=== PATIENT | female | born 1960 | race Hispanic/Latino ===

== ENCOUNTER → 2016-09-14 | Outpatient (REF) | payer OTHER ==
[2016-09-14 13:43] LABS: MEAN CORPUSCULAR HEMOGLOBIN 28.6 pg (27.0-33.0); MEAN CORPUSCULAR HGB CONC 33.2 g/dl (32.0-36.5); MEAN CORPUSCULAR VOLUME 86.2 fl (80.0-96.0); RED CELL DISTRIBUTION WIDTH 12.9 % (11.5-14.5); WHITE BLOOD COUNT 9.8 K/mm3 (4.0-10.0)
[2016-09-14 14:13] LABS: ALBUMIN 3.8 GM/DL (3.2-5.2); ALBUMIN/GLOBULIN RATIO 1.03 (1.00-1.93); ALKALINE PHOSPHATASE 134 U/L (45-117); ALT/SGPT 36 U/L (12-78); ANION GAP 9 MEQ/L (8-16); AST/SGOT 28 U/L (15-37); BILIRUBIN,TOTAL 0.5 MG/DL (0.2-1.0); BLOOD UREA NITROGEN 13 MG/DL (7-18); CALCIUM LEVEL 9.1 MG/DL (8.5-10.1); CARBON DIOXIDE LEVEL 29 MEQ/L (21-32); CHLORIDE LEVEL 100 MEQ/L (98-107); CHOLESTEROL LEVEL 187 MG/DL (<200); CREATININE FOR GFR 0.72 MG/DL (0.55-1.02); GLOMERULAR FILTRATION RATE > 60.0 (>51); GLUCOSE, FASTING 305 MG/DL (70-105); POTASSIUM SERUM 4.2 MEQ/L (3.5-5.1); SODIUM LEVEL 138 MEQ/L (136-145); TOTAL PROTEIN 7.5 GM/DL (6.4-8.2); TRIGLYCERIDES LEVEL 271 MG/DL (<150)
== END ==
LOC: M SFHCPLAZ 10:30
PROVIDERS: ATTEND Nurse Practitioner Adult Health
DX: Z00.00 Encounter for general adult medical examination without abnormal findings (principal); E11.21 Type 2 diabetes mellitus with diabetic nephropathy

== ENCOUNTER → 2016-09-29 | Outpatient (CLI) | payer OTHER ==
--- NOTE | 2016-10-05 08:06 | REPMRS ---
Patient History The patient states she had a clinical breast exam in 08/2016. Patient is postmenopausal. Family history of ovarian cancer in mother. Digital Woman Screen Mammo: September 29, 2016 - Exam #: [id number] Bilateral CC and MLO view(s) were taken. Technologist: Indiana Chin, Technologist Prior study comparison: 2014, digital bilateral screening mammo, performed at [facility]. FINDINGS: There are scattered fibroglandular densities. There has been no change in the appearance of the mammogram from the prior studies. There is a mild amount of scattered fibroglandular density which is fairly symmetric. There is no interval development of dominant mass, architectural distortion, or clustered microcalcification suggestive of malignancy. ASSESSMENT: BI-RADS/ACR category 1 mammogram. Negative. Recommendation Routine screening mammogram in 1 year (for women over age 40). This mammogram was interpreted with the aid of an FDA-approved computer-aided dectection system. Electronically Signed By: Merlin Keating MD 10/05/16 0895
== END ==
LOC: M WHC 10:05
PROVIDERS: ATTEND Nurse Practitioner Adult Health
DX: Z12.31 Encounter for screening mammogram for malignant neoplasm of breast (principal)

== ENCOUNTER → 2016-10-01 | Outpatient (CLI) | payer OTHER ==
--- NOTE | 2016-10-01 10:19 | REP ---
LUMBAR SPINE SERIES: Five views. HISTORY: Pain FINDINGS: Five views of the lumbar spine demonstrate an intrarenal calculus projecting at the lower pole left kidney 6 mm in diameter. Lumbar vertebral body heights are preserved. Alignment is normal. There is discogenic spurring anteriorly with disc space narrowing at L4-5 and to some degree in the upper lumbar and visualized lower thoracic levels. Pedicles and posterior elements are intact. There is no evidence of spondylolysis or spondylolisthesis. There is some facet joint osteoarthritic narrowing and hypertrophy at L5 S1 and L4-5 bilaterally. Mild SI joint sclerosis is seen. There is a subcortical cyst in the right superior acetabulum consistent with right hip arthritis. This cyst measures 2 cm. IMPRESSION: 1. Degenerative disc and osteoarthritic facet changes as described above. 2. Arthritis associated cyst right acetabulum just above the right hip. 3. 6 mm intrarenal stone left kidney. Signed by Naun Keating MD 10/01/2016 10:27 A
--- NOTE | 2016-10-01 11:51 | REP ---
RIGHT HIP SERIES: Two views. HISTORY: Pain. FINDINGS: AP and frog-leg views of the right hip show mild inferior femoral acetabular spurring consistent with osteoarthritis. There is greater trochanteric tendon insertion site spurring noted as well. The femoral head is smooth and rounded. Hip joint space is preserved. Periarticular soft tissues are unremarkable. IMPRESSION: Right hip joint osteoarthritis mild in degree. There is also tendon insertion site spurring on the greater trochanter. Signed by Naun Keating MD 10/01/2016 12:58 P
== END ==
LOC: M WUC 08:39
PROVIDERS: ATTEND Nurse Practitioner Adult Health
DX: M25.551 Pain in right hip (principal); M54.5 Low back pain

== ENCOUNTER → 2016-10-13 | Outpatient (CLI) | payer OTHER ==
--- NOTE | 2016-10-13 08:29 | REP ---
Clinical: Acute abdominal pain. Technique: Fay scale ultrasound using curved array transducer. Findings: Fatty infiltration of the liver is appreciated without focal hepatic lesions identified. Visualized portions of the pancreas are unremarkable. The gallbladder is normal without gallstones, wall thickening or pericholecystic fluid. No biliary ductal dilatation is appreciated, and the common bile duct measures 4.8 mm diameter. The right kidney is normal in reniform shape without hydronephrosis and measures 11.9 x 6.6 x 5.6 cm; incidental note is made of column of Yang. No ascites. Visualized portions of the abdominal aorta normal. Impression: Hepatosteatosis. Otherwise normal right upper quadrant ultrasound. Signed by Ace Valenzuela MD 10/13/2016 08:20 A
== END ==
LOC: M RAD 07:52
PROVIDERS: ATTEND Nurse Practitioner Adult Health
DX: K76.0 Fatty (change of) liver, not elsewhere classified (principal)

== ENCOUNTER → 2017-02-22 | Outpatient (REF) | payer OTHER ==
[2017-02-22 15:18] LABS: ALBUMIN 3.4 GM/DL (3.2-5.2); ALBUMIN/GLOBULIN RATIO 1.03 (1.00-1.93); ALKALINE PHOSPHATASE 88 U/L (45-117); ALT/SGPT 39 U/L (12-78); ANION GAP 9 MEQ/L (8-16); AST/SGOT 29 U/L (15-37); BILIRUBIN,TOTAL 0.3 MG/DL (0.2-1.0); BLOOD UREA NITROGEN 11 MG/DL (7-18); CALCIUM LEVEL 8.6 MG/DL (8.5-10.1); CARBON DIOXIDE LEVEL 28 MEQ/L (21-32); CHLORIDE LEVEL 103 MEQ/L (98-107); CHOLESTEROL LEVEL 184 MG/DL (<200); CREATININE FOR GFR 0.66 MG/DL (0.55-1.02); GLOMERULAR FILTRATION RATE > 60.0 (>51); GLUCOSE, FASTING 181 MG/DL (70-105); POTASSIUM SERUM 3.7 MEQ/L (3.5-5.1); SODIUM LEVEL 140 MEQ/L (136-145); TOTAL PROTEIN 6.7 GM/DL (6.4-8.2); TRIGLYCERIDES LEVEL 315 MG/DL (<150)
== END ==
LOC: M SFHCPLAZ 10:25
PROVIDERS: ATTEND Nurse Practitioner Adult Health
DX: E78.2 Mixed hyperlipidemia (principal); I10 Essential (primary) hypertension; E11.21 Type 2 diabetes mellitus with diabetic nephropathy

== ENCOUNTER → 2017-03-07 | Outpatient (CLI) | payer OTHER ==
--- NOTE | 2017-03-07 16:00 | REP ---
MRI BRAIN WITHOUT CONTRAST: HISTORY: Headache. Several punctate areas of increased signal intensity on T2-weighted images are present in the periventricular and subcortical white matter. This represents small vessel ischemic disease. There is no intraparenchymal hemorrhage, infarct, mass or midline shift. The ventricular system is normal in appearance. There is no extracerebral collection. The sinuses are clear. IMPRESSION: Minimal small vessel ischemic disease. Signed by Judson Monique MD 03/07/2017 04:05 P
== END ==
LOC: M PLARAD 14:43
PROVIDERS: ATTEND Nurse Practitioner Adult Health
DX: R51 Headache (principal); I67.82 Cerebral ischemia

== ENCOUNTER → 2017-03-10 | Outpatient (CLI) | payer OTHER ==
--- NOTE | 2017-03-25 01:23 | ECWPNPC ---
PATIENT NAME: XUAN MOON : 1960 GENDER: FEMALE VISIT DATE: 03/10/2017 DISCHARGE DATE: 03/10/17 1443 VISIT LOCKED DATE TIME: PHYSICIAN: ALLIE LANGLEY RESOURCE: ALLIE LANGLEY REASON FOR APPOINTMENT 1. RIGHT HIP PAIN HISTORY OF PRESENT ILLNESS FALL RISK SCREENING: SCREENING :NO FALLS IN THE PAST YEAR 56 YEAR OLD FEMALE PATIENT WITH HISTORY OF CHRONIC LOW BACK PAIN. PATIENT DESCRIBES THE PAIN ACHING, THROBBING, TENDER, SORE AND HAVING IT ALL THE TIME WITH A PAIN SCORE OF 8/10. PATIENT STATES THAT THE PAIN STARTED EARLY IN 2016 WITH NO TRAUMA BUT HAS GOTTEN PROGRESSIVELY WORSE. PATIENT STATES THAT SHE IS UNABLE TO SIT OR STAND FOR LONG PERIODS OF TIME DUE TO THE PAIN INCREASING. PATIENT REPORTS TRYING NORCO WHICH MADE HER SICK, TRAMADOL DID NOT AID IN PAIN RELIEF, DICLOFENAC GAVE HER FACIAL EDEMA, AND BACLOFEN MADE HER FEEL LOOPY. PATIENT STATES SHE HAS NOT TRIED PHYSICAL THERAPY FOR HER HIP AT THIS TIME. PATIENT DENIES UNEXPLAINABLE WEIGHT LOSS, FEVER, CHILLS, NEW CHANGES ON HER URINARY OR BOWEL CONTROL. PAIN SCREENING: PATIENT HAS A COMPLAINT OF ACUTE OR CHRONIC PAIN :YES CURRENT MEDICATIONS TAKING PEN NEEDLES 31G X 8 MM MISCELLANEOUS 1 NEEDLE SUBCUTANEOUSLY DAILY TO USE WITH TOUJEO DX:E11.9 TAKING ATORVASTATIN CALCIUM 40 MG TABLET 1 TABLET ORALLY ONCE A DAY TAKING LISINOPRIL 20 MG TABLET 1 TABLET ORALLY ONCE A DAY TAKING ANORO ELLIPTA 62.5-25 MCG/INH AEROSOL POWDER BREATH ACTIVATED 1 PUFF INHALATION ONCE A DAY TAKING TOUJEO SOLOSTAR 300 UNIT/ML SOLUTION PEN-INJECTOR 44 UNITS SUBCUTANEOUS DAILY TAKING METFORMIN HCL 1000 MG TABLET 1 TABLET WITH MEALS ORALLY TWICE A DAY TAKING ANORO ELLIPTA 62.5-25MCG INHALATION INHALE ONE PUFF BY MOUTH EVERY DAY TAKING TOUJEO SOLOSTAR 300 UNITS SYRINGE INJECT 34 UNITS SUBCUTANEOUSLY DAILY TAKING PROAIR HFA 108 (90 BASE) MCG/ACT AEROSOL SOLUTION 2 PUFFS NEEDED INHALATION EVERY 4 HRS TAKING NEURONTIN 300 MG CAPSULE 1 CAPSULE ORALLY 1 TAB AT BEDTIME X 10DAYS THEN INCREASE TO ONE TAB IN AM AND ONE TAB IN PM TAKING BLOOD GLUCOSE TEST - STRIP TRUE TEST IN VITRO DX:E11.21 DAILY NOT-TAKING MOBIC 15 MG TABLET TAKE ONE TABLET BY MOUTH EVERY DAY MEDICATION LIST REVIEWED AND RECONCILED WITH THE PATIENT PAST MEDICAL HISTORY DIABETES MELLITUS TYPE 2 NEUROPATHY HYPERTENSION HYPERCHOLESTEROL COPD HX TOBACCO ABUSE FATTY LIVER PER ULTRASOUND 10/13/16 6 MM INTRARENAL KIDNEY STONE, PER ULTRASOUND 10/13/16 REFUSES REFERRAL TO UROLOGY 09/14/16, 02/22/17- REFUSES COLONOSCOPY RIGHT KIDNEY COLUMN OF BERLIN NOTED ON XRAY 10/13/16 ALLERGIES PLASTIC: RASH: ALLERGY SURGICAL HISTORY APPENDECTOMY AGE 18 2000 FAMILY HISTORY FATHER: ALIVE 78 YRS, DM2, HEART PROBLEMS TRIPLE BYPASS, DEMENTIA MOTHER: 70 YRS, UTERINE CANCER- HAD OPERATION, FELL, BLEEDING OCCURRED HAD METS PASSED HTN, DIAGNOSED WITH CANCER 6 SISTERS OK2 BROTHERS OK3 CHILDREN 2 BOYS 1 DAUGHTER. SOCIAL HISTORY GENERAL: TOBACCO USE ARE YOU A:FORMER SMOKER HOW LONG HAS IT BEEN SINCE YOU LAST SMOKED?1-5 YEARS BMI CARE GOAL FOLLOW-UP ABOVE NORMAL BMI FOLLOW-UPDIETARY MANAGEMENT EDUCATION, GUIDANCE, AND COUNSELING ALCOHOL SCREENING DID YOU HAVE A DRINK CONTAINING ALCOHOL IN THE PAST YEAR?NO POINTS0 INTERPRETATIONNEGATIVE RECREATIONAL DRUG USE DRUG USE?NO PATIENT DENIES ABUSE OR MISSUSED OF ANY MEDICATION. PATIENT DENIES USE OF ANY ILLEGAL SUBSTANCE INCLUDING MARIJUANA OR COCAINE. CAFFEINE CAFFEINE USE?NO SEXUAL HX HAD SEX IN THE LAST 12 MONTHS (VAGINAL, ORAL, OR ANAL)?NO HAVE YOU EVER HAD AN STD?NO HIV / HEP-C SCREENING HIV TEST OFFERED TO PATIENT:YES DATE OFFERED:09/14/2016 TEST ACCEPTED:NO REASON:PATIENT DECLINED HEP-C TEST OFFERED TO PATIENT:YES DATE OFFERED:09/14/2016 TEST ACCEPTED:NO REASON:PATIENT DECLINED OCCUPATION: UNEMPLOYED WORKED IN [employer]. DIET: NO CONCENTRATED SWEETS., NO ADDED SALT. EXERCISE: NO REGULAR EXERCISE. MARITAL STATUS: -14 MONTHS. OTHERS AT HOME: 1 SON. PETS: 1 DOG. 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 NO HAVE YOU BEEN SICK IN THE LAST WEEK (COLD, COUGH, FEVER, FLU, ETC) NO DO YOU TAKE ANY BLOOD THINNERS? NO DO YOU HAVE ANY RASHES OR OPEN SORES? NO ANY CHANGE IN BOWEL OR BLADDER CONTROL? PT STATES THAT SHE VOIDS MORE THAN USUAL ARE YOU ALLERGIC TO SHELLFISH OR IV DYE? PT STATES THAT SHE DOES NOT TOLERATE IV DYE, HYPOTENSIVE ARE YOU DIABETIC? YES DO YOU HAVE A PACEMAKER OR DEFIBRILLATOR? NO ANY NEW PROBLEMS WITH MEDICINES OR NEW ALLERGIES NO ANY NEW PATTERNS OF PAIN OR NUMBNESS? PT STATES THAT SHE HAS CONSTANT PAIN AND SEEMS TO BE GETTING MORE INTENSE ANY CHANGE IN YOUR MEDICAL CONDITION? PT STATES THAT SHE HAD AN EPISODE OF CHEST PAIN LESS THAN A WEEK AGO HAVE YOU FALLEN IN THE LAST 6 MONTHS? NO DO YOU USE ANY TYPE OF TOBACCO (SMOKE, SMOKELESS, CHEW, ETC.) NO ARE YOU ABUSED, NEGLECTED, OR IN AN UNSAFE ENVIRONMENT? NO DO YOU HAVE THOUGHTS OF HURTING YOURSELF OR SOMEONE ELSE? NO DO YOU NEED ANY PRESCRIPTIONS? UNSURE PAIN CLINIC PFS, CLERGY, PUBLIC HEALTH REFERRALS WAS THE PROVIDER NOTIFIED OF ANY PERTINENT INFO?YES HAS THE PATIENT BEEN EDUCATED REGARDING HIS/HER PLAN OF CARE?YES PLEASE DOCUMENT ANY ADDTIONAL DETAILS. NEW PATIENT CONSULT HAS THE PATIENT BEEN EDUCATED REGARDING PAIN, THE RISK FOR PAIN, THE IMPORTANCE OF EFFECTIVE PAIN MANAGEMENT, AND THE PAIN ASSESSMENT PROCESS?YES REVIEWED BY: FERMIN. TRAVEL OUTSIDE US: NO. HOUSING: RENTS APARTMENT WITH DAUGHTER AND SON. : YES. DOMESTIC VIOLENCE NONE. MOVED TO [place] 14 MONTHS AGO WHEN FROM [facility]. JAKI, FOLLOWED WITH FOR SEVERAL YEARS IN [facility]. REVIEW OF SYSTEMS REVIEWED BY: PROVIDER: ALLIE LANGLEY MD . CONSTITUTIONAL: ANY CHANGE IN YOUR MEDICAL CONDITION? YES . CHILLS NO . FEVER NO . INFECTION: DO YOU HAVE NEW INFECTIONS? NO . DO YOU HAVE HISTORY OF MRSA? NO . MUSCULOSKELETAL: ANY NEW PATTERNS OF PAIN OR NUMBNESS? YES, . SYTEMIC LUPUS NO . GASTROENTEROLOGY: ANY NEW CHANGE IN BOWEL CONTROL? NO . BARRETTS ESOPHAGUS NO . CIRRHOSIS NO . HEPATITIS NO . LIVER FAILURE NO . ACID REFLUX NO . UNEXPLAINED WEIGHT LOSS NO . GENITOURINARY: ANY NEW CHANGE IN BLADDER CONTROL? NO . IS THERE A CHANCE YOU COULD BE ? NO . HEMATOLOGY/LYMPH: DO YOU TAKE ANY BLOOD THINNERS? (FOR EXAMPLE- COUMADIN, PLAVIX, AGGRENOX, PLATEL, PRADAXA, OR XARELTO) NO . WHEN WAS YOUR LAST DOSE? DATE: TIME: . LOW PLATELET COUNT NO . SICKLE CELL DISEASE NO . VON WILLIEBRANDS NO . FACTOR V LEIDEN NO . THALLASEMIA NO . ANEMIA NO . EASY BRUISING NO . NEUROLOGY: HAVE YOU FALLEN IN THE PAST 6 MONTHS? NO . ANY NEW EXTREMITY NUMBNESS OR WEAKNESS? NO . HEAD INJURY NO . DEMENTIA NO . CEREBRAL PALSY NO . MULTIPLE SCLEROSIS NO . DIZZINESS NO . HEADACHE NO . STROKES NO . VERTIGO NO . CARDIOLOGY: DO YOU HAVE A PACEMAKER OR DEFIBRILLATOR? NO . ANGINA NO . HEART ATTACK NO . HEART SURGERY NO . CONGESTIVE HEART FAILURE/FLUID OVERLOAD NO . CHEST PAIN PATIENT ADMITS THAT SHE EXPERIENCED AN EPISODE OF CHEST PAIN ON TUESDAY, LASTED FOR 6 HOURS, PT TOOK ANTACIDS TO TRY AN RELIEVE PAIN. PAIN DID NOT RESOLVE UNTIL PAIN RESTED IN BED, PT STATES THAT SHE HAS AN APPT WITH PCP ON February . HIGH BLOOD PRESSURE NO . IRREGULAR HEART BEAT NO . RESPIRATORY: HAVE YOU BEEN SICK IN THE PAST WEEK? NO . FEVER NO . FLU LIKE SYMPTOMS? NO . CPAP NO . BYPAP NO . ASTHMA NO . EMPHYSEMA NO . CHRONIC LUNG DISEASES NO . SHORTNESS OF BREATH ON EXERTION NO . COUGH NO . SNORING NO . INTEGUMENTARY: DO YOU HAVE ANY RASHES OR OPEN SORES? NO . ALLERGIC/IMMUNO: ARE YOU ALLERGIC TO SHELLFISH OR IV DYE? NO . ANY NEW ALLERGIES? NO . PSYCHIATRIC: DO YOU HAVE THOUGHTS OF HURTING YOURSELF OR SOMEONE ELSE? NO . ARE YOU ABUSED, NEGLECTED, OR IN AN UNSAFE ENVIRONMENT? NO . ENDOCRINOLOGY: ARE YOU DIABETIC? YES. . THYROID DISORDER NO . OTHER: DO YOU NEED ANY PRESCRIPTIONS? NO . IF YES, PLEASE LIST: ____ . ANY NEW PROBLEMS WITH YOUR MEDICATIONS? NO . WHEN DID YOU LAST EAT? ____ . WHEN DID YOU LAST DRINK? ____ . WHAT DID YOU LAST DRINK? ____ . NAME OF PERSON DRIVING YOU HOME? ____ . DO YOU HAVE ANY OTHER QUESTIONS OR CONCERNS YES, THE PAIN IS GETTING BAD . VITAL SIGNS WT 252.4 LBS, HT 5'2", BMI 46.16 INDEX, BP 175/87 MM HG, HR 82 /MIN, RR 16 /MIN, TEMP 98.6 F, OXYGEN SAT % 94%, BLOOD GLUCOSE LEVEL 299, SAFE IN ENV? (Y/N) Y, NA INITIALS SC 14:08, REVIEWED BY: FERMIN. EXAMINATION : PATIENT IS ALERT O X 3 AND COOPERATIVE. TENDERNESS IN THE LOWER BACK AND HIP AREA. ANTALGIC GAIT. LIMPING FROM THE RIGHT LEG. MRI OF THE LUMBAR SPINE DONE ON 11/11/16 SHOWS POST LAMINECTOMY CHANGES AND FACET DEGENERATIVE CHANGES. ASSESSMENTS MYALGIA - M79.1 (PRIMARY) DIABETIC POLYNEUROPATHY ASSOCIATED WITH TYPE 2 DIABETES MELLITUS - E11.42 TREATMENT MYALGIA NOTES: WE DISCUSSED SEVERAL ISSUES WITH MRS. MOON'S PAIN MANAGEMENT CASE. AT TIME I WOULD LIKE THE PATIENT TO INCREASE HER GABAPENTIN TO 3 TIMES A DAY TO SEE IF IT WILL AID IN NEUROPATHIC PAIN RELIEF. I WOULD ALSO LIKE THE PATIENT TO START USING CYMBALTA FOR THE SOMATIC PAIN. PATIENT WAS ADVISED TO STOP THE MEDICATION IF SHE HAS ANY ADVERSE SIDE EFFECTS TO THE MEDICATION. WE DISCUSSED SEVERAL INTERVENTIONS THAT MAY AID THE PATIENT IN PAIN RELIEF AND AT THIS TIME THE PATIENT WOULD LIKE TO PROCEED WITH MEDICATION MANAGEMENT. PATIENT WILL RETURN IN 3 WEEKS TO DISCUSS HOW THE MEDICATIONS WORKED FOR HER. INSTRUCTIONS WERE GIVEN, QUESTIONS WERE ANSWERED, PATIENT REPORTS UNDERSTANDING AND AGREES WITH THE PLAN. I, VENKATESH SNOW, DOCUMENTED THE ABOVE INFORMATION ACTING A SCRIBE FOR DR. LANGLEY. I HAVE REVIEWED THE ABOVE DOCUMENT, WRITTEN BY VENKATESH NUÑEZ AND I VERIFY THAT IT IS ACCURATE. DIABETIC POLYNEUROPATHY ASSOCIATED WITH TYPE 2 DIABETES MELLITUS REFILL NEURONTIN CAPSULE, 300 MG, 1 CAPSULE, ORALLY FOR PAIN, THREE TIMES A DAY, 30 DAY(S), 90 CAPSULE, REFILLS 1 OTHERS START CYMBALTA CAPSULE DELAYED RELEASE PARTICLES, 30 MG, 1 CAPSULE, ORALLY WITH FOOD, ONCE A DAY, 30 DAY(S), 30 CAPSULE, REFILLS 1 PROCEDURE CODES FA211 ESTABILISHED PATIENT [facility] FACILITY CHARGE G8427 DOC MEDS VERIFIED W/PT OR RE G8227 PAIN ASSESS POS TOOL F/U PLAN DOC DISPOSITION & COMMUNICATION FOLLOW UP 3 WEEKS ELECTRONICALLY SIGNED BY ALLIE LANGLEY MD ON 03/24/2017 AT 01:29 PM EDT DISCLAIMER : THIS IS A VISIT SUMMARY EXTRACTED FROM THE [employer] CHART. IT IS NOT A COPY OF THE [employer] PROGRESS NOTE. CHANO
== END ==
LOC: M PAIN 13:45
PROVIDERS: ATTEND Anesthesiology
DX: G89.29 Other chronic pain (principal); M79.1 Myalgia; E11.42 Type 2 diabetes mellitus with diabetic polyneuropathy; M54.5 Low back pain; I10 Essential (primary) hypertension; E78.00 Pure hypercholesterolemia, unspecified; J44.9 Chronic obstructive pulmonary disease, unspecified; K76.0 Fatty (change of) liver, not elsewhere classified; Z79.4 Long term (current) use of insulin; Z79.899 Other long term (current) drug therapy; Z87.891 Personal history of nicotine dependence; Z91.048 Other nonmedicinal substance allergy status

== ENCOUNTER → 2017-03-31 | Outpatient (CLI) | payer OTHER ==
--- NOTE | 2017-04-20 02:15 | ECWPNPC ---
PATIENT NAME: XUAN MOON : 1960 GENDER: FEMALE VISIT DATE: 03/31/2017 DISCHARGE DATE: 03/31/17 1333 VISIT LOCKED DATE TIME: PHYSICIAN: JUMANA DONALD RESOURCE: JUMANA DONALD REASON FOR APPOINTMENT 1. RIGHT HIP HISTORY OF PRESENT ILLNESS HISTORY OF PRESENT ILLNESS: HERE FOR F/U OF CHRONIC LOW BACK PAIN AFTER INITIAL VISIT 3 WEEKS AGO.SHE WAS STARTED ON CYMBALTA 30MG DAILY AND GABAPENTIN WAS INCREASED.STATES PAIN AND SYMPTOMS OF NEUROPATHY HAVE IMPROVED.RATINGPAIN VAS 4/10.WORSE AREA OF PAIN IS RIGHT LOW BACK WITH RADIATION INTO RIGHT THIGH.PAIN IS AGGREVATED BY BENDING.DID PT 2 MONTHS AGO AND THIS MADE IT WORSE.HAD LUMBOSACRAL XRAY 10-01-16 AND THIS IS REVIEWED.HAVING RIGHT LEG RADICULAR SYMPTOMS THAT HAVE GOTTEN WORSE AND WE WOULD NEED MRI L/S SPINE TO EVALUATE. PAIN THE PATIENT DESCRIBES THE PAIN... FALL RISK SCREENING: SCREENING :NO FALLS IN THE PAST YEAR CURRENT MEDICATIONS TAKING PEN NEEDLES 31G X 8 MM MISCELLANEOUS 1 NEEDLE SUBCUTANEOUSLY DAILY TO USE WITH TOUJEO DX:E11.9 TAKING ATORVASTATIN CALCIUM 40 MG TABLET 1 TABLET ORALLY ONCE A DAY TAKING ANORO ELLIPTA 62.5-25 MCG/INH AEROSOL POWDER BREATH ACTIVATED 1 PUFF INHALATION ONCE A DAY TAKING TOUJEO SOLOSTAR 300 UNIT/ML SOLUTION PEN-INJECTOR 44 UNITS SUBCUTANEOUS DAILY TAKING METFORMIN HCL 1000 MG TABLET 1 TABLET WITH MEALS ORALLY TWICE A DAY TAKING BLOOD GLUCOSE TEST - STRIP TRUE TEST IN VITRO DX:E11.21 DAILY TAKING CYMBALTA 30 MG CAPSULE DELAYED RELEASE PARTICLES 1 CAPSULE ORALLY WITH FOOD ONCE A DAY TAKING NEURONTIN 300 MG CAPSULE 1 CAPSULE ORALLY FOR PAIN THREE TIMES A DAY TAKING LISINOPRIL 20 MG TABLET 1 TABLET ORALLY ONCE A DAY TAKING MOBIC 15 MG TABLET TAKE ONE TABLET BY MOUTH EVERY DAY TAKING PROAIR HFA 108 (90 BASE) MCG/ACT AEROSOL SOLUTION 2 PUFFS NEEDED INHALATION EVERY 4 HRS NOT-TAKING ANORO ELLIPTA 62.5-25MCG INHALATION INHALE ONE PUFF BY MOUTH EVERY DAY NOT-TAKING TOUJEO SOLOSTAR 300 UNITS SYRINGE INJECT 34 UNITS SUBCUTANEOUSLY DAILY MEDICATION LIST REVIEWED AND RECONCILED WITH THE PATIENT PAST MEDICAL HISTORY DIABETES MELLITUS TYPE 2 NEUROPATHY HYPERTENSION HYPERCHOLESTEROL COPD HX TOBACCO ABUSE FATTY LIVER PER ULTRASOUND 5/24/17 6 MM INTRARENAL KIDNEY STONE, PER ULTRASOUND 10/13/16 REFUSES REFERRAL TO UROLOGY 09/14/16, 02/22/17- REFUSES COLONOSCOPY RIGHT KIDNEY COLUMN OF BERLIN NOTED ON XRAY 10/13/16 ALLERGIES PLASTIC: RASH: ALLERGY SURGICAL HISTORY APPENDECTOMY AGE 18 2000 SOCIAL HISTORY GENERAL: TOBACCO USE ARE YOU A:FORMER SMOKER HOW LONG HAS IT BEEN SINCE YOU LAST SMOKED?1-5 YEARS BMI CARE GOAL FOLLOW-UP ABOVE NORMAL BMI FOLLOW-UPDIETARY MANAGEMENT EDUCATION, GUIDANCE, AND COUNSELING ALCOHOL SCREENING DID YOU HAVE A DRINK CONTAINING ALCOHOL IN THE PAST YEAR?NO POINTS0 INTERPRETATIONNEGATIVE RECREATIONAL DRUG USE DRUG USE?NO PATIENT DENIES ABUSE OR MISSUSED OF ANY MEDICATION. PATIENT DENIES USE OF ANY ILLEGAL SUBSTANCE INCLUDING MARIJUANA OR COCAINE. CAFFEINE CAFFEINE USE?NO SEXUAL HX HAD SEX IN THE LAST 12 MONTHS (VAGINAL, ORAL, OR ANAL)?NO HAVE YOU EVER HAD AN STD?NO HIV / HEP-C SCREENING HIV TEST OFFERED TO PATIENT:YES DATE OFFERED:09/14/2016 TEST ACCEPTED:NO REASON:PATIENT DECLINED HEP-C TEST OFFERED TO PATIENT:YES DATE OFFERED:09/14/2016 TEST ACCEPTED:NO REASON:PATIENT DECLINED OCCUPATION: UNEMPLOYED WORKED IN [employer]. DIET: NO CONCENTRATED SWEETS., NO ADDED SALT. EXERCISE: NO REGULAR EXERCISE. MARITAL STATUS: -14 MONTHS. OTHERS AT HOME: 1 SON. PETS: 1 DOG. 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 NO HAVE YOU BEEN SICK IN THE LAST WEEK (COLD, COUGH, FEVER, FLU, ETC) NO DO YOU TAKE ANY BLOOD THINNERS? NO DO YOU HAVE ANY RASHES OR OPEN SORES? NO ANY CHANGE IN BOWEL OR BLADDER CONTROL? PT STATES THAT SHE VOIDS MORE THAN USUAL ARE YOU ALLERGIC TO SHELLFISH OR IV DYE? PT STATES THAT SHE DOES NOT TOLERATE IV DYE, HYPOTENSIVE ARE YOU DIABETIC? YES DO YOU HAVE A PACEMAKER OR DEFIBRILLATOR? NO ANY NEW PROBLEMS WITH MEDICINES OR NEW ALLERGIES NO ANY NEW PATTERNS OF PAIN OR NUMBNESS? PT STATES THAT SHE HAS CONSTANT PAIN AND SEEMS TO BE GETTING MORE INTENSE ANY CHANGE IN YOUR MEDICAL CONDITION? PT STATES THAT SHE HAD AN EPISODE OF CHEST PAIN LESS THAN A WEEK AGO HAVE YOU FALLEN IN THE LAST 6 MONTHS? NO DO YOU USE ANY TYPE OF TOBACCO (SMOKE, SMOKELESS, CHEW, ETC.) NO ARE YOU ABUSED, NEGLECTED, OR IN AN UNSAFE ENVIRONMENT? NO DO YOU HAVE THOUGHTS OF HURTING YOURSELF OR SOMEONE ELSE? NO DO YOU NEED ANY PRESCRIPTIONS? UNSURE PAIN CLINIC PFS, CLERGY, PUBLIC HEALTH REFERRALS WAS THE PROVIDER NOTIFIED OF ANY PERTINENT INFO?YES HAS THE PATIENT BEEN EDUCATED REGARDING HIS/HER PLAN OF CARE?YES PLEASE DOCUMENT ANY ADDTIONAL DETAILS. NEW PATIENT CONSULT HAS THE PATIENT BEEN EDUCATED REGARDING PAIN, THE RISK FOR PAIN, THE IMPORTANCE OF EFFECTIVE PAIN MANAGEMENT, AND THE PAIN ASSESSMENT PROCESS?YES REVIEWED BY: FERMIN. ADVANCE DIRECTIVES HEALTH CARE PROXY?NO DO YOU HAVE A DNR?NO LIVING WILL?NO POWER OF [employer] SYSTEMS INTEGRATION SPECIALIST?NO TRAVEL OUTSIDE US: NO. HOUSING: RENTS APARTMENT WITH DAUGHTER AND SON. : YES. DOMESTIC VIOLENCE NONE. MOVED TO [place] 14 MONTHS AGO WHEN FROM [facility]. JAKI, FOLLOWED WITH FOR SEVERAL YEARS IN [facility]. REVIEW OF SYSTEMS REVIEWED BY: PROVIDER: JUMANA MONSON . CONSTITUTIONAL: ANY CHANGE IN YOUR MEDICAL CONDITION? NO . CHILLS NO . FEVER NO . INFECTION: DO YOU HAVE NEW INFECTIONS? NO . DO YOU HAVE HISTORY OF MRSA? NO . MUSCULOSKELETAL: ANY NEW PATTERNS OF PAIN OR NUMBNESS? NO, PT STATES THE CHANGE IN MEDICINE REGIMINE MADE AT LAST VISIT HAS IMPROVED PAIN. PT STATES SHE HAS TO WATCH WHAT SHE DOES IN ACTIVITES TO NOT OVER DO THINGS OR THE PAIN INCREASES . GASTROENTEROLOGY: ANY NEW CHANGE IN BOWEL CONTROL? NO . GENITOURINARY: ANY NEW CHANGE IN BLADDER CONTROL? NO . IS THERE A CHANCE YOU COULD BE ? NO . HEMATOLOGY/LYMPH: DO YOU TAKE ANY BLOOD THINNERS? (FOR EXAMPLE- COUMADIN, PLAVIX, AGGRENOX, PLATEL, PRADAXA, OR XARELTO) NO . WHEN WAS YOUR LAST DOSE? DATE: TIME: . NEUROLOGY: HAVE YOU FALLEN IN THE PAST 6 MONTHS? NO . ANY NEW EXTREMITY NUMBNESS OR WEAKNESS? NO . CARDIOLOGY: DO YOU HAVE A PACEMAKER OR DEFIBRILLATOR? NO . RESPIRATORY: HAVE YOU BEEN SICK IN THE PAST WEEK? NO . FEVER NO . FLU LIKE SYMPTOMS? NO . COUGH NO . INTEGUMENTARY: DO YOU HAVE ANY RASHES OR OPEN SORES? NO . ALLERGIC/IMMUNO: ARE YOU ALLERGIC TO SHELLFISH OR IV DYE? NO . ANY NEW ALLERGIES? NO . PSYCHIATRIC: DO YOU HAVE THOUGHTS OF HURTING YOURSELF OR SOMEONE ELSE? NO . ARE YOU ABUSED, NEGLECTED, OR IN AN UNSAFE ENVIRONMENT? NO . ENDOCRINOLOGY: ARE YOU DIABETIC? YES . OTHER: DO YOU NEED ANY PRESCRIPTIONS? NO . IF YES, PLEASE LIST: ____ . ANY NEW PROBLEMS WITH YOUR MEDICATIONS? NO . WHEN DID YOU LAST EAT? ____ . WHEN DID YOU LAST DRINK? ____ . WHAT DID YOU LAST DRINK? ____ . NAME OF PERSON DRIVING YOU HOME? ____ . DO YOU HAVE ANY OTHER QUESTIONS OR CONCERNS NO . VITAL SIGNS WT 250 LBS, HT 5'2", BMI 45.72 INDEX, BP 186/93 MM HG, HR 87 /MIN, RR 16 /MIN, TEMP 98.4 F, OXYGEN SAT % 94%, NA INITIALS SC 12:56, REVIEWED BY: NARAYAN DONALD AWARE OF B/P. EM. EXAMINATION GENERAL EXAMINATION: GENERAL APPEARANCE:AWAKE,ALERT,NO ACUTE DISTRESS. LUNGS:LUNG SILVA ARE CLEAR TO AUSCULTATION BILATERALLY. GOOD MOVEMENT OF AIR. HEART:S1, S2 IN A REGULAR RATE AND RHYTHM. NO SIGNIFICANT MURMURS, RUBS OR GALLOPS NOTED. MUSCULOSKELETAL:MUSCLE STRENGTH TESTING 5/5 BILATERAL LOWER EXTREMITIES. LUMBAR SACRAL SPINEPALPATION: + FOR PAIN OVER L/S SPINE. + FOR PAIN OVER L/S PARSPINAL -RIGHT, TRIGGER POINTS:, ELICITED WITH PALPATION OVER RIGHT LUMBAR PARAVERTEBRAL MUSCLES. SPECIFIC RIGHT SIJ TENDERNESS. 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 WITHOUT [id number] PROCEDURE CODES FA211 ESTABILISHED PATIENT [facility] CHARGE DISPOSITION & COMMUNICATION FOLLOW UP 4 WEEKS ELECTRONICALLY SIGNED BY IONA FAJARDO ON 04/18/2017 AT 07:46 PM EST DISCLAIMER : THIS IS A VISIT SUMMARY EXTRACTED FROM THE [employer] media CHART. IT IS NOT A COPY OF THE [employer] PROGRESS NOTE. KEVIND
== END ==
LOC: M PAIN 13:15
PROVIDERS: ATTEND Nurse Practitioner Family
DX: G89.29 Other chronic pain (principal); M54.40 Lumbago with sciatica, unspecified side; M53.3 Sacrococcygeal disorders, not elsewhere classified; E11.42 Type 2 diabetes mellitus with diabetic polyneuropathy; I10 Essential (primary) hypertension; E78.2 Mixed hyperlipidemia; J44.9 Chronic obstructive pulmonary disease, unspecified; K76.0 Fatty (change of) liver, not elsewhere classified; L23.89 Allergic contact dermatitis due to other agents; Z79.51 Long term (current) use of inhaled steroids; Z79.4 Long term (current) use of insulin; Z79.1 Long term (current) use of non-steroidal anti-inflammatories (NSAID); Z79.899 Other long term (current) drug therapy; Z87.891 Personal history of nicotine dependence

== ENCOUNTER → 2017-04-28 | Outpatient (CLI) | payer OTHER | LOC: M PAIN 10:30 | DX: M54.40 Lumbago with sciatica, unspecified side (principal); M53.3 Sacrococcygeal disorders, not elsewhere classified; E11.42 Type 2 diabetes mellitus with diabetic polyneuropathy; I10 Essential (primary) hypertension; J44.9 Chronic obstructive pulmonary disease, unspecified; N20.0 Calculus of kidney; L23.89 Allergic contact dermatitis due to other agents; Z79.4 Long term (current) use of insulin; Z79.51 Long term (current) use of inhaled steroids; Z79.899 Other long term (current) drug therapy; Z87.891 Personal history of nicotine dependence | CPT/HCPCS: G0463 ==

== ENCOUNTER → 2017-06-24 | Outpatient (REF) | payer OTHER ==
[2017-06-24 12:38] LABS: ALBUMIN 4.3 GM/DL (3.2-5.2); ALBUMIN/GLOBULIN RATIO 1.16 (1.00-1.93); ALKALINE PHOSPHATASE 95 U/L (45-117); ALT/SGPT 65 U/L (12-78); ANION GAP 9 MEQ/L (8-16); AST/SGOT 56 U/L (7-37); BILIRUBIN,TOTAL 0.5 MG/DL (0.2-1.0); BLOOD UREA NITROGEN 11 MG/DL (7-18); CALCIUM LEVEL 9.3 MG/DL (8.5-10.1); CARBON DIOXIDE LEVEL 28 MEQ/L (21-32); CHLORIDE LEVEL 100 MEQ/L (98-107); CHOLESTEROL LEVEL 196 MG/DL (<200); CHOLESTEROL RISK RATIO 5.297 (<5); CREATININE FOR GFR 0.68 MG/DL (0.55-1.30); GLOMERULAR FILTRATION RATE > 60.0 (>51); GLUCOSE, FASTING 209 MG/DL (70-100); HDL CHOLESTEROL 37 MG/DL (>40); LDL CHOLESTEROL 121.2 MG/DL (<100); NON-HDL-C 159 MG/DL; POTASSIUM SERUM 4.3 MEQ/L (3.5-5.1); SODIUM LEVEL 137 MEQ/L (136-145); TRIGLYCERIDES LEVEL 189 MG/DL (<150)
[2017-06-24 12:48] LABS: CREATININE, URINE 88.5 MG/DL; MALB URINE SIEMENS 17.2 MG/L; MAU/CREAT RATIO 19.4 MCG/MG (0.0-30.0)
[2017-06-24 14:55] LABS: ESTIMATED AVERAGE GLUCOSE 240 MG/DL (60-110)
== END ==
LOC: M SFHCPLAZ 09:41
DX: E11.21 Type 2 diabetes mellitus with diabetic nephropathy (principal); E78.2 Mixed hyperlipidemia
CPT/HCPCS: 83036

== ENCOUNTER → 2017-07-20 | Outpatient (CLI) | payer OTHER | LOC: M PAIN 10:00 | DX: E11.42 Type 2 diabetes mellitus with diabetic polyneuropathy (principal); M54.40 Lumbago with sciatica, unspecified side; M53.3 Sacrococcygeal disorders, not elsewhere classified; G89.29 Other chronic pain; E11.9 Type 2 diabetes mellitus without complications; I10 Essential (primary) hypertension; J44.9 Chronic obstructive pulmonary disease, unspecified; E78.5 Hyperlipidemia, unspecified; Z79.4 Long term (current) use of insulin; Z79.899 Other long term (current) drug therapy; Z87.891 Personal history of nicotine dependence; Z91.041 Radiographic dye allergy status; Z91.048 Other nonmedicinal substance allergy status | CPT/HCPCS: G0463 ==

== ENCOUNTER 2017-09-19 10:21 | Emergency (ER) | payer OTHER ==
[2017-09-19] MEDS: KETOROLAC 60 MG/2 ML VIAL (J1885) IM (13:00)
== END 2017-09-19 13:19 | disposition home or self-care (01) ==
LOC: M ED 10:21
DX: M54.31 Sciatica, right side (principal); M51.26 Other intervertebral disc displacement, lumbar region; M51.24 Other intervertebral disc displacement, thoracic region; M62.830 Muscle spasm of back; E11.9 Type 2 diabetes mellitus without complications; I10 Essential (primary) hypertension; E78.00 Pure hypercholesterolemia, unspecified; J44.9 Chronic obstructive pulmonary disease, unspecified; J45.909 Unspecified asthma, uncomplicated; Z79.899 Other long term (current) drug therapy; Z79.84 Long term (current) use of oral hypoglycemic drugs
CPT/HCPCS: J1885

== ENCOUNTER → 2017-10-05 | Outpatient (CLI) | payer OTHER | LOC: M PAIN 10:30 | DX: G89.29 Other chronic pain (principal); E11.42 Type 2 diabetes mellitus with diabetic polyneuropathy; M54.40 Lumbago with sciatica, unspecified side; M53.3 Sacrococcygeal disorders, not elsewhere classified; I10 Essential (primary) hypertension; E78.00 Pure hypercholesterolemia, unspecified; J44.9 Chronic obstructive pulmonary disease, unspecified; K76.0 Fatty (change of) liver, not elsewhere classified; Z87.891 Personal history of nicotine dependence; Z79.4 Long term (current) use of insulin; Z79.899 Other long term (current) drug therapy; Z87.442 Personal history of urinary calculi; Z91.048 Other nonmedicinal substance allergy status | CPT/HCPCS: G0463 ==

== ENCOUNTER → 2017-10-19 | Outpatient (CLI) | payer OTHER ==
[~2017-10-19] MED LIST: BUPIVACAINE HCL 0.25% 10 ML VIAL As Ordered; BUPIVACAINE HCL 0.25% 30 ML VIAL As Ordered; TRIAMCINOLONE ACETONIDE SUSP 40 MG/ML VIAL (J3301) As Ordered
== END ==
LOC: M PAIN 11:15
DX: G89.29 Other chronic pain (principal); M79.1 Myalgia; M54.5 Low back pain
CPT/HCPCS: J3301

== ENCOUNTER → 2017-12-12 | Outpatient (REF) | payer OTHER ==
[2017-12-12 14:02] LABS: ALBUMIN 3.8 GM/DL (3.2-5.2); ALBUMIN/GLOBULIN RATIO 0.97 (1.00-1.93); ALKALINE PHOSPHATASE 80 U/L (45-117); ALT/SGPT 41 U/L (12-78); ANION GAP 11 MEQ/L (8-16); AST/SGOT 20 U/L (7-37); BILIRUBIN,TOTAL 0.5 MG/DL (0.2-1.0); BLOOD UREA NITROGEN 15 MG/DL (7-18); CARBON DIOXIDE LEVEL 25 MEQ/L (21-32); CHLORIDE LEVEL 104 MEQ/L (98-107); CHOLESTEROL LEVEL 148 MG/DL (<200); CHOLESTEROL RISK RATIO 3.894 (<5); CREATININE FOR GFR 0.72 MG/DL (0.55-1.30); GLOMERULAR FILTRATION RATE > 60.0 (>51); GLUCOSE, FASTING 145 MG/DL (70-100); HDL CHOLESTEROL 38 MG/DL (>40); LDL CHOLESTEROL 77.6 MG/DL (<100); NON-HDL-C 110 MG/DL; POTASSIUM SERUM 4.5 MEQ/L (3.5-5.1); SODIUM LEVEL 140 MEQ/L (136-145); TOTAL PROTEIN 7.7 GM/DL (6.4-8.2); TRIGLYCERIDES LEVEL 162 MG/DL (<150)
[2017-12-12 14:28] LABS: CREATININE, URINE 87.8 MG/DL; MALB URINE SIEMENS 7.7 MG/L; MAU/CREAT RATIO 8.7 MCG/MG (0.0-30.0)
[2017-12-12 14:40] LABS: ESTIMATED AVERAGE GLUCOSE 197 MG/DL (60-110); HEMOGLOBIN A1c 8.5 %
== END ==
LOC: M SFHCPLAZ 10:29
DX: E11.21 Type 2 diabetes mellitus with diabetic nephropathy (principal); E78.2 Mixed hyperlipidemia

== ENCOUNTER → 2017-12-20 | Outpatient (CLI) | payer OTHER | LOC: M PAIN 15:00 | DX: M51.16 Intervertebral disc disorders with radiculopathy, lumbar region (principal); G89.29 Other chronic pain; E11.40 Type 2 diabetes mellitus with diabetic neuropathy, unspecified; I10 Essential (primary) hypertension; E78.00 Pure hypercholesterolemia, unspecified; J44.9 Chronic obstructive pulmonary disease, unspecified; K76.0 Fatty (change of) liver, not elsewhere classified; Z79.4 Long term (current) use of insulin; Z79.891 Long term (current) use of opiate analgesic; Z79.899 Other long term (current) drug therapy; Z91.09 Other allergy status, other than to drugs and biological substances; Z87.891 Personal history of nicotine dependence | CPT/HCPCS: G0463 ==

== ENCOUNTER → 2018-01-02 | Outpatient (CLI) | payer OTHER ==
[~2018-01-02] MED LIST changes: -BUPIVACAINE HCL 0.25% 10 ML VIAL As Ordered; -BUPIVACAINE HCL 0.25% 30 ML VIAL As Ordered; +ISOVUE-M 300 61% 15ML VIAL (Q9967) As Ordered; +LIDOCAINE 1% SDV INJ 30 ML VIAL As Ordered; -TRIAMCINOLONE ACETONIDE SUSP 40 MG/ML VIAL (J3301) As Ordered; +methylPREDNISolone SUSP 40 MG/ML (DEPO-medrol) VIAL (J1030) As Ordered
== END ==
LOC: M PAIN 08:30
DX: G89.29 Other chronic pain (principal); M51.16 Intervertebral disc disorders with radiculopathy, lumbar region; E11.21 Type 2 diabetes mellitus with diabetic nephropathy; I10 Essential (primary) hypertension; E78.00 Pure hypercholesterolemia, unspecified; J44.9 Chronic obstructive pulmonary disease, unspecified; K76.0 Fatty (change of) liver, not elsewhere classified; Z79.4 Long term (current) use of insulin; Z79.899 Other long term (current) drug therapy; Z91.09 Other allergy status, other than to drugs and biological substances; Z87.891 Personal history of nicotine dependence
CPT/HCPCS: J1030

== ENCOUNTER → 2018-01-27 | Outpatient (CLI) | payer OTHER | LOC: M PAIN 08:45 | DX: M54.16 Radiculopathy, lumbar region (principal); G89.29 Other chronic pain; E11.40 Type 2 diabetes mellitus with diabetic neuropathy, unspecified; I10 Essential (primary) hypertension; E78.00 Pure hypercholesterolemia, unspecified; J44.9 Chronic obstructive pulmonary disease, unspecified; E66.01 Morbid (severe) obesity due to excess calories; Z79.4 Long term (current) use of insulin; Z79.899 Other long term (current) drug therapy; Z68.41 Body mass index [BMI] 40.0-44.9, adult; Z91.09 Other allergy status, other than to drugs and biological substances; Z87.891 Personal history of nicotine dependence | CPT/HCPCS: G0463 ==

== ENCOUNTER 2018-06-04 11:30 | Emergency (ER) | payer OTHER ==
[~2018-06-04] VITALS: Ht 154.9 cm; Wt 109.1 kg
[~2018-06-04 11:30] MED LIST changes: +AMLO5TAB6 PO; +ANOR1AER IN; +DULO1CAP2 PO; +GABA-843 PO; -ISOVUE-M 300 61% 15ML VIAL (Q9967) As Ordered; +JARD1TAB PO; -LIDOCAINE 1% SDV INJ 30 ML VIAL As Ordered; +LISI-538 PO; +METF500T4 PO; +NAPR-50 PO; +ROBA750T4 PO; +TOUJ1.2I; +VENTAER INH; -methylPREDNISolone SUSP 40 MG/ML (DEPO-medrol) VIAL (J1030) As Ordered
[2018-06-04 11:31] VITALS: BP 149/71
[2018-06-04] MEDS ORDERED: TRAM50TA2 PO (11:38)
[2018-06-04] MEDS ORDERED: NORCOTAB PO (12:28)
[2018-06-04] MEDS ORDERED: ROBA500T PO (12:29)
[2018-06-04] MEDS ORDERED: NORCO, ANEXSIA 5/325MG TABLET (HYDROcodone/ACETAMINOPHEN) PO ONE (12:30)
== END 2018-06-04 12:33 | disposition home or self-care (01) ==
LOC: M ED 11:30
DX: M54.41 Lumbago with sciatica, right side (principal); E11.9 Type 2 diabetes mellitus without complications; I10 Essential (primary) hypertension; J45.909 Unspecified asthma, uncomplicated; E78.9 Disorder of lipoprotein metabolism, unspecified; Z79.899 Other long term (current) drug therapy; Z79.4 Long term (current) use of insulin; Z87.891 Personal history of nicotine dependence

== ENCOUNTER → 2018-06-27 | Outpatient (REF) | payer OTHER ==
[~2018-06-27] MED LIST changes: +NORCOTAB PO; +ROBA500T PO; +TRAM50TA2 PO
[2018-06-27 21:08] LABS: HEMATOCRIT 48.1 % (36.0-47.0); MEAN CORPUSCULAR HEMOGLOBIN 26.8 pg (27.0-33.0); MEAN CORPUSCULAR HGB CONC 31.2 g/dl (32.0-36.5); PLATELET COUNT, AUTOMATED 287 10^3/uL (150-450); RED BLOOD COUNT 5.59 10^6/uL (4.00-5.40)
[2018-06-27 21:23] LABS: HEMOGLOBIN A1c 10.3 %
[2018-06-27 21:40] LABS: CREATININE, URINE 44.8 MG/DL; MALB URINE SIEMENS 6.3 MG/L
[2018-06-27 21:42] LABS: ALBUMIN 4.1 GM/DL (3.2-5.2); ALT/SGPT 30 U/L (12-78); BILIRUBIN,TOTAL 0.2 MG/DL (0.2-1.0); BLOOD UREA NITROGEN 21 MG/DL (7-18); CALCIUM LEVEL 9.2 MG/DL (8.5-10.1); CARBON DIOXIDE LEVEL 25 MEQ/L (21-32); CHLORIDE LEVEL 101 MEQ/L (98-107); CHOLESTEROL LEVEL 131 MG/DL (<200); CHOLESTEROL RISK RATIO 3.742 (<5); CREATININE FOR GFR 0.75 MG/DL (0.55-1.30); GLOMERULAR FILTRATION RATE > 60.0 (>51); GLUCOSE, FASTING 207 MG/DL (70-100); HDL CHOLESTEROL 35 MG/DL (>40); LDL CHOLESTEROL 62 MG/DL (<100); NON-HDL-C 96 MG/DL; POTASSIUM SERUM 4.6 MEQ/L (3.5-5.1); SODIUM LEVEL 135 MEQ/L (136-145); TOTAL PROTEIN 7.5 GM/DL (6.4-8.2); TRIGLYCERIDES LEVEL 169 MG/DL (<150)
== END ==
LOC: M SFHCPLAZ 16:00
PROVIDERS: ATTEND Nurse Practitioner Adult Health
DX: E78.2 Mixed hyperlipidemia (principal); E11.21 Type 2 diabetes mellitus with diabetic nephropathy

== ENCOUNTER → 2018-06-28 | Outpatient (CLI) | payer OTHER ==
--- NOTE | 2018-07-17 00:22 | ECWPNPC ---
PATIENT NAME: XUAN MOON : 1960 GENDER: FEMALE VISIT DATE: 06/28/2018 DISCHARGE DATE: 06/28/18 1035 VISIT LOCKED DATE TIME: PHYSICIAN: JUMANA DONALD RESOURCE: JUMANA DONALD REASON FOR APPOINTMENT 1. BACK/MED MNGMNT HISTORY OF PRESENT ILLNESS HISTORY OF PRESENT ILLNESS: HERE FOR F/U OF CHRONIC LOW BACK PAIN.HAS HAD REOCCURENCE OF SEVERE PAIN OVER THE PAST MONTH.CHIEF AREA OF PAIN IS RIGHT LOW BACK WITH RADIATION INTO RIGHT THIGH.REVIEWED MRI L/S SPINE AND DISCUSSED TREATMENT OPTIONS.RATING PAIN VAS 7/10. PAIN THE PATIENT DESCRIBES THE PAIN... FALL RISK SCREENING: SCREENING :NO FALLS IN THE PAST YEAR CURRENT MEDICATIONS TAKING [employer] W/DEVICE KIT DIRECTED PT LAST GLUCOMETER WAS DROPPED AND BROKE NEEDS TO HAVE IT REPLACED. TO USE DAILY/ DX CODE E11.42 TAKING TOUJEO SOLOSTAR 300 UNIT/ML SOLUTION PEN-INJECTOR 65 UNITS SUBCUTANEOUS DAILY TAKING STEGLATRO 15 MG TABLET 1 TABLET ORALLY ONCE A DAY TAKING NEURONTIN 300 MG CAPSULE 1 CAPSULE ORALLY FOR PAIN THREE TIMES A DAY TAKING ACETAMINOPHEN 500 MG CAPSULE 2 CAPSULE NEEDED ORALLY EVERY 6 HRS, NOTES: NONE RECENTLY TAKING PEN NEEDLES 31G X 8 MM MISCELLANEOUS 1 NEEDLE SUBCUTANEOUSLY DAILY TO USE WITH TOUJEO DX:E11.9 TAKING BLOOD GLUCOSE TEST - STRIP TRUE TEST IN VITRO DX:E11.21 DAILY TAKING PROAIR HFA 108 (90 BASE) MCG/ACT AEROSOL SOLUTION 2 PUFFS INHALATION EVERY 4 HRS NEEDED TAKING PEN NEEDLES [id number] UF SHORT NEEDLE USE 1 NEEDLE DAILY WITH TOUJEO TAKING STIOLTO RESPIMAT 2.5-2.5 MCG/ACT AEROSOL SOLUTION 2 PUFFS INHALATION ONCE A DAY TAKING NORVASC 5MG TABLET ORAL ORALLY DAILY TAKING ATORVASTATIN CALCIUM 40 MG TABLET 1 TABLET ORALLY ONCE A DAY TAKING OMEPRAZOLE 40 MG CAPSULE DELAYED RELEASE 1 CAPSULE ORALLY ONCE A DAY TAKING TRAMADOL HCL 50 MG TABLET 1 TABLET NEEDED ORALLY Q8H PRN MDD3 TAKING LISINOPRIL 20 MG TABLET 1 TAB ORALLY DAILY TAKING CYMBALTA 60 MG CAPSULE DELAYED RELEASE PARTICLES 1 CAPSULE ORALLY ONCE A DAY TAKING METFORMIN HCL ER 500 MG TABLET EXTENDED RELEASE 24 HOUR 2 TABLET ORALLY BID TAKING SOMA COMPOUND 500 MGS 2 TABLETS ORALLY EVERY 6 HOURS NEEDED MDD= 8 TAKING METHOCARBAMOL 500 MG TABLET 2 TABLETS ORALLY EVERY 6 HRS MEDICATION LIST REVIEWED AND RECONCILED WITH THE PATIENT PAST MEDICAL HISTORY DIABETES MELLITUS TYPE 2 NEUROPATHY HYPERTENSION HYPERCHOLESTEROL COPD HX TOBACCO ABUSE FATTY LIVER PER ULTRASOUND 10/13/16 6 MM INTRARENAL KIDNEY STONE, PER ULTRASOUND 10/13/16 REFUSES REFERRAL TO UROLOGY 09/14/16, 02/22/17- 03/21/18 REFUSES COLONOSCOPY RIGHT KIDNEY COLUMN OF BERLIN NOTED ON XRAY 10/13/16 ALLERGIES PLASTIC: RASH: ALLERGY NORCO: NAUSEA VOMITING: SIDE EFFECTS SURGICAL HISTORY APPENDECTOMY AGE 18 2000 [facility] ER LUMBAGO WITH SCIATICA RIGHT SIDE 06/04/18 FAMILY HISTORY FATHER: ALIVE 78 YRS, DM2, HEART PROBLEMS TRIPLE BYPASS, DEMENTIA MOTHER: 70 YRS, UTERINE CANCER- HAD OPERATION, FELL, BLEEDING OCCURRED HAD METS PASSED HTN, DIAGNOSED WITH CANCER 6 SISTERS OK2 BROTHERS OK3 CHILDREN 2 BOYS 1 DAUGHTER. SOCIAL HISTORY GENERAL: TOBACCO USE ARE YOU A:FORMER SMOKER HOW LONG HAS IT BEEN SINCE YOU LAST SMOKED?1-5 YEARS BMI CARE GOAL FOLLOW-UP ABOVE NORMAL BMI FOLLOW-UPDIETARY MANAGEMENT EDUCATION, GUIDANCE, AND COUNSELING ALCOHOL SCREENING DID YOU HAVE A DRINK CONTAINING ALCOHOL IN THE PAST YEAR?NO POINTS0 INTERPRETATIONNEGATIVE RECREATIONAL DRUG USE DRUG USE?NO PATIENT DENIES ABUSE OR MISSUSED OF ANY MEDICATION. PATIENT DENIES USE OF ANY ILLEGAL SUBSTANCE INCLUDING MARIJUANA OR COCAINE. CAFFEINE CAFFEINE USE?NO SEXUAL HX HAD SEX IN THE LAST 12 MONTHS (VAGINAL, ORAL, OR ANAL)?NO HAVE YOU EVER HAD AN STD?NO HIV / HEP-C SCREENING HIV TEST OFFERED TO PATIENT:YES DATE OFFERED:09/14/2016 TEST ACCEPTED:NO HEP-C TEST OFFERED TO PATIENT:YES DATE OFFERED:09/14/2016 REASON:PATIENT DECLINED TEST ACCEPTED:NO REASON:PATIENT DECLINED [facility] [id number] CONFUCIANISM LANGUAGE LANGUAGES SPOKEN:BOTH LUXEMBOURGER AND SLOVAK PREFERS TO SPEAK LUXEMBOURGER EDUCATION LEVEL OF EDUCATION:HIGH SCHOOL FINISHED 11TH GRADE LEARNING BARRIERS / SPECIAL NEEDS BARRIERS TO LEARNING?NO HEARING IMPAIRED?NO VISION IMPAIRED?YES COGNITIVELY IMPAIRED?NO :CORRECTIVE LENSES READINESS TO LEARN?YES LEARNING PREFERENCES?NO LEARNING CAPABILITIES PRESENT?YES EMOTIONAL BARRIERS?NO SPECIAL DEVICES?YES :CANE GLUCOSE AND SYRUP WEIGHER NEEDED?NO DOMESTIC VIOLENCE DO YOU FEEL SAFE IN YOUR ENVIRONMENT?YES OCCUPATION: UNEMPLOYED WORKED IN [place]. DIET: NO CONCENTRATED SWEETS., NO ADDED SALT. EXERCISE: NO REGULAR EXERCISE. MARITAL STATUS: -14 MONTHS. OTHERS AT HOME: 1 SON. NEW PATIENT PAIN DIARY PATIENT DESCRIBES PAIN :HAVE IT ALL THE TIME FROM 0-10, WHAT LEVEL IS YOUR PAIN TODAY?8 PRECIPITATING FACTORS CONSTANT PAIN ALLEVIATING FACTORS NOTHING, ATTEMPTS TO REPOSITION AT REGULAR INTERVALS IMPACT ON FUNCTION UNABLE TO DO STAIRS, UNABLE TO PLAY WITH GRANDCHILDREN NAME OF PERSON DRIVING YOU HOME TRANSPORTATION IS THERE A CHANCE YOU COULD BE ? NO HAVE YOU BEEN SICK IN THE LAST WEEK (COLD, COUGH, FEVER, FLU, ETC) NO DO YOU TAKE ANY BLOOD THINNERS? NO DO YOU HAVE ANY RASHES OR OPEN SORES? NO ANY CHANGE IN BOWEL OR BLADDER CONTROL? PT STATES THAT SHE VOIDS MORE THAN USUAL ARE YOU ALLERGIC TO SHELLFISH OR IV DYE? PT STATES THAT SHE DOES NOT TOLERATE IV DYE, HYPOTENSIVE ARE YOU DIABETIC? YES DO YOU HAVE A PACEMAKER OR DEFIBRILLATOR? NO ANY NEW PROBLEMS WITH MEDICINES OR NEW ALLERGIES NO ANY NEW PATTERNS OF PAIN OR NUMBNESS? PT STATES THAT SHE HAS CONSTANT PAIN AND SEEMS TO BE GETTING MORE INTENSE ANY CHANGE IN YOUR MEDICAL CONDITION? PT STATES THAT SHE HAD AN EPISODE OF CHEST PAIN LESS THAN A WEEK AGO HAVE YOU FALLEN IN THE LAST 6 MONTHS? NO DO YOU USE ANY TYPE OF TOBACCO (SMOKE, SMOKELESS, CHEW, ETC.) NO ARE YOU ABUSED, NEGLECTED, OR IN AN UNSAFE ENVIRONMENT? NO DO YOU HAVE THOUGHTS OF HURTING YOURSELF OR SOMEONE ELSE? NO DO YOU NEED ANY PRESCRIPTIONS? UNSURE PAIN CLINIC PFS, CLERGY, PUBLIC HEALTH REFERRALS WAS THE PROVIDER NOTIFIED OF ANY PERTINENT INFO?YES HAS THE PATIENT BEEN EDUCATED REGARDING HIS/HER PLAN OF CARE?YES PLEASE DOCUMENT ANY ADDTIONAL DETAILS. NEW PATIENT CONSULT HAS THE PATIENT BEEN EDUCATED REGARDING PAIN, THE RISK FOR PAIN, THE IMPORTANCE OF EFFECTIVE PAIN MANAGEMENT, AND THE PAIN ASSESSMENT PROCESS?YES HOUSING: RENTS APARTMENT WITH DAUGHTER AND SON. ADVANCE DIRECTIVE ADVANCE DIRECTIVE DISCUSSED WITH PATIENT:YES DECLINED INFORMATION AT THIS TIME MOVED TO [place] 14 [place] WHEN FROM [facility]. JAKI, FOLLOWED WITH FOR SEVERAL YEARS IN [facility] 11/22/17 0900 REVIEWED WITH PT. AD12/20/17 1435 REVIEWED WITH PT LAS. HOSPITALIZATION/MAJOR DIAGNOSTIC PROCEDURE SURGERIES REVIEW OF SYSTEMS REVIEWED BY: PROVIDER: JUMANA MONSON . CONSTITUTIONAL: ANY CHANGE IN YOUR MEDICAL CONDITION? NO . CHILLS NO . FEVER NO . INFECTION: DO YOU HAVE NEW INFECTIONS? NO . DO YOU HAVE HISTORY OF MRSA? NO . MUSCULOSKELETAL: ANY NEW PATTERNS OF PAIN OR NUMBNESS? NO . GASTROENTEROLOGY: ANY NEW CHANGE IN BOWEL CONTROL? NO . GENITOURINARY: ANY NEW CHANGE IN BLADDER CONTROL? NO . IS THERE A CHANCE YOU COULD BE ? NO . HEMATOLOGY/LYMPH: DO YOU TAKE ANY BLOOD THINNERS? (FOR EXAMPLE- COUMADIN, PLAVIX, AGGRENOX, PLATEL, PRADAXA, OR XARELTO) NO . WHEN WAS YOUR LAST DOSE? DATE: TIME: . NEUROLOGY: HAVE YOU FALLEN IN THE PAST 12 MONTHS? NO . ANY NEW EXTREMITY NUMBNESS OR WEAKNESS? YES, RIGHT LEG . CARDIOLOGY: DO YOU HAVE A PACEMAKER OR DEFIBRILLATOR? NO . RESPIRATORY: HAVE YOU BEEN SICK IN THE PAST WEEK? NO . FEVER NO . FLU LIKE SYMPTOMS? NO . COUGH NO . INTEGUMENTARY: DO YOU HAVE ANY RASHES OR OPEN SORES? NO . ALLERGIC/IMMUNO: ARE YOU ALLERGIC TO IV DYE? NO . ANY NEW ALLERGIES? NO . PSYCHIATRIC: DO YOU HAVE THOUGHTS OF HURTING YOURSELF OR SOMEONE ELSE? NO . ARE YOU ABUSED, NEGLECTED, OR IN AN UNSAFE ENVIRONMENT? NO . ENDOCRINOLOGY: ARE YOU DIABETIC? NO . OTHER: DO YOU NEED ANY PRESCRIPTIONS? NO . IF YES, PLEASE LIST: ____ . ANY NEW PROBLEMS WITH YOUR MEDICATIONS? NO . WHEN DID YOU LAST EAT? ____ . WHEN DID YOU LAST DRINK? ____ . WHAT DID YOU LAST DRINK? ____ . NAME OF PERSON DRIVING YOU HOME? ____ . DO YOU HAVE ANY OTHER QUESTIONS OR CONCERNS PT WENT TO ED AT [facility] IN [place] DUE TO INCREASED PAIN RIGHT LOW BACK INTO RIGHT HIP. . VITAL SIGNS WT 241.4 LBS, HT 5'2", BMI 44.15 INDEX, BP 130/77 MM HG, HR 86 /MIN, RR 18 /MIN, TEMP 97.7 F, OXYGEN SAT % 91%, SAFE IN ENV? (Y/N) Y, NA INITIALS AW 0940, REVIEWED BY: FERMIN. EXAMINATION GENERAL EXAMINATION: GENERAL APPEARANCE:ALERT,NO DISTRESS . PSYCHAFFECT NORMAL . LUNGS:LUNG SOUNDS ARE CLEAR . HEART:HEART RATE REGULAR . MUSCULOSKELETAL:MST 5/5 BILAT. LOWER EXTREMITIES . LUMBAR SACRAL SPINE RIGHT SIJ TENDER.POSITIVE MARGA TEST. DIAGNOSTIC TESTS REVIEWEDMRI L/S [id number] . ASSESSMENTS SACROILIITIS - M46.1 (PRIMARY) TREATMENT SACROILIITIS NOTES: RIGHT SIJ. PROCEDURE CODES FA211 ESTABILISHED PATIENT [facility] CHARGE DISPOSITION & COMMUNICATION FOLLOW UP POST (REASON: RIGHT SIJ) ELECTRONICALLY SIGNED BY IONA SAUCEDA ON 07/16/2018 AT 12:59 PM EST DISCLAIMER : THIS IS A VISIT SUMMARY EXTRACTED FROM THE [employer] CHART. IT IS NOT A COPY OF THE [employer] PROGRESS NOTE. KEVIND
== END ==
LOC: M PAIN 10:00
PROVIDERS: ATTEND Nurse Practitioner Family
DX: M46.1 Sacroiliitis, not elsewhere classified (principal); G89.29 Other chronic pain; E11.40 Type 2 diabetes mellitus with diabetic neuropathy, unspecified; I10 Essential (primary) hypertension; E78.00 Pure hypercholesterolemia, unspecified; J44.9 Chronic obstructive pulmonary disease, unspecified; E66.01 Morbid (severe) obesity due to excess calories; Z68.41 Body mass index [BMI] 40.0-44.9, adult; Z79.4 Long term (current) use of insulin; Z79.899 Other long term (current) drug therapy; Z88.5 Allergy status to narcotic agent; Z91.09 Other allergy status, other than to drugs and biological substances

== ENCOUNTER → 2018-07-06 | Outpatient (CLI) | payer OTHER ==
[~2018-07-06] MED LIST changes: +BUPIVACAINE HCL 0.25% 30 ML VIAL As Ordered ONE; +ISOVUE-M 300 61% 15ML VIAL (Q9967) As Ordered ONE; +LIDOCAINE 1% SDV INJ 30 ML VIAL As Ordered ONE; +TRIAMCINOLONE ACETONIDE SUSP 40 MG/ML VIAL (J3301) As Ordered ONE
--- NOTE | 2018-07-07 11:47 | REP ---
C-ARM VIEWS RIGHT SACROILIAC JOINT DURING INJECTION BY DR. ASENCIO: CLINICAL HISTORY: Pain. Four C-arm views are performed during right sacroiliac joint injection by Dr. Asencio. Needle is seen at the right sacroiliac joint superiorly. 23 seconds fluoroscopy time utilized. Electronically Signed by Cheo Fay MD 07/07/2018 04:00 P
--- NOTE | 2018-07-24 00:19 | ECWPNPC ---
PATIENT NAME: XUAN MOON : 1960 GENDER: FEMALE VISIT DATE: 07/06/2018 DISCHARGE DATE: 07/06/18 1302 VISIT LOCKED DATE TIME: PHYSICIAN: ALLIE LANGLEY MD RESOURCE: ALLIE LANGLEY MD REASON FOR APPOINTMENT 1. RIGHT SIJ HISTORY OF PRESENT ILLNESS HISTORY OF PRESENT ILLNESS: PAIN THE PATIENT DESCRIBES THE PAIN... FALL RISK SCREENING: SCREENING : NO FALLS IN THE PAST YEAR. CURRENT MEDICATIONS TAKING [employer] W/DEVICE KIT DIRECTED PT LAST GLUCOMETER WAS DROPPED AND BROKE NEEDS TO HAVE IT REPLACED. TO USE DAILY/ DX CODE E11.42 TAKING NEURONTIN 300 MG CAPSULE 1 CAPSULE ORALLY FOR PAIN THREE TIMES A DAY, NOTES: 07/05/181829 TAKING ACETAMINOPHEN 500 MG CAPSULE 2 CAPSULE NEEDED ORALLY EVERY 6 HRS, NOTES: NONE RECENTLY TAKING PEN NEEDLES 31G X 8 MM MISCELLANEOUS 1 NEEDLE SUBCUTANEOUSLY DAILY TO USE WITH TOUJEO DX:E11.9 TAKING BLOOD GLUCOSE TEST - STRIP TRUE TEST IN VITRO DX:E11.21 DAILY TAKING PROAIR HFA 108 (90 BASE) MCG/ACT AEROSOL SOLUTION 2 PUFFS INHALATION EVERY 4 HRS NEEDED, NOTES: >1 MONTH TAKING PEN NEEDLES [id number] UF SHORT NEEDLE USE 1 NEEDLE DAILY WITH TOUJEO TAKING OMEPRAZOLE 40 MG CAPSULE DELAYED RELEASE 1 CAPSULE ORALLY ONCE A DAY, NOTES: 07/04/18 TAKING TRAMADOL HCL 50 MG TABLET 1 TABLET NEEDED ORALLY Q8H PRN MDD3, NOTES: 07/04/181829 TAKING LISINOPRIL 20 MG TABLET 1 TAB ORALLY DAILY, NOTES: 07/05/181829 TAKING CYMBALTA 60 MG CAPSULE DELAYED RELEASE PARTICLES 1 CAPSULE ORALLY ONCE A DAY, NOTES: 07/05/181829 TAKING METFORMIN HCL ER 500 MG TABLET EXTENDED RELEASE 24 HOUR 2 TABLET ORALLY BID, NOTES: 07/05/181829 TAKING METHOCARBAMOL 500 MG TABLET 2 TABLETS ORALLY EVERY 6 HRS, NOTES: 07/05/181829 TAKING NORVASC 5MG TABLET ORAL ORALLY DAILY, NOTES: 07/05/181829 TAKING STEGLATRO 15 MG TABLET 1 TABLET ORALLY ONCE A DAY, NOTES: 07/05/181829 TAKING STIOLTO RESPIMAT 2.5-2.5 MCG/ACT AEROSOL SOLUTION 2 PUFFS INHALATION ONCE A DAY, NOTES: 07/06/18 1800 TAKING ATORVASTATIN CALCIUM 40 MG TABLET 1 TABLET ORALLY ONCE A DAY, NOTES: 07/05/18 1830 TAKING BASAGLAR KWIKPEN 100 UNIT/ML SOLUTION PEN-INJECTOR 55 UNIT SUBCUTANEOUS DAILY, NOTES: 07/05/18 2100 NOT-TAKING SOMA COMPOUND 500 MGS 2 TABLETS ORALLY EVERY 6 HOURS NEEDED MDD= 8 MEDICATION LIST REVIEWED AND RECONCILED WITH THE PATIENT PAST MEDICAL HISTORY DIABETES MELLITUS TYPE 2 NEUROPATHY HYPERTENSION HYPERCHOLESTEROL COPD HX TOBACCO ABUSE FATTY LIVER PER ULTRASOUND 10/13/16 6 MM INTRARENAL KIDNEY STONE, PER ULTRASOUND 10/13/16 REFUSES REFERRAL TO UROLOGY 09/14/16, 02/22/17- 03/21/18 REFUSES COLONOSCOPY RIGHT KIDNEY COLUMN OF [place] NOTED ON XRAY 10/13/16 ALLERGIES PLASTIC: RASH: ALLERGY NORCO: NAUSEA VOMITING: SIDE EFFECTS SURGICAL HISTORY APPENDECTOMY AGE 18 2000 [facility] ER LUMBAGO WITH SCIATICA RIGHT SIDE 06/04/18 FAMILY HISTORY FATHER: ALIVE 78 YRS, DM2, HEART PROBLEMS TRIPLE BYPASS, DEMENTIA MOTHER: 70 YRS, UTERINE CANCER- HAD OPERATION, FELL, BLEEDING OCCURRED HAD METS PASSED HTN, DIAGNOSED WITH CANCER 6 SISTERS OK2 BROTHERS OK3 CHILDREN 2 BOYS 1 DAUGHTER. SOCIAL HISTORY GENERAL: TOBACCO USE ARE YOU A:FORMER SMOKER HOW LONG HAS IT BEEN SINCE YOU LAST SMOKED?1-5 YEARS BMI CARE GOAL FOLLOW-UP ABOVE NORMAL BMI FOLLOW-UPDIETARY MANAGEMENT EDUCATION, GUIDANCE, AND COUNSELING ALCOHOL SCREENING DID YOU HAVE A DRINK CONTAINING ALCOHOL IN THE PAST YEAR?NO POINTS0 INTERPRETATIONNEGATIVE RECREATIONAL DRUG USE DRUG USE?NO PATIENT DENIES ABUSE OR MISSUSED OF ANY MEDICATION. PATIENT DENIES USE OF ANY ILLEGAL SUBSTANCE INCLUDING MARIJUANA OR COCAINE. CAFFEINE CAFFEINE USE?NO SEXUAL HX HAD SEX IN THE LAST 12 MONTHS (VAGINAL, ORAL, OR ANAL)?NO HAVE YOU EVER HAD AN STD?NO HIV / HEP-C SCREENING HIV TEST OFFERED TO PATIENT:YES DATE OFFERED:09/14/2016 TEST ACCEPTED:NO HEP-C TEST OFFERED TO PATIENT:YES DATE OFFERED:09/14/2016 REASON:PATIENT DECLINED TEST ACCEPTED:NO REASON:PATIENT DECLINED CHURCH [id number] CHRISTIAN LANGUAGE LANGUAGES SPOKEN:BOTH YORUBA AND ITALIAN PREFERS TO SPEAK YORUBA EDUCATION LEVEL OF EDUCATION:HIGH SCHOOL FINISHED 11TH GRADE LEARNING BARRIERS / SPECIAL NEEDS BARRIERS TO LEARNING?NO HEARING IMPAIRED?NO VISION IMPAIRED?YES COGNITIVELY IMPAIRED?NO :CORRECTIVE LENSES READINESS TO LEARN?YES LEARNING PREFERENCES?NO LEARNING CAPABILITIES PRESENT?YES EMOTIONAL BARRIERS?NO SPECIAL DEVICES?YES :CANE RECORD CUTTER NEEDED?NO DOMESTIC VIOLENCE DO YOU FEEL SAFE IN YOUR ENVIRONMENT?YES OCCUPATION: UNEMPLOYED WORKED IN [place]. DIET: NO CONCENTRATED SWEETS., NO ADDED SALT. EXERCISE: NO REGULAR EXERCISE. MARITAL STATUS: -14 MONTHS. OTHERS AT HOME: 1 SON. NEW PATIENT PAIN DIARY PATIENT DESCRIBES PAIN :HAVE IT ALL THE TIME FROM 0-10, WHAT LEVEL IS YOUR PAIN TODAY?8 PRECIPITATING FACTORS CONSTANT PAIN ALLEVIATING FACTORS NOTHING, ATTEMPTS TO REPOSITION AT REGULAR INTERVALS IMPACT ON FUNCTION UNABLE TO DO STAIRS, UNABLE TO PLAY WITH GRANDCHILDREN NAME OF PERSON DRIVING YOU HOME TRANSPORTATION IS THERE A CHANCE YOU COULD BE ? NO HAVE YOU BEEN SICK IN THE LAST WEEK (COLD, COUGH, FEVER, FLU, ETC) NO DO YOU TAKE ANY BLOOD THINNERS? NO DO YOU HAVE ANY RASHES OR OPEN SORES? NO ANY CHANGE IN BOWEL OR BLADDER CONTROL? PT STATES THAT SHE VOIDS MORE THAN USUAL ARE YOU ALLERGIC TO SHELLFISH OR IV DYE? PT STATES THAT SHE DOES NOT TOLERATE IV DYE, HYPOTENSIVE ARE YOU DIABETIC? YES DO YOU HAVE A PACEMAKER OR DEFIBRILLATOR? NO ANY NEW PROBLEMS WITH MEDICINES OR NEW ALLERGIES NO ANY NEW PATTERNS OF PAIN OR NUMBNESS? PT STATES THAT SHE HAS CONSTANT PAIN AND SEEMS TO BE GETTING MORE INTENSE ANY CHANGE IN YOUR MEDICAL CONDITION? PT STATES THAT SHE HAD AN EPISODE OF CHEST PAIN LESS THAN A WEEK AGO HAVE YOU FALLEN IN THE LAST 6 MONTHS? NO DO YOU USE ANY TYPE OF TOBACCO (SMOKE, SMOKELESS, CHEW, ETC.) NO ARE YOU ABUSED, NEGLECTED, OR IN AN UNSAFE ENVIRONMENT? NO DO YOU HAVE THOUGHTS OF HURTING YOURSELF OR SOMEONE ELSE? NO DO YOU NEED ANY PRESCRIPTIONS? UNSURE PAIN CLINIC PFS, CLERGY, PUBLIC HEALTH REFERRALS WAS THE PROVIDER NOTIFIED OF ANY PERTINENT INFO?YES HAS THE PATIENT BEEN EDUCATED REGARDING HIS/HER PLAN OF CARE?YES PLEASE DOCUMENT ANY ADDTIONAL DETAILS. NEW PATIENT CONSULT HAS THE PATIENT BEEN EDUCATED REGARDING PAIN, THE RISK FOR PAIN, THE IMPORTANCE OF EFFECTIVE PAIN MANAGEMENT, AND THE PAIN ASSESSMENT PROCESS?YES HOUSING: RENTS APARTMENT WITH DAUGHTER AND SON. ADVANCE DIRECTIVE ADVANCE DIRECTIVE DISCUSSED WITH PATIENT:YES PT HAS NO ADVANCED DIRECTIVES, DECLINED INFORMATION OR ASSISTANCE AT THIS TIME 07/06/18 MOVED TO [place] 14 [place]AGO [place] JAKI, FOLLOWED WITH FOR SEVERAL YEARS IN [facility] 11/22/17 0900 REVIEWED WITH PT. NIKUNJ12/20/17 1435 REVIEWED WITH PT GILMER 07/06/18 1130 LAS. HOSPITALIZATION/MAJOR DIAGNOSTIC PROCEDURE SURGERIES REVIEW OF SYSTEMS REVIEWED BY: PROVIDER: . CONSTITUTIONAL: ANY CHANGE IN YOUR MEDICAL CONDITION? NO . CHILLS NO . FEVER NO . INFECTION: DO YOU HAVE NEW INFECTIONS? NO . DO YOU HAVE HISTORY OF MRSA? NO . MUSCULOSKELETAL: ANY NEW PATTERNS OF PAIN OR NUMBNESS? NO . GASTROENTEROLOGY: ANY NEW CHANGE IN BOWEL CONTROL? NO . GENITOURINARY: ANY NEW CHANGE IN BLADDER CONTROL? NO . IS THERE A CHANCE YOU COULD BE ? NO . HEMATOLOGY/LYMPH: DO YOU TAKE ANY BLOOD THINNERS? (FOR EXAMPLE- COUMADIN, PLAVIX, AGGRENOX, PLATEL, PRADAXA, OR XARELTO) NO . WHEN WAS YOUR LAST DOSE? DATE: TIME: . NEUROLOGY: HAVE YOU FALLEN IN THE PAST 12 MONTHS? NO . ANY NEW EXTREMITY NUMBNESS OR WEAKNESS? NO . CARDIOLOGY: DO YOU HAVE A PACEMAKER OR DEFIBRILLATOR? NO . RESPIRATORY: HAVE YOU BEEN SICK IN THE PAST WEEK? NO . FEVER NO . FLU LIKE SYMPTOMS? NO . COUGH NO . INTEGUMENTARY: DO YOU HAVE ANY RASHES OR OPEN SORES? NO . ALLERGIC/IMMUNO: ARE YOU ALLERGIC TO IV DYE? NO . ANY NEW ALLERGIES? NO . PSYCHIATRIC: DO YOU HAVE THOUGHTS OF HURTING YOURSELF OR SOMEONE ELSE? NO . ARE YOU ABUSED, NEGLECTED, OR IN AN UNSAFE ENVIRONMENT? NO . ENDOCRINOLOGY: ARE YOU DIABETIC? NO . OTHER: DO YOU NEED ANY PRESCRIPTIONS? NO . IF YES, PLEASE LIST: ____ . ANY NEW PROBLEMS WITH YOUR MEDICATIONS? NO . WHEN DID YOU LAST EAT? ____ . WHEN DID YOU LAST DRINK? ____ . WHAT DID YOU LAST DRINK? ____ . NAME OF PERSON DRIVING YOU HOME? ____ . DO YOU HAVE ANY OTHER QUESTIONS OR CONCERNS NO . VITAL SIGNS WT 239 LBS, HT 5'2", BMI 43.71 INDEX, BP 130/78 MM HG, HR 84 /MIN, RR 16 /MIN, TEMP 97.2 F, OXYGEN SAT % 94%, BLOOD GLUCOSE LEVEL 309 THIS AM PER PT, NA INITIALS SC 10:55, REVIEWED BY: [facility] BLOOD GLUCOSE RE CHECK 198 AT 1130 LAS. ASSESSMENTS SACROILIITIS, NOT ELSEWHERE CLASSIFIED - M46.1 (PRIMARY) PROCEDURES PN SI PRE PROCEDURE DIAGNOSIS SACROILIITIS, SACROILIAC JOINT DYSFUNCTION POST PROCEDURE DIAGNOSIS SACROILIITIS, SACROILIAC JOINT DYSFUNCTION PROCEDURE RIGHT SACROILIAC JOINT BLOCK SURGEON DR. ALLIE LANGLEY RECEIVING CHECKER NONE ANESTHESIA LOCAL PRE PROCEDURE NOTE PATIENT WITH HISTORY OF CHRONIC LOW BACK PAIN. I EVALUATED THE PATIENT AND REVIEWED THE CHART. I WENT OVER THE RISKS, ALTERNATIVES, AND BENEFITS ASSOCIATED WITH THIS PROCEDURE. THE PATIENT WOULD LIKE TO PROCEED AND GAVE CONSENT TO PERFORM THE PROCEDURE. THE PATIENT DENIES UNEXPLAINABLE WEIGHT LOSS, FEVER, CHILLS, OR NEW CHANGES IN URINARY OR BOWEL CONTROL DESCRIPTION OF PROCEDURE THE PATIENT WAS BROUGHT TO THE PROCEDURE ROOM AND PLACED IN THE PRONE POSITION. THE LUMBOSACRAL AREA WAS CLEANED WITH CHLORAPREP SOLUTION AND DRAPED ASEPTICALLY. THE PROCEDURE WAS DONE UNDER STERILE CONDITIONS. I CHECKED LATERALITY AND THE LEVEL WHERE THE PROCEDURE WAS GOING TO BE PERFORMED WITH THE PATIENT AND THE SUPPORTING STAFF AT THE MOMENT OF THE TIME OUT IN THE PROCEDURE ROOM. UNDER FLUOROSCOPIC GUIDANCE, TARGET POINT WAS SELECTED AT THE LOWER BORDER OF THE RIGHT SACROILIAC JOINT. TARGET POINT WAS SELECTED AFTER MEDIAL ROTATION AND TILT OF THE MAGNIFIER OF THE C-ARM. LIDOCAINE WAS USED TO NUMB THE SKIN AND SUBCUTANEOUS TISSUE BELOW IT. A SPINAL NEEDLE, 22-GAUGE, WAS ADVANCED UNDER FLUOROSCOPIC GUIDANCE AND FOLLOWING PATIENT FEEDBACK UNTIL THE TARGET AREA WAS TOUCHED. THE POSITION OF THE NEEDLE WAS VERIFIED WITH AP AND LATERAL VIEWS. AFTER PROPER POSITION OF THE NEEDLE WAS ACHIEVED, ISOVUE M DYE 30%, 0.25 ML, WAS INJECTED SHOWING SPREAD OF THE DYE. THEN, A SOLUTION OF 20 MG OF KENALOG WAS INJECTED IN RIGHT JOINT WITH 3 ML OF BUPIVACAINE 0.125%. THERE WAS NO EVIDENCE OF BLOOD, PARESTHESIA OR CEREBROSPINAL FLUID DURING THE PROCEDURE. THE PATIENT WAS SENT TO THE RECOVERY ROOM. THE PATIENT WAS MOVING THE EXTREMITIES AND DOING WELL. THERE WAS NO COMPLICATION DURING THE PROCEDURE. FLUOROSCOPY TIME WAS 23 SECONDS POST PROCEDURE NOTE THE PATIENT WILL BE SEEN IN A FOLLOW UP IN THE NEXT FEW WEEKS. INSTRUCTIONS WERE GIVEN, QUESTIONS WERE ANSWERED, AND THE PATIENT EXPRESSED UNDERSTANDING AND AGREED WITH THE PLAN. I, MARSHA MONTERO, DOCUMENTED THE ABOVE INFORMATION ACTING A SCRIBE FOR DR. LANGLEY. I HAVE REVIEWED THE ABOVE DOCUMENT, WRITTEN BY MARSHA NUÑEZ AND I VERIFY THAT IT IS ACCURATE. DIAGNOSTIC IMAGING [facility] FLUORO GUIDANCE (PAIN)[id number] PROCEDURE CODES 6045F RADXPS IN END [id number] PXD [id number] INJECT SACROILIAC JOINT, MODIFIERS: RT DISPOSITION & COMMUNICATION FOLLOW UP 3 WEEKS ELECTRONICALLY SIGNED BY ALLIE LANGLEY MD, ON 07/23/2018 AT 01:16 PM EST DISCLAIMER : THIS IS A VISIT SUMMARY EXTRACTED FROM THE [employer] CHART. IT IS NOT A COPY OF THE [employer] PROGRESS NOTE. MTDD
== END ==
LOC: M PAIN 11:00
PROVIDERS: ATTEND Anesthesiology
DX: G89.29 Other chronic pain (principal); M46.1 Sacroiliitis, not elsewhere classified; M53.88 Other specified dorsopathies, sacral and sacrococcygeal region; E11.40 Type 2 diabetes mellitus with diabetic neuropathy, unspecified; I10 Essential (primary) hypertension; E78.00 Pure hypercholesterolemia, unspecified; J44.9 Chronic obstructive pulmonary disease, unspecified; E66.01 Morbid (severe) obesity due to excess calories; Z68.41 Body mass index [BMI] 40.0-44.9, adult; Z79.84 Long term (current) use of oral hypoglycemic drugs; Z79.899 Other long term (current) drug therapy; Z91.09 Other allergy status, other than to drugs and biological substances; Z88.5 Allergy status to narcotic agent; Z87.891 Personal history of nicotine dependence
CPT/HCPCS: 27096; J3301; Q9967

== ENCOUNTER → 2018-08-18 | Outpatient (CLI) | payer OTHER ==
[~2018-08-18] MED LIST changes: -BUPIVACAINE HCL 0.25% 30 ML VIAL As Ordered ONE; +HYDR-3715 PO; -ISOVUE-M 300 61% 15ML VIAL (Q9967) As Ordered ONE; -LIDOCAINE 1% SDV INJ 30 ML VIAL As Ordered ONE; -NAPR-50 PO; +NAPR-837 PO; -NORCOTAB PO; -TRIAMCINOLONE ACETONIDE SUSP 40 MG/ML VIAL (J3301) As Ordered ONE
--- NOTE | 2018-08-30 00:12 | ECWPNPC ---
PATIENT NAME: XUAN MOON : 1960 GENDER: FEMALE VISIT DATE: 08/18/2018 DISCHARGE DATE: 08/18/18 1448 VISIT LOCKED DATE TIME: PHYSICIAN: JUMANA DONALD RESOURCE: JUMANA DONALD REASON FOR APPOINTMENT 1. POST SIJ HISTORY OF PRESENT ILLNESS HISTORY OF PRESENT ILLNESS: HERE FOR POST PROCEDUE F/U.HAD RIGHT SIJ ON 07/06/18.REPORTING 2 WEEKS OF SIGNIFICANT IMPROVEMENT THEN PAIN GRADUALLY RETURNED TO BASELINE.RATING PAIN VAS 7/10. PAIN THE PATIENT DESCRIBES THE PAIN... FALL RISK SCREENING: SCREENING :NO FALLS REPORTED IN THE LAST YEAR CURRENT MEDICATIONS TAKING TRAMADOL HCL 50 MG TABLET 1 TABLET NEEDED ORALLY Q8H PRN MDD3 TAKING [employer] W/DEVICE KIT DIRECTED PT LAST GLUCOMETER WAS DROPPED AND BROKE NEEDS TO HAVE IT REPLACED. TO USE DAILY/ DX CODE E11.42 TAKING ACETAMINOPHEN 500 MG CAPSULE 2 CAPSULE NEEDED ORALLY EVERY 6 HRS TAKING METHOCARBAMOL 500 MG TABLET 2 TABLETS ORALLY EVERY 6 HRS TAKING PEN NEEDLES 31G X 8 MM MISCELLANEOUS 1 NEEDLE SUBCUTANEOUSLY DAILY TO USE WITH DWIGHT DX:E11.9 TAKING BLOOD GLUCOSE TEST - STRIP TRUE TEST IN VITRO DX:E11.21 DAILY TAKING PROAIR HFA 108 (90 BASE) MCG/ACT AEROSOL SOLUTION 2 PUFFS INHALATION EVERY 4 HRS NEEDED TAKING PEN NEEDLES [id number] UF SHORT NEEDLE USE 1 NEEDLE DAILY WITH TOUDOROTHY TAKING OMEPRAZOLE 40 MG CAPSULE DELAYED RELEASE 1 CAPSULE ORALLY ONCE A DAY TAKING METFORMIN HCL ER 500 MG TABLET EXTENDED RELEASE 24 HOUR 2 TABLET ORALLY BID TAKING NORVASC 5MG TABLET ORAL ORALLY DAILY TAKING STEGLATRO 15 MG TABLET 1 TABLET ORALLY ONCE A DAY TAKING STIOLTO RESPIMAT 2.5-2.5 MCG/ACT AEROSOL SOLUTION 2 PUFFS INHALATION ONCE A DAY TAKING ATORVASTATIN CALCIUM 40 MG TABLET 1 TABLET ORALLY ONCE A DAY TAKING NEURONTIN 300 MG CAPSULE 1 CAPSULE ORALLY FOR PAIN THREE TIMES A DAY TAKING CYMBALTA 60 MG CAPSULE DELAYED RELEASE PARTICLES 1 CAPSULE ORALLY ONCE A DAY TAKING TOUJEO SOLOSTAR 300 UNIT/ML SOLUTION PEN-INJECTOR 65 UNITS SUBCUTANEOUS BEFORE BEDTIME TAKING MECLIZINE HCL 25 MG TABLET 1 TABLET ORALLY THREE TIMES DAILY NEEDED FOR DIZZINESS TAKING TRIAMCINOLONE ACETONIDE 55 MCG/ACT AEROSOL 1 SPRAY IN EACH NOSTRIL NASALLY ONCE A DAY TAKING LISINOPRIL 20 MG TABLET 1 TAB ORALLY DAILY NOT-TAKING BASAGLAR KWIKPEN 100 UNIT/ML SOLUTION PEN-INJECTOR 55 UNIT SUBCUTANEOUS DAILY, NOTES: 07/05/182099 NOT-TAKING SOMA COMPOUND 500 MGS 2 TABLETS ORALLY EVERY 6 HOURS NEEDED MDD= 8 MEDICATION LIST REVIEWED AND RECONCILED WITH THE PATIENT PAST MEDICAL HISTORY DIABETES MELLITUS TYPE 2 NEUROPATHY HYPERTENSION HYPERCHOLESTEROL COPD HX TOBACCO ABUSE FATTY LIVER PER ULTRASOUND 10/13/16 6 MM INTRARENAL KIDNEY STONE, PER ULTRASOUND 10/13/16 REFUSES REFERRAL TO UROLOGY 09/14/16, 02/22/17- 03/21/18 REFUSES COLONOSCOPY RIGHT KIDNEY COLUMN OF [place]ER[place] NOTED ON XRAY 10/13/16 BACK PAIN ALLERGIES PLASTIC: RASH - ALLERGY NORCO: NAUSEA VOMITING - SIDE EFFECTS SURGICAL HISTORY APPENDECTOMY AGE 18 2000 [facility] ER LUMBAGO WITH SCIATICA RIGHT SIDE 06/04/18 FAMILY HISTORY FATHER: ALIVE 78 YRS, DM2, HEART PROBLEMS TRIPLE BYPASS, DEMENTIA MOTHER: 70 YRS, UTERINE CANCER- HAD OPERATION, FELL, BLEEDING OCCURRED HAD METS PASSED HTN, DIAGNOSED WITH CANCER 6 SISTERS OK\\N2 BROTHERS OK\\N3 CHILDREN 2 BOYS 1 DAUGHTER. SOCIAL HISTORY GENERAL: TOBACCO USE ARE YOU A:FORMER SMOKER HOW LONG HAS IT BEEN SINCE YOU LAST SMOKED?1-5 YEARS LATEX QUESTIONNAIRE LATEX ALLERGY : HAVE YOU EVER DEVELOPED ANY TYPE OF REACTION AFTER HANDLING LATEX PRODUCTS SUCH RUBBER GLOVES, CONDOMS, DIAPHRAGMS, BALLOONS, SOCKS, OR UNDERWEAR?NO LATEX ALLERGY : HAVE YOU EVER DEVELOPED ANY TYPE OF REACTION DURING OR AFTER DENTAL APPOINTMENT, VAGINAL/RECTAL EXAMINATION, SURGICAL PROCEDURE, OR ANY OTHER EXPOSURE?NO DATE ASKED : 07/26/2018 LATEX RISK : HAVE YOU EVER HAD ANY DIFFICULTY BREATHING OR HIVES AFTER EATING OR HANDLING ANY FRUITS, OR VEGETABLES; SUCH KIWI, BANANAS, STONE FRUITS, OR CHESTNUTSNO LATEX RISK : DO YOU HAVE A PREVIOUS PERSONAL HISTORY OF MORE THAN NINE SURGERIES, SPINA BIFIDA, OR REPEATED CATHERTIZATIONS? NO LATEX RISK : ARE YOU FREQUENTLY EXPOSED TO LATEX PRODUCTS IN YOUR OCCUPATION?NO BMI CARE GOAL FOLLOW-UP ABOVE NORMAL BMI FOLLOW-UPDIETARY MANAGEMENT EDUCATION, GUIDANCE, AND COUNSELING ALCOHOL SCREENING DID YOU HAVE A DRINK CONTAINING ALCOHOL IN THE PAST YEAR?NO POINTS0 INTERPRETATIONNEGATIVE RECREATIONAL DRUG USE DRUG USE?NO PATIENT DENIES ABUSE OR MISSUSED OF ANY MEDICATION. PATIENT DENIES USE OF ANY ILLEGAL SUBSTANCE INCLUDING MARIJUANA OR COCAINE. CAFFEINE CAFFEINE USE?NO SEXUAL HX HAD SEX IN THE LAST 12 MONTHS (VAGINAL, ORAL, OR ANAL)?NO HAVE YOU EVER HAD AN STD?NO HIV / HEP-C SCREENING HIV TEST OFFERED TO PATIENT:YES DATE OFFERED:09/14/2016 TEST ACCEPTED:NO HEP-C TEST OFFERED TO PATIENT:YES DATE OFFERED:09/14/2016 REASON:PATIENT DECLINED TEST ACCEPTED:NO REASON:PATIENT DECLINED BROCHURE PROVIDED TO PATIENTYES ISLAM [id number] YARSANISM LANGUAGE LANGUAGES SPOKEN:BOTH NAMIBIAN AND ESTONIAN PREFERS TO SPEAK NAMIBIAN EDUCATION LEVEL OF EDUCATION:HIGH SCHOOL FINISHED 11TH GRADE LEARNING BARRIERS / SPECIAL NEEDS BARRIERS TO LEARNING?NO HEARING IMPAIRED?NO VISION IMPAIRED?YES COGNITIVELY IMPAIRED?NO :CORRECTIVE LENSES READINESS TO LEARN?YES LEARNING PREFERENCES?NO LEARNING CAPABILITIES PRESENT?YES EMOTIONAL BARRIERS?NO SPECIAL DEVICES?YES :CANE WINE SPECIALIST NEEDED?NO DOMESTIC VIOLENCE DO YOU FEEL SAFE IN YOUR ENVIRONMENT?YES OCCUPATION: UNEMPLOYED WORKED IN [place]. DIET: NO CONCENTRATED SWEETS., NO ADDED SALT. EXERCISE: NO REGULAR EXERCISE. MARITAL STATUS: -14 MONTHS. OTHERS AT HOME: 1 SON. NEW PATIENT PAIN DIARY PATIENT DESCRIBES PAIN :HAVE IT ALL THE TIME FROM 0-10, WHAT LEVEL IS YOUR PAIN TODAY?8 PRECIPITATING FACTORS CONSTANT PAIN ALLEVIATING FACTORS NOTHING, ATTEMPTS TO REPOSITION AT REGULAR INTERVALS IMPACT ON FUNCTION UNABLE TO DO STAIRS, UNABLE TO PLAY WITH GRANDCHILDREN NAME OF PERSON DRIVING YOU HOME TRANSPORTATION IS THERE A CHANCE YOU COULD BE ? NO HAVE YOU BEEN SICK IN THE LAST WEEK (COLD, COUGH, FEVER, FLU, ETC) NO DO YOU TAKE ANY BLOOD THINNERS? NO DO YOU HAVE ANY RASHES OR OPEN SORES? NO ANY CHANGE IN BOWEL OR BLADDER CONTROL? PT STATES THAT SHE VOIDS MORE THAN USUAL ARE YOU ALLERGIC TO SHELLFISH OR IV DYE? PT STATES THAT SHE DOES NOT TOLERATE IV DYE, HYPOTENSIVE ARE YOU DIABETIC? YES DO YOU HAVE A PACEMAKER OR DEFIBRILLATOR? NO ANY NEW PROBLEMS WITH MEDICINES OR NEW ALLERGIES NO ANY NEW PATTERNS OF PAIN OR NUMBNESS? PT STATES THAT SHE HAS CONSTANT PAIN AND SEEMS TO BE GETTING MORE INTENSE ANY CHANGE IN YOUR MEDICAL CONDITION? PT STATES THAT SHE HAD AN EPISODE OF CHEST PAIN LESS THAN A WEEK AGO HAVE YOU FALLEN IN THE LAST 6 MONTHS? NO DO YOU USE ANY TYPE OF TOBACCO (SMOKE, SMOKELESS, CHEW, ETC.) NO ARE YOU ABUSED, NEGLECTED, OR IN AN UNSAFE ENVIRONMENT? NO DO YOU HAVE THOUGHTS OF HURTING YOURSELF OR SOMEONE ELSE? NO DO YOU NEED ANY PRESCRIPTIONS? UNSURE PAIN CLINIC PFS, CLERGY, PUBLIC HEALTH REFERRALS WAS THE PROVIDER NOTIFIED OF ANY PERTINENT INFO?YES HAS THE PATIENT BEEN EDUCATED REGARDING HIS/HER PLAN OF CARE?YES PLEASE DOCUMENT ANY ADDTIONAL DETAILS. NEW PATIENT CONSULT HAS THE PATIENT BEEN EDUCATED REGARDING PAIN, THE RISK FOR PAIN, THE IMPORTANCE OF EFFECTIVE PAIN MANAGEMENT, AND THE PAIN ASSESSMENT PROCESS?YES HOUSING: RENTS APARTMENT WITH DAUGHTER AND SON. ADVANCE DIRECTIVE ADVANCE DIRECTIVE DISCUSSED WITH PATIENT:YES PATIENT DECLINED HCP INFORMATION. MOVED TO [place] 14 MONTHAGO [facility]. JAKI, FOLLOWED WITH FOR SEVERAL YEARS IN [facility] 11/22/17 0900 REVIEWED WITH PT. AD12/20/17 1435 REVIEWED WITH PT LAS REVIEWED WITH PATIENT 08/18/18 1415 JS07/06/18 1130 LAS. HOSPITALIZATION/MAJOR DIAGNOSTIC PROCEDURE SURGERIES REVIEW OF SYSTEMS REVIEWED BY: PROVIDER: JUMANA MONSON . CONSTITUTIONAL: ANY CHANGE IN YOUR MEDICAL CONDITION? NO . CHILLS NO . FEVER NO . INFECTION: DO YOU HAVE NEW INFECTIONS? NO . DO YOU HAVE HISTORY OF MRSA? NO . MUSCULOSKELETAL: ANY NEW PATTERNS OF PAIN OR NUMBNESS? NO . GASTROENTEROLOGY: ANY NEW CHANGE IN BOWEL CONTROL? NO . GENITOURINARY: ANY NEW CHANGE IN BLADDER CONTROL? NO . IS THERE A CHANCE YOU COULD BE ? NO . HEMATOLOGY/LYMPH: DO YOU TAKE ANY BLOOD THINNERS? (FOR EXAMPLE- COUMADIN, PLAVIX, AGGRENOX, PLATEL, PRADAXA, OR XARELTO) NO . WHEN WAS YOUR LAST DOSE? DATE: TIME: . NEUROLOGY: HAVE YOU FALLEN IN THE PAST 12 MONTHS? NO . ANY NEW EXTREMITY NUMBNESS OR WEAKNESS? NO . CARDIOLOGY: DO YOU HAVE A PACEMAKER OR DEFIBRILLATOR? NO . RESPIRATORY: HAVE YOU BEEN SICK IN THE PAST WEEK? NO . FEVER NO . FLU LIKE SYMPTOMS? NO . COUGH NO . INTEGUMENTARY: DO YOU HAVE ANY RASHES OR OPEN SORES? NO . ALLERGIC/IMMUNO: ARE YOU ALLERGIC TO IV DYE? NO . ANY NEW ALLERGIES? NO . PSYCHIATRIC: DO YOU HAVE THOUGHTS OF HURTING YOURSELF OR SOMEONE ELSE? NO . ARE YOU ABUSED, NEGLECTED, OR IN AN UNSAFE ENVIRONMENT? NO . ENDOCRINOLOGY: ARE YOU DIABETIC? YES . OTHER: DO YOU NEED ANY PRESCRIPTIONS? NO . IF YES, PLEASE LIST: ____ . ANY NEW PROBLEMS WITH YOUR MEDICATIONS? NO . WHEN DID YOU LAST EAT? ____ . WHEN DID YOU LAST DRINK? ____ . WHAT DID YOU LAST DRINK? ____ . NAME OF PERSON DRIVING YOU HOME? ____ . DO YOU HAVE ANY OTHER QUESTIONS OR CONCERNS YES, STATES PAIN IN HER RIGHT LOWER BACK IS REALLY BOTHERING HER, RADIATES DOWN HER RIGHT LEG . VITAL SIGNS WT 234.6 LBS, HT 5'2", BMI 42.90 INDEX, BP 128/70 MM HG, HR 95 /MIN, RR 16 /MIN, TEMP 97.6 F, OXYGEN SAT % 90%, SAFE IN ENV? (Y/N) YES, NA INITIALS CA 14:04, REVIEWED BY: JULIAN. EXAMINATION GENERAL EXAMINATION: GENERAL APPEARANCE:AWAKE,ALERT ,PLEAASANT . PSYCHAFFECT NORMAL . LUNGS:LUNG SILVA ARE CLEAR TO AUSCULTATION BILATERALLY. GOOD MOVEMENT OF AIR . HEART:S1, S2 IN A REGULAR RATE AND RHYTHM. NO SIGNIFICANT MURMURS, RUBS OR GALLOPS NOTED . MUSCULOSKELETAL:WEAK OVER RIGHT LEG. LUMBAR SACRAL SPINEPALPATION: + FOR PAIN OVER L/S SPINE. + FOR PAIN OVER L/S PARASPINALS. NEUROLOGIC EXAM:NORMAL SENSATION LIGHT TOUCH BILAT. LOWER EXTREMITIES. ASSESSMENTS INTERVERTEBRAL DISC DISORDER WITH RADICULOPATHY OF LUMBOSACRAL REGION - M51.17 (PRIMARY) LUMBAR RADICULOPATHY - M54.16 TREATMENT INTERVERTEBRAL DISC DISORDER WITH RADICULOPATHY OF LUMBOSACRAL REGION CONTINUE TRAMADOL HCL TABLET, 50 MG, 1 TABLET NEEDED, ORALLY, Q8H PRN MDD3 NOTES: LESI L3/4 . PROCEDURE CODES FA211 ESTABILISHED PATIENT [facility] CHARGE DISPOSITION & COMMUNICATION FOLLOW UP POST (REASON: LESI L3/4) ELECTRONICALLY SIGNED BY IONA SAUCEDA ON 08/29/2018 AT 03:41 PM EDT DISCLAIMER : THIS IS A VISIT SUMMARY EXTRACTED FROM THE [employer] CHART. IT IS NOT A COPY OF THE [employer] PROGRESS NOTE. CHANO
== END ==
LOC: M PAIN 14:30
PROVIDERS: ATTEND Nurse Practitioner Family
DX: M51.17 Intervertebral disc disorders with radiculopathy, lumbosacral region (principal); E11.40 Type 2 diabetes mellitus with diabetic neuropathy, unspecified; I10 Essential (primary) hypertension; E78.00 Pure hypercholesterolemia, unspecified; J44.9 Chronic obstructive pulmonary disease, unspecified; K76.0 Fatty (change of) liver, not elsewhere classified; N20.0 Calculus of kidney; Z87.891 Personal history of nicotine dependence; Z79.4 Long term (current) use of insulin; Z79.899 Other long term (current) drug therapy; Z88.5 Allergy status to narcotic agent; Z91.048 Other nonmedicinal substance allergy status

== ENCOUNTER → 2018-11-08 | Outpatient (REF) | payer OTHER ==
[2018-11-08 11:14] LABS: BASO % 0.5 % (0.0-1.0); EOS # 0.2 10^3/uL (0.0-0.50); EOS % 2.6 % (0.0-3.0); HEMATOCRIT 41.5 % (36.0-47.0); HEMOGLOBIN 13.1 g/dl (12.0-15.5); LYMPH % 34.6 % (24.0-44.0); MEAN CORPUSCULAR HEMOGLOBIN 27.6 pg (27.0-33.0); MEAN CORPUSCULAR HGB CONC 31.6 g/dl (32.0-36.5); MEAN CORPUSCULAR VOLUME 87.6 fl (80.0-96.0); MONO # 0.7 10^3/uL (0.0-0.8); MONO % 7.6 % (0.0-5.0); NEUTROPHILS # 4.8 10^3/uL (1.8-7.7); NEUTROPHILS % 54.5 % (36.0-66.0); PLATELET COUNT, AUTOMATED 270 10^3/uL (150-450); RED BLOOD COUNT 4.74 10^6/uL (4.00-5.40); WHITE BLOOD COUNT 8.8 10^3/uL (4.0-10.0)
[2018-11-08 11:34] LABS: HEMATOCRIT 41.5 % (36.0-47.0)
[2018-11-08 11:44] LABS: HEMOGLOBIN A1c 7.9 %
[2018-11-08 12:00] LABS: ALBUMIN 3.4 GM/DL (3.2-5.2); ALT/SGPT 25 U/L (12-78); BILIRUBIN,TOTAL 0.4 MG/DL (0.2-1.0); BLOOD UREA NITROGEN 8 MG/DL (7-18); CALCIUM LEVEL 8.9 MG/DL (8.5-10.1); CARBON DIOXIDE LEVEL 29 MEQ/L (21-32); CHLORIDE LEVEL 109 MEQ/L (98-107); CREATININE FOR GFR 0.46 MG/DL (0.55-1.30); FERRITIN 180 NG/ML (8-252); GLOMERULAR FILTRATION RATE > 60.0 (>51); GLUCOSE, FASTING 126 MG/DL (70-100); IRON (FE) 72 UG/DL (50-170); MAGNESIUM LEVEL 1.9 MG/DL (1.8-2.4); PERCENT SATURATION 25.5 % (13.2-45.0); POTASSIUM SERUM 3.7 MEQ/L (3.5-5.1); SODIUM LEVEL 143 MEQ/L (136-145); TOTAL IRON BINDING CAPACITY 282 UG/DL (250-450); TOTAL PROTEIN 6.6 GM/DL (6.4-8.2)
[2018-11-08 12:02] LABS: TOTAL 25(OH) VITAMIN D 23.5 NG/ML (30.0-100.0)
[2018-11-08 12:03] LABS: VITAMIN B12 LEVEL 756 PG/ML (247-911)
== END ==
LOC: M LABDRAWP 08:24
PROVIDERS: ATTEND Surgery
DX: K91.2 Postsurgical malabsorption, not elsewhere classified (principal); E55.9 Vitamin D deficiency, unspecified; Z98.84 Bariatric surgery status

== ENCOUNTER 2018-12-07 17:13 | Emergency (ER) | payer OTHER ==
[~2018-12-07] VITALS: Ht 154.9 cm; Wt 95.0 kg
[~2018-12-07 17:13] MED LIST changes: -DULO1CAP2 PO; +DULO1CAP5 PO
[2018-12-07] MEDS ORDERED: NS 1,000 ML IV ONE (20:00)
[2018-12-07] MEDS ORDERED: KETOROLAC 30 MG/ML VIAL (J1885) IV ONE (20:00)
[2018-12-07] MEDS ORDERED: ONDANSETRON 4MG/2ML VIAL (J2405) IV ONE ×2 (20:00→23:30)
[2018-12-07 20:45] LABS: HEMATOCRIT 43.4 % (36.0-47.0); HEMOGLOBIN 13.7 g/dl (12.0-15.5); MEAN CORPUSCULAR HEMOGLOBIN 26.9 pg (27.0-33.0); MEAN CORPUSCULAR HGB CONC 31.6 g/dl (32.0-36.5); MEAN CORPUSCULAR VOLUME 85.1 fl (80.0-96.0); PLATELET COUNT, AUTOMATED 282 10^3/uL (150-450); WHITE BLOOD COUNT 11.9 10^3/uL (4.0-10.0)
[2018-12-07 21:09] LABS: ALT/SGPT 29 U/L (12-78); BILIRUBIN,DIRECT 0.2 MG/DL (0.0-0.2); BILIRUBIN,TOTAL 0.5 MG/DL (0.2-1.0); CK-MB VALUE MASS < 1.0 NG/ML (<3.6); CPK CREATINE PHOSPHOKINASE 57 U/L (26-192); LIPASE 53 U/L (73-393); MB/CK RELATIVE INDEX 1.75 (< OR =4); TOTAL PROTEIN 7.5 GM/DL (6.4-8.2); TROPONIN I < 0.02 NG/ML (< 0.10)
[2018-12-07 21:32] LABS: ATYPICAL LYMPH 5 % (0-5); BASOPHILS 2 % (0-4); EOSINOPHILS 2 % (0-5); LYMPHOCYTES 35 % (16-52); MONOCYTES 2 % (0-8); NEUTROPHILS 53 % (35-75)
[2018-12-07 21:33] LABS: ANISOCYTOSIS 1+; OVALOCYTES 1+; PLATELET ESTIMATE NORMAL (NORMAL); POIKILOCYTOSIS 1+
[2018-12-07] MEDS ORDERED: ISOVUE-370 76% 100ML VIAL (Q9967) As Ordered ONE (21:55)
--- NOTE | 2018-12-07 23:26 | REPVR ---
EXAM: CT Abdomen and Pelvis With Contrast EXAM DATE/TIME: 12/07/2018 10:04 PM CLINICAL HISTORY: 58 years old, female; Abdominal pain; Generalized; Additional info: Abdominal pain, vomiting TECHNIQUE: Imaging protocol: Axial computed tomography images of the abdomen and pelvis with intravenous contrast. Coronal and sagittal reformatted images were created and reviewed. Radiation optimization: All CT scans at this facility use at least one of these dose optimization techniques: automated exposure control; mA and/or kV adjustment per patient size (includes targeted exams where dose is matched to clinical indication); or iterative reconstruction. Contrast material: ISOVUE 370; Contrast volume: 100 ml; Contrast route: IV; COMPARISON: No relevant prior studies available. FINDINGS: Lungs: Mild linear stranding and groundglass at the lung bases, likely due to atelectasis and/or scarring. Liver: Diffuse hepatic steatosis. Gallbladder and bile ducts: Mild gallbladder distention without radiodense gallstones. Pancreas: Unremarkable. Spleen: Unremarkable. Adrenals: Mild nonspecific nodular left adrenal thickening. Kidneys and ureters: Nonobstructing left renal calculus. No hydronephrosis. Stomach and bowel: Status post gastric bypass surgery. No obstruction. No bowel wall thickening. No pneumatosis. Appendix: Normal. Intraperitoneal space: No free fluid. No organized fluid collection. No free air. Vasculature: Mild atherosclerotic disease. No aneurysm or dissection. Lymph nodes: No pathologically enlarged lymph nodes. Bladder: Unremarkable. Reproductive: Somewhat lobular, heterogeneous uterus, likely due to fibroids. Bones/joints: No acute osseous abnormality. Osteopenia. Degenerative changes. Soft tissues: Unremarkable. Other findings: Elevated right hemidiaphragm. IMPRESSION: 1. No CT evidence of acute intra-abdominal or pelvic pathology. 2. Additional findings, as above. Electronically signed by: Carroll Whyte On 12/07/2018 23:26:32 PM
[2018-12-07] MEDS ORDERED: FLOM0.4C39 PO (23:52)
[2018-12-08 00:16] VITALS: BP 148/89
== END 2018-12-08 00:22 | disposition home or self-care (01) ==
LOC: M ED 17:13
DX: N20.0 Calculus of kidney (principal); E11.9 Type 2 diabetes mellitus without complications; I10 Essential (primary) hypertension; J44.9 Chronic obstructive pulmonary disease, unspecified; E78.5 Hyperlipidemia, unspecified; K21.9 Gastro-esophageal reflux disease without esophagitis; G89.29 Other chronic pain; M54.5 Low back pain; Z86.73 Personal history of transient ischemic attack (TIA), and cerebral infarction without residual deficits; Z79.899 Other long term (current) drug therapy; Z79.4 Long term (current) use of insulin; Z88.5 Allergy status to narcotic agent
CPT/HCPCS: 74177; 80047; 80076; 81001; 82550; 82553; 83690; 85025; 96374; 96375; 96376; 99284; J1885; J2405; Q9967

== ENCOUNTER → 2019-01-25 | Outpatient (CLI) | payer OTHER ==
[~2019-01-25] MED LIST changes: +FLOM0.4C39 PO; +METF-791 PO; -METF500T4 PO
--- NOTE | 2019-01-25 12:50 | REP ---
Clinical: Right hip pain. Technique: Neutral and frog lateral views of the right hip. Findings: Mild age-related degenerative changes include increased sclerosis to the acetabular roof with subtle marginal spurring and very minimal joint space narrowing. No acute fracture dislocation. Impression: Mild age-related changes. Electronically Signed by Ace Valenzuela MD 01/25/2019 12:41 P
== END ==
LOC: M RAD 11:18
PROVIDERS: ATTEND Nurse Practitioner Family
DX: M25.551 Pain in right hip (principal)

== ENCOUNTER → 2019-01-25 | Outpatient (CLI) | payer OTHER ==
--- NOTE | 2019-02-09 01:01 | ECWPNPC ---
PATIENT NAME: XUAN MOON : 1960 GENDER: FEMALE VISIT DATE: 01/25/2019 DISCHARGE DATE: 01/25/19 1049 VISIT LOCKED DATE TIME: PHYSICIAN: JUMANA DONALD RESOURCE: JUMANA DONALD REASON FOR APPOINTMENT 1. POST PROC HISTORY OF PRESENT ILLNESS HISTORY OF PRESENT ILLNESS: HERE FOR POST PROCEDURE F/U.HAD LESI ON 12/28/18.REPORTING 2-3 DAYS OF IMPROVEMENT THEN PAIN RETURNED TO BASELINE.CHIEF AREA OF PAIN IS RIGHT LOW BACK WITH RADIATION INTO RIGHT BUTTOCK AND HIP.REVIEWED MRI AND DISCUSSED TREATMENT OPTIONS.TAKING TRAMADOL BID WITH NO SIGNIFICANT REDUCTION IN PAIN.RATING PAIN VAS 7-9/10 VAS. PAIN THE PATIENT DESCRIBES THE PAIN... FALL RISK SCREENING: SCREENING :NO FALLS REPORTED IN THE LAST YEAR CURRENT MEDICATIONS TAKING ONETOUCH VERIO W/DEVICE KIT DIRECTED PT LAST GLUCOMETER WAS DROPPED AND BROKE NEEDS TO HAVE IT REPLACED. TO USE DAILY/ DX CODE E11.42 TAKING ACETAMINOPHEN 500 MG CAPSULE 2 CAPSULE NEEDED ORALLY EVERY 6 HRS TAKING PEN NEEDLES 31G X 8 MM MISCELLANEOUS 1 NEEDLE SUBCUTANEOUSLY DAILY TO USE WITH DWIGHT DX:E11.9 TAKING BLOOD GLUCOSE TEST - STRIP TRUE TEST IN VITRO DX:E11.21 DAILY TAKING PROAIR HFA 108 (90 BASE) MCG/ACT AEROSOL SOLUTION 2 PUFFS INHALATION EVERY 4 HRS NEEDED TAKING PEN NEEDLES [id number] UF SHORT NEEDLE USE 1 NEEDLE DAILY WITH DWIGHT , NOTES: DUPLICATE TAKING MECLIZINE HCL 25 MG TABLET 1 TABLET ORALLY THREE TIMES DAILY NEEDED FOR DIZZINESS TAKING LISINOPRIL 20 MG TABLET 1 TAB ORALLY DAILY TAKING TRIAMCINOLONE ACETONIDE 55 MCG/ACT AEROSOL 1 SPRAY IN EACH NOSTRIL NASALLY ONCE A DAY TAKING TRAMADOL HCL 50 MG TABLET 1 TO 2 ORALLY Q8H PRN MDD4, NOTES: NOT LATELY TAKING MULTIVITAMIN ADULT - TABLET DIRECTED ORALLY 2 TABS DAILY TAKING CALCIUM + D 600-200 MG-UNIT TABLET 1 TABLET ORALLY TWICE A DAY TAKING VITAMIN B12 100 MCG TABLET DIRECTED ORALLY TAKING STIOLTO RESPIMAT 2.5-2.5 MCG/ACT AEROSOL SOLUTION 2 PUFFS INHALATION ONCE A DAY TAKING ATORVASTATIN CALCIUM 40 MG TABLET 1 TABLET ORALLY ONCE A DAY TAKING BD PEN NEEDLE SHORT U/F 31G X 8 MM MISCELLANEOUS USE 1 NEEDLE DAILY WITH DWIGHT NOT-TAKING ZITHROMAX Z-SOCO 250 MG TABLET 2 TABLETS ON THE FIRST DAY, THEN 1 TABLET DAILY FOR 4 DAYS ORALLY ONCE A DAY NOT-TAKING DIFLUCAN 150 MG TABLET 1 TAB ORALLY DIRECTED 1 TODAY THEN 1 IN 5 DAYS NOT-TAKING NORVASC 5MG TABLET ORAL ORALLY DAILY, NOTES: 12-26-18 0900 NOT-TAKING METHOCARBAMOL 500 MG TABLET 2 TABLETS ORALLY EVERY 6 HRS NOT-TAKING NEURONTIN 300 MG CAPSULE 1 CAPSULE ORALLY FOR PAIN THREE TIMES A DAY NOT-TAKING CYMBALTA 60 MG CAPSULE DELAYED RELEASE PARTICLES 1 CAPSULE ORALLY ONCE A DAY NOT-TAKING OMEPRAZOLE 40 MG CAPSULE DELAYED RELEASE 1 CAPSULE ORALLY ONCE A DAY NOT-TAKING STEGLATRO 15 MG TABLET 1 TABLET ORALLY ONCE A DAY NOT-TAKING TOUJEO SOLOSTAR 300 UNIT/ML SOLUTION PEN-INJECTOR 65 UNITS SUBCUTANEOUS BEFORE BEDTIME NOT-TAKING METFORMIN HCL ER 500 MG TABLET EXTENDED RELEASE 24 HOUR 2 TABLET ORALLY BID NOT-TAKING BASAGLAR KWIKPEN 100 UNIT/ML SOLUTION PEN-INJECTOR 55 UNIT SUBCUTANEOUS DAILY, NOTES: 07/05/18 2100 NOT-TAKING SOMA COMPOUND 500 MGS 2 TABLETS ORALLY EVERY 6 HOURS NEEDED MDD= 8 MEDICATION LIST REVIEWED AND RECONCILED WITH THE PATIENT PAST MEDICAL HISTORY DIABETES MELLITUS TYPE 2 NEUROPATHY HYPERTENSION HYPERCHOLESTEROL COPD HX TOBACCO ABUSE FATTY LIVER PER ULTRASOUND 10/13/16 6 MM INTRARENAL KIDNEY STONE, PER ULTRASOUND 10/13/16 REFUSES REFERRAL TO UROLOGY 09/14/16, 02/22/17- 03/21/18 REFUSES COLONOSCOPY RIGHT KIDNEY COLUMN OF [place] NOTED ON XRAY 10/13/16 BACK PAIN GASTRIC BYPASS TBAENP=463 LBS ALLERGIES PLASTIC: RASH - ALLERGY NORCO: NAUSEA VOMITING - SIDE EFFECTS SURGICAL HISTORY APPENDECTOMY AGE 18 2000 [facility] ER LUMBAGO WITH SCIATICA RIGHT SIDE 06/04/18 GASTRIC BYPASS-DR. MATHEWS 10/09/2018 FAMILY HISTORY FATHER: ALIVE 78 YRS, DM2, HEART PROBLEMS TRIPLE BYPASS, DEMENTIA MOTHER: 70 YRS, UTERINE CANCER- HAD OPERATION, FELL, BLEEDING OCCURRED HAD METS PASSED HTN, DIAGNOSED WITH OTHER MALIGNANT NEOPLASM OF UNSPECIFIED SITE 6 SISTERS OK\\N2 BROTHERS OK\\N3 CHILDREN 2 BOYS 1 DAUGHTER. SOCIAL HISTORY GENERAL: TOBACCO USE ARE YOU A:FORMER SMOKER HOW LONG HAS IT BEEN SINCE YOU LAST SMOKED?1-5 YEARS HIV / HEP-C SCREENING HIV TEST OFFERED TO PATIENT:YES DATE OFFERED:09/14/2016 TEST ACCEPTED:NO HEP-C TEST OFFERED TO PATIENT:YES DATE OFFERED:09/14/2016 REASON:PATIENT DECLINED TEST ACCEPTED:NO REASON:PATIENT DECLINED BROCHURE PROVIDED TO PATIENTYES OTHERS AT HOME: 1 SON. HOUSING: RENTS APARTMENT WITH DAUGHTER AND SON. 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 LANGUAGE LANGUAGES SPOKEN:BOTH BELIZEAN AND ALBANIAN PREFERS TO SPEAK BELIZEAN DOMESTIC VIOLENCE DO YOU FEEL SAFE IN YOUR ENVIRONMENT?YES NEW PATIENT PAIN DIARY PATIENT DESCRIBES PAIN :HAVE IT ALL THE TIME FROM 0-10, WHAT LEVEL IS YOUR PAIN TODAY?8 PRECIPITATING FACTORS CONSTANT PAIN ALLEVIATING FACTORS NOTHING, ATTEMPTS TO REPOSITION AT REGULAR INTERVALS IMPACT ON FUNCTION UNABLE TO DO STAIRS, UNABLE TO PLAY WITH GRANDCHILDREN NAME OF PERSON DRIVING YOU HOME TRANSPORTATION IS THERE A CHANCE YOU COULD BE ? NO HAVE YOU BEEN SICK IN THE LAST WEEK (COLD, COUGH, FEVER, FLU, ETC) NO DO YOU TAKE ANY BLOOD THINNERS? NO DO YOU HAVE ANY RASHES OR OPEN SORES? NO ANY CHANGE IN BOWEL OR BLADDER CONTROL? PT STATES THAT SHE VOIDS MORE THAN USUAL ARE YOU ALLERGIC TO SHELLFISH OR IV DYE? PT STATES THAT SHE DOES NOT TOLERATE IV DYE, HYPOTENSIVE ARE YOU DIABETIC? YES DO YOU HAVE A PACEMAKER OR DEFIBRILLATOR? NO ANY NEW PROBLEMS WITH MEDICINES OR NEW ALLERGIES NO ANY NEW PATTERNS OF PAIN OR NUMBNESS? PT STATES THAT SHE HAS CONSTANT PAIN AND SEEMS TO BE GETTING MORE INTENSE ANY CHANGE IN YOUR MEDICAL CONDITION? PT STATES THAT SHE HAD AN EPISODE OF CHEST PAIN LESS THAN A WEEK AGO HAVE YOU FALLEN IN THE LAST 6 MONTHS? NO DO YOU USE ANY TYPE OF TOBACCO (SMOKE, SMOKELESS, CHEW, ETC.) NO ARE YOU ABUSED, NEGLECTED, OR IN AN UNSAFE ENVIRONMENT? NO DO YOU HAVE THOUGHTS OF HURTING YOURSELF OR SOMEONE ELSE? NO DO YOU NEED ANY PRESCRIPTIONS? UNSURE BMI CARE GOAL FOLLOW-UP ABOVE NORMAL BMI FOLLOW-UPDIETARY MANAGEMENT EDUCATION, GUIDANCE, AND COUNSELING RECREATIONAL DRUG USE DRUG USE?NO PATIENT DENIES ABUSE OR MISSUSED OF ANY MEDICATION. PATIENT DENIES USE OF ANY ILLEGAL SUBSTANCE INCLUDING MARIJUANA OR COCAINE. EXERCISE: NO REGULAR EXERCISE. LEARNING BARRIERS / SPECIAL NEEDS BARRIERS TO LEARNING?NO HEARING IMPAIRED?NO VISION IMPAIRED?YES COGNITIVELY IMPAIRED?NO :CORRECTIVE LENSES READINESS TO LEARN?YES LEARNING PREFERENCES?NO LEARNING CAPABILITIES PRESENT?YES EMOTIONAL BARRIERS?NO SPECIAL DEVICES?YES :CANE DIRECTOR DATA ARCHITECTURE NEEDED?NO PAIN CLINIC PFS, CLERGY, PUBLIC HEALTH REFERRALS WAS THE PROVIDER NOTIFIED OF ANY PERTINENT INFO?YES HAS THE PATIENT BEEN EDUCATED REGARDING HIS/HER PLAN OF CARE?YES PLEASE DOCUMENT ANY ADDTIONAL DETAILS. NEW PATIENT CONSULT HAS THE PATIENT BEEN EDUCATED REGARDING PAIN, THE RISK FOR PAIN, THE IMPORTANCE OF EFFECTIVE PAIN MANAGEMENT, AND THE PAIN ASSESSMENT PROCESS?YES LATEX QUESTIONNAIRE LATEX ALLERGY : HAVE YOU EVER DEVELOPED ANY TYPE OF REACTION AFTER HANDLING LATEX PRODUCTS SUCH RUBBER GLOVES, CONDOMS, DIAPHRAGMS, BALLOONS, SOCKS, OR UNDERWEAR?NO LATEX ALLERGY : HAVE YOU EVER DEVELOPED ANY TYPE OF REACTION DURING OR AFTER DENTAL APPOINTMENT, VAGINAL/RECTAL EXAMINATION, SURGICAL PROCEDURE, OR ANY OTHER EXPOSURE?NO DATE ASKED : 07/26/2018 LATEX RISK : HAVE YOU EVER HAD ANY DIFFICULTY BREATHING OR HIVES AFTER EATING OR HANDLING ANY FRUITS, OR VEGETABLES; SUCH KIWI, BANANAS, STONE FRUITS, OR CHESTNUTSNO LATEX RISK : DO YOU HAVE A PREVIOUS PERSONAL HISTORY OF MORE THAN NINE SURGERIES, SPINA BIFIDA, OR REPEATED CATHERIZATIONS? NO LATEX RISK : ARE YOU FREQUENTLY EXPOSED TO LATEX PRODUCTS IN YOUR OCCUPATION?NO CAFFEINE CAFFEINE USE?NO ADVANCE DIRECTIVE ADVANCE DIRECTIVE DISCUSSED WITH PATIENT:YES PATIENT DECLINED HCP INFORMATION. EPISCOPALIAN [id number] MOSQUE MARITAL STATUS: . ALCOHOL SCREENING DID YOU HAVE A DRINK CONTAINING ALCOHOL IN THE PAST YEAR?NO POINTS0 INTERPRETATIONNEGATIVE OCCUPATION: UNEMPLOYED WORKED IN [place]. SEXUAL HX HAD SEX IN THE LAST 12 MONTHS (VAGINAL, ORAL, OR ANAL)?NO HAVE YOU EVER HAD AN STD?NO MOVED TO [place] WHEN FROM [facility]. JAKI, FOLLOWED WITH FOR SEVERAL YEARS IN [facility] 11/22/17 0900 REVIEWED WITH PT. AD12/20/17 1435 REVIEWED WITH PT LAS REVIEWED WITH PATIENT 08/18/18 1415 JS07/06/18 1130 LAS. HOSPITALIZATION/MAJOR DIAGNOSTIC PROCEDURE SURGERIES REVIEW OF SYSTEMS REVIEWED BY: PROVIDER: JUMANA MONSON . CONSTITUTIONAL: ANY CHANGE IN YOUR MEDICAL CONDITION? NO . CHILLS NO . FEVER NO . INFECTION: DO YOU HAVE NEW INFECTIONS? NO . DO YOU HAVE HISTORY OF MRSA? NO . MUSCULOSKELETAL: ANY NEW PATTERNS OF PAIN OR NUMBNESS? YES, PAIN IS WORSE . GASTROENTEROLOGY: ANY NEW CHANGE IN BOWEL CONTROL? NO . GENITOURINARY: ANY NEW CHANGE IN BLADDER CONTROL? NO . IS THERE A CHANCE YOU COULD BE ? NO . HEMATOLOGY/LYMPH: DO YOU TAKE ANY BLOOD THINNERS? (FOR EXAMPLE- COUMADIN, PLAVIX, AGGRENOX, PLATEL, PRADAXA, OR XARELTO) NO . WHEN WAS YOUR LAST DOSE? DATE: TIME: . NEUROLOGY: HAVE YOU FALLEN IN THE PAST 12 MONTHS? NO . ANY NEW EXTREMITY NUMBNESS OR WEAKNESS? YES, RIGHT LEG WEAKNESS . CARDIOLOGY: DO YOU HAVE A PACEMAKER OR DEFIBRILLATOR? NO . RESPIRATORY: HAVE YOU BEEN SICK IN THE PAST WEEK? NO . FEVER NO . FLU LIKE SYMPTOMS? NO . COUGH NO . INTEGUMENTARY: DO YOU HAVE ANY RASHES OR OPEN SORES? NO . ALLERGIC/IMMUNO: ARE YOU ALLERGIC TO IV DYE? NO . ANY NEW ALLERGIES? NO . PSYCHIATRIC: DO YOU HAVE THOUGHTS OF HURTING YOURSELF OR SOMEONE ELSE? NO . ARE YOU ABUSED, NEGLECTED, OR IN AN UNSAFE ENVIRONMENT? NO . ENDOCRINOLOGY: ARE YOU DIABETIC? NO . OTHER: DO YOU NEED ANY PRESCRIPTIONS? NO . IF YES, PLEASE LIST: ____ . ANY NEW PROBLEMS WITH YOUR MEDICATIONS? NO . WHEN DID YOU LAST EAT? ____ . WHEN DID YOU LAST DRINK? ____ . WHAT DID YOU LAST DRINK? ____ . NAME OF PERSON DRIVING YOU HOME? ____ . DO YOU HAVE ANY OTHER QUESTIONS OR CONCERNS YES, PAIN IS WORSE EACH DAY RIGHT LEG PAIN AND LBP . VITAL SIGNS WT 208 LBS, HT 5'2", BMI 38.04 INDEX, BP 125/75 MM HG, HR 61 /MIN, RR 16 /MIN, TEMP 97.2 F, OXYGEN SAT % 100, REVIEWED BY: EM. EXAMINATION GENERAL EXAMINATION: GENERALAWAKE,ALERT ,PLEAASANT . PSYCHAFFECT NORMAL . LUNGS:LUNG SILVA ARE CLEAR TO AUSCULTATION BILATERALLY. GOOD MOVEMENT OF AIR . HEART:S1, S2 IN A REGULAR RATE AND RHYTHM. NO SIGNIFICANT MURMURS, RUBS OR GALLOPS NOTED . MUSCULOSKELETAL:WEAK OVER RIGHT LEG. LUMBAR SACRAL SPINEPALPATION: + FOR PAIN OVER L/S SPINE. + FOR PAIN OVER RIGHT L 4/5-L5/S1 LUMBAR FACETS WITH FACET LOADING. POSITIVE FOR TENDERNESS OVER RIGHT L/S PARASPINAL. NEUROLOGIC EXAM:NORMAL SENSATION LIGHT TOUCH BILAT. LOWER EXTREMITIES. HIP / THIGH: HIP: RIGHT. INSPECTION: UNREMARKABLE. PALPATION: TENDERNESS OVER TROCHANTERIC BURSA. ASSESSMENTS RIGHT HIP PAIN - M25.551 (PRIMARY), CYST RIGHT ACETABULUM LUMBOSACRAL SPONDYLOSIS WITHOUT MYELOPATHY - M47.817 TREATMENT RIGHT HIP PAIN CONTINUE TRAMADOL HCL TABLET, 50 MG, 1 TO 2, ORALLY, Q8H PRN MDD4, NOTES: NOT LATELY HIP COMPLETE (AP/LAT)[id number] NOTES: RIGHT L4/5-L5/S1 LFB DX. PROCEDURE CODES FA211 ESTABILISHED PATIENT [facility] CHARGE DISPOSITION & COMMUNICATION FOLLOW UP POST (REASON: RIGHT L4/5-L5/S1 LFB DX) ELECTRONICALLY SIGNED BY IONA SAUCEDA ON 02/08/2019 AT 08:51 AM EDT DISCLAIMER : THIS IS A VISIT SUMMARY EXTRACTED FROM THE [employer] CHART. IT IS NOT A COPY OF THE [employer] PROGRESS NOTE. CHANO
== END ==
LOC: M PAIN 10:15
PROVIDERS: ATTEND Nurse Practitioner Family
DX: M25.551 Pain in right hip (principal); M47.817 Spondylosis without myelopathy or radiculopathy, lumbosacral region; E11.40 Type 2 diabetes mellitus with diabetic neuropathy, unspecified; I10 Essential (primary) hypertension; E78.00 Pure hypercholesterolemia, unspecified; J44.9 Chronic obstructive pulmonary disease, unspecified; Z98.84 Bariatric surgery status; Z87.891 Personal history of nicotine dependence; Z88.5 Allergy status to narcotic agent; Z91.09 Other allergy status, other than to drugs and biological substances; Z79.891 Long term (current) use of opiate analgesic; Z79.899 Other long term (current) drug therapy

== ENCOUNTER → 2019-03-30 | Outpatient (CLI) | payer OTHER ==
--- NOTE | 2019-04-18 02:37 | ECWPNPC ---
PATIENT NAME: XUAN MOON : 1960 GENDER: FEMALE VISIT DATE: 03/30/2019 DISCHARGE DATE: 03/30/19 1021 VISIT LOCKED DATE TIME: PHYSICIAN: JUMANA DONALD RESOURCE: JUMANA DONALD REASON FOR APPOINTMENT 1. POST FACET BLK HISTORY OF PRESENT ILLNESS HISTORY OF PRESENT ILLNESS: HERE FOR POST PROCEDURE F/U.HAD RIGHT LFBD L4/5-L5/S1 ON 03/21/19.REPORTING NO IMPROVEMENT EVEN SHORT TERM POST PROCEDURE.CHIEF COMPLAINT IS RIGHT HIP PAIN. REPORTS AREA OF SWELLING OVER RIGHT HIP THAT IS PAINFUL TO TOUCH.SHE FEELS THIS IS THE CAUSE OF HER PAIN AND IS VERY WORRIED.RATING PAIN VAS 9/10. PAIN THE PATIENT DESCRIBES THE PAIN... FALL RISK SCREENING: SCREENING :NO FALLS REPORTED IN THE LAST YEAR CURRENT MEDICATIONS TAKING ONETOUCH VERIO W/DEVICE KIT DIRECTED PT LAST GLUCOMETER WAS DROPPED AND BROKE NEEDS TO HAVE IT REPLACED. TO USE DAILY/ DX CODE E11.42 TAKING ACETAMINOPHEN 500 MG CAPSULE 2 CAPSULE NEEDED ORALLY EVERY 6 HRS, NOTES: 03/20/19 TAKING PEN NEEDLES 31G X 8 MM MISCELLANEOUS 1 NEEDLE SUBCUTANEOUSLY DAILY TO USE WITH [employer] DX:E11.9 TAKING BLOOD GLUCOSE TEST - STRIP TRUE TEST IN VITRO DX:E11.21 DAILY TAKING PROAIR HFA 108 (90 BASE) MCG/ACT AEROSOL SOLUTION 2 PUFFS INHALATION EVERY 4 HRS NEEDED, NOTES: NONE RECENT TAKING PEN NEEDLES [id number] UF SHORT NEEDLE USE 1 NEEDLE DAILY WITH DWIGHT , NOTES: DUPLICATE TAKING MECLIZINE HCL 25 MG TABLET 1 TABLET ORALLY THREE TIMES DAILY NEEDED FOR DIZZINESS, NOTES: NONE RECENT TAKING LISINOPRIL 20 MG TABLET 1 TAB ORALLY DAILY, NOTES: 03/20/19 TAKING TRIAMCINOLONE ACETONIDE 55 MCG/ACT AEROSOL 1 SPRAY IN EACH NOSTRIL NASALLY ONCE A DAY, NOTES: 03/19/19 TAKING MULTIVITAMIN ADULT - TABLET DIRECTED ORALLY 2 TABS DAILY, NOTES: 03/20/19 TAKING CALCIUM + D 600-200 MG-UNIT TABLET 1 TABLET ORALLY TWICE A DAY, NOTES: 03/20/19 TAKING VITAMIN B12 100 MCG TABLET DIRECTED ORALLY , NOTES: 03/20/19 TAKING BD PEN NEEDLE SHORT U/F 31G X 8 MM MISCELLANEOUS USE 1 NEEDLE DAILY WITH DWIGHT TAKING STIOLTO RESPIMAT 2.5-2.5 MCG/ACT AEROSOL SOLUTION 2 PUFFS INHALATION ONCE A DAY, NOTES: 03/20/19 TAKING ATORVASTATIN CALCIUM 40 MG TABLET 1 TABLET ORALLY ONCE A DAY, NOTES: 03/20/19 TAKING NORVASC 5MG TABLET ORAL ORALLY DAILY, NOTES: 03/20/19 TAKING TRAMADOL HCL 50 MG TABLET 1 TO 2 ORALLY Q8H PRN MDD4, NOTES: NOT LATELY NOT-TAKING ZITHROMAX Z-SOCO 250 MG TABLET 2 TABLETS ON THE FIRST DAY, THEN 1 TABLET DAILY FOR 4 DAYS ORALLY ONCE A DAY NOT-TAKING DIFLUCAN 150 MG TABLET 1 TAB ORALLY DIRECTED 1 TODAY THEN 1 IN 5 DAYS NOT-TAKING METHOCARBAMOL 500 MG TABLET 2 TABLETS ORALLY EVERY 6 HRS NOT-TAKING NEURONTIN 300 MG CAPSULE 1 CAPSULE ORALLY FOR PAIN THREE TIMES A DAY NOT-TAKING CYMBALTA 60 MG CAPSULE DELAYED RELEASE PARTICLES 1 CAPSULE ORALLY ONCE A DAY NOT-TAKING OMEPRAZOLE 40 MG CAPSULE DELAYED RELEASE 1 CAPSULE ORALLY ONCE A DAY NOT-TAKING STEGLATRO 15 MG TABLET 1 TABLET ORALLY ONCE A DAY NOT-TAKING TOUJEO SOLOSTAR 300 UNIT/ML SOLUTION PEN-INJECTOR 65 UNITS SUBCUTANEOUS BEFORE BEDTIME NOT-TAKING METFORMIN HCL ER 500 MG TABLET EXTENDED RELEASE 24 HOUR 2 TABLET ORALLY BID NOT-TAKING BASAGLAR KWIKPEN 100 UNIT/ML SOLUTION PEN-INJECTOR 55 UNIT SUBCUTANEOUS DAILY, NOTES: 07/05/18 2100 NOT-TAKING SOMA COMPOUND 500 MGS 2 TABLETS ORALLY EVERY 6 HOURS NEEDED MDD= 8 MEDICATION LIST REVIEWED AND RECONCILED WITH THE PATIENT PAST MEDICAL HISTORY DIABETES MELLITUS TYPE 2 NEUROPATHY HYPERTENSION HYPERCHOLESTEROL COPD HX TOBACCO ABUSE FATTY LIVER PER ULTRASOUND 10/13/16 6 MM INTRARENAL KIDNEY STONE, PER ULTRASOUND 10/13/16 REFUSES REFERRAL TO UROLOGY 09/14/16, 02/22/17- 03/21/18 REFUSES COLONOSCOPY RIGHT KIDNEY COLUMN OF [place] NOTED ON XRAY 10/13/16 BACK PAIN GASTRIC BYPASS [id number] LBS ALLERGIES PLASTIC: RASH - ALLERGY NORCO: NAUSEA VOMITING - SIDE EFFECTS SURGICAL HISTORY APPENDECTOMY AGE 18 [address] [facility] ER LUMBAGO WITH SCIATICA RIGHT SIDE 06/04/18 GASTRIC BYPASS-DR. MATHEWS 10/09/2018 FAMILY HISTORY FATHER: ALIVE 78 YRS, DM2, HEART PROBLEMS TRIPLE BYPASS, DEMENTIA MOTHER: 70 YRS, UTERINE CANCER- HAD OPERATION, FELL, BLEEDING OCCURRED HAD METS PASSED HTN, DIAGNOSED WITH OTHER MALIGNANT NEOPLASM OF UNSPECIFIED SITE 6 SISTERS OK\\N2 BROTHERS OK\\N3 CHILDREN 2 BOYS 1 DAUGHTER. SOCIAL HISTORY GENERAL: TOBACCO USE ARE YOU A:FORMER SMOKER HOW LONG HAS IT BEEN SINCE YOU LAST SMOKED?1-5 YEARS HIV / HEP-C SCREENING HIV TEST OFFERED TO PATIENT:YES DATE OFFERED:09/14/2016 TEST ACCEPTED:NO HEP-C TEST OFFERED TO PATIENT:YES DATE OFFERED:09/14/2016 REASON:PATIENT DECLINED TEST ACCEPTED:NO REASON:PATIENT DECLINED BROCHURE PROVIDED TO PATIENTYES OTHERS AT HOME: 1 SON. HOUSING: RENTS APARTMENT WITH DAUGHTER AND SON. 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 LANGUAGE LANGUAGES SPOKEN:BOTH URDU AND SINHALA PREFERS TO SPEAK URDU DOMESTIC VIOLENCE DO YOU FEEL SAFE IN YOUR ENVIRONMENT?YES NEW PATIENT PAIN DIARY PATIENT DESCRIBES PAIN :HAVE IT ALL THE TIME FROM 0-10, WHAT LEVEL IS YOUR PAIN TODAY?8 PRECIPITATING FACTORS CONSTANT PAIN ALLEVIATING FACTORS NOTHING, ATTEMPTS TO REPOSITION AT REGULAR INTERVALS IMPACT ON FUNCTION UNABLE TO DO STAIRS, UNABLE TO PLAY WITH GRANDCHILDREN NAME OF PERSON DRIVING YOU HOME TRANSPORTATION IS THERE A CHANCE YOU COULD BE ? NO HAVE YOU BEEN SICK IN THE LAST WEEK (COLD, COUGH, FEVER, FLU, ETC) NO DO YOU TAKE ANY BLOOD THINNERS? NO DO YOU HAVE ANY RASHES OR OPEN SORES? NO ANY CHANGE IN BOWEL OR BLADDER CONTROL? PT STATES THAT SHE VOIDS MORE THAN USUAL ARE YOU ALLERGIC TO SHELLFISH OR IV DYE? PT STATES THAT SHE DOES NOT TOLERATE IV DYE, HYPOTENSIVE ARE YOU DIABETIC? YES DO YOU HAVE A PACEMAKER OR DEFIBRILLATOR? NO ANY NEW PROBLEMS WITH MEDICINES OR NEW ALLERGIES NO ANY NEW PATTERNS OF PAIN OR NUMBNESS? PT STATES THAT SHE HAS CONSTANT PAIN AND SEEMS TO BE GETTING MORE INTENSE ANY CHANGE IN YOUR MEDICAL CONDITION? PT STATES THAT SHE HAD AN EPISODE OF CHEST PAIN LESS THAN A WEEK AGO HAVE YOU FALLEN IN THE LAST 6 MONTHS? NO DO YOU USE ANY TYPE OF TOBACCO (SMOKE, SMOKELESS, CHEW, ETC.) NO ARE YOU ABUSED, NEGLECTED, OR IN AN UNSAFE ENVIRONMENT? NO DO YOU HAVE THOUGHTS OF HURTING YOURSELF OR SOMEONE ELSE? NO DO YOU NEED ANY PRESCRIPTIONS? UNSURE BMI CARE GOAL FOLLOW-UP ABOVE NORMAL BMI FOLLOW-UPDIETARY MANAGEMENT EDUCATION, GUIDANCE, AND COUNSELING RECREATIONAL DRUG USE DRUG USE?NO PATIENT DENIES ABUSE OR MISSUSED OF ANY MEDICATION. PATIENT DENIES USE OF ANY ILLEGAL SUBSTANCE INCLUDING MARIJUANA OR COCAINE. EXERCISE: NO REGULAR EXERCISE. LEARNING BARRIERS / SPECIAL NEEDS BARRIERS TO LEARNING?NO HEARING IMPAIRED?NO VISION IMPAIRED?YES COGNITIVELY IMPAIRED?NO :CORRECTIVE LENSES READINESS TO LEARN?YES LEARNING PREFERENCES?NO LEARNING CAPABILITIES PRESENT?YES EMOTIONAL BARRIERS?NO SPECIAL DEVICES?YES :CANE DIGITIZER OPERATOR NEEDED?NO PAIN CLINIC PFS, CLERGY, PUBLIC HEALTH REFERRALS WAS THE PROVIDER NOTIFIED OF ANY PERTINENT INFO?YES HAS THE PATIENT BEEN EDUCATED REGARDING HIS/HER PLAN OF CARE?YES PLEASE DOCUMENT ANY ADDTIONAL DETAILS. NEW PATIENT CONSULT HAS THE PATIENT BEEN EDUCATED REGARDING PAIN, THE RISK FOR PAIN, THE IMPORTANCE OF EFFECTIVE PAIN MANAGEMENT, AND THE PAIN ASSESSMENT PROCESS?YES LATEX QUESTIONNAIRE LATEX ALLERGY : HAVE YOU EVER DEVELOPED ANY TYPE OF REACTION AFTER HANDLING LATEX PRODUCTS SUCH RUBBER GLOVES, CONDOMS, DIAPHRAGMS, BALLOONS, SOCKS, OR UNDERWEAR?NO LATEX ALLERGY : HAVE YOU EVER DEVELOPED ANY TYPE OF REACTION DURING OR AFTER DENTAL APPOINTMENT, VAGINAL/RECTAL EXAMINATION, SURGICAL PROCEDURE, OR ANY OTHER EXPOSURE?NO DATE ASKED : 07/26/2018 LATEX RISK : HAVE YOU EVER HAD ANY DIFFICULTY BREATHING OR HIVES AFTER EATING OR HANDLING ANY FRUITS, OR VEGETABLES; SUCH KIWI, BANANAS, STONE FRUITS, OR CHESTNUTSNO LATEX RISK : DO YOU HAVE A PREVIOUS PERSONAL HISTORY OF MORE THAN NINE SURGERIES, SPINA BIFIDA, OR REPEATED CATHERIZATIONS? NO LATEX RISK : ARE YOU FREQUENTLY EXPOSED TO LATEX PRODUCTS IN YOUR OCCUPATION?NO CAFFEINE CAFFEINE USE?NO ADVANCE DIRECTIVE ADVANCE DIRECTIVE DISCUSSED WITH PATIENT:YES PATIENT DECLINED HCP INFORMATION AND DECLINED ASSISTANCE WITH FORM. CAODAISM [id number] MOSQUE MARITAL STATUS: . ALCOHOL SCREENING DID YOU HAVE A DRINK CONTAINING ALCOHOL IN THE PAST YEAR?NO POINTS0 INTERPRETATIONNEGATIVE OCCUPATION: UNEMPLOYED WORKED IN [employer]. SEXUAL HX HAD SEX IN THE LAST 12 MONTHS (VAGINAL, ORAL, OR ANAL)?NO HAVE YOU EVER HAD AN STD?NO MOVED TO [place] WHEN FROM [facility]. JAKI, FOLLOWED WITH FOR SEVERAL YEARS IN [facility] 11/22/17 0900 REVIEWED WITH PT. AD12/20/17 1435 REVIEWED WITH PT LAS REVIEWED WITH PATIENT 08/18/18 1415 JS07/06/18 1130 LAS03/21/19 1151 REVIEWED WITH PATIENT BV. HOSPITALIZATION/MAJOR DIAGNOSTIC PROCEDURE SURGERIES REVIEW OF SYSTEMS REVIEWED BY: PROVIDER: JUMANA MONSON . CONSTITUTIONAL: ANY CHANGE IN YOUR MEDICAL CONDITION? NO . CHILLS NO . FEVER NO . INFECTION: DO YOU HAVE NEW INFECTIONS? NO . DO YOU HAVE HISTORY OF MRSA? NO . MUSCULOSKELETAL: ANY NEW PATTERNS OF PAIN OR NUMBNESS? NO . GASTROENTEROLOGY: ANY NEW CHANGE IN BOWEL CONTROL? NO . GENITOURINARY: ANY NEW CHANGE IN BLADDER CONTROL? NO . IS THERE A CHANCE YOU COULD BE ? NO . HEMATOLOGY/LYMPH: DO YOU TAKE ANY BLOOD THINNERS? (FOR EXAMPLE- COUMADIN, PLAVIX, AGGRENOX, PLATEL, PRADAXA, OR XARELTO) NO . WHEN WAS YOUR LAST DOSE? DATE: TIME: . NEUROLOGY: HAVE YOU FALLEN IN THE PAST 12 MONTHS? NO . ANY NEW EXTREMITY NUMBNESS OR WEAKNESS? YES PT REPORTS NUMBNESS/WEAKNESS IN RIGHT LEG . CARDIOLOGY: DO YOU HAVE A PACEMAKER OR DEFIBRILLATOR? NO . RESPIRATORY: HAVE YOU BEEN SICK IN THE PAST WEEK? NO . FEVER NO . FLU LIKE SYMPTOMS? NO . COUGH NO . INTEGUMENTARY: DO YOU HAVE ANY RASHES OR OPEN SORES? NO . ALLERGIC/IMMUNO: ARE YOU ALLERGIC TO IV DYE? NO . ANY NEW ALLERGIES? NO . PSYCHIATRIC: DO YOU HAVE THOUGHTS OF HURTING YOURSELF OR SOMEONE ELSE? NO . ARE YOU ABUSED, NEGLECTED, OR IN AN UNSAFE ENVIRONMENT? NO . ENDOCRINOLOGY: ARE YOU DIABETIC? YES . OTHER: DO YOU NEED ANY PRESCRIPTIONS? NO . IF YES, PLEASE LIST: ____ . ANY NEW PROBLEMS WITH YOUR MEDICATIONS? NO . WHEN DID YOU LAST EAT? ____ . WHEN DID YOU LAST DRINK? ____ . WHAT DID YOU LAST DRINK? ____ . NAME OF PERSON DRIVING YOU HOME? ____ . DO YOU HAVE ANY OTHER QUESTIONS OR CONCERNS PT STATES "THE PAIN IS WORSE, CAN'T STAND FIRM ON MY RIGHT LEG OR GO UP THE STAIRS STARTING WITH MY RIGHT LEG." SHE SAYS SHE HAS A "BULGE" ON HER RIGHT HIP AREA. . VITAL SIGNS WT 201.6 LBS, HT 5'2", BMI 36.87 INDEX, BP 140/77 MM HG, HR 66 /MIN, RR 16 /MIN, TEMP 97.9 F, OXYGEN SAT % 95%, SAFE IN ENV? (Y/N) YES, REVIEWED BY: GILMER. EXAMINATION GENERAL EXAMINATION: GENERALAWAKE,ALERT ,PLEASANT . PSYCHAFFECT NORMAL . LUNGS:LUNG SILVA ARE CLEAR TO AUSCULTATION BILATERALLY. GOOD MOVEMENT OF AIR . HEART:S1, S2 IN A REGULAR RATE AND RHYTHM. NO SIGNIFICANT MURMURS, RUBS OR GALLOPS NOTED . MUSCULOSKELETAL:WEAK OVER RIGHT LEG HIP-RIGHT HIP WITH 2 CM CIRCULAR RAISE AREA OF SWELLING.PAIN WITH PALPATION OVER THIS AREA. LEFT HIP-NON TENDER/NO SWELLING. LUMBAR SACRAL SPINEPALPATION: + FOR PAIN OVER L/S SPINE. + FOR PAIN OVER RIGHT L 4/5-L5/S1 LUMBAR FACETS WITH FACET LOADING. POSITIVE FOR TENDERNESS OVER RIGHT L/S PARASPINAL. NEUROLOGIC EXAM:NORMAL SENSATION LIGHT TOUCH BILAT. LOWER EXTREMITIES. ASSESSMENTS HIP PAIN, RIGHT - M25.551 (PRIMARY) TREATMENT HIP PAIN, RIGHT CONTINUE TRAMADOL HCL TABLET, 50 MG, 1 TO 2, ORALLY, Q8H PRN MDD4, NOTES: NOT LATELY START GABAPENTIN CAPSULE, 300 MG, 1 CAPSULE, ORALLY, BID, 30 DAY(S), 60 CAPSULE, REFILLS 1 MRI : HIP, [id number],ASHLEY 03/30/2019 2:44:30 PM > MARSHA CHIANG 03/30/2019 2:35:35 PM > RECEIVED APPROVAL FOR MRI RIGHT HIP. AUTHORIZATION #[id number]. ELIZABETH DUCKWORTH 03/30/2019 3:38:50 PM > CPT CODE #[id number] NOTES: DUE TO NEW ONSET OF RIGHT HIP FOCAL SWELLING AND PAIN AND RELATIVELY NORMAL XRAY OF RIGHT HIP A MRI OF RIGHT HIP IS MEDICALLY NECESSARY. PROCEDURE CODES FA211 ESTABILISHED PATIENT [facility] FACILITY CHARGE DISPOSITION & COMMUNICATION FOLLOW UP [id number] RIGHT HIP MRI ELECTRONICALLY SIGNED BY IONA SAUCEDA ON 04/17/2019 AT 01:14 PM EST DISCLAIMER : THIS IS A VISIT SUMMARY EXTRACTED FROM THE [employer] CHART. IT IS NOT A COPY OF THE [employer] PROGRESS NOTE. CHANO
== END ==
LOC: M PAIN 10:45
PROVIDERS: ATTEND Nurse Practitioner Family
DX: M25.551 Pain in right hip (principal)

== ENCOUNTER → 2019-04-09 | Outpatient (CLI) | payer OTHER ==
--- NOTE | 2019-04-09 13:43 | REP ---
MRI RIGHT HIP: TECHNIQUE: Coronal T1, STIR through the pelvis, T2 fat sat, right hip all three planes, axial oblique proton density fat sat right hip. There is no occult fracture of the visualized osseous structures. There is no evidence of avascular necrosis. There is chondromalacia of the right hip joint with a 1.3 cm subchondral cyst in the superior acetabulum. At the sacroiliac joints bilaterally there is mild subchondral marrow edema compatible with mild arthritic change and sacroiliitis. Mild ill-defined high signal and tiny amount of fluid is seen along the greater trochanter of the proximal femurs bilaterally compatible with bilateral greater trochanteric tendinobursitis. The right hip labrum demonstrates diffuse fraying. No paralabral cyst is seen. There is a normal amount of joint fluid. Visualized intrapelvic structures appear grossly unremarkable. IMPRESSION: Diffuse fraying of the right hip labrum. There is mild bilateral greater trochanteric tendinobursitis. Moderate chondromalacia at the right hip joint with a 1.3 cm subchondral cyst in the superior right acetabulum. Mild arthritic change and bilateral sacroiliitis. Electronically Signed by Cheo Fay MD 04/10/2019 08:40 P
== END ==
LOC: M RAD 10:15
PROVIDERS: ATTEND Nurse Practitioner Family
DX: M25.551 Pain in right hip (principal)

== ENCOUNTER → 2019-05-11 | Outpatient (CLI) | payer OTHER ==
--- NOTE | 2019-05-22 01:37 | ECWPNPC ---
PATIENT NAME: XUAN MOON : 1960 GENDER: FEMALE VISIT DATE: 05/11/2019 DISCHARGE DATE: 05/11/19 1121 VISIT LOCKED DATE TIME: PHYSICIAN: JUMANA DONALD RESOURCE: JUMANA DONALD REASON FOR APPOINTMENT 1. RIGHT HIP/MRI HISTORY OF PRESENT ILLNESS HISTORY OF PRESENT ILLNESS: HERE FOR F/U OF RIGHT HIP PAIN.MRI OF RIGHT HIP IS REVIEWED.THIS IS SHOWING SEVERE DEGENERATIVE CHANGES.SHOWING DIFFUSE FRAYING OF RIGHT HIP LABRUM.DISCUSSED REFERRING FOR ORTHOPEDIC EVALUATION AND PATIENT IS RECEPTIVE.RATING RIGHT HIP PAIN 8/10 VAS. PAIN THE PATIENT DESCRIBES THE PAIN... FALL RISK SCREENING: SCREENING :NO FALLS REPORTED IN THE LAST YEAR CURRENT MEDICATIONS TAKING [email or web address] W/DEVICE KIT DIRECTED PT LAST GLUCOMETER WAS DROPPED AND BROKE NEEDS TO HAVE IT REPLACED. TO USE DAILY/ DX CODE E11.42 TAKING ACETAMINOPHEN 500 MG CAPSULE 2 CAPSULE NEEDED ORALLY EVERY 6 HRS, NOTES: 03/20/19 TAKING PEN NEEDLES 31G X 8 MM MISCELLANEOUS 1 NEEDLE SUBCUTANEOUSLY DAILY TO USE WITH DWIGHT DX:E11.9 TAKING BLOOD GLUCOSE TEST - STRIP TRUE TEST IN VITRO DX:E11.21 DAILY TAKING PROAIR HFA 108 (90 BASE) MCG/ACT AEROSOL SOLUTION 2 PUFFS INHALATION EVERY 4 HRS NEEDED, NOTES: NONE RECENT TAKING PEN NEEDLES [id number] UF SHORT NEEDLE USE 1 NEEDLE DAILY WITH DWIGHT , NOTES: DUPLICATE TAKING MECLIZINE HCL 25 MG TABLET 1 TABLET ORALLY THREE TIMES DAILY NEEDED FOR DIZZINESS, NOTES: NONE RECENT TAKING TRIAMCINOLONE ACETONIDE 55 MCG/ACT AEROSOL 1 SPRAY IN EACH NOSTRIL NASALLY ONCE A DAY, NOTES: 03/19/19 TAKING MULTIVITAMIN ADULT - TABLET DIRECTED ORALLY 2 TABS DAILY, NOTES: 03/20/19 TAKING CALCIUM + D 600-200 MG-UNIT TABLET 1 TABLET ORALLY TWICE A DAY, NOTES: 03/20/19 TAKING VITAMIN B12 100 MCG TABLET DIRECTED ORALLY , NOTES: 03/20/19 TAKING BD PEN NEEDLE SHORT U/F 31G X 8 MM MISCELLANEOUS USE 1 NEEDLE DAILY WITH DWIGHT TAKING GABAPENTIN 300 MG CAPSULE 1 CAPSULE ORALLY BID TAKING TRAMADOL HCL 50 MG TABLET 1 TO 2 ORALLY Q6H PRN MDD4 #45 TAB SHOULD LAST 30 DAYS, NOTES: NOT LATELY TAKING NORVASC 5MG TABLET ORAL ORALLY DAILY TAKING STIOLTO RESPIMAT 2.5-2.5 MCG/ACT AEROSOL SOLUTION 2 PUFFS INHALATION ONCE A DAY TAKING ATORVASTATIN CALCIUM 40 MG TABLET 1 TABLET ORALLY ONCE A DAY TAKING LISINOPRIL 20 MG TABLET 1 TAB ORALLY DAILY NOT-TAKING ZITHROMAX Z-SOCO 250 MG TABLET 2 TABLETS ON THE FIRST DAY, THEN 1 TABLET DAILY FOR 4 DAYS ORALLY ONCE A DAY NOT-TAKING DIFLUCAN 150 MG TABLET 1 TAB ORALLY DIRECTED 1 TODAY THEN 1 IN 5 DAYS NOT-TAKING METHOCARBAMOL 500 MG TABLET 2 TABLETS ORALLY EVERY 6 HRS NOT-TAKING NEURONTIN 300 MG CAPSULE 1 CAPSULE ORALLY FOR PAIN THREE TIMES A DAY NOT-TAKING CYMBALTA 60 MG CAPSULE DELAYED RELEASE PARTICLES 1 CAPSULE ORALLY ONCE A DAY NOT-TAKING OMEPRAZOLE 40 MG CAPSULE DELAYED RELEASE 1 CAPSULE ORALLY ONCE A DAY NOT-TAKING STEGLATRO 15 MG TABLET 1 TABLET ORALLY ONCE A DAY NOT-TAKING TOUJEO SOLOSTAR 300 UNIT/ML SOLUTION PEN-INJECTOR 65 UNITS SUBCUTANEOUS BEFORE BEDTIME NOT-TAKING METFORMIN HCL ER 500 MG TABLET EXTENDED RELEASE 24 HOUR 2 TABLET ORALLY BID NOT-TAKING BASAGLAR KWIKPEN 100 UNIT/ML SOLUTION PEN-INJECTOR 55 UNIT SUBCUTANEOUS DAILY, NOTES: 07/05/18 2100 NOT-TAKING SOMA COMPOUND 500 MGS 2 TABLETS ORALLY EVERY 6 HOURS NEEDED MDD= 8 MEDICATION LIST REVIEWED AND RECONCILED WITH THE PATIENT PAST MEDICAL HISTORY DIABETES MELLITUS TYPE 2 NEUROPATHY HYPERTENSION HYPERCHOLESTEROL COPD HX TOBACCO ABUSE FATTY LIVER PER ULTRASOUND 10/13/16 6 MM INTRARENAL KIDNEY STONE, PER ULTRASOUND 10/13/16 REFUSES REFERRAL TO UROLOGY 09/14/16, 02/22/17- 03/21/18 REFUSES COLONOSCOPY RIGHT KIDNEY COLUMN OF [place] NOTED ON XRAY 10/13/16 BACK PAIN GASTRIC BYPASS SALMEY=634 LBS ALLERGIES PLASTIC: RASH - ALLERGY NORCO: NAUSEA VOMITING - SIDE EFFECTS SURGICAL HISTORY APPENDECTOMY AGE 18 2000 [facility] ER LUMBAGO WITH SCIATICA RIGHT SIDE 06/04/18 GASTRIC BYPASS-DR. MATHEWS 10/09/2018 FAMILY HISTORY FATHER: ALIVE 78 YRS, DM2, HEART PROBLEMS TRIPLE BYPASS, DEMENTIA MOTHER: 70 YRS, UTERINE CANCER- HAD OPERATION, FELL, BLEEDING OCCURRED HAD METS PASSED HTN, DIAGNOSED WITH OTHER MALIGNANT NEOPLASM OF UNSPECIFIED SITE 6 SISTERS OK\\N2 BROTHERS OK\\N3 CHILDREN 2 BOYS 1 DAUGHTER. SOCIAL HISTORY GENERAL: TOBACCO USE ARE YOU A:FORMER SMOKER HOW LONG HAS IT BEEN SINCE YOU LAST SMOKED?1-5 YEARS HIV / HEP-C SCREENING HIV TEST OFFERED TO PATIENT:YES DATE OFFERED:09/14/2016 TEST ACCEPTED:NO HEP-C TEST OFFERED TO PATIENT:YES DATE OFFERED:09/14/2016 REASON:PATIENT DECLINED TEST ACCEPTED:NO REASON:PATIENT DECLINED BROCHURE PROVIDED TO PATIENTYES OTHERS AT HOME: 1 SON. HOUSING: RENTS APARTMENT WITH DAUGHTER AND SON. 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 LANGUAGE LANGUAGES SPOKEN:BOTH MALAYSIAN AND NIUEAN PREFERS TO SPEAK MALAYSIAN DOMESTIC VIOLENCE DO YOU FEEL SAFE IN YOUR ENVIRONMENT?YES NEW PATIENT PAIN DIARY PATIENT DESCRIBES PAIN :HAVE IT ALL THE TIME FROM 0-10, WHAT LEVEL IS YOUR PAIN TODAY?8 PRECIPITATING FACTORS CONSTANT PAIN ALLEVIATING FACTORS NOTHING, ATTEMPTS TO REPOSITION AT REGULAR INTERVALS IMPACT ON FUNCTION UNABLE TO DO STAIRS, UNABLE TO PLAY WITH GRANDCHILDREN NAME OF PERSON DRIVING YOU HOME TRANSPORTATION IS THERE A CHANCE YOU COULD BE ? NO HAVE YOU BEEN SICK IN THE LAST WEEK (COLD, COUGH, FEVER, FLU, ETC) NO DO YOU TAKE ANY BLOOD THINNERS? NO DO YOU HAVE ANY RASHES OR OPEN SORES? NO ANY CHANGE IN BOWEL OR BLADDER CONTROL? PT STATES THAT SHE VOIDS MORE THAN USUAL ARE YOU ALLERGIC TO SHELLFISH OR IV DYE? PT STATES THAT SHE DOES NOT TOLERATE IV DYE, HYPOTENSIVE ARE YOU DIABETIC? YES DO YOU HAVE A PACEMAKER OR DEFIBRILLATOR? NO ANY NEW PROBLEMS WITH MEDICINES OR NEW ALLERGIES NO ANY NEW PATTERNS OF PAIN OR NUMBNESS? PT STATES THAT SHE HAS CONSTANT PAIN AND SEEMS TO BE GETTING MORE INTENSE ANY CHANGE IN YOUR MEDICAL CONDITION? PT STATES THAT SHE HAD AN EPISODE OF CHEST PAIN LESS THAN A WEEK AGO HAVE YOU FALLEN IN THE LAST 6 MONTHS? NO DO YOU USE ANY TYPE OF TOBACCO (SMOKE, SMOKELESS, CHEW, ETC.) NO ARE YOU ABUSED, NEGLECTED, OR IN AN UNSAFE ENVIRONMENT? NO DO YOU HAVE THOUGHTS OF HURTING YOURSELF OR SOMEONE ELSE? NO DO YOU NEED ANY PRESCRIPTIONS? UNSURE BMI CARE GOAL FOLLOW-UP ABOVE NORMAL BMI FOLLOW-UPDIETARY MANAGEMENT EDUCATION, GUIDANCE, AND COUNSELING RECREATIONAL DRUG USE DRUG USE?NO PATIENT DENIES ABUSE OR MISSUSED OF ANY MEDICATION. PATIENT DENIES USE OF ANY ILLEGAL SUBSTANCE INCLUDING MARIJUANA OR COCAINE. EXERCISE: NO REGULAR EXERCISE. LEARNING BARRIERS / SPECIAL NEEDS BARRIERS TO LEARNING?NO HEARING IMPAIRED?NO VISION IMPAIRED?YES COGNITIVELY IMPAIRED?NO :CORRECTIVE LENSES READINESS TO LEARN?YES LEARNING PREFERENCES?NO LEARNING CAPABILITIES PRESENT?YES EMOTIONAL BARRIERS?NO SPECIAL DEVICES?YES :CANE ACCOUNTING CONSULTANT NEEDED?NO PAIN CLINIC PFS, CLERGY, PUBLIC HEALTH REFERRALS WAS THE PROVIDER NOTIFIED OF ANY PERTINENT INFO?YES HAS THE PATIENT BEEN EDUCATED REGARDING HIS/HER PLAN OF CARE?YES PLEASE DOCUMENT ANY ADDTIONAL DETAILS. NEW PATIENT CONSULT HAS THE PATIENT BEEN EDUCATED REGARDING PAIN, THE RISK FOR PAIN, THE IMPORTANCE OF EFFECTIVE PAIN MANAGEMENT, AND THE PAIN ASSESSMENT PROCESS?YES LATEX QUESTIONNAIRE LATEX ALLERGY : HAVE YOU EVER DEVELOPED ANY TYPE OF REACTION AFTER HANDLING LATEX PRODUCTS SUCH RUBBER GLOVES, CONDOMS, DIAPHRAGMS, BALLOONS, SOCKS, OR UNDERWEAR?NO LATEX ALLERGY : HAVE YOU EVER DEVELOPED ANY TYPE OF REACTION DURING OR AFTER DENTAL APPOINTMENT, VAGINAL/RECTAL EXAMINATION, SURGICAL PROCEDURE, OR ANY OTHER EXPOSURE?NO DATE ASKED : 07/26/2018 LATEX RISK : HAVE YOU EVER HAD ANY DIFFICULTY BREATHING OR HIVES AFTER EATING OR HANDLING ANY FRUITS, OR VEGETABLES; SUCH KIWI, BANANAS, STONE FRUITS, OR CHESTNUTSNO LATEX RISK : DO YOU HAVE A PREVIOUS PERSONAL HISTORY OF MORE THAN NINE SURGERIES, SPINA BIFIDA, OR REPEATED CATHERIZATIONS? NO LATEX RISK : ARE YOU FREQUENTLY EXPOSED TO LATEX PRODUCTS IN YOUR OCCUPATION?NO CAFFEINE CAFFEINE USE?NO ADVANCE DIRECTIVE ADVANCE DIRECTIVE DISCUSSED WITH PATIENT:YES PATIENT DECLINED HCP INFORMATION AND DECLINED ASSISTANCE WITH FORM. MANDAEISM [id number] ORIENTAL ORTHODOX MARITAL STATUS: . ALCOHOL SCREENING DID YOU HAVE A DRINK CONTAINING ALCOHOL IN THE PAST YEAR?NO POINTS0 INTERPRETATIONNEGATIVE OCCUPATION: UNEMPLOYED WORKED IN [place]. SEXUAL HX HAD SEX IN THE LAST 12 MONTHS (VAGINAL, ORAL, OR ANAL)?NO HAVE YOU EVER HAD AN STD?NO MOVED TO [place] [address] WHEN FROM [facility]. JAKI, FOLLOWED WITH FOR SEVERAL YEARS IN [facility] 11/22/17 0900 REVIEWED WITH PT. AD12/20/17 1435 REVIEWED WITH PT LAS REVIEWED WITH PATIENT 08/18/18 1415 JS07/06/18 1130 LAS03/21/19 1151 REVIEWED WITH PATIENT BV. HOSPITALIZATION/MAJOR DIAGNOSTIC PROCEDURE SURGERIES REVIEW OF SYSTEMS REVIEWED BY: PROVIDER: JUMANA MONSON . CONSTITUTIONAL: ANY CHANGE IN YOUR MEDICAL CONDITION? NO . CHILLS NO . FEVER NO . INFECTION: DO YOU HAVE NEW INFECTIONS? NO . DO YOU HAVE HISTORY OF MRSA? NO . MUSCULOSKELETAL: ANY NEW PATTERNS OF PAIN OR NUMBNESS? INCREASED . GASTROENTEROLOGY: ANY NEW CHANGE IN BOWEL CONTROL? NO . GENITOURINARY: ANY NEW CHANGE IN BLADDER CONTROL? NO . IS THERE A CHANCE YOU COULD BE ? NO . HEMATOLOGY/LYMPH: DO YOU TAKE ANY BLOOD THINNERS? (FOR EXAMPLE- COUMADIN, PLAVIX, AGGRENOX, PLATEL, PRADAXA, OR XARELTO) NO . WHEN WAS YOUR LAST DOSE? DATE: TIME: . NEUROLOGY: HAVE YOU FALLEN IN THE PAST 12 MONTHS? NO . ANY NEW EXTREMITY NUMBNESS OR WEAKNESS? NO . CARDIOLOGY: DO YOU HAVE A PACEMAKER OR DEFIBRILLATOR? NO . RESPIRATORY: HAVE YOU BEEN SICK IN THE PAST WEEK? NO . FEVER NO . FLU LIKE SYMPTOMS? NO . COUGH NO . INTEGUMENTARY: DO YOU HAVE ANY RASHES OR OPEN SORES? NO . ALLERGIC/IMMUNO: ARE YOU ALLERGIC TO IV DYE? NO . ANY NEW ALLERGIES? NO . PSYCHIATRIC: DO YOU HAVE THOUGHTS OF HURTING YOURSELF OR SOMEONE ELSE? NO . ARE YOU ABUSED, NEGLECTED, OR IN AN UNSAFE ENVIRONMENT? NO . ENDOCRINOLOGY: ARE YOU DIABETIC? NO . OTHER: DO YOU NEED ANY PRESCRIPTIONS? NO . IF YES, PLEASE LIST: ____ . ANY NEW PROBLEMS WITH YOUR MEDICATIONS? NO . WHEN DID YOU LAST EAT? ____ . WHEN DID YOU LAST DRINK? ____ . WHAT DID YOU LAST DRINK? ____ . NAME OF PERSON DRIVING YOU HOME? ____ . DO YOU HAVE ANY OTHER QUESTIONS OR CONCERNS NO . VITAL SIGNS WT 195.6 LBS, HT 5'2", BMI 35.77 INDEX, BP 137/71 MM HG, HR 69 /MIN, RR 18 /MIN, TEMP 97.3 F, OXYGEN SAT % 99%, NA INITIALS AW 1036. EXAMINATION GENERAL EXAMINATION: GENERALAWAKE,ALERT ,PLEASANT . PSYCH AFFECT NORMAL . LUNGS: LUNG SILVA ARE CLEAR TO AUSCULTATION BILATERALLY. GOOD MOVEMENT OF AIR . HEART: S1, S2 IN A REGULAR RATE AND RHYTHM. NO SIGNIFICANT MURMURS, RUBS OR GALLOPS NOTED . MUSCULOSKELETAL:WEAK OVER RIGHT LEG HIP-RIGHT HIP WITH 2 CM CIRCULAR RAISE AREA OF SWELLING.PAIN WITH PALPATION OVER THIS AREA. LEFT HIP-NON TENDER/NO SWELLING. FOR BILAT. SIJ PALPATION: + FOR PAIN OVER L/S SPINE. + FOR PAIN OVER RIGHT L 4/5-L5/S1 LUMBAR FACETS WITH FACET LOADING. POSITIVE FOR TENDERNESS OVER RIGHT L/S PARASPINAL. NEUROLOGIC EXAM: NORMAL SENSATION LIGHT TOUCH BILAT. LOWER EXTREMITIES. DIAGNOSTIC TESTS REVIEWED MRI RIGHT HIP-04/09/19. 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 . [facility] RE[facility]:RIGHT HIP PATHOLOGY PER MRI-SURGICAL OPINION PREVENTIVE MEDICINE PAIN CLINIC TEACHING: MEDICATIONS TIZANIDINE. PROCEDURE CODES FA211 ESTABILISHED PATIENT [facility] FACILITY CHARGE DISPOSITION & COMMUNICATION FOLLOW UP 2 MONTHS (REASON: RIGHT HIP PAIN) ELECTRONICALLY SIGNED BY IONA SAUCEDA ON 05/21/2019 AT 12:05 PM EST DISCLAIMER : THIS IS A VISIT SUMMARY EXTRACTED FROM THE [employer] CHART. IT IS NOT A COPY OF THE [employer] PROGRESS NOTE. CHANO
== END ==
LOC: M PAIN 10:15
PROVIDERS: ATTEND Nurse Practitioner Family
DX: M70.61 Trochanteric bursitis, right hip (principal)

== ENCOUNTER → 2019-05-29 | Outpatient (REF) | payer OTHER ==
[2019-05-29 13:47] LABS: HEMATOCRIT 43.2 % (36.0-47.0); HEMOGLOBIN 13.6 g/dl (12.0-15.5); MEAN CORPUSCULAR HEMOGLOBIN 27.5 pg (27.0-33.0); MEAN CORPUSCULAR HGB CONC 31.5 g/dl (32.0-36.5); MEAN CORPUSCULAR VOLUME 87.3 fl (80.0-96.0); PLATELET COUNT, AUTOMATED 295 10^3/uL (150-450); RED BLOOD COUNT 4.95 10^6/uL (4.00-5.40); WHITE BLOOD COUNT 10.6 10^3/uL (4.0-10.0)
[2019-05-29 14:10] LABS: ALBUMIN 3.8 GM/DL (3.2-5.2); ALT/SGPT 18 U/L (12-78); BILIRUBIN,TOTAL 0.2 MG/DL (0.2-1.0); BLOOD UREA NITROGEN 12 MG/DL (7-18); CALCIUM LEVEL 9.4 MG/DL (8.5-10.1); CARBON DIOXIDE LEVEL 28 MEQ/L (21-32); CHLORIDE LEVEL 108 MEQ/L (98-107); CHOLESTEROL LEVEL 124 MG/DL (<200); CHOLESTEROL RISK RATIO 3.647 (<5); CREATININE FOR GFR 0.62 MG/DL (0.55-1.30); FERRITIN 106 NG/ML (8-252); GLOMERULAR FILTRATION RATE > 60.0 (>51); GLUCOSE, FASTING 96 MG/DL (70-100); HDL CHOLESTEROL 34 MG/DL (>40); IRON (FE) 43 UG/DL (50-170); LDL CHOLESTEROL 61 MG/DL (<100); NON-HDL-C 90 MG/DL; PERCENT SATURATION 13.3 % (13.2-45.0); POTASSIUM SERUM 4.2 MEQ/L (3.5-5.1); SODIUM LEVEL 143 MEQ/L (136-145); TOTAL IRON BINDING CAPACITY 323 UG/DL (250-450); TRIGLYCERIDES LEVEL 147 MG/DL (<150)
[2019-05-29 14:17] LABS: TOTAL 25(OH) VITAMIN D 22.8 NG/ML (30.0-100.0)
[2019-05-29 14:18] LABS: MALB URINE SIEMENS 27.7 MG/L; VITAMIN B12 LEVEL 825 PG/ML (247-911)
[2019-05-29 17:00] LABS: HEMOGLOBIN A1c 7.2 %
== END ==
LOC: M SFHCPLAZ 11:12
PROVIDERS: ATTEND Nurse Practitioner Adult Health
DX: E11.21 Type 2 diabetes mellitus with diabetic nephropathy (principal); E55.9 Vitamin D deficiency, unspecified; E78.2 Mixed hyperlipidemia; Z98.84 Bariatric surgery status

== ENCOUNTER → 2019-07-12 | Outpatient (CLI) | payer OTHER ==
--- NOTE | 2019-07-31 04:52 | ECWPNPC ---
PATIENT NAME: XUAN MOON : 1960 GENDER: FEMALE VISIT DATE: 07/12/2019 DISCHARGE DATE: 07/12/19 1045 VISIT LOCKED DATE TIME: PHYSICIAN: JUMANA DONALD RESOURCE: JUMANA DONALD REASON FOR APPOINTMENT 1. RIGHT HIP PAIN HISTORY OF PRESENT ILLNESS HISTORY OF PRESENT ILLNESS: HERE FOR FOLLOW-UP OF PERSISTENT RIGHT HIP PAIN. [facility] PER OUR REFERRAL. THEY RECOMMENDED PHYSICAL THERAPY AND MOBIC. PATIENT DID NOT DO PHYSICAL THERAPY SHE STATES IT MAKES PAIN WORSE. [facility] RECOMMENDED POSSIBLY A TROCHANTERIC BURSAL STEROID INJECTION. I'VE TALKED WITH HER TODAY ABOUT THIS. SHE WOULD LIKE DR. LANGLEY TO DO IT HERE. CONTINUES WITH SIGNIFICANT AMOUNT OF RIGHT LOW BACK AND HIP PAIN. RATING PAIN LEVEL AN 8/10. SHE DOES NOT WANT ANY STRONGER MEDICATION THAN TRAMADOL. THIS DOES HELP HER WHEN SHE TAKES IT. PAIN THE PATIENT DESCRIBES THE PAIN... FALL RISK SCREENING: SCREENING :NO FALLS REPORTED IN THE LAST YEAR CURRENT MEDICATIONS TAKING [employer] W/DEVICE KIT DIRECTED PT LAST GLUCOMETER WAS DROPPED AND BROKE NEEDS TO HAVE IT REPLACED. TO USE DAILY/ DX CODE E11.42 TAKING BLOOD GLUCOSE TEST - STRIP TRUE TEST IN VITRO DX:E11.21 DAILY TAKING PROAIR HFA 108 (90 BASE) MCG/ACT AEROSOL SOLUTION 2 PUFFS INHALATION EVERY 4 HRS NEEDED TAKING ACETAMINOPHEN 500 MG CAPSULE 2 CAPSULE NEEDED ORALLY EVERY 6 HRS TAKING MECLIZINE HCL 25 MG TABLET 1 TABLET ORALLY THREE TIMES DAILY NEEDED FOR DIZZINESS TAKING TRIAMCINOLONE ACETONIDE 55 MCG/ACT AEROSOL 1 SPRAY IN EACH NOSTRIL NASALLY ONCE A DAY TAKING MULTIVITAMIN ADULT - TABLET DIRECTED ORALLY 2 TABS DAILY TAKING CALCIUM + D 600-200 MG-UNIT TABLET 1 TABLET ORALLY TWICE A DAY TAKING VITAMIN B12 100 MCG TABLET DIRECTED ORALLY TAKING GABAPENTIN 300 MG CAPSULE 1 CAPSULE ORALLY BID TAKING TIZANIDINE HCL 2 MG TABLET 1 TABLET NEEDED ORALLY AT BEDTIME MAY REPEAT IN 6 HOURS IF NEEDED TAKING DRISDOL 1.25 MG ([id number] UT) CAPSULE 1 CAPSULE ORALLY WEEKLY TAKING METFORMIN HCL ER 500 MG TABLET EXTENDED RELEASE 24 HOUR 1 TABLET WITH EVENING MEAL ORALLY ONCE A DAY TAKING TRAMADOL HCL 50 MG TABLET 1 TO 2 ORALLY 1 TABQ8H PRN MDD3 TAKING ATORVASTATIN CALCIUM 40 MG TABLET 1 TABLET ORALLY ONCE A DAY TAKING STIOLTO RESPIMAT 2.5-2.5 MCG/ACT AEROSOL SOLUTION 2 PUFFS INHALATION ONCE A DAY TAKING NORVASC 5MG TABLET ORAL ORALLY DAILY TAKING LISINOPRIL 20 MG TABLET 1 TAB ORALLY DAILY MEDICATION LIST REVIEWED AND RECONCILED WITH THE PATIENT PAST MEDICAL HISTORY DIABETES MELLITUS TYPE 2 NEUROPATHY HYPERTENSION HYPERCHOLESTEROL COPD HX TOBACCO ABUSE FATTY LIVER PER ULTRASOUND 10/13/16 6 MM INTRARENAL KIDNEY STONE, PER ULTRASOUND 10/13/16 REFUSES REFERRAL TO UROLOGY 09/14/16, 02/22/17- 03/21/18 REFUSES COLONOSCOPY RIGHT KIDNEY COLUMN OF [place] NOTED ON XRAY 10/13/16 BACK PAIN GASTRIC BYPASS RMDNAM=732 LBS ALLERGIES PLASTIC: RASH - ALLERGY NORCO: NAUSEA VOMITING - SIDE EFFECTS SURGICAL HISTORY APPENDECTOMY AGE 18 [address] [facility] ER LUMBAGO WITH SCIATICA RIGHT SIDE 06/04/18 UGI FOR GASTIC BYPASS 08/10/18 GASTRIC BYPASS-DR. MATHEWS 245 LBS 10/09/2018 FAMILY HISTORY FATHER: ALIVE 78 YRS, DM2, HEART PROBLEMS TRIPLE BYPASS, DEMENTIA MOTHER: 70 YRS, UTERINE CANCER- HAD OPERATION, FELL, BLEEDING OCCURRED HAD METS PASSED HTN, DIAGNOSED WITH OTHER MALIGNANT NEOPLASM OF UNSPECIFIED SITE 6 SISTERS OK\\N2 BROTHERS OK\\N3 CHILDREN 2 BOYS 1 DAUGHTER. SOCIAL HISTORY GENERAL: TOBACCO USE ARE YOU A:FORMER SMOKER HOW LONG HAS IT BEEN SINCE YOU LAST SMOKED?1-5 YEARS HIV / HEP-C SCREENING HIV TEST OFFERED TO PATIENT:YES DATE OFFERED:09/14/2016 TEST ACCEPTED:NO HEP-C TEST OFFERED TO PATIENT:YES DATE OFFERED:09/14/2016 REASON:PATIENT DECLINED TEST ACCEPTED:NO REASON:PATIENT DECLINED BROCHURE PROVIDED TO PATIENTYES OTHERS AT HOME: 1 SON. HOUSING: RENTS APARTMENT WITH DAUGHTER AND SON. 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 LANGUAGE LANGUAGES SPOKEN:BOTH FINNISH AND SOUTH KOREAN PREFERS TO SPEAK FINNISH DOMESTIC VIOLENCE DO YOU FEEL SAFE IN YOUR ENVIRONMENT?YES NEW PATIENT PAIN DIARY PATIENT DESCRIBES PAIN :HAVE IT ALL THE TIME FROM 0-10, WHAT LEVEL IS YOUR PAIN TODAY?8 PRECIPITATING FACTORS CONSTANT PAIN ALLEVIATING FACTORS NOTHING, ATTEMPTS TO REPOSITION AT REGULAR INTERVALS IMPACT ON FUNCTION UNABLE TO DO STAIRS, UNABLE TO PLAY WITH GRANDCHILDREN NAME OF PERSON DRIVING YOU HOME TRANSPORTATION IS THERE A CHANCE YOU COULD BE ? NO HAVE YOU BEEN SICK IN THE LAST WEEK (COLD, COUGH, FEVER, FLU, ETC) NO DO YOU TAKE ANY BLOOD THINNERS? NO DO YOU HAVE ANY RASHES OR OPEN SORES? NO ANY CHANGE IN BOWEL OR BLADDER CONTROL? PT STATES THAT SHE VOIDS MORE THAN USUAL ARE YOU ALLERGIC TO SHELLFISH OR IV DYE? PT STATES THAT SHE DOES NOT TOLERATE IV DYE, HYPOTENSIVE ARE YOU DIABETIC? YES DO YOU HAVE A PACEMAKER OR DEFIBRILLATOR? NO ANY NEW PROBLEMS WITH MEDICINES OR NEW ALLERGIES NO ANY NEW PATTERNS OF PAIN OR NUMBNESS? PT STATES THAT SHE HAS CONSTANT PAIN AND SEEMS TO BE GETTING MORE INTENSE ANY CHANGE IN YOUR MEDICAL CONDITION? PT STATES THAT SHE HAD AN EPISODE OF CHEST PAIN LESS THAN A WEEK AGO HAVE YOU FALLEN IN THE LAST 6 MONTHS? NO DO YOU USE ANY TYPE OF TOBACCO (SMOKE, SMOKELESS, CHEW, ETC.) NO ARE YOU ABUSED, NEGLECTED, OR IN AN UNSAFE ENVIRONMENT? NO DO YOU HAVE THOUGHTS OF HURTING YOURSELF OR SOMEONE ELSE? NO DO YOU NEED ANY PRESCRIPTIONS? UNSURE BMI CARE GOAL FOLLOW-UP ABOVE NORMAL BMI FOLLOW-UPDIETARY MANAGEMENT EDUCATION, GUIDANCE, AND COUNSELING RECREATIONAL DRUG USE DRUG USE?NO PATIENT DENIES ABUSE OR MISSUSED OF ANY MEDICATION. PATIENT DENIES USE OF ANY ILLEGAL SUBSTANCE INCLUDING MARIJUANA OR COCAINE. EXERCISE: NO REGULAR EXERCISE. 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 NEW PATIENT CONSULT HAS THE PATIENT BEEN EDUCATED REGARDING PAIN, THE RISK FOR PAIN, THE IMPORTANCE OF EFFECTIVE PAIN MANAGEMENT, AND THE PAIN ASSESSMENT PROCESS?YES LATEX QUESTIONNAIRE LATEX ALLERGY : HAVE YOU EVER DEVELOPED ANY TYPE OF REACTION AFTER HANDLING LATEX PRODUCTS SUCH RUBBER GLOVES, CONDOMS, DIAPHRAGMS, BALLOONS, SOCKS, OR UNDERWEAR?NO LATEX ALLERGY : HAVE YOU EVER DEVELOPED ANY TYPE OF REACTION DURING OR AFTER DENTAL APPOINTMENT, VAGINAL/RECTAL EXAMINATION, SURGICAL PROCEDURE, OR ANY OTHER EXPOSURE?NO DATE ASKED : 07/26/2018 LATEX RISK : HAVE YOU EVER HAD ANY DIFFICULTY BREATHING OR HIVES AFTER EATING OR HANDLING ANY FRUITS, OR VEGETABLES; SUCH KIWI, BANANAS, STONE FRUITS, OR CHESTNUTSNO LATEX RISK : DO YOU HAVE A PREVIOUS PERSONAL HISTORY OF MORE THAN NINE SURGERIES, SPINA BIFIDA, OR REPEATED CATHERIZATIONS? NO LATEX RISK : ARE YOU FREQUENTLY EXPOSED TO LATEX PRODUCTS IN YOUR OCCUPATION?NO CAFFEINE CAFFEINE USE?NO ADVANCE DIRECTIVE ADVANCE DIRECTIVE DISCUSSED WITH PATIENT:YES PATIENT DECLINED HCP INFORMATION AND DECLINED ASSISTANCE WITH FORM. PROTESTANT [id number] CHRISTIAN MARITAL STATUS: . ALCOHOL SCREENING DID YOU HAVE A DRINK CONTAINING ALCOHOL IN THE PAST YEAR?NO POINTS0 INTERPRETATIONNEGATIVE OCCUPATION: UNEMPLOYED WORKED IN [place]. SEXUAL HX HAD SEX IN THE LAST 12 MONTHS (VAGINAL, ORAL, OR ANAL)?NO HAVE YOU EVER HAD AN STD?NO MOVED TO [place] 14 [place]THAG[address] WHEN FROM [facility]. JAKI, FOLLOWED WITH FOR SEVERAL YEARS IN [facility] 11/22/17 0900 REVIEWED WITH PT. AD12/20/17 1435 REVIEWED WITH PT LAS REVIEWED WITH PATIENT 08/18/18 1415 JS07/06/18 1130 LAS03/21/19 1151 REVIEWED WITH PATIENT BV. HOSPITALIZATION/MAJOR DIAGNOSTIC PROCEDURE SURGERIES REVIEW OF SYSTEMS REVIEWED BY: PROVIDER: JUMANA MONSON . CONSTITUTIONAL: ANY CHANGE IN YOUR MEDICAL CONDITION? NO . CHILLS NO . FEVER NO . INFECTION: DO YOU HAVE NEW INFECTIONS? NO . DO YOU HAVE HISTORY OF MRSA? NO . MUSCULOSKELETAL: ANY NEW PATTERNS OF PAIN OR NUMBNESS? NO . GASTROENTEROLOGY: ANY NEW CHANGE IN BOWEL CONTROL? NO . GENITOURINARY: ANY NEW CHANGE IN BLADDER CONTROL? NO . IS THERE A CHANCE YOU COULD BE ? NO . HEMATOLOGY/LYMPH: DO YOU TAKE ANY BLOOD THINNERS? (FOR EXAMPLE- COUMADIN, PLAVIX, AGGRENOX, PLATEL, PRADAXA, OR XARELTO) NO . WHEN WAS YOUR LAST DOSE? DATE: TIME: . NEUROLOGY: HAVE YOU FALLEN IN THE PAST 12 MONTHS? NO . ANY NEW EXTREMITY NUMBNESS OR WEAKNESS? NO . CARDIOLOGY: DO YOU HAVE A PACEMAKER OR DEFIBRILLATOR? NO . RESPIRATORY: HAVE YOU BEEN SICK IN THE PAST WEEK? NO . FEVER NO . FLU LIKE SYMPTOMS? NO . COUGH NO . INTEGUMENTARY: DO YOU HAVE ANY RASHES OR OPEN SORES? NO . ALLERGIC/IMMUNO: ARE YOU ALLERGIC TO IV DYE? NO . ANY NEW ALLERGIES? NO . PSYCHIATRIC: DO YOU HAVE THOUGHTS OF HURTING YOURSELF OR SOMEONE ELSE? NO . ARE YOU ABUSED, NEGLECTED, OR IN AN UNSAFE ENVIRONMENT? NO . ENDOCRINOLOGY: ARE YOU DIABETIC? NO . OTHER: DO YOU NEED ANY PRESCRIPTIONS? NO . IF YES, PLEASE LIST: ____ . ANY NEW PROBLEMS WITH YOUR MEDICATIONS? NO . WHEN DID YOU LAST EAT? ____ . WHEN DID YOU LAST DRINK? ____ . WHAT DID YOU LAST DRINK? ____ . NAME OF PERSON DRIVING YOU HOME? ____ . DO YOU HAVE ANY OTHER QUESTIONS OR CONCERNS NO . VITAL SIGNS WT 189.0 LBS, HT 5'2", BMI 34.56 INDEX, BP 131/77 MM HG, HR 64 /MIN, RR 18 /MIN, TEMP 97.0 F, OXYGEN SAT % 98%, NA INITIALS AW 1001, REVIEWED BY: CLAUDETTE. EXAMINATION GENERAL EXAMINATION: GENERALAWAKE,ALERT ,PLEASANT . PSYCH AFFECT NORMAL . LUNGS: LUNG SILVA ARE CLEAR TO AUSCULTATION BILATERALLY. GOOD MOVEMENT OF AIR . HEART: S1, S2 IN A REGULAR RATE AND RHYTHM. NO SIGNIFICANT MURMURS, RUBS OR GALLOPS NOTED . MUSCULOSKELETAL:WEAK OVER RIGHT LEG . LUMBAR:PALPATION: + FOR PAIN OVER L/S SPINE. + FOR PAIN OVER RIGHT L 4/5-L5/S1 LUMBAR FACETS WITH FACET LOADING. POSITIVE FOR TENDERNESS OVER RIGHT L/S PARASPINAL. NEUROLOGIC EXAM: NORMAL SENSATION LIGHT TOUCH BILAT. LOWER EXTREMITIES. DIAGNOSTIC TESTS REVIEWED MRI RIGHT HIP-04/09/19. ASSESSMENTS TROCHANTERIC BURSITIS, RIGHT HIP - M70.61 (PRIMARY) TREATMENT TROCHANTERIC BURSITIS, RIGHT HIP REFILL TRAMADOL HCL TABLET, 50 MG, 1 TO 2, ORALLY, 1 TABQ8H PRN MDD3, 30 DAYS, 90, REFILLS 1 NOTES: RIGHT TROCHANTERIC BURSAL INJECTION, ISTOP REGISTRY REVIEWED AND DEMONSTRATES COMPLLIANCE. BRINGS IN MEDICATIONS WHICH IS APPROPRIATE FOR WHAT WAS DISPENSED. URINE TOX TODAY, RISKS OF NARCOTIC/OPIOD MEDICATIONS INCLUDES BUT IS NOT LIMITED TO RISK OF DEPENDANCE/DEVELOPMENT OF ADDICTION, MOOD DISTURBANCE AND DEPRESSION, OSTEOPOROSIS, HORMONAL AND LABIDAL CHANGES, RESPIRATORY DEPRESSION AND . PATIENT IS ADVISED NOT TO DRIVE OR DRINK ALCOHOL WHILE ON THESE MEDICATIONS. PREVENTIVE MEDICINE PAIN CLINIC TEACHING: PROCEDURE TEACHING PRE PROCEDURE INSTRUCTIONS REVIEWED WITH PT. VERBALIZED UNDERSTANDING.. PROCEDURE CODES FA211 ESTABILISHED PATIENT [facility] CHARGE DISPOSITION & COMMUNICATION FOLLOW UP POST (REASON: RIGHT TROCHANTERIC BURSAL INJECTION) ELECTRONICALLY SIGNED BY IONA SAUCEDA ON 07/30/2019 AT 03:04 PM EDT DISCLAIMER : THIS IS A VISIT SUMMARY EXTRACTED FROM THE [employer] CHART. IT IS NOT A COPY OF THE [employer] PROGRESS NOTE. CHANO
== END ==
LOC: M PAIN 10:00
PROVIDERS: ATTEND Nurse Practitioner Family
DX: M70.61 Trochanteric bursitis, right hip (principal); E11.40 Type 2 diabetes mellitus with diabetic neuropathy, unspecified; I10 Essential (primary) hypertension; E78.00 Pure hypercholesterolemia, unspecified; J44.9 Chronic obstructive pulmonary disease, unspecified; Z98.84 Bariatric surgery status; Z87.891 Personal history of nicotine dependence; Z88.5 Allergy status to narcotic agent; Z91.09 Other allergy status, other than to drugs and biological substances; Z79.84 Long term (current) use of oral hypoglycemic drugs; Z79.891 Long term (current) use of opiate analgesic; Z79.899 Other long term (current) drug therapy

== ENCOUNTER 2019-07-13 15:33 | Emergency (ER) | payer OTHER ==
[~2019-07-13] VITALS: Ht 157.5 cm; Wt 84.5 kg
--- NOTE | 2019-07-13 16:21 | REP ---
Head CT without contrast: History: Trauma. Comparison study: No comparison study. CT findings: Bone window settings demonstrate an intact bony calvarium. There is no evidence of skull fracture or incidental bony calvarial lesion. The visualized paranasal sinuses appear clear. No intraorbital abnormality is seen. On soft tissue window setting images; the lateral, third, and fourth ventricles are normal in size and position. Fay-white differentiation pattern is normal above and below the tentorium. There are is no evidence of intracranial hemorrhage. No mass, edema, infarction, or midline shift is seen. No extra-axial fluid collection is appreciated. Impression: Negative noncontrast head CT. Electronically Signed by Naun Keating MD 07/13/2019 04:20 P
[2019-07-13 16:50] VITALS: BP 130/84
== END 2019-07-13 16:51 | disposition home or self-care (01) ==
LOC: M ED 15:33
DX: S00.03XA Contusion of scalp, initial encounter (principal); W18.39XA Other fall on same level, initial encounter; Y92.018 Other place in single-family (private) house as the place of occurrence of the external cause; E11.9 Type 2 diabetes mellitus without complications; I10 Essential (primary) hypertension; J44.9 Chronic obstructive pulmonary disease, unspecified; E78.9 Disorder of lipoprotein metabolism, unspecified; Z79.899 Other long term (current) drug therapy; Z79.4 Long term (current) use of insulin; Z88.5 Allergy status to narcotic agent; F17.210 Nicotine dependence, cigarettes, uncomplicated

== ENCOUNTER → 2019-08-15 | Outpatient (CLI) | payer OTHER ==
[~2019-08-15] MED LIST changes: +BUPIVACAINE HCL 0.25% 30ML VIAL As Ordered ONE; +ISOVUE-M 300 61% 15ML VIAL (Q9967) As Ordered ONE; +LIDOCAINE 1% SDV INJ 30 ML VIAL As Ordered ONE; +TRIAMCINOLONE ACETONIDE SUSP 40 MG/ML VIAL (J3301) As Ordered ONE
--- NOTE | 2019-08-15 13:33 | REP ---
Right hip: Four views. History: Injection procedure for pain. 9 seconds of fluoroscopy time is reported. Findings: A sequence of four last image hold fluoroscopically obtained spot radiographs in the lateral projection document various needle positions and contrast injections associated with injection procedure. Electronically Signed by Naun Keating MD 08/15/2019 01:25 P
--- NOTE | 2019-08-29 03:16 | ECWPNPC ---
PATIENT NAME: XUAN MOON : 1960 GENDER: FEMALE VISIT DATE: 08/15/2019 DISCHARGE DATE: 08/15/19 1338 VISIT LOCKED DATE TIME: PHYSICIAN: ALLIE LANGLEY MD RESOURCE: ALLIE LANGLEY MD REASON FOR APPOINTMENT 1. RIGHT TROCHANTERIC BURSAL INJECTION HISTORY OF PRESENT ILLNESS HISTORY OF PRESENT ILLNESS: PAIN THE PATIENT DESCRIBES THE PAIN... FALL RISK SCREENING: SCREENING :NO FALLS REPORTED IN THE LAST YEAR CURRENT MEDICATIONS TAKING [employer] W/DEVICE KIT DIRECTED PT LAST GLUCOMETER WAS DROPPED AND BROKE NEEDS TO HAVE IT REPLACED. TO USE DAILY/ DX CODE E11.42 TAKING BLOOD GLUCOSE TEST - STRIP TRUE TEST IN VITRO DX:E11.21 DAILY TAKING PROAIR HFA 108 (90 BASE) MCG/ACT AEROSOL SOLUTION 2 PUFFS INHALATION EVERY 4 HRS NEEDED, NOTES: MORE THAN 1 WEEK AGO TAKING ACETAMINOPHEN 500 MG CAPSULE 2 CAPSULE NEEDED ORALLY EVERY 6 HRS, NOTES: 08/14/19 1300 TAKING MECLIZINE HCL 25 MG TABLET 1 TABLET ORALLY THREE TIMES DAILY NEEDED FOR DIZZINESS, NOTES: MORE THAN 1 WEEK AGO TAKING TRIAMCINOLONE ACETONIDE 55 MCG/ACT AEROSOL 1 SPRAY IN EACH NOSTRIL NASALLY ONCE A DAY, NOTES: MORE THAN 1 WEEK AGO TAKING MULTIVITAMIN ADULT - TABLET DIRECTED ORALLY 2 TABS DAILY, NOTES: 08/14/19 1300 TAKING CALCIUM + D 600-200 MG-UNIT TABLET 1 TABLET ORALLY TWICE A DAY, NOTES: 08/14/19 1300 TAKING VITAMIN B12 100 MCG TABLET DIRECTED ORALLY , NOTES: 08/14/19 1300 TAKING GABAPENTIN 300 MG CAPSULE 1 CAPSULE ORALLY BID, NOTES: TAKING TIZANIDINE HCL 2 MG TABLET 1 TABLET NEEDED ORALLY AT BEDTIME MAY REPEAT IN 6 HOURS IF NEEDED, NOTES: MORE THAN 1 WEEK AGO TAKING DRISDOL 1.25 MG (13212 UT) CAPSULE 1 CAPSULE ORALLY WEEKLY, NOTES: 08/13/19 TAKING METFORMIN HCL ER 500 MG TABLET EXTENDED RELEASE 24 HOUR 1 TABLET WITH EVENING MEAL ORALLY ONCE A DAY, NOTES: 08/13/19 TAKING ATORVASTATIN CALCIUM 40 MG TABLET 1 TABLET ORALLY ONCE A DAY, NOTES: 08/14/19 1300 TAKING STIOLTO RESPIMAT 2.5-2.5 MCG/ACT AEROSOL SOLUTION 2 PUFFS INHALATION ONCE A DAY, NOTES: 08/14/19 1300 TAKING NORVASC 5MG TABLET ORAL ORALLY DAILY, NOTES: 08/14/19 1300 TAKING LISINOPRIL 20 MG TABLET 1 TAB ORALLY DAILY, NOTES: 08/14/19 1300 TAKING TRAMADOL HCL 50 MG TABLET 1 TO 2 ORALLY 1 TABQ8H PRN MDD3, NOTES: 08/15/19 0600 MEDICATION LIST REVIEWED AND RECONCILED WITH THE PATIENT PAST MEDICAL HISTORY DIABETES MELLITUS TYPE 2 NEUROPATHY HYPERTENSION HYPERCHOLESTEROL COPD HX TOBACCO ABUSE FATTY LIVER PER ULTRASOUND 10/13/16 6 MM INTRARENAL KIDNEY STONE, PER ULTRASOUND 10/13/16 REFUSES REFERRAL TO UROLOGY 09/14/16, 02/22/17- 03/21/18 REFUSES COLONOSCOPY RIGHT KIDNEY COLUMN OF BERLIN NOTED ON XRAY 10/13/16 BACK PAIN GASTRIC BYPASS UZPUEA=622 LBS ALLERGIES PLASTIC: RASH - ALLERGY NORCO: NAUSEA VOMITING - SIDE EFFECTS SURGICAL HISTORY APPENDECTOMY AGE 18 2000 [facility] ER LUMBAGO WITH SCIATICA RIGHT SIDE 06/04/18 UGI FOR GASTIC BYPASS 08/10/18 GASTRIC BYPASS-DR. MATHEWS 245 LBS 10/09/2018 FAMILY HISTORY FATHER: ALIVE 80 YRS, DM2, HEART PROBLEMS TRIPLE BYPASS, DEMENTIA MOTHER: 70 YRS, UTERINE CANCER- HAD OPERATION, FELL, BLEEDING OCCURRED HAD METS PASSED HTN, DIAGNOSED WITH OTHER MALIGNANT NEOPLASM OF UNSPECIFIED SITE 6 SISTERS OK\\N2 BROTHERS OK\\N3 CHILDREN 2 BOYS 1 DAUGHTER. SOCIAL HISTORY GENERAL: TOBACCO USE ARE YOU A:FORMER SMOKER HOW LONG HAS IT BEEN SINCE YOU LAST SMOKED?1-5 YEARS HIV / HEP-C SCREENING HIV TEST OFFERED TO PATIENT:YES DATE OFFERED:09/14/2016 TEST ACCEPTED:NO HEP-C TEST OFFERED TO PATIENT:YES DATE OFFERED:09/14/2016 REASON:PATIENT DECLINED TEST ACCEPTED:NO REASON:PATIENT DECLINED BROCHURE PROVIDED TO PATIENTYES OTHERS AT HOME: 1 SON. HOUSING: RENTS APARTMENT WITH DAUGHTER AND SON. 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 LANGUAGE LANGUAGES SPOKEN:BOTH TURKMEN AND ERITREAN PREFERS TO SPEAK TURKMEN DOMESTIC VIOLENCE DO YOU FEEL SAFE IN YOUR ENVIRONMENT?YES NEW PATIENT PAIN DIARY TODAY'S VISIT 08/15/19 7/10 CONSTANT SHARP PATIENT DESCRIBES PAIN :HAVE IT ALL THE TIME FROM 0-10, WHAT LEVEL IS YOUR PAIN TODAY?8 PRECIPITATING FACTORS CONSTANT PAIN ALLEVIATING FACTORS NOTHING, ATTEMPTS TO REPOSITION AT REGULAR INTERVALS IMPACT ON FUNCTION UNABLE TO DO STAIRS, UNABLE TO PLAY WITH GRANDCHILDREN WHEN DID YOU LAST EAT? 08/14/19 1830 WHEN DID YOU LAST DRINK? 08/15/19 0600 WHAT DID YOU LAST DRINK? WATER NAME OF PERSON DRIVING YOU HOME TRANSPORTATION IS THERE A CHANCE YOU COULD BE ? NO HAVE YOU BEEN SICK IN THE LAST WEEK (COLD, COUGH, FEVER, FLU, ETC) NO DO YOU TAKE ANY BLOOD THINNERS? NO DO YOU HAVE ANY RASHES OR OPEN SORES? NO ANY CHANGE IN BOWEL OR BLADDER CONTROL? NO ARE YOU ALLERGIC TO SHELLFISH OR IV DYE? NO ARE YOU DIABETIC? YES DO YOU HAVE A PACEMAKER OR DEFIBRILLATOR? NO ANY NEW PROBLEMS WITH MEDICINES OR NEW ALLERGIES NO ANY NEW PATTERNS OF PAIN OR NUMBNESS? PT STATES THAT SHE HAS CONSTANT PAIN AND SEEMS TO BE GETTING MORE INTENSE ANY CHANGE IN YOUR MEDICAL CONDITION? NO HAVE YOU FALLEN IN THE LAST 6 MONTHS? YES DO YOU USE ANY TYPE OF TOBACCO (SMOKE, SMOKELESS, CHEW, ETC.) NO ARE YOU ABUSED, NEGLECTED, OR IN AN UNSAFE ENVIRONMENT? NO DO YOU HAVE THOUGHTS OF HURTING YOURSELF OR SOMEONE ELSE? NO DO YOU HAVE ANY OTHER QUESTIONS OR CONCERNS? NO INTENSITY SCALE REVIEWED YES BMI CARE GOAL FOLLOW-UP ABOVE NORMAL BMI FOLLOW-UPDIETARY MANAGEMENT EDUCATION, GUIDANCE, AND COUNSELING RECREATIONAL DRUG USE DRUG USE?NO PATIENT DENIES ABUSE OR MISSUSED OF ANY MEDICATION. PATIENT DENIES USE OF ANY ILLEGAL SUBSTANCE INCLUDING MARIJUANA OR COCAINE. EXERCISE: NO REGULAR EXERCISE. 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 NEW PATIENT CONSULT HAS THE PATIENT BEEN EDUCATED REGARDING PAIN, THE RISK FOR PAIN, THE IMPORTANCE OF EFFECTIVE PAIN MANAGEMENT, AND THE PAIN ASSESSMENT PROCESS?YES LATEX QUESTIONNAIRE LATEX ALLERGY : HAVE YOU EVER DEVELOPED ANY TYPE OF REACTION AFTER HANDLING LATEX PRODUCTS SUCH RUBBER GLOVES, CONDOMS, DIAPHRAGMS, BALLOONS, SOCKS, OR UNDERWEAR?NO LATEX ALLERGY : HAVE YOU EVER DEVELOPED ANY TYPE OF REACTION DURING OR AFTER DENTAL APPOINTMENT, VAGINAL/RECTAL EXAMINATION, SURGICAL PROCEDURE, OR ANY OTHER EXPOSURE?NO DATE ASKED : 07/26/2018 LATEX RISK : HAVE YOU EVER HAD ANY DIFFICULTY BREATHING OR HIVES AFTER EATING OR HANDLING ANY FRUITS, OR VEGETABLES; SUCH KIWI, BANANAS, STONE FRUITS, OR CHESTNUTSNO LATEX RISK : DO YOU HAVE A PREVIOUS PERSONAL HISTORY OF MORE THAN NINE SURGERIES, SPINA BIFIDA, OR REPEATED CATHERIZATIONS? NO LATEX RISK : ARE YOU FREQUENTLY EXPOSED TO LATEX PRODUCTS IN YOUR OCCUPATION?NO CAFFEINE CAFFEINE USE?NO ADVANCE DIRECTIVE ADVANCE DIRECTIVE DISCUSSED WITH PATIENT:YES PATIENT DECLINED HCP INFORMATION AND DECLINED ASSISTANCE WITH FORM. ORTHODOX [id number] SPIRITISM MARITAL STATUS: . ALCOHOL SCREENING DID YOU HAVE A DRINK CONTAINING ALCOHOL IN THE PAST YEAR?NO POINTS0 INTERPRETATIONNEGATIVE OCCUPATION: UNEMPLOYED WORKED IN [place]. SEXUAL HX HAD SEX IN THE LAST 12 MONTHS (VAGINAL, ORAL, OR ANAL)?NO HAVE YOU EVER HAD AN STD?NO MOVED TO [place] 14 MONTHAGO WHEN FROM [facility]. JAKI, FOLLOWED WITH FOR SEVERAL YEARS IN [facility] 11/22/17 0900 REVIEWED WITH PT. AD12/20/17 1435 REVIEWED WITH PT LAS REVIEWED WITH PATIENT 08/18/18 1415 JS07/06/18 1130 LAS03/21/19 1151 REVIEWED WITH PATIENT BV. HOSPITALIZATION/MAJOR DIAGNOSTIC PROCEDURE SURGERIES REVIEW OF SYSTEMS REVIEWED BY: PROVIDER: . CONSTITUTIONAL: ANY CHANGE IN YOUR MEDICAL CONDITION? NO . CHILLS NO . FEVER NO . INFECTION: DO YOU HAVE NEW INFECTIONS? NO . DO YOU HAVE HISTORY OF MRSA? NO . MUSCULOSKELETAL: ANY NEW PATTERNS OF PAIN OR NUMBNESS? NO . GASTROENTEROLOGY: ANY NEW CHANGE IN BOWEL CONTROL? NO . GENITOURINARY: ANY NEW CHANGE IN BLADDER CONTROL? NO . IS THERE A CHANCE YOU COULD BE ? NO . HEMATOLOGY/LYMPH: DO YOU TAKE ANY BLOOD THINNERS? (FOR EXAMPLE- COUMADIN, PLAVIX, AGGRENOX, PLATEL, PRADAXA, OR XARELTO) NO . WHEN WAS YOUR LAST DOSE? DATE: TIME: . NEUROLOGY: HAVE YOU FALLEN IN THE PAST 12 MONTHS? YES . ANY NEW EXTREMITY NUMBNESS OR WEAKNESS? NO . CARDIOLOGY: DO YOU HAVE A PACEMAKER OR DEFIBRILLATOR? NO . RESPIRATORY: HAVE YOU BEEN SICK IN THE PAST WEEK? NO . FEVER NO . FLU LIKE SYMPTOMS? NO . COUGH NO . INTEGUMENTARY: DO YOU HAVE ANY RASHES OR OPEN SORES? NO . ALLERGIC/IMMUNO: ARE YOU ALLERGIC TO IV DYE? NO . ANY NEW ALLERGIES? NO . PSYCHIATRIC: DO YOU HAVE THOUGHTS OF HURTING YOURSELF OR SOMEONE ELSE? NO . ARE YOU ABUSED, NEGLECTED, OR IN AN UNSAFE ENVIRONMENT? NO . ENDOCRINOLOGY: ARE YOU DIABETIC? NO . OTHER: DO YOU NEED ANY PRESCRIPTIONS? NO . IF YES, PLEASE LIST: ____ . ANY NEW PROBLEMS WITH YOUR MEDICATIONS? NO . WHEN DID YOU LAST EAT? 08/14/19 . WHEN DID YOU LAST DRINK? 08/15/19 0600 . WHAT DID YOU LAST DRINK? WATER . NAME OF PERSON DRIVING YOU HOME? ____ . DO YOU HAVE ANY OTHER QUESTIONS OR CONCERNS NO . VITAL SIGNS WT 185 LBS, HT 5'2", BMI 33.83 INDEX, BP 126/76 MM HG, HR 85 /MIN, RR 18 /MIN, TEMP 96.5 F, OXYGEN SAT % 99%, NA INITIALS AW 1106, REVIEWED BY: CLAUDETTE. ASSESSMENTS TROCHANTERIC BURSITIS, RIGHT HIP - M70.61 (PRIMARY) TREATMENT TROCHANTERIC BURSITIS, RIGHT HIP [facility] FLUORO GUIDANCE (PAIN)[id number] PROCEDURES PREPROCEDURE DIAGNOSIS: BURSITIS AT THE RIGHT GREATER TROCHANTER OF THE FEMUR. POSTPROCEDURE DIAGNOSIS: BURSITIS AT THE RIGHT GREATER TROCHANTER OF THE FEMUR. PROCEDURE: INJECTION AT THE BURSA OF THE RIGHT GREATER TROCHANTER OF THE FEMUR UNDER FLUOROSCOPIC GUIDANCE. SURGEON: DR. ALLIE LANGLEY WIRE COILER: NONEANESTHESIA: LOCAL. PREOPERATIVE NOTE: THE PATIENT HAS A HISTORY OF RIGHT HIP PAIN. I EVALUATED THE PATIENT AND REVIEWED THE CHART. WE BOTH AGREE ON INJECTING OVER THE BURSA OF THE RIGHT GREATER TROCHANTER OF THE FEMUR. I WENT THROUGH THE RISKS, ALTERNATIVES, AND BENEFITS ASSOCIATED WITH THIS PROCEDURE. THE PATIENT WOULD LIKE TO PROCEED AND GIVE CONSENT TO PERFORMED THE PROCEDURE. THE PATIENT DENIES UNEXPLAINABLE WEIGHT LOSS, FEVERS, CHILLS, OR CHANGES IN HIS URINARY OR BOWEL CONTROL. DESCRIPTION OF PROCEDURE: AFTER CONSENT WAS TAKEN, THE PATIENT WAS BROUGHT TO THE PROCEDURE ROOM AND PLACED IN THE LEFT LATERAL DECUBITUS POSITION. THE RIGHT HIP AREA WAS CLEANED WITH CHLORAPREP SOLUTION AND DRAPED ASEPTICALLY. THE PROCEDURE WAS DONE UNDER STERILE CONDITIONS. I CHECKED LATERALITY WITH THE PATIENT AND THE STAFF IN THE PROCEDURE ROOM AT THE MOMENT OF THE TIME OUT. UNDER FLUOROSCOPIC GUIDANCE, TARGET WAS SELECTED AT THE RIGHT GREATER TROCHANTER OF THE FEMUR. LIDOCAINE WAS USED TO NUMB THE SKIN AND THE SUBCUTANEOUS TISSUE BELOW IT. SPINAL NEEDLE, 22-GAUGE WAS ADVANCED UNDER FLUOROSCOPIC GUIDANCE AND FOLLOWING PATIENT FEEDBACK UNTIL THE TARGET WAS TOUCHED. POSITION OF THE NEEDLE WAS VERIFIED WITH AP AND LATERAL VIEWS. AFTER PROPER POSITION OF THE NEEDLE WAS ACHIEVED, ISOVUE M DYE, 30%, 0.25 ML WAS INJECTED SHOWING ADEQUATE SPREAD OF THE DYE. THEN A SOLUTION OF 20 ML OF BUPIVACAINE 0.25% AND KENALOG 40 MG WAS INJECTED. THERE WAS NO EVIDENCE OF BLOOD, PARESTHESIA, OR CEREBROSPINAL FLUID. THE PATIENT WAS SENT TO THE RECOVERY ROOM. THE PATIENT WAS MOVING THE EXTREMITIES AND DOING WELL. THERE WERE NO COMPLICATIONS DURING THE PROCEDURE. POSTOPERATIVE NOTE: I DISCUSSED ALTERNATIVES WITH THE PATIENT. WE WILL SEE THE PATIENT BACK IN SEVERAL WEEKS FOR REEVALUATION OF THE CASE. I AM LOOKING FOR LONG-LASTING PAIN RELIEF WITH THIS INTERVENTION. FLUOROSCOPIC TIME WAS 9 SECONDS. FURTHER RECOMMENDATIONS WILL BE DONE DEPENDING ON HOW THE PATIENT DOES. THERE WERE NO COMPLICATIONS. I, GAUTAM STILL, DOCUMENTED THE ABOVE INFORMATION ACTING A SCRIBE FOR DR. LANGLEY. I HAVE REVIEWED THE ABOVE DOCUMENT, WRITTEN BY GAUTAM NUÑEZ AND I VERIFY THAT IT IS ACCURATE. PROCEDURE CODES [id number] DRAIN/INJ JOINT/BURSA W/O US, MODIFIERS: RT 6045F RADXPS IN END [id number] PXD [id number] NEEDLE LOCALIZATION BY XRAY, MODIFIERS: 26 DISPOSITION & COMMUNICATION FOLLOW UP 3 WEEKS ELECTRONICALLY SIGNED BY ALLIE LANGLEY MD, MD ON 08/28/2019 AT 04:37 PM EDT DISCLAIMER : THIS IS A VISIT SUMMARY EXTRACTED FROM THE [employer] CHART. IT IS NOT A COPY OF THE [employer] PROGRESS NOTE. MTDD
== END ==
LOC: M PAIN 11:15
PROVIDERS: ATTEND Anesthesiology
DX: M70.61 Trochanteric bursitis, right hip (principal); E11.40 Type 2 diabetes mellitus with diabetic neuropathy, unspecified; I10 Essential (primary) hypertension; E78.00 Pure hypercholesterolemia, unspecified; J44.9 Chronic obstructive pulmonary disease, unspecified; Z98.84 Bariatric surgery status; Z87.891 Personal history of nicotine dependence; Z88.5 Allergy status to narcotic agent; Z91.09 Other allergy status, other than to drugs and biological substances; Z79.84 Long term (current) use of oral hypoglycemic drugs; Z79.891 Long term (current) use of opiate analgesic; Z79.899 Other long term (current) drug therapy
CPT/HCPCS: 20610; 77002; J3301; Q9967

== ENCOUNTER → 2019-08-29 | Outpatient (CLI) | payer OTHER ==
[~2019-08-29] MED LIST changes: -BUPIVACAINE HCL 0.25% 30ML VIAL As Ordered ONE; -ISOVUE-M 300 61% 15ML VIAL (Q9967) As Ordered ONE; -LIDOCAINE 1% SDV INJ 30 ML VIAL As Ordered ONE; -TRIAMCINOLONE ACETONIDE SUSP 40 MG/ML VIAL (J3301) As Ordered ONE
--- NOTE | 2019-09-03 10:28 | ECWPNPC ---
PATIENT NAME: XUAN MOON : 1960 GENDER: FEMALE VISIT DATE: 08/29/2019 DISCHARGE DATE: 08/29/19 1247 VISIT LOCKED DATE TIME: PHYSICIAN: JUMANA DONALD RESOURCE: JUMANA DONALD REASON FOR APPOINTMENT 1. POST TROCH BURSAL INJ HISTORY OF PRESENT ILLNESS HISTORY OF PRESENT ILLNESS: PHONE CALL TO PATIENT WHO IS OKAY WITH TELEPHONE VISIT TODAY. HAD RIGHT TROCHANTERIC BURSAL INJECTION ON 08/15/2019. REPORTING 100% RESOLUTION OF PAIN FOR APPROXIMATELY 2 WEEKS AND THEN PAIN HAS GRADUALLY RETURNED TO BASELINE. RATING PAIN LEVEL A 7/10. DISCUSSED MEDICATION AND TREATMENT OPTIONS. PAIN THE PATIENT DESCRIBES THE PAIN... FALL RISK SCREENING: SCREENING :NO FALLS REPORTED IN THE LAST YEAR CURRENT MEDICATIONS TAKING [employer] W/DEVICE KIT DIRECTED PT LAST GLUCOMETER WAS DROPPED AND BROKE NEEDS TO HAVE IT REPLACED. TO USE DAILY/ DX CODE E11.42 TAKING BLOOD GLUCOSE TEST - STRIP TRUE TEST IN VITRO DX:E11.21 DAILY TAKING PROAIR HFA 108 (90 BASE) MCG/ACT AEROSOL SOLUTION 2 PUFFS INHALATION EVERY 4 HRS NEEDED TAKING ACETAMINOPHEN 500 MG CAPSULE 2 CAPSULE NEEDED ORALLY EVERY 6 HRS TAKING MECLIZINE HCL 25 MG TABLET 1 TABLET ORALLY THREE TIMES DAILY NEEDED FOR DIZZINESS TAKING TRIAMCINOLONE ACETONIDE 55 MCG/ACT AEROSOL 1 SPRAY IN EACH NOSTRIL NASALLY ONCE A DAY TAKING MULTIVITAMIN ADULT - TABLET DIRECTED ORALLY 2 TABS DAILY TAKING CALCIUM + D 600-200 MG-UNIT TABLET 1 TABLET ORALLY TWICE A DAY TAKING VITAMIN B12 100 MCG TABLET DIRECTED ORALLY TAKING GABAPENTIN 300 MG CAPSULE 1 CAPSULE ORALLY BID TAKING TIZANIDINE HCL 2 MG TABLET 1 TABLET NEEDED ORALLY AT BEDTIME MAY REPEAT IN 6 HOURS IF NEEDED TAKING DRISDOL 1.25 MG (64096 UT) CAPSULE 1 CAPSULE ORALLY WEEKLY TAKING METFORMIN HCL ER 500 MG TABLET EXTENDED RELEASE 24 HOUR 1 TABLET WITH EVENING MEAL ORALLY ONCE A DAY TAKING ATORVASTATIN CALCIUM 40 MG TABLET 1 TABLET ORALLY ONCE A DAY TAKING STIOLTO RESPIMAT 2.5-2.5 MCG/ACT AEROSOL SOLUTION 2 PUFFS INHALATION ONCE A DAY TAKING NORVASC 5MG TABLET ORAL ORALLY DAILY TAKING LISINOPRIL 20 MG TABLET 1 TAB ORALLY DAILY TAKING TRAMADOL HCL 50 MG TABLET 1 TO 2 ORALLY 1 TABQ8H PRN MDD3 PAST MEDICAL HISTORY DIABETES MELLITUS TYPE 2 NEUROPATHY HYPERTENSION HYPERCHOLESTEROL COPD HX TOBACCO ABUSE FATTY LIVER PER ULTRASOUND 10/13/16 6 MM INTRARENAL KIDNEY STONE, PER ULTRASOUND 10/13/16 REFUSES REFERRAL TO UROLOGY 09/14/16, 02/22/17- 03/21/18 REFUSES COLONOSCOPY RIGHT KIDNEY COLUMN OF BERLIN NOTED ON XRAY 10/13/16 BACK PAIN GASTRIC BYPASS ZOVECE=162 LBS ALLERGIES PLASTIC: RASH - ALLERGY NORCO: NAUSEA VOMITING - SIDE EFFECTS SURGICAL HISTORY APPENDECTOMY AGE 18 2000 [facility] ER LUMBAGO WITH SCIATICA RIGHT SIDE 06/04/18 UGI FOR GASTIC BYPASS 08/10/18 GASTRIC BYPASS-DR. MATHEWS 245 LBS 10/09/2018 FAMILY HISTORY FATHER: ALIVE 80 YRS, DM2, HEART PROBLEMS TRIPLE BYPASS, DEMENTIA MOTHER: 70 YRS, UTERINE CANCER- HAD OPERATION, FELL, BLEEDING OCCURRED HAD METS PASSED HTN, DIAGNOSED WITH OTHER MALIGNANT NEOPLASM OF UNSPECIFIED SITE 6 SISTERS OK\N2 BROTHERS OK\N3 CHILDREN 2 BOYS 1 DAUGHTER. SOCIAL HISTORY GENERAL: TOBACCO USE ARE YOU A:FORMER SMOKER HOW LONG HAS IT BEEN SINCE YOU LAST SMOKED?1-5 YEARS HIV / HEP-C SCREENING HIV TEST OFFERED TO PATIENT:YES DATE OFFERED:09/14/2016 TEST ACCEPTED:NO HEP-C TEST OFFERED TO PATIENT:YES DATE OFFERED:09/14/2016 REASON:PATIENT DECLINED TEST ACCEPTED:NO REASON:PATIENT DECLINED BROCHURE PROVIDED TO PATIENTYES OTHERS AT HOME: 1 SON. HOUSING: RENTS APARTMENT WITH DAUGHTER AND SON. 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 LANGUAGE LANGUAGES SPOKEN:BOTH PARAGUAYAN AND BULGARIAN PREFERS TO SPEAK PARAGUAYAN DOMESTIC VIOLENCE DO YOU FEEL SAFE IN YOUR ENVIRONMENT?YES NEW PATIENT PAIN DIARY TODAY'S VISIT 08/15/19 7/10 CONSTANT SHARP PATIENT DESCRIBES PAIN :BURNING, HAVE IT ALL THE TIME FROM 0-10, WHAT LEVEL IS YOUR PAIN TODAY?7 PRECIPITATING FACTORS CONSTANT PAIN ALLEVIATING FACTORS NOTHING, ATTEMPTS TO REPOSITION AT REGULAR INTERVALS IMPACT ON FUNCTION UNABLE TO DO STAIRS, UNABLE TO PLAY WITH GRANDCHILDREN WHEN DID YOU LAST EAT? 08/14/19 1830 WHEN DID YOU LAST DRINK? 08/15/19 0600 WHAT DID YOU LAST DRINK? WATER NAME OF PERSON DRIVING YOU HOME TRANSPORTATION IS THERE A CHANCE YOU COULD BE ? NO HAVE YOU BEEN SICK IN THE LAST WEEK (COLD, COUGH, FEVER, FLU, ETC) NO DO YOU TAKE ANY BLOOD THINNERS? NO DO YOU HAVE ANY RASHES OR OPEN SORES? NO ANY CHANGE IN BOWEL OR BLADDER CONTROL? NO ARE YOU ALLERGIC TO SHELLFISH OR IV DYE? NO ARE YOU DIABETIC? YES DO YOU HAVE A PACEMAKER OR DEFIBRILLATOR? NO ANY NEW PROBLEMS WITH MEDICINES OR NEW ALLERGIES NO ANY NEW PATTERNS OF PAIN OR NUMBNESS? PT STATES THAT SHE HAS CONSTANT PAIN AND SEEMS TO BE GETTING MORE INTENSE ANY CHANGE IN YOUR MEDICAL CONDITION? NO HAVE YOU FALLEN IN THE LAST 6 MONTHS? YES DO YOU USE ANY TYPE OF TOBACCO (SMOKE, SMOKELESS, CHEW, ETC.) NO ARE YOU ABUSED, NEGLECTED, OR IN AN UNSAFE ENVIRONMENT? NO DO YOU HAVE THOUGHTS OF HURTING YOURSELF OR SOMEONE ELSE? NO DO YOU HAVE ANY OTHER QUESTIONS OR CONCERNS? NO INTENSITY SCALE REVIEWED YES BMI CARE GOAL FOLLOW-UP ABOVE NORMAL BMI FOLLOW-UPDIETARY MANAGEMENT EDUCATION, GUIDANCE, AND COUNSELING RECREATIONAL DRUG USE DRUG USE?NO PATIENT DENIES ABUSE OR MISSUSED OF ANY MEDICATION. PATIENT DENIES USE OF ANY ILLEGAL SUBSTANCE INCLUDING MARIJUANA OR COCAINE. EXERCISE: NO REGULAR EXERCISE. 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 NEW PATIENT CONSULT HAS THE PATIENT BEEN EDUCATED REGARDING PAIN, THE RISK FOR PAIN, THE IMPORTANCE OF EFFECTIVE PAIN MANAGEMENT, AND THE PAIN ASSESSMENT PROCESS?YES LATEX QUESTIONNAIRE LATEX ALLERGY : HAVE YOU EVER DEVELOPED ANY TYPE OF REACTION AFTER HANDLING LATEX PRODUCTS SUCH RUBBER GLOVES, CONDOMS, DIAPHRAGMS, BALLOONS, SOCKS, OR UNDERWEAR?NO LATEX ALLERGY : HAVE YOU EVER DEVELOPED ANY TYPE OF REACTION DURING OR AFTER DENTAL APPOINTMENT, VAGINAL/RECTAL EXAMINATION, SURGICAL PROCEDURE, OR ANY OTHER EXPOSURE?NO DATE ASKED : 07/26/2018 LATEX RISK : HAVE YOU EVER HAD ANY DIFFICULTY BREATHING OR HIVES AFTER EATING OR HANDLING ANY FRUITS, OR VEGETABLES; SUCH KIWI, BANANAS, STONE FRUITS, OR CHESTNUTSNO LATEX RISK : DO YOU HAVE A PREVIOUS PERSONAL HISTORY OF MORE THAN NINE SURGERIES, SPINA BIFIDA, OR REPEATED CATHERIZATIONS? NO LATEX RISK : ARE YOU FREQUENTLY EXPOSED TO LATEX PRODUCTS IN YOUR OCCUPATION?NO CAFFEINE CAFFEINE USE?NO ADVANCE DIRECTIVE ADVANCE DIRECTIVE DISCUSSED WITH PATIENT:YES PATIENT DECLINED HCP INFORMATION AND DECLINED ASSISTANCE WITH FORM. TAOISM [id number] ZOROASTRIANISM MARITAL STATUS: . ALCOHOL SCREENING DID YOU HAVE A DRINK CONTAINING ALCOHOL IN THE PAST YEAR?NO POINTS0 INTERPRETATIONNEGATIVE OCCUPATION: UNEMPLOYED WORKED IN [employer]. SEXUAL HX HAD SEX IN THE LAST 12 MONTHS (VAGINAL, ORAL, OR ANAL)?NO HAVE YOU EVER HAD AN STD?NO MOVED TO [place] 14 MONTHAGO WHEN FROM [facility]. JAKI, FOLLOWED WITH FOR SEVERAL YEARS IN [facility] 11/22/17 0900 REVIEWED WITH PT. AD12/20/17 1435 REVIEWED WITH PT LAS REVIEWED WITH PATIENT 08/18/18 1415 JS07/06/18 1130 LAS03/21/19 1151 REVIEWED WITH PATIENT BV. HOSPITALIZATION/MAJOR DIAGNOSTIC PROCEDURE SURGERIES REVIEW OF SYSTEMS REVIEWED BY: PROVIDER: JUMANA MONSON . CONSTITUTIONAL: ANY CHANGE IN YOUR MEDICAL CONDITION? NO . CHILLS NO . FEVER NO . INFECTION: DO YOU HAVE NEW INFECTIONS? NO . DO YOU HAVE HISTORY OF MRSA? NO . MUSCULOSKELETAL: ANY NEW PATTERNS OF PAIN OR NUMBNESS? NO . GASTROENTEROLOGY: ANY NEW CHANGE IN BOWEL CONTROL? NO . GENITOURINARY: ANY NEW CHANGE IN BLADDER CONTROL? NO . IS THERE A CHANCE YOU COULD BE ? NO . HEMATOLOGY/LYMPH: DO YOU TAKE ANY BLOOD THINNERS? (FOR EXAMPLE- COUMADIN, PLAVIX, AGGRENOX, PLATEL, PRADAXA, OR XARELTO) NO . WHEN WAS YOUR LAST DOSE? DATE: TIME: . NEUROLOGY: HAVE YOU FALLEN IN THE PAST 12 MONTHS? YES . ANY NEW EXTREMITY NUMBNESS OR WEAKNESS? NO . CARDIOLOGY: DO YOU HAVE A PACEMAKER OR DEFIBRILLATOR? NO . RESPIRATORY: HAVE YOU BEEN SICK IN THE PAST WEEK? NO . FEVER NO . FLU LIKE SYMPTOMS? NO . COUGH NO . INTEGUMENTARY: DO YOU HAVE ANY RASHES OR OPEN SORES? NO . ALLERGIC/IMMUNO: ARE YOU ALLERGIC TO IV DYE? NO . ANY NEW ALLERGIES? NO . PSYCHIATRIC: DO YOU HAVE THOUGHTS OF HURTING YOURSELF OR SOMEONE ELSE? NO . ARE YOU ABUSED, NEGLECTED, OR IN AN UNSAFE ENVIRONMENT? NO . ENDOCRINOLOGY: ARE YOU DIABETIC? YES . OTHER: DO YOU NEED ANY PRESCRIPTIONS? YES . IF YES, PLEASE LIST: TRAMADOL . ANY NEW PROBLEMS WITH YOUR MEDICATIONS? NO . WHEN DID YOU LAST EAT? ____ . WHEN DID YOU LAST DRINK? ____ . WHAT DID YOU LAST DRINK? ____ . NAME OF PERSON DRIVING YOU HOME? ____ . DO YOU HAVE ANY OTHER QUESTIONS OR CONCERNS NO . ASSESSMENTS TROCHANTERIC BURSITIS, RIGHT HIP - M70.61 (PRIMARY) TREATMENT TROCHANTERIC BURSITIS, RIGHT HIP NOTES: CURRENTLY PATIENT IS USING GABAPENTIN 300 MG CAPSULE ONCE A DAY. I'VE ADVISED HER TO INCREASE THIS TO 300 MG CAPSULE TWICE A DAY. CURRENTLY USING TRAMADOL 50 MG TWICE A DAY. RECOMMEND INCREASING TRAMADOL TO 1-2 TABLETS EVERY 6 HOURS NEEDED MAXIMUM DAILY DOSE OF 4 TABLETS. SHE WILL BE SCHEDULED FOR FOLLOW-UP IN 4-6 WEEKS TO CONSIDER REPEAT RIGHT TROCHANTERIC BURSAL INJECTION. DISPOSITION & COMMUNICATION FOLLOW UP 4-6 WEEKS. PREPROCEDURE (REASON: RIGHT TROCHANTERIC BURSAL) ELECTRONICALLY SIGNED BY IONA SAUCEDA ON 08/29/2019 AT 11:53 AM EDT DISCLAIMER : THIS IS A VISIT SUMMARY EXTRACTED FROM THE [employer] CHART. IT IS NOT A COPY OF THE [email or web address] PROGRESS NOTE. CHANO
== END ==
LOC: M PAIN 11:15
PROVIDERS: ATTEND Nurse Practitioner Family
DX: M70.61 Trochanteric bursitis, right hip (principal); E11.40 Type 2 diabetes mellitus with diabetic neuropathy, unspecified; I10 Essential (primary) hypertension; J44.9 Chronic obstructive pulmonary disease, unspecified; Z98.84 Bariatric surgery status; Z87.891 Personal history of nicotine dependence; Z88.8 Allergy status to other drugs, medicaments and biological substances; Z91.09 Other allergy status, other than to drugs and biological substances; Z79.84 Long term (current) use of oral hypoglycemic drugs; Z79.891 Long term (current) use of opiate analgesic; Z79.899 Other long term (current) drug therapy

== ENCOUNTER 2019-09-28 13:29 | Emergency (ER) | payer OTHER ==
[~2019-09-28] VITALS: Ht 154.9 cm; Wt 83.3 kg
[~2019-09-28 13:29] MED LIST changes: -METF-791 PO; +METF-838 PO
[2019-09-28] MEDS ORDERED: ATOR40TA75 PO (13:40)
[2019-09-28] MEDS ORDERED: KETOROLAC 60 MG/2 ML VIAL IM ONE (14:45)
[2019-09-28] MEDS ORDERED: LIDOCAINE 5% (LIDODERM) PATCH TD ONE (14:45)
[2019-09-28] MEDS ORDERED: methylPREDNISolone INJ 125 MG/2 ML VIAL (J2930) IM ONE (14:45)
[2019-09-28] MEDS ORDERED: LIDO5DIS41 TD (15:26)
[2019-09-28 15:27] VITALS: BP 124/63
[2019-09-29] MEDS ORDERED: **NOTE PATIENT COMMENT** MISC XX ONE (03:00)
== END 2019-09-28 15:32 | disposition home or self-care (01) ==
LOC: M ED 13:29
DX: M54.5 Low back pain (principal); I10 Essential (primary) hypertension; E78.5 Hyperlipidemia, unspecified; G62.9 Polyneuropathy, unspecified; Z98.84 Bariatric surgery status; Z79.899 Other long term (current) drug therapy; Z79.84 Long term (current) use of oral hypoglycemic drugs; Z88.5 Allergy status to narcotic agent; F17.210 Nicotine dependence, cigarettes, uncomplicated
CPT/HCPCS: 96372; 99283; J1885; J2930

== ENCOUNTER → 2019-10-03 | Outpatient (CLI) | payer OTHER ==
[~2019-10-03] MED LIST changes: +ATOR40TA75 PO; +LIDO5DIS41 TD
--- NOTE | 2019-10-05 02:24 | ECWPNPC ---
PATIENT NAME: XUAN MOON : 1960 GENDER: FEMALE VISIT DATE: 10/03/2019 DISCHARGE DATE: 10/03/19 1335 VISIT LOCKED DATE TIME: PHYSICIAN: JUMANA DONALD RESOURCE: JUMANA DONALD REASON FOR APPOINTMENT 1. PRE PROC PAT COMPLETED HISTORY OF PRESENT ILLNESS HISTORY OF PRESENT ILLNESS: HERE TODAY TO FOLLOW-UP ON CHRONIC LOW BACK PAIN. REPORTS THAT SHE WENT TO THE ER 6 DAYS AGO DUE TO NEW ONSET OF SEVERE LEFT LOW BACK PAIN THAT RADIATES INTO HER LEFT LEG. CONTINUES WITH SEVERE LOW BACK PAIN AND LEFT LEG PAIN. RATING PAIN LEVEL A 8/10 VAS. REVIEWED MRI DONE IN 2018. NO SIGNIFICANT PATHOLOGY THAT COULD CAUSE RADICULAR SYMPTOMS. DENIES LOSS OF BOWEL OR BLADDER CONTROL. PAIN IS AGGRAVATED WITH WALKING AND RELIEVED SOMEWHAT WITH REST. DISCUSSED MEDICATION AND TREATMENT OPTIONS. PAIN THE PATIENT DESCRIBES THE PAIN... FALL RISK SCREENING: SCREENING :NO FALLS REPORTED IN THE LAST YEAR CURRENT MEDICATIONS TAKING [employer] W/DEVICE KIT DIRECTED PT LAST GLUCOMETER WAS DROPPED AND BROKE NEEDS TO HAVE IT REPLACED. TO USE DAILY/ DX CODE E11.42 TAKING BLOOD GLUCOSE TEST - STRIP TRUE TEST IN VITRO DX:E11.21 DAILY TAKING PROAIR HFA 108 (90 BASE) MCG/ACT AEROSOL SOLUTION 2 PUFFS INHALATION EVERY 4 HRS NEEDED TAKING ACETAMINOPHEN 500 MG CAPSULE 2 CAPSULE NEEDED ORALLY EVERY 6 HRS TAKING MECLIZINE HCL 25 MG TABLET 1 TABLET ORALLY THREE TIMES DAILY NEEDED FOR DIZZINESS TAKING TRIAMCINOLONE ACETONIDE 55 MCG/ACT AEROSOL 1 SPRAY IN EACH NOSTRIL NASALLY ONCE A DAY TAKING MULTIVITAMIN ADULT - TABLET DIRECTED ORALLY 2 TABS DAILY TAKING CALCIUM + D 600-200 MG-UNIT TABLET 1 TABLET ORALLY TWICE A DAY TAKING VITAMIN B12 100 MCG TABLET DIRECTED ORALLY TAKING GABAPENTIN 300 MG CAPSULE 1 CAPSULE ORALLY BID TAKING TIZANIDINE HCL 2 MG TABLET 1 TABLET NEEDED ORALLY AT BEDTIME MAY REPEAT IN 6 HOURS IF NEEDED TAKING METFORMIN HCL ER 500 MG TABLET EXTENDED RELEASE 24 HOUR 1 TABLET WITH EVENING MEAL ORALLY ONCE A DAY TAKING ATORVASTATIN CALCIUM 40 MG TABLET 1 TABLET ORALLY ONCE A DAY TAKING STIOLTO RESPIMAT 2.5-2.5 MCG/ACT AEROSOL SOLUTION 2 PUFFS INHALATION ONCE A DAY TAKING NORVASC 5MG TABLET ORAL ORALLY DAILY TAKING LISINOPRIL 20 MG TABLET 1 TAB ORALLY DAILY TAKING TRAMADOL HCL 50 MG TABLET 1 TO 2 ORALLY 1 TABQ8H PRN MDD 4 TAKING DRISDOL 1.25 MG (41437 UT) CAPSULE 1 CAPSULE ORALLY WEEKLY MEDICATION LIST REVIEWED AND RECONCILED WITH THE PATIENT PAST MEDICAL HISTORY DIABETES MELLITUS TYPE 2 NEUROPATHY HYPERTENSION HYPERCHOLESTEROL COPD HX TOBACCO ABUSE FATTY LIVER PER ULTRASOUND 10/13/16 6 MM INTRARENAL KIDNEY STONE, PER ULTRASOUND 10/13/16 REFUSES REFERRAL TO UROLOGY 09/14/16, 02/22/17- 03/21/18 REFUSES COLONOSCOPY RIGHT KIDNEY COLUMN OF [place]ER[place] NOTED ON XRAY 10/13/16 BACK PAIN GASTRIC BYPASS LGCURX=411 LBS ALLERGIES PLASTIC: RASH - ALLERGY NORCO: NAUSEA VOMITING - SIDE EFFECTS SURGICAL HISTORY APPENDECTOMY AGE 18 2000 [facility] ER LUMBAGO WITH SCIATICA RIGHT SIDE 06/04/18 UGI FOR GASTIC BYPASS 08/10/18 GASTRIC BYPASS-DR. MATHEWS 245 LBS 10/09/2018 FAMILY HISTORY FATHER: ALIVE 81 YRS, DM2, HEART PROBLEMS TRIPLE BYPASS, DEMENTIA MOTHER: 70 YRS, UTERINE CANCER- HAD OPERATION, FELL, BLEEDING OCCURRED HAD METS PASSED HTN, DIAGNOSED WITH OTHER MALIGNANT NEOPLASM OF UNSPECIFIED SITE 6 SISTERS OK\\N2 BROTHERS OK\\N3 CHILDREN 2 BOYS 1 DAUGHTER. SOCIAL HISTORY GENERAL: TOBACCO USE ARE YOU A:CURRENT SMOKER PATIENT COUNSELED ON THE DANGERS OF TOBACCO USE AND URGED TO QUIT:10/02/2019 LATEX QUESTIONNAIRE LATEX ALLERGY : HAVE YOU EVER DEVELOPED ANY TYPE OF REACTION AFTER HANDLING LATEX PRODUCTS SUCH RUBBER GLOVES, CONDOMS, DIAPHRAGMS, BALLOONS, SOCKS, OR UNDERWEAR?NO LATEX ALLERGY : HAVE YOU EVER DEVELOPED ANY TYPE OF REACTION DURING OR AFTER DENTAL APPOINTMENT, VAGINAL/RECTAL EXAMINATION, SURGICAL PROCEDURE, OR ANY OTHER EXPOSURE?NO DATE ASKED : 07/26/2018 LATEX RISK : HAVE YOU EVER HAD ANY DIFFICULTY BREATHING OR HIVES AFTER EATING OR HANDLING ANY FRUITS, OR VEGETABLES; SUCH KIWI, BANANAS, STONE FRUITS, OR CHESTNUTSNO LATEX RISK : DO YOU HAVE A PREVIOUS PERSONAL HISTORY OF MORE THAN NINE SURGERIES, SPINA BIFIDA, OR REPEATED CATHERIZATIONS? NO LATEX RISK : ARE YOU FREQUENTLY EXPOSED TO LATEX PRODUCTS IN YOUR OCCUPATION?NO BMI CARE GOAL FOLLOW-UP ABOVE NORMAL BMI FOLLOW-UPDIETARY MANAGEMENT EDUCATION, GUIDANCE, AND COUNSELING ALCOHOL SCREENING DID YOU HAVE A DRINK CONTAINING ALCOHOL IN THE PAST YEAR?NO POINTS0 INTERPRETATIONNEGATIVE RECREATIONAL DRUG USE DRUG USE?NO DENIES 10/02/19 PATIENT DENIES ABUSE OR MISSUSED OF ANY MEDICATION. PATIENT DENIES USE OF ANY ILLEGAL SUBSTANCE INCLUDING MARIJUANA OR COCAINE. CAFFEINE CAFFEINE USE?NO SEXUAL HX HAD SEX IN THE LAST 12 MONTHS (VAGINAL, ORAL, OR ANAL)?NO HAVE YOU EVER HAD AN STD?NO HIV / HEP-C SCREENING HIV TEST OFFERED TO PATIENT:YES DATE OFFERED:09/14/2016 TEST ACCEPTED:NO HEP-C TEST OFFERED TO PATIENT:YES DATE OFFERED:09/14/2016 REASON:PATIENT DECLINED TEST ACCEPTED:NO REASON:PATIENT DECLINED BROCHURE PROVIDED TO PATIENTYES [employer] [id number] JAINISM LANGUAGE LANGUAGES SPOKEN:BOTH HUNGARIAN AND GEORGIAN PREFERS TO SPEAK HUNGARIAN EDUCATION LEVEL OF EDUCATION:HIGH SCHOOL FINISHED 11TH GRADE LEARNING BARRIERS / SPECIAL NEEDS BARRIERS TO LEARNING?NO HEARING IMPAIRED?NO VISION IMPAIRED?YES COGNITIVELY IMPAIRED?NO :CORRECTIVE LENSES READINESS TO LEARN?YES LEARNING PREFERENCES?NO LEARNING CAPABILITIES PRESENT?YES EMOTIONAL BARRIERS?NO SPECIAL DEVICES?YES :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 DIET: NO CONCENTRATED SWEETS., NO ADDED SALT. EXERCISE: NO REGULAR EXERCISE. MARITAL STATUS: . OTHERS AT HOME: 1 SON. NEW PATIENT PAIN DIARY TODAY'S VISIT 10/02/19 6 CONSTANT SHARP PATIENT DESCRIBES PAIN :HAVE IT ALL THE TIME, SHARP FROM 0-10, WHAT LEVEL IS YOUR PAIN TODAY?7 PRECIPITATING FACTORS STANDING, WEIGHT-BEARING ALLEVIATING FACTORS NOTHING, ATTEMPTS TO REPOSITION AT REGULAR INTERVALS IMPACT ON FUNCTION UNABLE TO DO STAIRS, UNABLE TO PLAY WITH GRANDCHILDREN IS THERE A CHANCE YOU COULD BE ? NO HAVE YOU BEEN SICK IN THE LAST WEEK (COLD, COUGH, FEVER, FLU, ETC) NO DO YOU TAKE ANY BLOOD THINNERS? NO DO YOU HAVE ANY RASHES OR OPEN SORES? NO ANY CHANGE IN BOWEL OR BLADDER CONTROL? NO ARE YOU ALLERGIC TO SHELLFISH OR IV DYE? NO ARE YOU DIABETIC? YES DO YOU HAVE A PACEMAKER OR DEFIBRILLATOR? NO ANY NEW PROBLEMS WITH MEDICINES OR NEW ALLERGIES NO ANY NEW PATTERNS OF PAIN OR NUMBNESS? PT STATES THAT SHE HAS CONSTANT PAIN AND SEEMS TO BE GETTING MORE INTENSE ANY CHANGE IN YOUR MEDICAL CONDITION? NO HAVE YOU FALLEN IN THE LAST 6 MONTHS? YES DO YOU USE ANY TYPE OF TOBACCO (SMOKE, SMOKELESS, CHEW, ETC.) NO ARE YOU ABUSED, NEGLECTED, OR IN AN UNSAFE ENVIRONMENT? NO DO YOU HAVE THOUGHTS OF HURTING YOURSELF OR SOMEONE ELSE? NO DO YOU HAVE ANY OTHER QUESTIONS OR CONCERNS? NO INTENSITY SCALE REVIEWED YES PAIN CLINIC PFS, CLERGY, PUBLIC HEALTH REFERRALS WAS THE PROVIDER NOTIFIED OF ANY PERTINENT INFO?YES HAS THE PATIENT BEEN EDUCATED REGARDING HIS/HER PLAN OF CARE?YES PLEASE DOCUMENT ANY ADDTIONAL DETAILS. NEW PATIENT CONSULT HAS THE PATIENT BEEN EDUCATED REGARDING PAIN, THE RISK FOR PAIN, THE IMPORTANCE OF EFFECTIVE PAIN MANAGEMENT, AND THE PAIN ASSESSMENT PROCESS?YES HOUSING: RENTS APARTMENT WITH DAUGHTER AND SON. ADVANCE DIRECTIVE ADVANCE DIRECTIVE DISCUSSED WITH PATIENT:YES PATIENT DECLINED HCP INFORMATION AND DECLINED ASSISTANCE WITH FORM. MOVED TO [place] 14 MONTHAGO WHEN FROM [facility]. JAKI, FOLLOWED WITH FOR SEVERAL YEARS IN [facility] 11/22/17 0900 REVIEWED WITH PT. AD12/20/17 1435 REVIEWED WITH PT LAS REVIEWED WITH PATIENT 08/18/18 1415 JS07/06/18 1130 LAS03/21/19 1151 REVIEWED WITH PATIENT BV. HOSPITALIZATION/MAJOR DIAGNOSTIC PROCEDURE SURGERIES REVIEW OF SYSTEMS REVIEWED BY: PROVIDER: JUMANA MONSON . CONSTITUTIONAL: ANY CHANGE IN YOUR MEDICAL CONDITION? NO . CHILLS NO . FEVER NO . INFECTION: DO YOU HAVE NEW INFECTIONS? NO . DO YOU HAVE HISTORY OF MRSA? NO . MUSCULOSKELETAL: ANY NEW PATTERNS OF PAIN OR NUMBNESS? YES . GASTROENTEROLOGY: ANY NEW CHANGE IN BOWEL CONTROL? NO . GENITOURINARY: ANY NEW CHANGE IN BLADDER CONTROL? NO . IS THERE A CHANCE YOU COULD BE ? NO . HEMATOLOGY/LYMPH: DO YOU TAKE ANY BLOOD THINNERS? (FOR EXAMPLE- COUMADIN, PLAVIX, AGGRENOX, PLATEL, PRADAXA, OR XARELTO) NO . WHEN WAS YOUR LAST DOSE? DATE: TIME: . NEUROLOGY: HAVE YOU FALLEN IN THE PAST 12 MONTHS? YES . ANY NEW EXTREMITY NUMBNESS OR WEAKNESS? YES . CARDIOLOGY: DO YOU HAVE A PACEMAKER OR DEFIBRILLATOR? NO . RESPIRATORY: HAVE YOU BEEN SICK IN THE PAST WEEK? NO . FEVER NO . FLU LIKE SYMPTOMS? NO . COUGH NO . INTEGUMENTARY: DO YOU HAVE ANY RASHES OR OPEN SORES? NO . ALLERGIC/IMMUNO: ARE YOU ALLERGIC TO IV DYE? NO . ANY NEW ALLERGIES? NO . PSYCHIATRIC: DO YOU HAVE THOUGHTS OF HURTING YOURSELF OR SOMEONE ELSE? NO . ARE YOU ABUSED, NEGLECTED, OR IN AN UNSAFE ENVIRONMENT? NO . ENDOCRINOLOGY: ARE YOU DIABETIC? NO . OTHER: DO YOU NEED ANY PRESCRIPTIONS? YES . IF YES, PLEASE LIST: TIZANIDINE . ANY NEW PROBLEMS WITH YOUR MEDICATIONS? NO . WHEN DID YOU LAST EAT? ____ . WHEN DID YOU LAST DRINK? ____ . WHAT DID YOU LAST DRINK? ____ . NAME OF PERSON DRIVING YOU HOME? ____ . DO YOU HAVE ANY OTHER QUESTIONS OR CONCERNS LEFT HIP . VITAL SIGNS WT 185 LBS, HT 5'2", BMI 33.83 INDEX, BP 122/72 MM HG, HR 82 /MIN, RR 18 /MIN, TEMP 97.6 F, OXYGEN SAT % 99%, NA INITIALS AW 1304. EXAMINATION GENERAL EXAMINATION: GENERAL ALERT,NO DISTRESS . PSYCH AFFECT NORMAL . LUNGS: LUNG SOUNDS ARE CLEAR . HEART: HEART RATE REGULAR . MUSCULOSKELETAL: MST 5/5 BILAT. LOWER EXTREMITIES . LUMBAR: MARKED TENDERNESS OVER LEFT SIJ. POSITIVE MARGA'S TESTING OVER LEFT LEG.. DIAGNOSTIC TESTS REVIEWEDMRI L/S SPINE. 2018. ASSESSMENTS SACROILIITIS - M46.1 (PRIMARY) TREATMENT SACROILIITIS INCREASE GABAPENTIN CAPSULE, 300 MG, 1 CAPSULE, ORALLY, THREE TIMES DAILY, 30 DAY(S), 90, REFILLS 1 [facility] MRI LUMBAR W/O CONTRAST (CPT [id number],NICOLE 10/04/2019 8:26:43 AM > MRI LUMBAR SPINE W/O CONTRAST WAS APPROVED AUTH # [id number]. GOOD FROM 10/03/19-11/17/19. NOTES: LEFT SIJ DUE TO NEW ONSET OF SEVERE LEFT SIDED LOW BACK PAIN AND LEFT LEG PAIN A MRI OF LS-SPINE WILL BE ORDERED TODAY TO RULE OUT SERIOUS DISC PATHOLOGY. WE WILL EVALUATE AND ESTABLISH TREATMENT PLAN BASED ON MRI OF THE LS-SPINE. PROCEDURE CODES FA211 ESTABILISHED PATIENT [facility] CHARGE DISPOSITION & COMMUNICATION FOLLOW UP POST PROC (REASON: LEFT SIJ) ELECTRONICALLY SIGNED BY IONA SAUCEDA ON 10/04/2019 AT 12:46 PM EDT DISCLAIMER : THIS IS A VISIT SUMMARY EXTRACTED FROM THE [employer] CHART. IT IS NOT A COPY OF THE [employer] PROGRESS NOTE. CHANO
== END ==
LOC: M PAIN 13:00
PROVIDERS: ATTEND Nurse Practitioner Family
DX: M46.1 Sacroiliitis, not elsewhere classified (principal); G89.29 Other chronic pain; E11.40 Type 2 diabetes mellitus with diabetic neuropathy, unspecified; I10 Essential (primary) hypertension; J44.9 Chronic obstructive pulmonary disease, unspecified; Z98.84 Bariatric surgery status; F17.210 Nicotine dependence, cigarettes, uncomplicated; Z88.5 Allergy status to narcotic agent; Z91.09 Other allergy status, other than to drugs and biological substances; Z79.84 Long term (current) use of oral hypoglycemic drugs; Z79.891 Long term (current) use of opiate analgesic; Z79.899 Other long term (current) drug therapy

== ENCOUNTER → 2019-10-19 | Outpatient (CLI) | payer OTHER ==
--- NOTE | 2019-10-20 07:50 | REP ---
MRI LUMBAR SPINE WITHOUT CONTRAST: HISTORY: Sacroiliitis. Comparison MRI study is from September 01, 2017. TECHNIQUE: Sagittal and axial T1- and T2-weighted scans are acquired in the usual fashion with and without fat saturation. Sequences include spin echo, turbo spin-echo, and STIR imaging sequences. MRI FINDINGS: There is progression of degenerative disc disease at the L4-5 disc level. There is partial collapse of the anterior portion of the superior endplate of L5 with some reactive marrow edema. An acute intravertebral disc protrusion (Schmorl's node) or a superior endplate compression fracture deformity could have this appearance. No bony destructive lesion is seen. There is a new finding of a degenerative 2 mm L4-5 spondylolisthesis due to degenerative disc disease. There is no evidence of spondylolysis. There is moderate osteoarthritic facet hypertrophy bilaterally at L4-5. There is mild diffuse disc bulging. No nerve root compression or spinal stenosis. At L5-S1, there is mild bilateral facet hypertrophy again noted, unchanged. The L3-4 level shows minimal ligamentum flavum hypertrophy. No spinal stenosis or foraminal narrowing. No disc protrusion is seen. L2-3 and L1-2 disc levels are unremarkable. Mild anterior discogenic spurring is seen at L1-2 and T12-L1. The tip of the conus medullaris is normal in position and appearance at T12-L1. No extra vertebral abnormalities observed. IMPRESSION: Progressive degenerative disc disease at L4-5 with interval development of 2 mm degenerative L4-5 spondylolisthesis. There is recent marrow edema pattern and partial collapse of the superior endplate anteriorly at L5. Possibly an acute Schmorl's node. These changes are new when compared with the September 01, 2017 and December 07, [address] exams, respectively. Electronically Signed by Nanu Keating MD 10/21/2019 07:38 P
== END ==
LOC: M RAD 13:00
PROVIDERS: ATTEND Nurse Practitioner Family
DX: M46.1 Sacroiliitis, not elsewhere classified (principal); M48.56XA Collapsed vertebra, not elsewhere classified, lumbar region, initial encounter for fracture; M43.16 Spondylolisthesis, lumbar region

== ENCOUNTER → 2019-10-20 | Outpatient (CLI) | payer OTHER | LOC: M LABSMTC 10:48 | PROVIDERS: ATTEND Anesthesiology | CPT/HCPCS: C9803; U0003 ==

== ENCOUNTER → 2019-11-13 | Outpatient (CLI) | payer OTHER ==
--- NOTE | 2019-11-17 03:06 | ECWPNPC ---
PATIENT NAME: XUAN MOON : 1960 GENDER: FEMALE VISIT DATE: 11/13/2019 DISCHARGE DATE: 11/13/19 1313 VISIT LOCKED DATE TIME: PHYSICIAN: JUMANA DONALD RESOURCE: JUMANA DONALD REASON FOR APPOINTMENT 1. [phone] MRI REVIEW PAT DONE HISTORY OF PRESENT ILLNESS GENERAL: PATIENT IS AGREEABLE TO TELEPHONE VISIT TODAY. MRI OF THE LS-SPINE DONE ON 10/19/2019 THAT I ORDERED IS REVIEWED WITH PATIENT. THIS IS SHOWING A NEW FINDING OF PARTIAL COLLAPSE OF THE SUPERIOR END PLATE ANTERIORLY AT L5. ALSO SHOWING AN ACUTE SCHMORL'S NODE. MRI IS REVIEWED WITH DR. LANGLEY AND WITH DR. WANG. DR WANG FEELS IT IS A DEGENERATIVE FRACTURE. PATIENT IS GOING ON VACATION TO [place] IN THE NEXT FEW WEEKS. DISCUSSED TREATMENT PLAN. -. FALL RISK SCREENING: SCREENING :ONE FALL WITHOUT INJURY IN THE PAST YEAR PAIN SCREENING: PATIENT HAS A COMPLAINT OF ACUTE OR CHRONIC PAIN :YES LOCATION OF PAIN:LOW BACK INTENSITY OF PAIN (SCALE OF 1 TO 10):5 WHAT DOES YOUR PAIN FEEL LIKE:ACHING, CONTINOUS, TENDER, SHOOTING NURSING NOTE: -. PAIN CENTER INTAKE QUESTIONS: DO YOU HAVE A HISTORY OF MRSA? :NO DO YOU TAKE A BLOOD THINNERS? :NO DO YOU HAVE ANY BLEEDING DISORDERS? :NO ANY NEW NUMBNESS OR WEAKNESS IN YOUR LEGS OR ARMS? :NO ANY PACEMAKER,DEFIBRILLATOR, OR DORSAL COLUMN STIMULATOR? :NO DO YOU HAVE ANY RASHES OR OPEN SORES? :NO ARE YOU ALLERGIC TO IV DYE? :NO ARE YOU DIABETIC? :NO ANY NEW PROBLEMS WITH YOUR MEDICATIONS? :NO HAVE YOU RECEIVED A VACCINE IN THE PAST 30 DAYS? :NO DO YOU PLAN TO RECEIVE A VACCINE IN THE NEXT 21 DAYS? :NO DO YOU NEED ANY PRESCRIPTION? :NO DO YOU TAKE ANY IMMUNOSUPPRESSIVE MEDICATIONS? :NO IS THERE A CHANCE YOU COULD BE ? :NO ARE YOU BREAST FEEDING? 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 TO USE DAILY/ DX CODE E11.42 TAKING BLOOD GLUCOSE TEST - STRIP TRUE TEST IN VITRO DX:E11.21 DAILY TAKING PROAIR HFA 108 (90 BASE) MCG/ACT AEROSOL SOLUTION 2 PUFFS INHALATION EVERY 4 HRS NEEDED TAKING ACETAMINOPHEN 500 MG CAPSULE 2 CAPSULE NEEDED ORALLY EVERY 6 HRS TAKING MECLIZINE HCL 25 MG TABLET 1 TABLET ORALLY THREE TIMES DAILY NEEDED FOR DIZZINESS TAKING TRIAMCINOLONE ACETONIDE 55 MCG/ACT AEROSOL 1 SPRAY IN EACH NOSTRIL NASALLY ONCE A DAY TAKING MULTIVITAMIN ADULT - TABLET DIRECTED ORALLY 2 TABS DAILY TAKING CALCIUM + D 600-200 MG-UNIT TABLET 1 TABLET ORALLY TWICE A DAY TAKING VITAMIN B12 100 MCG TABLET DIRECTED ORALLY TAKING TIZANIDINE HCL 2 MG TABLET 1 TABLET NEEDED ORALLY AT BEDTIME MAY REPEAT IN 6 HOURS IF NEEDED TAKING METFORMIN HCL ER 500 MG TABLET EXTENDED RELEASE 24 HOUR 1 TABLET WITH EVENING MEAL ORALLY ONCE A DAY TAKING ATORVASTATIN CALCIUM 40 MG TABLET 1 TABLET ORALLY ONCE A DAY TAKING STIOLTO RESPIMAT 2.5-2.5 MCG/ACT AEROSOL SOLUTION 2 PUFFS INHALATION ONCE A DAY TAKING NORVASC 5MG TABLET ORAL ORALLY DAILY TAKING LISINOPRIL 20 MG TABLET 1 TAB ORALLY DAILY TAKING DRISDOL 1.25 MG (31702 UT) CAPSULE 1 CAPSULE ORALLY WEEKLY TAKING GABAPENTIN 300 MG CAPSULE 1 CAPSULE ORALLY THREE TIMES DAILY TAKING TRAMADOL HCL 50 MG TABLET 1 TO 2 ORALLY 1 TABQ8H PRN MDD 4 MEDICATION LIST REVIEWED AND RECONCILED WITH THE PATIENT PAST MEDICAL HISTORY DIABETES MELLITUS TYPE 2 NEUROPATHY HYPERTENSION HYPERCHOLESTEROL COPD HX TOBACCO ABUSE FATTY LIVER PER ULTRASOUND 10/13/16 6 MM INTRARENAL KIDNEY STONE, PER ULTRASOUND 10/13/16 REFUSES REFERRAL TO UROLOGY 09/14/16, 02/22/17- 03/21/18 REFUSES COLONOSCOPY RIGHT KIDNEY COLUMN OF [place]ERLIN NOTED ON XRAY 10/13/16 BACK PAIN GASTRIC BYPASS SYPIKP=960 LBS ALLERGIES PLASTIC: RASH - ALLERGY NORCO: NAUSEA VOMITING - SIDE EFFECTS SURGICAL HISTORY APPENDECTOMY AGE 18 2000 [facility] ER LUMBAGO WITH SCIATICA RIGHT SIDE 06/04/18 UGI FOR GASTIC BYPASS 08/10/18 GASTRIC BYPASS-DR. MATHEWS 245 LBS 10/09/2018 FAMILY HISTORY FATHER: ALIVE 81 YRS, DM2, HEART PROBLEMS TRIPLE BYPASS, DEMENTIA MOTHER: 70 YRS, UTERINE CANCER- HAD OPERATION, FELL, BLEEDING OCCURRED HAD METS PASSED HTN, DIAGNOSED WITH OTHER MALIGNANT NEOPLASM OF UNSPECIFIED SITE 6 SISTERS OK\N2 BROTHERS OK\N3 CHILDREN 2 BOYS 1 DAUGHTER. SOCIAL HISTORY GENERAL: TOBACCO USE ARE YOU A:CURRENT SMOKER ARE YOU INTERESTED IN QUITTING?NOT READY TO QUIT COUNSELED THE PATIENT ON SMOKING EFFECTS, EDUCATION [id number]/2020 PATIENT COUNSELED ON THE DANGERS OF TOBACCO USE AND URGED TO QUIT:11/13/2019 LATEX QUESTIONNAIRE LATEX ALLERGY : HAVE YOU EVER DEVELOPED ANY TYPE OF REACTION AFTER HANDLING LATEX PRODUCTS SUCH RUBBER GLOVES, CONDOMS, DIAPHRAGMS, BALLOONS, SOCKS, OR UNDERWEAR?NO LATEX ALLERGY : HAVE YOU EVER DEVELOPED ANY TYPE OF REACTION DURING OR AFTER DENTAL APPOINTMENT, VAGINAL/RECTAL EXAMINATION, SURGICAL PROCEDURE, OR ANY OTHER EXPOSURE?NO DATE ASKED : 07/26/2018 LATEX RISK : HAVE YOU EVER HAD ANY DIFFICULTY BREATHING OR HIVES AFTER EATING OR HANDLING ANY FRUITS, OR VEGETABLES; SUCH KIWI, BANANAS, STONE FRUITS, OR CHESTNUTSNO LATEX RISK : DO YOU HAVE A PREVIOUS PERSONAL HISTORY OF MORE THAN NINE SURGERIES, SPINA BIFIDA, OR REPEATED CATHERIZATIONS? NO LATEX RISK : ARE YOU FREQUENTLY EXPOSED TO LATEX PRODUCTS IN YOUR OCCUPATION?NO BMI CARE GOAL FOLLOW-UP ABOVE NORMAL BMI FOLLOW-UPDIETARY MANAGEMENT EDUCATION, GUIDANCE, AND COUNSELING ALCOHOL SCREENING DID YOU HAVE A DRINK CONTAINING ALCOHOL IN THE PAST YEAR?NO POINTS0 INTERPRETATIONNEGATIVE RECREATIONAL DRUG USE DRUG USE?NO DENIES 10/02/19 PATIENT DENIES ABUSE OR MISSUSED OF ANY MEDICATION. PATIENT DENIES USE OF ANY ILLEGAL SUBSTANCE INCLUDING MARIJUANA OR COCAINE. 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 DIET: NO CONCENTRATED SWEETS., NO ADDED SALT. EXERCISE: NO REGULAR EXERCISE. MARITAL STATUS: . OTHERS AT HOME: 1 SON. PAIN CLINIC PFS, CLERGY, PUBLIC HEALTH REFERRALS WAS THE PROVIDER NOTIFIED OF ANY PERTINENT INFO?YES HAS THE PATIENT BEEN EDUCATED REGARDING HIS/HER PLAN OF CARE?YES PLEASE DOCUMENT ANY ADDTIONAL DETAILS. NEW PATIENT CONSULT HAS THE PATIENT BEEN EDUCATED REGARDING PAIN, THE RISK FOR PAIN, THE IMPORTANCE OF EFFECTIVE PAIN MANAGEMENT, AND THE PAIN ASSESSMENT PROCESS?YES HOUSING: RENTS APARTMENT WITH DAUGHTER AND SON. ADVANCE DIRECTIVE ADVANCE DIRECTIVE DISCUSSED WITH PATIENT:YES PATIENT DECLINED HCP INFORMATION AND DECLINED ASSISTANCE WITH FORM. MOVED TO [place] 14 MONTHAGO WHEN FROM [facility]. JAKI, FOLLOWED WITH FOR SEVERAL YEARS IN [facility]. HOSPITALIZATION/MAJOR DIAGNOSTIC PROCEDURE SURGERIES REVIEW OF SYSTEMS CONSTITUTIONAL: ANY RECENT FEVER NO . CHILLS NO . WEIGHT CHANGE OF UNKNOWN REASONS NO . GASTROENTEROLOGY: NEW UNEXPLAINABLE CHANGES IN BOWEL CONTROL NO . CONSTIPATION NO . GENITOURINARY: ANY NEW CHANGE IN BLADDER CONTROL? NO . NEUROLOGY: NEW ONSET DIZZINESS OR NEUROLOGICAL CHANGES NOT MENTIONED NO . NEW NUMBNESS OR PAIN PATTERNS NOT MENTIONED AND PERTINENT TO TODAY'S VISIT NO . CARDIOLOGY: NEW CHEST PRESSURE NO . NEW CHEST PAIN NO . RESPIRATORY: UNEXPLAINABLE COUGH NO . NEW SHORTNESS OF BREATH NO . ASSESSMENTS NONTRAUMATIC COMPRESSION FRACTURE OF L5 VERTEBRA, SEQUELA - M48.56XS (PRIMARY) LUMBAR RADICULOPATHY - M54.16 TREATMENT NONTRAUMATIC COMPRESSION FRACTURE OF L5 VERTEBRA, SEQUELA NOTES: DR. LANGLEY HAS RECOMMENDED A L4-5 LESI. PATIENT WOULD LIKE TO HOLD OFF UNTIL SHE RETURNS FROM HER [place] TRIP. FOLLOW-UP AT PAIN CLINIC WILL BE SCHEDULED IN 4-6 WEEKS. TOTAL TIME SPENT ON TELEPHONE VISIT WAS APPROXIMATELY 12 MINUTES. DISPOSITION & COMMUNICATION FOLLOW UP 6 WEEKS (REASON: CONSIDER LESI/LOW BACK PAIN/LUMBOSACRAL RADICULOPATHY) ELECTRONICALLY SIGNED BY IONA SAUCEDA ON 11/16/2019 AT 09:27 AM EDT DISCLAIMER : THIS IS A VISIT SUMMARY EXTRACTED FROM THE [employer] CHART. IT IS NOT A COPY OF THE [employer] PROGRESS NOTE. CHANO
== END ==
LOC: M PAIN 10:45
PROVIDERS: ATTEND Nurse Practitioner Family
DX: M48.56XS Collapsed vertebra, not elsewhere classified, lumbar region, sequela of fracture (principal); M54.16 Radiculopathy, lumbar region

== ENCOUNTER → 2019-11-28 | Outpatient (REF) | payer OTHER ==
[~2019-11-28] MED LIST changes: +AMLO1TAB24 PO; -AMLO5TAB6 PO
[2019-11-28 14:15] LABS: HEMATOCRIT 42.8 % (36.0-47.0); HEMOGLOBIN 13.4 g/dl (12.0-15.5); MEAN CORPUSCULAR HGB CONC 31.3 g/dl (32.0-36.5); MEAN CORPUSCULAR VOLUME 89.5 fl (80.0-96.0); PLATELET COUNT, AUTOMATED 305 10^3/uL (150-450); RED BLOOD COUNT 4.78 10^6/uL (4.00-5.40); WHITE BLOOD COUNT 10.3 10^3/uL (4.0-10.0)
[2019-11-28 14:25] LABS: ALBUMIN 3.8 GM/DL (3.2-5.2); ALT/SGPT 19 U/L (12-78); BILIRUBIN,TOTAL 0.3 MG/DL (0.2-1.0); BLOOD UREA NITROGEN 9 MG/DL (7-18); CALCIUM LEVEL 9.3 MG/DL (8.5-10.1); CARBON DIOXIDE LEVEL 28 MEQ/L (21-32); CHLORIDE LEVEL 109 MEQ/L (98-107); CREATININE FOR GFR 0.56 MG/DL (0.55-1.30); FERRITIN 121 NG/ML (8-252); GLOMERULAR FILTRATION RATE > 60.0 (>51); GLUCOSE, FASTING 94 MG/DL (70-100); IRON (FE) 90 UG/DL (50-170); PERCENT SATURATION 29.3 % (13.2-45.0); POTASSIUM SERUM 4.1 MEQ/L (3.5-5.1); SODIUM LEVEL 140 MEQ/L (136-145); THYROID STIMULATING HORMONE 0.954 uIU/ML (0.358-3.740); TOTAL IRON BINDING CAPACITY 307 UG/DL (250-450)
[2019-11-28 14:29] LABS: VITAMIN B12 LEVEL 1026 PG/ML (247-911)
[2019-11-28 14:31] LABS: HEMOGLOBIN A1c 6.5 %
== END ==
LOC: M SFHCPLAZ 11:04
PROVIDERS: ATTEND Nurse Practitioner Adult Health
DX: Z98.84 Bariatric surgery status (principal); E11.21 Type 2 diabetes mellitus with diabetic nephropathy; E55.9 Vitamin D deficiency, unspecified

== ENCOUNTER → 2019-12-25 | Outpatient (POV) | payer OTHER | LOC: M PAIN 09:00 | PROVIDERS: ATTEND Nurse Practitioner Family | DX: M47.816 Spondylosis without myelopathy or radiculopathy, lumbar region (principal) ==

== ENCOUNTER → 2020-01-03 | Outpatient (CLI) | payer OTHER ==
--- NOTE | 2020-02-18 07:31 | REP ---
PELVIS X-RAY: HISTORY: Coccydynia. FINDINGS: AP view of the pelvis is performed. No acute fracture or dislocation is seen. There are mild degenerative changes of the lower lumbar spine. There is mild diffuse narrowing and subchondral sclerosis at the sacroiliac joints bilaterally, predominantly inferiorly. There is mild narrowing at the hip joints bilaterally with subchondral sclerosis and spurring. IMPRESSION: Degenerative changes as above. MTDD
== END ==
LOC: M RAD 12:42
PROVIDERS: ATTEND Nurse Practitioner Family
DX: M53.3 Sacrococcygeal disorders, not elsewhere classified (principal)

== ENCOUNTER → 2020-01-08 | Outpatient (POV) | payer OTHER ==
[~2020-01-08] MED LIST changes: +BUPIVACAINE HCL 0.25% 30ML VIAL ONE; +ISOVUE-M 300 61% 15ML VIAL ONE; +LIDOCAINE 1% SDV 30ML VIAL ONE; +TRIAMCINOLONE ACETONIDE SUSP 40 MG/ML VIAL (J3301) ONE
--- NOTE | 2020-02-18 07:32 | REP ---
SACRUM AND COCCYX: TWO-VIEWS HISTORY: Injection procedure for pain. 28 seconds of fluoroscopy time is reported. FINDINGS: A sequence of two last image hold fluoroscopically obtained spot radiographs of the sacrum and coccyx document needle position and contrast injection associated with injection procedure. KEVIND
== END ==
LOC: M PAIN 09:00
PROVIDERS: ATTEND Anesthesiology
DX: M53.3 Sacrococcygeal disorders, not elsewhere classified (principal)

== ENCOUNTER → 2020-02-05 | Outpatient (CLI) | payer OTHER ==
[~2020-02-05] MED LIST changes: -BUPIVACAINE HCL 0.25% 30ML VIAL ONE; -ISOVUE-M 300 61% 15ML VIAL ONE; -LIDOCAINE 1% SDV 30ML VIAL ONE; -TRIAMCINOLONE ACETONIDE SUSP 40 MG/ML VIAL (J3301) ONE
== END ==
LOC: M PAIN 09:59
PROVIDERS: ATTEND Nurse Practitioner Family
DX: M53.3 Sacrococcygeal disorders, not elsewhere classified (principal)

== ENCOUNTER → 2020-02-13 | Outpatient (CLI) | payer OTHER | LOC: M LABSMTC 10:41 | PROVIDERS: ATTEND Anesthesiology | DX: Z20.828 Contact with and (suspected) exposure to other viral communicable diseases (principal) | CPT/HCPCS: C9803; U0003 ==

== ENCOUNTER → 2020-02-18 | Outpatient (CLI) | payer OTHER ==
[~2020-02-18] MED LIST changes: +BUPIVACAINE HCL 0.25% 30ML VIAL As Ordered ONE; +ISOVUE-M 300 61% 15ML VIAL As Ordered ONE; +LIDOCAINE 1% SDV 30ML VIAL As Ordered ONE; +TRIAMCINOLONE ACETONIDE SUSP 40 MG/ML VIAL (J3301) As Ordered ONE
--- NOTE | 2020-02-27 08:02 | REP ---
C-ARM VIEWS OF SACRUM AND COCCYX DATE: 02/18/2020. CLINICAL HISTORY: Pain. Five C-arm views of sacrum and coccyx performed in the AP projection during an injection by Dr. Asencio. The needle overlies the sacrum and coccyx on all images. Twelve seconds of fluoroscopy time was utilized. MTDD
== END ==
LOC: M PAIN 10:19
PROVIDERS: ATTEND Anesthesiology
DX: M53.88 Other specified dorsopathies, sacral and sacrococcygeal region (principal)
CPT/HCPCS: 20550; 76000; G0463; J3301; Q9967

== ENCOUNTER → 2020-03-03 | Outpatient (CLI) | payer OTHER ==
[~2020-03-03] MED LIST changes: -BUPIVACAINE HCL 0.25% 30ML VIAL As Ordered ONE; -ISOVUE-M 300 61% 15ML VIAL As Ordered ONE; -LIDOCAINE 1% SDV 30ML VIAL As Ordered ONE; -TRIAMCINOLONE ACETONIDE SUSP 40 MG/ML VIAL (J3301) As Ordered ONE
--- NOTE | 2020-03-07 04:47 | ECWPNPC ---
PATIENT NAME: XUAN MOON : 1960 GENDER: FEMALE VISIT DATE: 03/03/2020 DISCHARGE DATE: 03/03/20 1324 VISIT LOCKED DATE TIME: PHYSICIAN: JUMANA DONALD RESOURCE: JUMANA DONALD REASON FOR APPOINTMENT 1. [facility] [place] [facility] HISTORY OF PRESENT ILLNESS GENERAL: HERE FOR FOLLOW-UP OF CHRONIC LOW BACK PAIN. THIS IS A POST PROCEDURE FOLLOW-UP. HAD BILATERAL SACROCOCCYGEAL LIGAMENT STEROID INJECTION ON 01/08/2020. REPORTING MARKED REDUCTION IN PAIN POST PROCEDURE THAT CONTINUES TODAY. REPORTING SOME RIGHT HIP DISCOMFORT. OTHERWISE DOING VERY WELL. -. FALL RISK SCREENING: SCREENING :ONE FALL WITHOUT INJURY IN THE PAST YEAR PAIN SCREENING: PATIENT HAS A COMPLAINT OF ACUTE OR CHRONIC PAIN :YES LOCATION OF PAIN:RIGHT HIP INTENSITY OF PAIN (SCALE OF 1 TO 10):4 WHAT DOES YOUR PAIN FEEL LIKE:THROBBING DURATION:CONTINOUS PAIN IS INCREASED BY:ACTIVITIES, PROLONGED STANDING PAIN IS DECREASED BY:USE OF PAIN MEDICATIONS NURSING NOTE: -. PAIN CENTER INTAKE QUESTIONS: DO YOU HAVE A HISTORY OF MRSA? :NO DO YOU TAKE A BLOOD THINNERS? :NO DO YOU HAVE ANY BLEEDING DISORDERS? :NO ANY NEW NUMBNESS OR WEAKNESS IN YOUR LEGS OR ARMS? :NO ANY PACEMAKER,DEFIBRILLATOR, OR DORSAL COLUMN STIMULATOR? :NO DO YOU HAVE ANY RASHES OR OPEN SORES? :NO ARE YOU ALLERGIC TO IV DYE? :NO ARE YOU DIABETIC? :YES ANY NEW PROBLEMS WITH YOUR MEDICATIONS? :NO HAVE YOU RECEIVED A VACCINE IN THE PAST 30 DAYS? :NO DO YOU PLAN TO RECEIVE A VACCINE IN THE NEXT 21 DAYS? :YES IF SO WHAT VACCINE AND WHEN? STATES WILL MAYBE HAVE INFLUENZA VACCINE. DO YOU NEED ANY PRESCRIPTION? :NO DO YOU TAKE ANY IMMUNOSUPPRESSIVE MEDICATIONS? :NO IS THERE A CHANCE YOU COULD BE ? :NO ARE YOU BREAST FEEDING? :NO CURRENT MEDICATIONS TAKING ATORVASTATIN CALCIUM 40 MG TABLET 1 TABLET ORALLY ONCE A DAY TAKING LISINOPRIL 20 MG TABLET 1 TAB ORALLY DAILY TAKING ONETOUCH VERIO W/DEVICE KIT DIRECTED PT LAST GLUCOMETER WAS DROPPED AND BROKE NEEDS TO HAVE IT REPLACED. TO USE DAILY/ DX CODE E11.42 TAKING BLOOD GLUCOSE TEST - STRIP TRUE TEST IN VITRO DX:E11.21 DAILY TAKING PROAIR HFA 108 (90 BASE) MCG/ACT AEROSOL SOLUTION 2 PUFFS INHALATION EVERY 4 HRS NEEDED TAKING ACETAMINOPHEN 500 MG CAPSULE 2 CAPSULE NEEDED ORALLY EVERY 6 HRS TAKING MECLIZINE HCL 25 MG TABLET 1 TABLET ORALLY THREE TIMES DAILY NEEDED FOR DIZZINESS TAKING MULTIVITAMIN ADULT - TABLET DIRECTED ORALLY 2 TABS DAILY TAKING CALCIUM + D 600-200 MG-UNIT TABLET 1 TABLET ORALLY TWICE A DAY TAKING VITAMIN B12 100 MCG TABLET DIRECTED ORALLY TAKING STIOLTO RESPIMAT 2.5-2.5 MCG/ACT AEROSOL SOLUTION 2 PUFFS INHALATION ONCE A DAY TAKING GABAPENTIN 300 MG CAPSULE 1 CAPSULE ORALLY THREE TIMES DAILY TAKING DRISDOL 1.25 MG (71748 UT) CAPSULE 1 CAPSULE ORALLY WEEKLY TAKING FLUTICASONE PROPIONATE 50 MCG/ACT SUSPENSION 1 SPRAY IN EACH NOSTRIL NASALLY ONCE A DAY TAKING METFORMIN HCL ER 500 MG TABLET EXTENDED RELEASE 24 HOUR 1 TABLET WITH EVENING MEAL ORALLY ONCE A DAY TAKING TRAMADOL HCL 50 MG TABLET 1 TO 2 ORALLY 1 TABQ8H PRN MDD 4 NOT-TAKING TRIAMCINOLONE ACETONIDE 55 MCG/ACT AEROSOL 1 SPRAY IN EACH NOSTRIL NASALLY ONCE A DAY NEEDED NOT-TAKING ATORVASTATIN CALCIUM 40 MG TABLET 1 TABLET ORALLY ONCE A DAY NOT-TAKING NORVASC 5MG TABLET ORAL ORALLY DAILY NOT-TAKING LISINOPRIL 20 MG TABLET 1 TAB ORALLY DAILY NOT-TAKING TIZANIDINE HCL 2 MG TABLET 1 TABLET NEEDED ORALLY AT BEDTIME MAY REPEAT IN 6 HOURS IF NEEDED MEDICATION LIST REVIEWED AND RECONCILED WITH THE PATIENT PAST MEDICAL HISTORY DIABETES MELLITUS TYPE 2 NEUROPATHY HYPERTENSION HYPERCHOLESTEROL COPD HX TOBACCO ABUSE FATTY LIVER PER ULTRASOUND 10/13/16 6 MM INTRARENAL KIDNEY STONE, PER ULTRASOUND 10/13/16 REFUSES REFERRAL TO UROLOGY 09/14/16, 02/22/17- 03/21/18 11/28/19-REFUSES COLONOSCOPY RIGHT KIDNEY COLUMN OF [place] NOTED ON XRAY 10/13/16 BACK PAIN GASTRIC BYPASS XRNOUX=695 LBS ALLERGIES PLASTIC: RASH - ALLERGY NORCO: NAUSEA VOMITING - SIDE EFFECTS SURGICAL HISTORY APPENDECTOMY AGE 18 2000 [facility] ER LUMBAGO WITH SCIATICA RIGHT SIDE 06/04/18 UGI FOR GASTIC BYPASS 08/10/18 GASTRIC BYPASS-DR. MATHEWS 245 LBS 10/09/2018 FAMILY HISTORY FATHER: ALIVE 81 YRS, DM2, HEART PROBLEMS TRIPLE BYPASS, DEMENTIA MOTHER: 70 YRS, UTERINE CANCER- HAD OPERATION, FELL, BLEEDING OCCURRED HAD METS PASSED HTN, DIAGNOSED WITH OTHER MALIGNANT NEOPLASM OF UNSPECIFIED SITE 6 SISTERS OK\\N2 BROTHERS OK\\N3 CHILDREN 2 BOYS 1 DAUGHTER. SOCIAL HISTORY GENERAL: TOBACCO USE ARE YOU A:CURRENT SMOKER ARE YOU INTERESTED IN QUITTING?NOT READY TO QUIT PATIENT COUNSELED ON THE DANGERS OF TOBACCO USE AND URGED TO QUIT:11/13/2019 COUNSELED THE PATIENT ON SMOKING EFFECTS, EDUCATION [id number]/01/2020 LATEX QUESTIONNAIRE LATEX ALLERGY : HAVE YOU EVER DEVELOPED ANY TYPE OF REACTION AFTER HANDLING LATEX PRODUCTS SUCH RUBBER GLOVES, CONDOMS, DIAPHRAGMS, BALLOONS, SOCKS, OR UNDERWEAR?NO LATEX ALLERGY : HAVE YOU EVER DEVELOPED ANY TYPE OF REACTION DURING OR AFTER DENTAL APPOINTMENT, VAGINAL/RECTAL EXAMINATION, SURGICAL PROCEDURE, OR ANY OTHER EXPOSURE?NO DATE ASKED : 07/26/2018 LATEX RISK : HAVE YOU EVER HAD ANY DIFFICULTY BREATHING OR HIVES AFTER EATING OR HANDLING ANY FRUITS, OR VEGETABLES; SUCH KIWI, BANANAS, STONE FRUITS, OR CHESTNUTSNO LATEX RISK : DO YOU HAVE A PREVIOUS PERSONAL HISTORY OF MORE THAN NINE SURGERIES, SPINA BIFIDA, OR REPEATED CATHERIZATIONS? NO LATEX RISK : ARE YOU FREQUENTLY EXPOSED TO LATEX PRODUCTS IN YOUR OCCUPATION?NO BMI CARE GOAL FOLLOW-UP ABOVE NORMAL BMI FOLLOW-UPDIETARY MANAGEMENT EDUCATION, GUIDANCE, AND COUNSELING ALCOHOL SCREENING DID YOU HAVE A DRINK CONTAINING ALCOHOL IN THE PAST YEAR?NO POINTS0 INTERPRETATIONNEGATIVE RECREATIONAL DRUG USE DRUG USE?NO DENIES 10/02/19 PATIENT DENIES ABUSE OR MISSUSED OF ANY MEDICATION. PATIENT DENIES USE OF ANY ILLEGAL SUBSTANCE INCLUDING MARIJUANA OR COCAINE. CAFFEINE CAFFEINE USE?NO SEXUAL HX HAD SEX IN THE LAST 12 MONTHS (VAGINAL, ORAL, OR ANAL)?NO HAVE YOU EVER HAD AN STD?NO HIV / HEP-C SCREENING HIV TEST OFFERED TO PATIENT:YES DATE OFFERED:09/14/2016 TEST ACCEPTED:NO HEP-C TEST OFFERED TO PATIENT:YES DATE OFFERED:09/14/2016 REASON:PATIENT DECLINED TEST ACCEPTED:NO REASON:PATIENT DECLINED BROCHURE PROVIDED TO PATIENTYES SPIRITISM [id number] TAOISM LANGUAGE LANGUAGES SPOKEN:BOTH AZERBAIJANI AND WOLOF PREFERS TO SPEAK AZERBAIJANI EDUCATION LEVEL OF EDUCATION:HIGH SCHOOL FINISHED 11TH GRADE LEARNING BARRIERS / SPECIAL NEEDS BARRIERS TO LEARNING?NO HEARING IMPAIRED?NO VISION IMPAIRED?YES COGNITIVELY IMPAIRED?NO :CORRECTIVE LENSES READINESS TO LEARN?YES LEARNING PREFERENCES?NO LEARNING CAPABILITIES PRESENT?YES EMOTIONAL BARRIERS?NO SPECIAL DEVICES?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 DIET: NO CONCENTRATED SWEETS., NO ADDED SALT. EXERCISE: NO REGULAR EXERCISE. MARITAL STATUS: . OTHERS AT HOME: 1 SON. PAIN CLINIC PFS, CLERGY, PUBLIC HEALTH REFERRALS WAS THE PROVIDER NOTIFIED OF ANY PERTINENT INFO?YES HAS THE PATIENT BEEN EDUCATED REGARDING HIS/HER PLAN OF CARE?YES PLEASE DOCUMENT ANY ADDTIONAL DETAILS. NEW PATIENT CONSULT HAS THE PATIENT BEEN EDUCATED REGARDING PAIN, THE RISK FOR PAIN, THE IMPORTANCE OF EFFECTIVE PAIN MANAGEMENT, AND THE PAIN ASSESSMENT PROCESS?YES HOUSING: RENTS APARTMENT WITH DAUGHTER AND SON. ADVANCE DIRECTIVE ADVANCE DIRECTIVE DISCUSSED WITH PATIENT:YES PATIENT DECLINED HCP INFORMATION AND DECLINED ASSISTANCE WITH FORM. MOVED TO [place] [facility] FOLLOWED WITH FOR SEVERAL YEARS IN [facility]. HOSPITALIZATION/MAJOR DIAGNOSTIC PROCEDURE SURGERIES REVIEW OF SYSTEMS CONSTITUTIONAL: ANY RECENT FEVER NO . CHILLS NO . WEIGHT CHANGE OF UNKNOWN REASONS NO . GASTROENTEROLOGY: NEW UNEXPLAINABLE CHANGES IN BOWEL CONTROL NO . CONSTIPATION NO . GENITOURINARY: ANY NEW CHANGE IN BLADDER CONTROL? NO . NEUROLOGY: NEW ONSET DIZZINESS OR NEUROLOGICAL CHANGES NOT MENTIONED NO . NEW NUMBNESS OR PAIN PATTERNS NOT MENTIONED AND PERTINENT TO TODAY'S VISIT NO . CARDIOLOGY: NEW CHEST PRESSURE NO . NEW CHEST PAIN NO . RESPIRATORY: UNEXPLAINABLE COUGH NO . NEW SHORTNESS OF BREATH NO . VITAL SIGNS WT 177.4 LBS, HT 5'2", BMI 32.44 INDEX, BP 134/79 MM HG, HR 68 /MIN, RR 16 /MIN, TEMP 97.6 F, OXYGEN SAT % 99%, REVIEWED BY: CLAUDETTE. EXAMINATION GENERAL EXAMINATION: GENERALAWAKE,ALERT ,PLEASANT . PSYCHAFFECT NORMAL . LUNGS:LUNG SILVA ARE CLEAR TO AUSCULTATION BILATERALLY. GOOD MOVEMENT OF AIR . HEART:S1, S2 IN A REGULAR RATE AND RHYTHM. NO SIGNIFICANT MURMURS, RUBS OR GALLOPS NOTED . ASSESSMENTS COCCYDYNIA - M53.3 (PRIMARY) TREATMENT COCCYDYNIA NOTES: CONTINUE HOME EXERCISE AND STRETCHING. FOLLOW-UP IS SCHEDULED IN 3 MONTHS. ENCOURAGED TO CALL SOONER IF HER PAIN RETURNS. MAY CONSIDER RIGHT TROCHANTERIC BURSAL INJECTION. PROCEDURE CODES FA211 ESTABILISHED PATIENT [facility] CHARGE DISPOSITION & COMMUNICATION FOLLOW UP 3 MONTHS (REASON: COCCYDYNIA, RIGHT HIP PAIN) ELECTRONICALLY SIGNED BY IONA SAUCEDA ON 03/06/2020 AT 02:14 PM EDT DISCLAIMER : THIS IS A VISIT SUMMARY EXTRACTED FROM THE [employer] CHART. IT IS NOT A COPY OF THE [facility] [employer] PROGRESS NOTE. CHANO
== END ==
LOC: M PAIN 13:15
PROVIDERS: ATTEND Nurse Practitioner Family
DX: M53.3 Sacrococcygeal disorders, not elsewhere classified (principal); E11.40 Type 2 diabetes mellitus with diabetic neuropathy, unspecified; I10 Essential (primary) hypertension; E78.00 Pure hypercholesterolemia, unspecified; J44.9 Chronic obstructive pulmonary disease, unspecified; K76.0 Fatty (change of) liver, not elsewhere classified; Z98.84 Bariatric surgery status; F17.210 Nicotine dependence, cigarettes, uncomplicated; Z79.84 Long term (current) use of oral hypoglycemic drugs; Z79.891 Long term (current) use of opiate analgesic; Z79.899 Other long term (current) drug therapy; Z88.5 Allergy status to narcotic agent; Z91.048 Other nonmedicinal substance allergy status

== ENCOUNTER → 2020-06-03 | Outpatient (CLI) | payer OTHER ==
[~2020-06-03] MED LIST changes: +GABA-282 PO; -GABA-843 PO
--- NOTE | 2020-06-05 07:40 | ECWPNPC ---
PATIENT NAME: XUAN MOON : 1960 GENDER: FEMALE VISIT DATE: 06/03/2020 DISCHARGE DATE: 06/03/20 1123 VISIT LOCKED DATE TIME: PHYSICIAN: JUMANA DONALD RESOURCE: JUMANA DONALD REASON FOR APPOINTMENT 1. BACK PAIN HISTORY OF PRESENT ILLNESS DEPRESSION SCREENING: PHQ-9 LITTLE INTEREST OR PLEASURE IN DOING THINGSSEVERAL DAYS FEELING DOWN, DEPRESSED, OR HOPELESSSEVERAL DAYS TROUBLE FALLING OR STAYING ASLEEP, OR SLEEPING TOO MUCHNOT AT ALL FEELING TIRED OR HAVING LITTLE ENERGYSEVERAL DAYS POOR APPETITE OR OVEREATING NOT AT ALL FEELING BAD ABOUT YOURSELF-OR THAT YOU ARE A FAILURE OR HAVE LET YOURSELF OR YOUR FAMILY DOWN NOT AT ALL TROUBLE CONCENTRATING ON THINGS, SUCH READING THE NEWSPAPER OR WATCHING TELEVISION NOT AT ALL MOVING OR SPEAKING SO SLOWLY THAT OTHER PEOPLE COULD HAVE NOTICED. OR THE OPPOSITE- BEING SO FIDGETY OR RESTLESS THAT YOU HAVE BEEN MOVING AROUND A LOT MORE THAN USUALNOT AT ALL PHQ-2 (2015 EDITION) LITTLE INTEREST OR PLEASURE IN DOING THINGS?SEVERAL DAYS FEELING DOWN, DEPRESSED, OR HOPELESS?SEVERAL DAYS TOTAL SCORE2 GENERAL: HERE FOR FOLLOW-UP OF CHRONIC LOW BACK PAIN. PAIN HAS INCREASED OVER THE PAST MONTH. PAIN IS LOCATED HIGHER IN THE LUMBAR AREA ON THE RIGHT SIDE WITH RADIATION INTO RIGHT HIP. CURRENTLY USING TRAMADOL 100 MG TO 150 MG DAILY FOR SEVERE PAIN EPISODES WHICH PATIENT FINDS IS HELPFUL. SHE WOULD LIKE TO HOLD OFF ON INJECTION THERAPY AT THIS TIME. SHE THINKS IT'S MANAGEABLE WITH HER MEDICATIONS. -. FALL RISK SCREENING: SCREENING :NO FALLS REPORTED IN THE LAST YEAR PAIN SCREENING: PATIENT HAS A COMPLAINT OF ACUTE OR CHRONIC PAIN :YES LOCATION OF PAIN:LOW BACK, RIGHT HIP INTENSITY OF PAIN (SCALE OF 1 TO 10):6 WHAT DOES YOUR PAIN FEEL LIKE:STABBING, THROBBING DURATION:CONTINOUS, CONSTANT, ALL DAY PAIN IS INCREASED BY:ACTIVITIES, PROLONGED STANDING SITTING DOWN PAIN IS DECREASED BY:USE OF PAIN MEDICATIONS TRAMADOL TREATMENT/MEDICATIONS USED TO MANAGE PAIN:OPIOIDS LEVEL OF RELIEF FROM PAIN TREATMENTS IN THE PAST:50% PAIN HAS INTERFERED WITH THE FOLLOWING:BATHING/DRESSING, WALKING ABILITY, SLEEP NURSING NOTE: -. PAIN CENTER INTAKE QUESTIONS: DO YOU HAVE A HISTORY OF MRSA? :NO DO YOU TAKE A BLOOD THINNERS? :NO DO YOU HAVE ANY BLEEDING DISORDERS? :NO ANY NEW NUMBNESS OR WEAKNESS IN YOUR LEGS OR ARMS? :NO ANY PACEMAKER,DEFIBRILLATOR, OR DORSAL COLUMN STIMULATOR? :NO DO YOU HAVE ANY RASHES OR OPEN SORES? :NO ARE YOU ALLERGIC TO IV DYE? :NO ARE YOU DIABETIC? :NO ANY NEW PROBLEMS WITH YOUR MEDICATIONS? :NO HAVE YOU RECEIVED A VACCINE IN THE PAST 30 DAYS? :NO DO YOU PLAN TO RECEIVE A VACCINE IN THE NEXT 21 DAYS? :NO DO YOU NEED ANY PRESCRIPTION? :NO DO YOU TAKE ANY IMMUNOSUPPRESSIVE MEDICATIONS? :NO IS THERE A CHANCE YOU COULD BE ? :NO ARE YOU BREAST FEEDING? :NO CURRENT MEDICATIONS TAKING ATORVASTATIN CALCIUM 40 MG TABLET 1 TABLET ORALLY ONCE A DAY TAKING LISINOPRIL 20 MG TABLET 1 TAB ORALLY DAILY TAKING ONETOUCH VERIO W/DEVICE KIT DIRECTED PT LAST GLUCOMETER WAS DROPPED AND BROKE NEEDS TO HAVE IT REPLACED. TO USE DAILY/ DX CODE E11.42 TAKING BLOOD GLUCOSE TEST - STRIP TRUE TEST IN VITRO DX:E11.21 DAILY TAKING ACETAMINOPHEN 500 MG CAPSULE 2 CAPSULE NEEDED ORALLY EVERY 6 HRS TAKING MULTIVITAMIN ADULT - TABLET DIRECTED ORALLY 2 TABS DAILY TAKING CALCIUM + D 600-200 MG-UNIT TABLET 1 TABLET ORALLY TWICE A DAY TAKING STIOLTO RESPIMAT 2.5-2.5 MCG/ACT AEROSOL SOLUTION 2 PUFFS INHALATION ONCE A DAY TAKING METFORMIN HCL ER 500 MG TABLET EXTENDED RELEASE 24 HOUR 1 TABLET WITH EVENING MEAL ORALLY ONCE A DAY TAKING FLUTICASONE PROPIONATE 50 MCG/ACT SUSPENSION 1 SPRAY IN EACH NOSTRIL NASALLY ONCE A DAY TAKING TRAMADOL HCL 50 MG TABLET 1 TO 2 ORALLY 1 TABQ8H PRN MDD 4 NOT-TAKING PROAIR HFA 108 (90 BASE) MCG/ACT AEROSOL SOLUTION 2 PUFFS INHALATION EVERY 4 HRS NEEDED NOT-TAKING MECLIZINE HCL 25 MG TABLET 1 TABLET ORALLY THREE TIMES DAILY NEEDED FOR DIZZINESS NOT-TAKING VITAMIN B12 100 MCG TABLET DIRECTED ORALLY NOT-TAKING GABAPENTIN 300 MG CAPSULE 1 CAPSULE ORALLY THREE TIMES DAILY NOT-TAKING DRISDOL 1.25 MG (79813 UT) CAPSULE 1 CAPSULE ORALLY WEEKLY NOT-TAKING TRIAMCINOLONE ACETONIDE 55 MCG/ACT AEROSOL 1 SPRAY IN EACH NOSTRIL NASALLY ONCE A DAY NEEDED NOT-TAKING ATORVASTATIN CALCIUM 40 MG TABLET 1 TABLET ORALLY ONCE A DAY NOT-TAKING NORVASC 5MG TABLET ORAL ORALLY DAILY NOT-TAKING LISINOPRIL 20 MG TABLET 1 TAB ORALLY DAILY NOT-TAKING TIZANIDINE HCL 2 MG TABLET 1 TABLET NEEDED ORALLY AT BEDTIME MAY REPEAT IN 6 HOURS IF NEEDED MEDICATION LIST REVIEWED AND RECONCILED WITH THE PATIENT PAST MEDICAL HISTORY DIABETES MELLITUS TYPE 2 NEUROPATHY HYPERTENSION HYPERCHOLESTEROL COPD HX TOBACCO ABUSE FATTY LIVER PER ULTRASOUND 10/13/16 6 MM INTRARENAL KIDNEY STONE, PER ULTRASOUND 10/13/16 REFUSES REFERRAL TO UROLOGY 09/14/16, 02/22/17- 03/21/18 11/28/19-REFUSES COLONOSCOPY RIGHT KIDNEY COLUMN OF [place] NOTED ON XRAY 10/13/16 BACK PAIN GASTRIC BYPASS IBSGSN=904 LBS ALLERGIES PLASTIC: RASH - ALLERGY NORCO: NAUSEA VOMITING - SIDE EFFECTS SURGICAL HISTORY APPENDECTOMY AGE 18 2000 [facility] ER LUMBAGO WITH SCIATICA RIGHT SIDE 06/04/18 UGI FOR GASTIC BYPASS 08/10/18 GASTRIC BYPASS-DR. MATHEWS 245 LBS 10/09/2018 FAMILY HISTORY FATHER: ALIVE 81 YRS, DM2, HEART PROBLEMS TRIPLE BYPASS, DEMENTIA MOTHER: 70 YRS, UTERINE CANCER- HAD OPERATION, FELL, BLEEDING OCCURRED HAD METS PASSED HTN, DIAGNOSED WITH OTHER MALIGNANT NEOPLASM OF UNSPECIFIED SITE 6 SISTERS OK\\N2 BROTHERS OK\\N3 CHILDREN 2 BOYS 1 DAUGHTER. SOCIAL HISTORY GENERAL: TOBACCO USE ARE YOU A:CURRENT SMOKER ARE YOU INTERESTED IN QUITTING?NOT READY TO QUIT COUNSELED THE PATIENT ON SMOKING EFFECTS, EDUCATION [id number]/12/2021 PATIENT COUNSELED ON THE DANGERS OF TOBACCO USE AND URGED TO QUIT:11/13/2019 LATEX QUESTIONNAIRE LATEX ALLERGY : HAVE YOU EVER DEVELOPED ANY TYPE OF REACTION AFTER HANDLING LATEX PRODUCTS SUCH RUBBER GLOVES, CONDOMS, DIAPHRAGMS, BALLOONS, SOCKS, OR UNDERWEAR?NO LATEX ALLERGY : HAVE YOU EVER DEVELOPED ANY TYPE OF REACTION DURING OR AFTER DENTAL APPOINTMENT, VAGINAL/RECTAL EXAMINATION, SURGICAL PROCEDURE, OR ANY OTHER EXPOSURE?NO LATEX RISK : HAVE YOU EVER HAD ANY DIFFICULTY BREATHING OR HIVES AFTER EATING OR HANDLING ANY FRUITS, OR VEGETABLES; SUCH KIWI, BANANAS, STONE FRUITS, OR CHESTNUTSNO LATEX RISK : DO YOU HAVE A PREVIOUS PERSONAL HISTORY OF MORE THAN NINE SURGERIES, SPINA BIFIDA, OR REPEATED CATHERIZATIONS? NO LATEX RISK : ARE YOU FREQUENTLY EXPOSED TO LATEX PRODUCTS IN YOUR OCCUPATION?NO DATE ASKED : 06/03/2020 BMI CARE GOAL FOLLOW-UP ABOVE NORMAL BMI FOLLOW-UPDIETARY MANAGEMENT EDUCATION, GUIDANCE, AND COUNSELING ALCOHOL SCREENING DID YOU HAVE A DRINK CONTAINING ALCOHOL IN THE PAST YEAR?NO POINTS0 INTERPRETATIONNEGATIVE RECREATIONAL DRUG USE DRUG USE?NO DENIES 10/02/19 PATIENT DENIES ABUSE OR MISSUSED OF ANY MEDICATION. PATIENT DENIES USE OF ANY ILLEGAL SUBSTANCE INCLUDING MARIJUANA OR COCAINE. CAFFEINE CAFFEINE USE?NO SEXUAL HX HAD SEX IN THE LAST 12 MONTHS (VAGINAL, ORAL, OR ANAL)?NO HAVE YOU EVER HAD AN STD?NO HIV / HEP-C SCREENING HIV TEST OFFERED TO PATIENT:YES DATE OFFERED:09/14/2016 TEST ACCEPTED:NO HEP-C TEST OFFERED TO PATIENT:YES DATE OFFERED:09/14/2016 REASON:PATIENT DECLINED TEST ACCEPTED:NO REASON:PATIENT DECLINED BROCHURE PROVIDED TO PATIENTYES EPISCOPAL [id number] RASTAFARIAN LANGUAGE LANGUAGES SPOKEN:BOTH BRITISH AND SINHALA PREFERS TO SPEAK BRITISH EDUCATION LEVEL OF EDUCATION:HIGH SCHOOL FINISHED 11TH GRADE LEARNING BARRIERS / SPECIAL NEEDS BARRIERS TO LEARNING?NO HEARING IMPAIRED?NO VISION IMPAIRED?YES :CORRECTIVE LENSES COGNITIVELY IMPAIRED?NO READINESS TO LEARN?YES LEARNING PREFERENCES?NO LEARNING CAPABILITIES PRESENT?YES EMOTIONAL BARRIERS?NO 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 DIET: NO CONCENTRATED SWEETS., NO ADDED SALT. EXERCISE: NO REGULAR EXERCISE. MARITAL STATUS: . OTHERS AT HOME: 1 SON. PAIN CLINIC PFS, CLERGY, PUBLIC HEALTH REFERRALS WAS THE PROVIDER NOTIFIED OF ANY PERTINENT INFO?YES HAS THE PATIENT BEEN EDUCATED REGARDING HIS/HER PLAN OF CARE?YES PLEASE DOCUMENT ANY ADDTIONAL DETAILS. NEW PATIENT CONSULT HAS THE PATIENT BEEN EDUCATED REGARDING PAIN, THE RISK FOR PAIN, THE IMPORTANCE OF EFFECTIVE PAIN MANAGEMENT, AND THE PAIN ASSESSMENT PROCESS?YES HOUSING: RENTS APARTMENT WITH DAUGHTER AND SON. ADVANCE DIRECTIVE ADVANCE DIRECTIVE DISCUSSED WITH PATIENT:YES PATIENT DECLINED HCP INFORMATION AND DECLINED ASSISTANCE WITH FORM. MOVED TO [place] 14 [address]AG[address] WHEN FROM [facility]. JAKI, FOLLOWED WITH FOR SEVERAL YEARS IN [facility]. HOSPITALIZATION/MAJOR DIAGNOSTIC PROCEDURE SURGERIES REVIEW OF SYSTEMS CONSTITUTIONAL: ANY RECENT FEVER NO . CHILLS NO . WEIGHT CHANGE OF UNKNOWN REASONS NO . GASTROENTEROLOGY: NEW UNEXPLAINABLE CHANGES IN BOWEL CONTROL NO . CONSTIPATION NO . GENITOURINARY: ANY NEW CHANGE IN BLADDER CONTROL? NO . NEUROLOGY: NEW ONSET DIZZINESS OR NEUROLOGICAL CHANGES NOT MENTIONED NO . NEW NUMBNESS OR PAIN PATTERNS NOT MENTIONED AND PERTINENT TO TODAY'S VISIT NO . CARDIOLOGY: NEW CHEST PRESSURE NO . NEW CHEST PAIN NO . RESPIRATORY: UNEXPLAINABLE COUGH NO . NEW SHORTNESS OF BREATH NO . VITAL SIGNS WT 177 LBS, HT 5'2", BMI 32.37 INDEX, BP 128/80 MM HG, HR 76 /MIN, RR 18 /MIN, TEMP 95.5 F, OXYGEN SAT % 99, SAFE IN ENV? (Y/N) YES, REVIEWED BY: ARNOLD MESSER. EXAMINATION GENERAL EXAMINATION: GENERALAWAKE,ALERT ,PLEASANT . PSYCHAFFECT NORMAL . LUNGS:LUNG SILVA ARE CLEAR TO AUSCULTATION BILATERALLY. GOOD MOVEMENT OF AIR . HEART:S1, S2 IN A REGULAR RATE AND RHYTHM. NO SIGNIFICANT MURMURS, RUBS OR GALLOPS NOTED . ASSESSMENTS COCCYDYNIA - M53.3 (PRIMARY) TROCHANTERIC BURSITIS, RIGHT HIP - M70.61 TREATMENT COCCYDYNIA CONTINUE TRAMADOL HCL TABLET, 50 MG, 1 TO 2, ORALLY, 1 TABQ8H PRN MDD 4 NOTES: CONTINUE HOME EXERCISE AND STRETCHING. CALL US TO SCHEDULE APPOINTMENT EARLIER IF PAIN BECOMES INTOLERABLE. PROCEDURE CODES FA211 ESTABILISHED PATIENT [facility] CHARGE DISPOSITION & COMMUNICATION FOLLOW UP 3 MONTHS (REASON: RIGHT LOW BACK PAIN, RIGHT HIP PAIN, CONSIDER INJECTION THERAPY, REVIEW URINE TOXICOLOGY) ELECTRONICALLY SIGNED BY IONA SAUCEDA ON 06/04/2020 AT 02:23 PM EST DISCLAIMER : THIS IS A VISIT SUMMARY EXTRACTED FROM THE [employer] CHART. IT IS NOT A COPY OF THE [employer] PROGRESS NOTE. CHANO
== END ==
LOC: M PAIN 10:15
PROVIDERS: ATTEND Nurse Practitioner Family
DX: M53.3 Sacrococcygeal disorders, not elsewhere classified (principal); G89.29 Other chronic pain; M70.61 Trochanteric bursitis, right hip; E11.40 Type 2 diabetes mellitus with diabetic neuropathy, unspecified; J44.9 Chronic obstructive pulmonary disease, unspecified; F17.210 Nicotine dependence, cigarettes, uncomplicated; Z98.84 Bariatric surgery status; Z88.5 Allergy status to narcotic agent; Z91.09 Other allergy status, other than to drugs and biological substances; Z79.84 Long term (current) use of oral hypoglycemic drugs; Z79.891 Long term (current) use of opiate analgesic; Z79.899 Other long term (current) drug therapy

== ENCOUNTER → 2020-07-17 | Outpatient (REF) | payer OTHER ==
[~2020-07-17] MED LIST changes: -LISI-538 PO; +LISI20TA33 PO
[2020-07-17 14:07] LABS: HEMOGLOBIN A1c 5.8 %
[2020-07-17 14:17] LABS: CREATININE, URINE 66.2 MG/DL; MALB URINE SIEMENS 11.9 MG/L; MAU/CREAT RATIO 17.9 MCG/MG (0.0-30.0)
[2020-07-17 14:20] LABS: ALBUMIN 3.8 GM/DL (3.2-5.2); ALT/SGPT 17 U/L (12-78); BILIRUBIN,TOTAL 0.3 MG/DL (0.2-1.0); BLOOD UREA NITROGEN 17 MG/DL (7-18); CALCIUM LEVEL 9.2 MG/DL (8.8-10.2); CARBON DIOXIDE LEVEL 30 MEQ/L (21-32); CHLORIDE LEVEL 107 MEQ/L (98-107); CREATININE FOR GFR 0.67 MG/DL (0.55-1.30); GLOMERULAR FILTRATION RATE > 60.0 (>45); GLUCOSE, FASTING 79 MG/DL (70-100); POTASSIUM SERUM 3.8 MEQ/L (3.5-5.1); SODIUM LEVEL 141 MEQ/L (136-145); THYROID STIMULATING HORMONE 0.955 uIU/ML (0.358-3.740); TOTAL 25(OH) VITAMIN D 21.3 NG/ML (30.0-100.0); TOTAL PROTEIN 6.8 GM/DL (6.4-8.2)
== END ==
LOC: M SFHCPLAZ 11:12
PROVIDERS: ATTEND Nurse Practitioner Adult Health
DX: Z98.84 Bariatric surgery status (principal); E11.21 Type 2 diabetes mellitus with diabetic nephropathy; E55.9 Vitamin D deficiency, unspecified

== ENCOUNTER → 2020-09-01 | Outpatient (CLI) | payer OTHER ==
--- NOTE | 2020-09-03 05:21 | ECWPNPC ---
PATIENT NAME: XUAN MOON : 1960 GENDER: FEMALE VISIT DATE: 09/01/2020 DISCHARGE DATE: 09/01/20 1115 VISIT LOCKED DATE TIME: PHYSICIAN: JUMANA DONALD RESOURCE: JUMANA DONALD REASON FOR APPOINTMENT 1. RIGHT LOW BACK PAIN, RIGHT HIP PAIN, REVIEW URINE TOXICOLOGY HISTORY OF PRESENT ILLNESS GENERAL: HERE FOR FOLLOW-UP OF CHRONIC LOW BACK PAIN AND RIGHT HIP PAIN. PATIENT ALSO SUFFERS FROM SEVERE COCCYDYNIA. PAIN IN THIS REGION HAS BEEN AGGRAVATED OVER THE PAST MONTH. HAS RESPONDED WELL TO SACROCOCCYGEAL BLOCK IN THE PAST. FINDS CURRENT CHRONIC PAIN MEDICINE TRAMADOL 50 MG 1 EVERY 6 HOURS NEEDED FOR PAIN HELPFUL AT REDUCING PAIN AND KEEPING HER FUNCTIONAL. DISCUSSED TREATMENT PLAN. -. FALL RISK SCREENING: SCREENING : NO FALLS REPORTED IN THE LAST YEAR. PAIN SCREENING: PATIENT HAS A COMPLAINT OF ACUTE OR CHRONIC PAIN :YES LOCATION OF PAIN:LOW BACK, RIGHT HIP INTENSITY OF PAIN (SCALE OF 1 TO 10):8 WHAT DOES YOUR PAIN FEEL LIKE:THROBBING DURATION:CONTINOUS, CONSTANT, ALL DAY PAIN IS INCREASED BY:ACTIVITIES PAIN IS DECREASED BY:USE OF PAIN MEDICATIONS NURSING NOTE: -. PAIN CENTER INTAKE QUESTIONS: DO YOU HAVE A HISTORY OF MRSA? :NO DO YOU TAKE A BLOOD THINNERS? :NO DO YOU HAVE ANY BLEEDING DISORDERS? :NO ANY NEW NUMBNESS OR WEAKNESS IN YOUR LEGS OR ARMS? :NO COLDNESS IN BOTH HANDS ANY PACEMAKER,DEFIBRILLATOR, OR DORSAL COLUMN STIMULATOR? :NO DO YOU HAVE ANY RASHES OR OPEN SORES? :NO ARE YOU ALLERGIC TO IV DYE? :NO ARE YOU DIABETIC? :YES ANY NEW PROBLEMS WITH YOUR MEDICATIONS? :NO HAVE YOU RECEIVED A VACCINE IN THE PAST 30 DAYS? :YES 1ST COVID 08/15/2020 DO YOU PLAN TO RECEIVE A VACCINE IN THE NEXT 21 DAYS? :YES 2ND COVID 09/15/2020 DO YOU NEED ANY PRESCRIPTION? :NO DO YOU TAKE ANY IMMUNOSUPPRESSIVE MEDICATIONS? :NO IS THERE A CHANCE YOU COULD BE ? :NO ARE YOU BREAST FEEDING? :NO CURRENT MEDICATIONS TAKING Plaza BankTOUCH VERIO W/DEVICE KIT DIRECTED PT LAST GLUCOMETER WAS DROPPED AND BROKE NEEDS TO HAVE IT REPLACED. TO USE DAILY/ DX CODE E11.42 TAKING BLOOD GLUCOSE TEST - STRIP TRUE TEST IN VITRO DX:E11.21 DAILY TAKING ACETAMINOPHEN 500 MG CAPSULE 2 CAPSULE NEEDED ORALLY EVERY 6 HRS TAKING MULTIVITAMIN ADULT - TABLET DIRECTED ORALLY 2 TABS DAILY TAKING CALCIUM + D 600-200 MG-UNIT TABLET 1 TABLET ORALLY TWICE A DAY TAKING STIOLTO RESPIMAT 2.5-2.5 MCG/ACT AEROSOL SOLUTION 2 PUFFS INHALATION ONCE A DAY TAKING ATORVASTATIN CALCIUM 40 MG TABLET 1 TABLET ORALLY ONCE A DAY TAKING LISINOPRIL 20 MG TABLET 1 TAB ORALLY DAILY TAKING DIFLUCAN 150 MG TABLET 1 TABLET ORALLY DIRECTED 1 TODAY THEN 1 IN 10 DAYS TAKING DRISDOL 1.25 MG (22099 UT) CAPSULE 1 CAPSULE ORALLY WEEKLY TAKING TRAMADOL HCL 50 MG TABLET 1 TO 2 ORALLY 1 TABQ8H PRN MDD 4 TAKING OMEPRAZOLE 40 MG CAPSULE DELAYED RELEASE TAKE ONE CAPSULE BY MOUTH EVERY DAY TAKING VITAMIN D (ERGOCALCIFEROL) 1.25 MG (17900 UT) CAPSULE TAKE 1 CAPSULES BY MOUTH WEEKLY TAKING FLUTICASONE PROPIONATE 50 MCG/ACT SUSPENSION 1 SPRAY IN EACH NOSTRIL NASALLY ONCE A DAY TAKING METFORMIN HCL ER 500 MG TABLET EXTENDED RELEASE 24 HOUR 1 TABLET WITH EVENING MEAL ORALLY ONCE A DAY NOT-TAKING DOXYCYCLINE MONOHYDRATE 100 MG TABLET 1 TABLET ORALLY BID NOT-TAKING LISINOPRIL 20 MG TABLET TAKE ONE TABLET BY MOUTH EVERY DAY MEDICATION LIST REVIEWED AND RECONCILED WITH THE PATIENT PAST MEDICAL HISTORY DIABETES MELLITUS TYPE 2 NEUROPATHY GASTRIC BYPASS [id number] LBS HYPERTENSION HYPERCHOLESTEROL COPD HX TOBACCO ABUSE FATTY LIVER PER ULTRASOUND 10/13/16 6 MM INTRARENAL KIDNEY STONE, PER ULTRASOUND 10/13/16 REFUSES REFERRAL TO UROLOGY 09/14/16, 02/22/17- 03/21/18 11/28/19-REFUSES COLONOSCOPY RIGHT KIDNEY COLUMN OF [place] NOTED ON XRAY 10/13/16 BACK PAIN ALLERGIES PLASTIC: RASH - ALLERGY NORCO: NAUSEA VOMITING - SIDE EFFECTS SOCIAL HISTORY GENERAL: TOBACCO USE ARE YOU A:CURRENT SMOKER ARE YOU INTERESTED IN QUITTING?NOT READY TO QUIT COUNSELED THE PATIENT ON SMOKING EFFECTS, EDUCATION [id number]/12/2021 PATIENT COUNSELED ON THE DANGERS OF TOBACCO USE AND URGED TO QUIT:11/13/2019 LATEX QUESTIONNAIRE LATEX ALLERGY : HAVE YOU EVER DEVELOPED ANY TYPE OF REACTION AFTER HANDLING LATEX PRODUCTS SUCH RUBBER GLOVES, CONDOMS, DIAPHRAGMS, BALLOONS, SOCKS, OR UNDERWEAR?NO LATEX ALLERGY : HAVE YOU EVER DEVELOPED ANY TYPE OF REACTION DURING OR AFTER DENTAL APPOINTMENT, VAGINAL/RECTAL EXAMINATION, SURGICAL PROCEDURE, OR ANY OTHER EXPOSURE?NO LATEX RISK : HAVE YOU EVER HAD ANY DIFFICULTY BREATHING OR HIVES AFTER EATING OR HANDLING ANY FRUITS, OR VEGETABLES; SUCH KIWI, BANANAS, STONE FRUITS, OR CHESTNUTSNO LATEX RISK : DO YOU HAVE A PREVIOUS PERSONAL HISTORY OF MORE THAN NINE SURGERIES, SPINA BIFIDA, OR REPEATED CATHERIZATIONS? NO LATEX RISK : ARE YOU FREQUENTLY EXPOSED TO LATEX PRODUCTS IN YOUR OCCUPATION?NO DATE ASKED : 09/01/2020 ALCOHOL USE: NO. BMI CARE GOAL FOLLOW-UP ABOVE NORMAL BMI FOLLOW-UPDIETARY MANAGEMENT EDUCATION, GUIDANCE, AND COUNSELING ALCOHOL SCREENING DID YOU HAVE A DRINK CONTAINING ALCOHOL IN THE PAST YEAR?NO POINTS0 INTERPRETATIONNEGATIVE RECREATIONAL DRUG USE DRUG USE?NO PATIENT DENIES ABUSE OR MISSUSED OF ANY MEDICATION. PATIENT DENIES USE OF ANY ILLEGAL SUBSTANCE INCLUDING MARIJUANA OR COCAINE. CAFFEINE CAFFEINE USE?NO SEXUAL HX HAD SEX IN THE LAST 12 MONTHS (VAGINAL, ORAL, OR ANAL)?NO HAVE YOU EVER HAD AN STD?NO HIV / HEP-C SCREENING HIV TEST OFFERED TO PATIENT:YES DATE OFFERED:09/14/2016 TEST ACCEPTED:NO HEP-C TEST OFFERED TO PATIENT:YES DATE OFFERED:09/14/2016 REASON:PATIENT DECLINED TEST ACCEPTED:NO REASON:PATIENT DECLINED BROCHURE PROVIDED TO PATIENTYES CONFUCIANIST [id number] AMISH LANGUAGE LANGUAGES SPOKEN:BOTH GUINEAN AND ITALIAN PREFERS TO SPEAK GUINEAN EDUCATION LEVEL OF EDUCATION:HIGH SCHOOL FINISHED 11TH GRADE LEARNING BARRIERS / SPECIAL NEEDS BARRIERS TO LEARNING?NO HEARING IMPAIRED?NO VISION IMPAIRED?YES :CORRECTIVE LENSES COGNITIVELY IMPAIRED?NO READINESS TO LEARN?YES LEARNING CAPABILITIES PRESENT?YES EMOTIONAL BARRIERS?NO SPECIAL DEVICES?YES :CANE NEEDED APPAREL SALES ASSOCIATE NEEDED?NO DOMESTIC VIOLENCE DO YOU FEEL SAFE IN YOUR ENVIRONMENT?YES OCCUPATION: UNEMPLOYED WORKED IN [place]. DIET: NO CONCENTRATED SWEETS., NO ADDED SALT. EXERCISE: NO REGULAR EXERCISE. MARITAL STATUS: . OTHERS AT HOME: 1 SON. - WAS THE PROVIDER NOTIFIED OF ANY PERTINENT INFO?YES HAS THE PATIENT BEEN EDUCATED REGARDING HIS/HER PLAN OF CARE?YES PLEASE DOCUMENT ANY ADDTIONAL DETAILS. NEW PATIENT CONSULT HAS THE PATIENT BEEN EDUCATED REGARDING PAIN, THE RISK FOR PAIN, THE IMPORTANCE OF EFFECTIVE PAIN MANAGEMENT, AND THE PAIN ASSESSMENT PROCESS?YES HOUSING: RENTS APARTMENT WITH DAUGHTER AND SON. ADVANCE DIRECTIVE ADVANCE DIRECTIVE DISCUSSED WITH PATIENT:YES PATIENT DECLINED HCP INFORMATION AND DECLINED ASSISTANCE WITH FORM. MOVED TO [place] [facility] FOLLOWED WITH FOR SEVERAL YEARS IN [facility]. REVIEW OF SYSTEMS CONSTITUTIONAL: ANY RECENT FEVER NO . CHILLS NO . WEIGHT CHANGE OF UNKNOWN REASONS NO . GASTROENTEROLOGY: NEW UNEXPLAINABLE CHANGES IN BOWEL CONTROL NO . CONSTIPATION NO . GENITOURINARY: ANY NEW CHANGE IN BLADDER CONTROL? NO . NEUROLOGY: NEW ONSET DIZZINESS OR NEUROLOGICAL CHANGES NOT MENTIONED NO . NEW NUMBNESS OR PAIN PATTERNS NOT MENTIONED AND PERTINENT TO TODAY'S VISIT NO . CARDIOLOGY: NEW CHEST PRESSURE NO . PATIENT DENIES NO . RESPIRATORY: UNEXPLAINABLE COUGH NO . NEW SHORTNESS OF BREATH NO . VITAL SIGNS WT 174.4 LBS, HT 5'2", BMI 31.89 INDEX, BP 133/70 MM HG, HR 60 /MIN, RR 99%, TEMP 97.4 F, OXYGEN SAT % 99%, SAFE IN ENV? (Y/N) YES, NA INITIALS AW 1036T.HARSHA MESSER. EXAMINATION GENERAL EXAMINATION: GENERALNO ACUTE DISTRESS, WELL NOURISHED AND HYDRATED. PSYCHAPPROPRIATE MOOD AND AFFECT . LUNGS:CLEAR TO AUSCULTATION BILATERALLY, NO WHEEZES, RHONCHI, RALES. HEART:NO MURMURS, REGULAR RATE AND RHYTHM. LUMBAR:TENDERNESS NOTED OVER SACRAL AREA WITH PALPATION BILATERALLY. TENDERNESS NOTED OVER RIGHT HIP. TENDERNESS NOTED OVER L/S AXIS. . DIAGNOSTIC TESTS REVIEWED MRI L/S SPINE-2019. ASSESSMENTS COCCYDYNIA - M53.3 (PRIMARY) TREATMENT COCCYDYNIA CONTINUE TRAMADOL HCL TABLET, 50 MG, 1 TO 2, ORALLY, 1 TABQ8H PRN MDD 4 NOTES: BILATERAL SACROCOCCYGEAL LIGAMENT INJECTION.PATIENT REQUEST NO MEDICATION FOR SEDATION. PRINTED AND REVIEWED PRE PROCEDURE TEACHING WITH PATIENT VINCE MESSER. PROCEDURE CODES FA211 ESTABILISHED PATIENT [facility] CHARGE DISPOSITION & COMMUNICATION FOLLOW UP POST (REASON: BILATERAL SACROCOCCYGEAL LIGAMENT INJECTION) ELECTRONICALLY SIGNED BY IONA SAUCEDA ON 09/02/2020 AT 09:02 AM EDT DISCLAIMER : THIS IS A VISIT SUMMARY EXTRACTED FROM THE [employer] CHART. IT IS NOT A COPY OF THE [employer] PROGRESS NOTE. CHANO
== END ==
LOC: M PAIN 10:30
PROVIDERS: ATTEND Nurse Practitioner Family
DX: M53.3 Sacrococcygeal disorders, not elsewhere classified (principal); E11.40 Type 2 diabetes mellitus with diabetic neuropathy, unspecified; I10 Essential (primary) hypertension; E78.00 Pure hypercholesterolemia, unspecified; J44.9 Chronic obstructive pulmonary disease, unspecified; F17.210 Nicotine dependence, cigarettes, uncomplicated; K76.0 Fatty (change of) liver, not elsewhere classified; Z79.84 Long term (current) use of oral hypoglycemic drugs; Z79.891 Long term (current) use of opiate analgesic; Z88.5 Allergy status to narcotic agent; Z91.048 Other nonmedicinal substance allergy status

== ENCOUNTER → 2020-09-25 | Outpatient (CLI) | payer OTHER | LOC: M LABSMTC 09:49 | PROVIDERS: ATTEND Anesthesiology | DX: Z20.822 Contact with and (suspected) exposure to COVID-19 (principal) ==

== ENCOUNTER → 2020-09-30 | Outpatient (CLI) | payer OTHER ==
[~2020-09-30] MED LIST changes: +BUPIVACAINE HCL 0.25% 30ML VIAL As Ordered ONE; +ISOVUE-M 300 61% 15ML VIAL As Ordered ONE; +LIDOCAINE 1% SDV 30ML VIAL As Ordered ONE; +TRIAMCINOLONE ACETONIDE SUSP 40 MG/ML VIAL (J3301) As Ordered ONE
--- NOTE | 2020-09-30 15:14 | REP ---
INDICATION: PAIN. COMPARISON: None. TECHNIQUE: Several C-arm views sacrum and coccyx performed. FINDINGS: There are needles placed in the midline. A small amount of contrast is injected. IMPRESSION: 15 seconds fluoroscopy time utilized. <Electronically signed by Cheo Fay > 09/30/20 [id number]
--- NOTE | 2020-10-04 04:22 | ECWPNPC ---
PATIENT NAME: XUAN MOON : 1960 GENDER: FEMALE VISIT DATE: 09/30/2020 DISCHARGE DATE: 09/30/20 1529 VISIT LOCKED DATE TIME: PHYSICIAN: ALLIE LANGLEY MD RESOURCE: ALLIE LANGLEY MD REASON FOR APPOINTMENT 1. BILATERAL SACROCOCCYGEAL LIGAMENT INJECTION HISTORY OF PRESENT ILLNESS GENERAL: -. FALL RISK SCREENING: SCREENING : NO FALLS REPORTED IN THE LAST YEAR. PAIN SCREENING: PATIENT HAS A COMPLAINT OF ACUTE OR CHRONIC PAIN :YES LOCATION OF PAIN:LOW BACK, RIGHT HIP INTENSITY OF PAIN (SCALE OF 1 TO 10):7 WHAT DOES YOUR PAIN FEEL LIKE:ACHING, CONTINOUS DURATION:CONTINOUS, CONSTANT PAIN IS INCREASED BY:ACTIVITIES, PROLONGED STANDING PAIN IS DECREASED BY:USE OF PAIN MEDICATIONS, OTHERS ICE NURSING NOTE: -. PAIN CENTER INTAKE QUESTIONS: DO YOU HAVE A HISTORY OF MRSA? :NO DO YOU TAKE A BLOOD THINNERS? :NO DO YOU HAVE ANY BLEEDING DISORDERS? :NO ANY NEW NUMBNESS OR WEAKNESS IN YOUR LEGS OR ARMS? :NO ANY PACEMAKER,DEFIBRILLATOR, OR DORSAL COLUMN STIMULATOR? :NO DO YOU HAVE ANY RASHES OR OPEN SORES? :NO ARE YOU ALLERGIC TO IV DYE? :NO ARE YOU DIABETIC? :YES FSBS 120 AT 1030 ANY NEW PROBLEMS WITH YOUR MEDICATIONS? :NO HAVE YOU RECEIVED A VACCINE IN THE PAST 30 DAYS? :YES IF SO WHAT VACCINE AND WHEN? 2ND COVID 09/15/20 DO YOU PLAN TO RECEIVE A VACCINE IN THE NEXT 21 DAYS? :NO DO YOU TAKE ANY IMMUNOSUPPRESSIVE MEDICATIONS? :NO ANY HISTORY OF SEIZURES? :NO ANY HISTORY OF CARDIAC ISSUES OR EVENTS? :NO DO YOU HAVE ANY KIDNEY OR LIVER DISEASE? :NO DO YOU HAVE SLEEP APNEA? :NO ANY RECENT HEAD INJURY? :NO DO YOU HAVE ANY NEW INFECTIONS? :NO IS THERE A CHANCE YOU COULD BE ? :NO ARE YOU BREAST FEEDING? :NO WHEN DID YOU LAST EAT? : -09/29 WHEN DID YOU LAST DRINK? : -09/30 1100 WHAT DID YOU LAST DRINK? : -WATER NAME OF PERSON DRIVING YOU HOME? : -SON -[place] DO YOU HAVE ANY OTHER QUESTIONS OR CONCERNS? : - CURRENT MEDICATIONS TAKING ONETOUCH VERIO W/DEVICE KIT DIRECTED PT LAST GLUCOMETER WAS DROPPED AND BROKE NEEDS TO HAVE IT REPLACED. TO USE DAILY/ DX CODE E11.42 TAKING BLOOD GLUCOSE TEST - STRIP TRUE TEST IN VITRO DX:E11.21 DAILY TAKING ACETAMINOPHEN 500 MG CAPSULE 2 CAPSULE NEEDED ORALLY EVERY 6 HRS TAKING MULTIVITAMIN ADULT - TABLET DIRECTED ORALLY 2 TABS DAILY TAKING CALCIUM + D 600-200 MG-UNIT TABLET 1 TABLET ORALLY TWICE A DAY TAKING STIOLTO RESPIMAT 2.5-2.5 MCG/ACT AEROSOL SOLUTION 2 PUFFS INHALATION ONCE A DAY TAKING LISINOPRIL 20 MG TABLET 1 TAB ORALLY DAILY, NOTES: 09/29 TAKING DRISDOL 1.25 MG (32129 UT) CAPSULE 1 CAPSULE ORALLY WEEKLY TAKING VITAMIN D (ERGOCALCIFEROL) 1.25 MG (38456 UT) CAPSULE TAKE 1 CAPSULES BY MOUTH WEEKLY , NOTES: SEE ABOVE TAKING FLUTICASONE PROPIONATE 50 MCG/ACT SUSPENSION 1 SPRAY IN EACH NOSTRIL NASALLY ONCE A DAY TAKING METFORMIN HCL ER 500 MG TABLET EXTENDED RELEASE 24 HOUR 1 TABLET WITH EVENING MEAL ORALLY ONCE A DAY, NOTES: 09/28 TAKING TRAMADOL HCL 50 MG TABLET 1 TO 2 ORALLY 1 TABQ8H PRN MDD 4, NOTES: 09/30 1100 TAKING ATORVASTATIN CALCIUM 40 MG TABLET TAKE ONE TABLET BY MOUTH EVERY DAY NOT-TAKING DIFLUCAN 150 MG TABLET 1 TABLET ORALLY DIRECTED 1 TODAY THEN 1 IN 10 DAYS NOT-TAKING OMEPRAZOLE 40 MG CAPSULE DELAYED RELEASE TAKE ONE CAPSULE BY MOUTH EVERY DAY NOT-TAKING AMLODIPINE BESYLATE 5 MG TABLET TAKE ONE TABLET BY MOUTH EVERY DAY NOT-TAKING DOXYCYCLINE MONOHYDRATE 100 MG TABLET 1 TABLET ORALLY BID NOT-TAKING LISINOPRIL 20 MG TABLET TAKE ONE TABLET BY MOUTH EVERY DAY PAST MEDICAL HISTORY DIABETES MELLITUS TYPE 2 NEUROPATHY GASTRIC BYPASS CMUFBU=973 LBS HYPERTENSION HYPERCHOLESTEROL COPD HX TOBACCO ABUSE FATTY LIVER PER ULTRASOUND 10/13/16 6 MM INTRARENAL KIDNEY STONE, PER ULTRASOUND 10/13/16 REFUSES REFERRAL TO UROLOGY 09/14/16, 02/22/17- 03/21/18 11/28/19-REFUSES COLONOSCOPY RIGHT KIDNEY COLUMN OF [place] NOTED ON XRAY 10/13/16 BACK PAIN ALLERGIES PLASTIC: RASH - ALLERGY NORCO: NAUSEA VOMITING - SIDE EFFECTS SURGICAL HISTORY APPENDECTOMY AGE 18 2000 [facility] ER LUMBAGO WITH SCIATICA RIGHT SIDE 06/04/18 UGI FOR GASTIC BYPASS 08/10/18 GASTRIC BYPASS-DR. MATHEWS 245 LBS 10/09/2018 FAMILY HISTORY FATHER: ALIVE 81 YRS, DM2, HEART PROBLEMS TRIPLE BYPASS, DEMENTIA MOTHER: 70 YRS, UTERINE CANCER- HAD OPERATION, FELL, BLEEDING OCCURRED HAD METS PASSED HTN, DIAGNOSED WITH OTHER MALIGNANT NEOPLASM OF UNSPECIFIED SITE 6 SISTERS OK\\N2 BROTHERS OK\\N3 CHILDREN 2 BOYS 1 DAUGHTER. SOCIAL HISTORY GENERAL: TOBACCO USE ARE YOU A:CURRENT SMOKER ARE YOU INTERESTED IN QUITTING?NOT READY TO QUIT COUNSELED THE PATIENT ON SMOKING EFFECTS, EDUCATION [id number]/12/2021 PATIENT COUNSELED ON THE DANGERS OF TOBACCO USE AND URGED TO QUIT:11/13/2019 LATEX QUESTIONNAIRE LATEX ALLERGY : HAVE YOU EVER DEVELOPED ANY TYPE OF REACTION AFTER HANDLING LATEX PRODUCTS SUCH RUBBER GLOVES, CONDOMS, DIAPHRAGMS, BALLOONS, SOCKS, OR UNDERWEAR?NO LATEX ALLERGY : HAVE YOU EVER DEVELOPED ANY TYPE OF REACTION DURING OR AFTER DENTAL APPOINTMENT, VAGINAL/RECTAL EXAMINATION, SURGICAL PROCEDURE, OR ANY OTHER EXPOSURE?NO LATEX RISK : HAVE YOU EVER HAD ANY DIFFICULTY BREATHING OR HIVES AFTER EATING OR HANDLING ANY FRUITS, OR VEGETABLES; SUCH KIWI, BANANAS, STONE FRUITS, OR CHESTNUTSNO LATEX RISK : DO YOU HAVE A PREVIOUS PERSONAL HISTORY OF MORE THAN NINE SURGERIES, SPINA BIFIDA, OR REPEATED CATHERIZATIONS? NO LATEX RISK : ARE YOU FREQUENTLY EXPOSED TO LATEX PRODUCTS IN YOUR OCCUPATION?NO DATE ASKED : 09/29/2020 ALCOHOL USE: NO. BMI CARE GOAL FOLLOW-UP ABOVE NORMAL BMI FOLLOW-UPDIETARY MANAGEMENT EDUCATION, GUIDANCE, AND COUNSELING ALCOHOL SCREENING DID YOU HAVE A DRINK CONTAINING ALCOHOL IN THE PAST YEAR?NO POINTS0 INTERPRETATIONNEGATIVE RECREATIONAL DRUG USE DRUG USE?NO PATIENT DENIES ABUSE OR MISSUSED OF ANY MEDICATION. PATIENT DENIES USE OF ANY ILLEGAL SUBSTANCE INCLUDING MARIJUANA OR COCAINE. CAFFEINE CAFFEINE USE?NO SEXUAL HX HAD SEX IN THE LAST 12 MONTHS (VAGINAL, ORAL, OR ANAL)?NO HAVE YOU EVER HAD AN STD?NO HIV / HEP-C SCREENING HIV TEST OFFERED TO PATIENT:YES DATE OFFERED:09/14/2016 TEST ACCEPTED:NO HEP-C TEST OFFERED TO PATIENT:YES DATE OFFERED:09/14/2016 REASON:PATIENT DECLINED TEST ACCEPTED:NO REASON:PATIENT DECLINED BROCHURE PROVIDED TO PATIENTYES JEHOVAH'S WITNESS [id number] HOLINESS LANGUAGE LANGUAGES SPOKEN:BOTH SURINAMESE AND KENYAN PREFERS TO SPEAK SURINAMESE EDUCATION LEVEL OF EDUCATION:HIGH SCHOOL FINISHED 11TH GRADE LEARNING BARRIERS / SPECIAL NEEDS BARRIERS TO LEARNING?NO HEARING IMPAIRED?NO VISION IMPAIRED?YES :CORRECTIVE LENSES COGNITIVELY IMPAIRED?NO READINESS TO LEARN?YES LEARNING CAPABILITIES PRESENT?YES EMOTIONAL BARRIERS?NO SPECIAL DEVICES?YES :CANE NEEDED GROUP PRODUCT MANAGER NEEDED?NO DOMESTIC VIOLENCE DO YOU FEEL SAFE IN YOUR ENVIRONMENT?YES OCCUPATION: UNEMPLOYED WORKED IN [place]. DIET: NO CONCENTRATED SWEETS., NO ADDED SALT. EXERCISE: NO REGULAR EXERCISE. MARITAL STATUS: . OTHERS AT HOME: 1 SON. - WAS THE PROVIDER NOTIFIED OF ANY PERTINENT INFO?YES HAS THE PATIENT BEEN EDUCATED REGARDING HIS/HER PLAN OF CARE?YES PLEASE DOCUMENT ANY ADDTIONAL DETAILS. NEW PATIENT CONSULT HAS THE PATIENT BEEN EDUCATED REGARDING PAIN, THE RISK FOR PAIN, THE IMPORTANCE OF EFFECTIVE PAIN MANAGEMENT, AND THE PAIN ASSESSMENT PROCESS?YES HOUSING: RENTS APARTMENT WITH DAUGHTER AND SON. ADVANCE DIRECTIVE ADVANCE DIRECTIVE DISCUSSED WITH PATIENT:YES PATIENT DECLINED HCP INFORMATION AND DECLINED ASSISTANCE WITH FORM. MOVED TO [place] 14 [place] WHEN FROM [facility]. JAKI, FOLLOWED WITH FOR SEVERAL YEARS IN [facility]. HOSPITALIZATION/MAJOR DIAGNOSTIC PROCEDURE SURGERIES VITAL SIGNS WT 174.6 LBS, HT 5'2", BMI 31.93 INDEX, BP 138/75 MM HG, HR 81 /MIN, RR 18 /MIN, TEMP 97.0 F, OXYGEN SAT % 96%, SAFE IN ENV? (Y/N) YES, NA INITIALS AW 1315, REVIEWED BY: CHAD LOCKETT. EXAMINATION GENERAL: A HISTORY AND PHYSICAL EXAM ON THE PATIENT WAS DONE ON 09/01/2020(DATE OF ORIGINAL ASSESSMENT) IN PREPARATION OF SURGERY/PROCEDURE. I HAVE NOW REASSESSED THIS PATIENT'S HEALTH STATUS AND PERFORMED AN UPDATED EXAM TODAY. ALL CHANGES IN THE PATIENT'S HISTORY, PHYSICAL EXAM, PRE-EXISTING CONDITONS, AND INDICATIONS/CONTRAINDICATIONS TO THE PLANNED PROCEDURE AND ANESTHESIA ARE DOCUMENTED AND EVALUATED BELOW. I ATTEST TO THE ADEQUACY AND APPROPRIATENESS OF MY ASSESSMENT, AND CONFIRM THE NECESSITY FOR THE PLANNED PROCEDURE. THE PATIENT IS ALERT, ORIENTED TIMES THREE AND COOPERATIVE. LUNGS ARE CLEAR TO AUSCULTATION. HEART SHOWS REGULAR RHYTHM, NO MURMURS AND NO GALLOPS. ASSESSMENTS SPINAL ENTHESOPATHY, SACRAL AND SACROCOCCYGEAL REGION - M46.08 (PRIMARY) TREATMENT SPINAL ENTHESOPATHY, SACRAL AND SACROCOCCYGEAL REGION COMPLETION OF PROCEDURAL VISIT WHEN MEETS CRITERIA OTHERS NOTES: PAT COMPLETED 09/29/20 M DILAN LOCKETT. PROCEDURES PAIN NURSING RECORD PROCEDURE IN ROOM 1415, PHYSICIAN IN ROOM 1445, START 1453, FINISH 1504, PHYSICIAN OUT OF ROOM 1508, OUT OF ROOM 1515, ECG NORMAL SINUS, PATIENT SHIELDED YES, SAFETY STRAP YES, PREP CHLOROPREP Carlitos KONG RN, DRESSING TEGADERM DR. LANGLEY LOC: 1. ALERT, ORIENTED RESP: 1. REGULAR, NO DYSPNEA COLOR: 1. PINK SKIN: 1. WARM, DRY POSITION: 1. PRONE VITALS: GERARDO KONG 09/30/2020 2:20:24 PM > 163/103 HR 63 16 99% R/A , GERARDO KONG 09/30/2020 2:35:25 PM > 152/74 HR 62 16 99% R/A , GERARDO KONG 09/30/2020 2:50:40 PM > 149/77 HR 61 16 99% R/A , GERARDO KONG 09/30/2020 3:05:46 PM > 155/84 HR 64 16 98% R/A , GERARDO KONG 09/30/2020 3:23:10 PM > 167/86 HR 76 16 98% R/A D/C V/S COMPLETION OF PROCEDURE APPOINTMENT: POST PAIN 0, DRESSING SITE DRY AND INTACT, IV N/A, GAIT STEADY, TEACHING COMPLETED, PATIENT ACKNOWLEDGES UNDERSTANDING YES, PROCEDURE APPOINTMENT COMPLETED AT 1528 PRE PROCEDURE DIAGNOSIS 1. SPINAL ENTHESOPATHY OF THE SACROCOCCYGEAL REGION. 2. INFLAMMATION OF THE SACROCOCCYGEAL LIGAMENT. 3. COCCYDYNIA. POST PROCEDURE DIAGNOSIS 1. SPINAL ENTHESOPATHY OF THE SACROCOCCYGEAL REGION. 2. INFLAMMATION OF THE SACROCOCCYGEAL LIGAMENT. 3. COCCYDYNIA. PROCEDURE INJECTION OF THE RIGHT AND LEFT SACROCOCCYGEAL LIGAMENT. SURGEON DR. ALLIE LANGLEY INTERNAL AUDIT MANAGER NONE ANESTHESIA LOCAL PRE PROCEDURE NOTE THE PATIENT HAS HISTORY OF LOW BACK PAIN. I EVALUATED THE PATIENT AND REVIEWED THE CHART. THE PATIENT IS AWARE OF THE POTENTIAL COMPLICATIONS INLCUDING BUT NOT LIMITED TO, INCLUDE INFECTIONS, VISCERAL PUNCTURE, INCLUDING RECTAL PUNCTURE. I DISCUSSED ALTERNATIVES AND THE PATIENT EXPRESSED WILLIINGNESS TO PROCEED. THE PATIENT DENIES UNEXPLAINABLE, WEIGHT LOSS, FEVER, CHILLS, OR CHANGES IN URINARY OR BOWEL CONTROL. THE PATIENT IS COVID-19 NEGATIVE DESCRIPTION OF PROCEDURE AFTER CONSENT WAS TAKEN, THE PATIENT WAS BROUGHT TO THE PROCEDURE ROOM AND PLACED IN THE PRONE POSITION. THE LUMBOSACRAL AREA WAS CLEANED WITH CHLORHEXIDINE AND DURAPREP SOLUTION AND DRAPED ASEPTICALLY. THE PROCEDURE WAS DONE UNDER STERILE CONDITIONS. A TIMEOUT WAS PERFORMED WHERE THE CONSENTED SITE WAS VERIFIED WITH EVERYONE IN THE ROOM. UNDER FLUOROSCOPIC GUIDANCE, THE TARGET WAS SELECTED AT THE RIGHT AND LEFT SACROCOCCYGEAL LIGAMENT. I CONFIRMED AGAIN THE SITE OF TARGET. LIDOCAINE WAS USED TO NUMB THE SKIN AND THE SUBCUTANEOUS TISSUE BELOW IT. A 25 GAUGE NEEDLE WAS ADVANCED UNTIL WE REACHED THE RIGHT AND LEFT SACROCOCCYGEAL LIGAMENT. I DID AP AND LATERAL VIEWS. ISOVUE-M DYE 30%, 0.25 ML, WAS INJECTED SHOWING ADEQUATE SPREAD OF THE DYE. THEN A SOLUTION OF 30 ML OF BUPIVACAINE 0.125% WITH KENALOG 40MG WAS INJECTED OVER THE AFFECTED STRUCTURE. THE MEDICATION WAS VERIFIED WITH THE NURSE. THERE WAS NO EVIDENCE OF BLOOD, PARESTHESIA OR CEREBROSPINAL FLUID. NO EVIDENCE OF VACUUM PHENOMENON OR VISCERAL PUNCTURE. THE PATIENT WAS SENT TO THE RECOVERY ROOM WHERE SHE WAS MOVING HER EXTREMITIES AND DOING WELL. THERE WERE NO COMPLICATIONS DURING THE PROCEDURE. EBL LESS THAN 5 ML. FLUOROSCOPY TIME WAS 12SECONDS. POST PROCEDURE NOTE I AM LOOKING FOR LONG LASTING PAIN RELIEF WITH THIS INTERVENTION. INSTRUCTIONS WERE GIVEN. QUESTIONS WERE ANSWERED. THE PATIENT REPORTS UNDERSTANDING AND AGREES WITH THE PLAN. THERE WERE NO COMPLICATIONS DURING THE PROCEDURE. I, KEO JOHNSON, DOCUMENTED THE ABOVE INFORMATION ACTING A SCRIBE FOR DR. LANGLEY. I HAVE REVIEWED THE ABOVE DOCUMENT, WRITTEN BY SAVANNAH ORTEGA, AND I VERIFY THAT IT IS ACCURATE DIAGNOSTIC IMAGING [facility]O GUIDANCE (PAIN)[id number] PROCEDURE CODES 12220 INJ TENDON SHEATH/LIGAMENT, MODIFIERS: 50 [id number] NEEDLE LOCALIZATION BY XRAY, MODIFIERS: 26 DISPOSITION & COMMUNICATION FOLLOW UP FOLLOW UP WITH HEAVY EQUIPMENT SALES ASSOCIATE (REASON: POST BILATERAL SACROCOCCYGEAL LIGAMENT INJECTION) ELECTRONICALLY SIGNED BY ALLIE LANGLEY MD, MD ON 10/03/2020 AT 03:56 PM EDT DISCLAIMER : THIS IS A VISIT SUMMARY EXTRACTED FROM THE [employer] CHART. IT IS NOT A COPY OF THE [employer] PROGRESS NOTE. CHANO
== END ==
LOC: M PAIN 13:20
PROVIDERS: ATTEND Anesthesiology
DX: M53.3 Sacrococcygeal disorders, not elsewhere classified (principal); M46.08 Spinal enthesopathy, sacral and sacrococcygeal region; E11.40 Type 2 diabetes mellitus with diabetic neuropathy, unspecified; J44.9 Chronic obstructive pulmonary disease, unspecified; F17.200 Nicotine dependence, unspecified, uncomplicated; Z98.84 Bariatric surgery status; Z88.5 Allergy status to narcotic agent; Z91.09 Other allergy status, other than to drugs and biological substances; Z79.84 Long term (current) use of oral hypoglycemic drugs; Z79.891 Long term (current) use of opiate analgesic; Z79.899 Other long term (current) drug therapy
CPT/HCPCS: 20550; 77002; J3301; Q9967

== ENCOUNTER → 2020-10-14 | Outpatient (CLI) | payer OTHER ==
[~2020-10-14] MED LIST changes: -BUPIVACAINE HCL 0.25% 30ML VIAL As Ordered ONE; -ISOVUE-M 300 61% 15ML VIAL As Ordered ONE; -LIDOCAINE 1% SDV 30ML VIAL As Ordered ONE; -TRIAMCINOLONE ACETONIDE SUSP 40 MG/ML VIAL (J3301) As Ordered ONE
--- NOTE | 2020-10-16 04:03 | ECWPNPC ---
PATIENT NAME: XUAN MOON : 1960 GENDER: FEMALE VISIT DATE: 10/14/2020 DISCHARGE DATE: 10/14/20 1121 VISIT LOCKED DATE TIME: PHYSICIAN: JUMANA DONALD RESOURCE: JUMANA DONALD REASON FOR APPOINTMENT 1. POST BILATERAL SACROCOCCYGEAL LIGAMENT INJECTION HISTORY OF PRESENT ILLNESS GENERAL: HERE FOR POST PROCEDURE FOLLOW-UP. HAD BILATERAL SACROCOCCYGEAL LIGAMENT INJECTION ON 09/30/2020. REPORTS MARKED REDUCTION IN PAIN IN THAT VICINITY. CHIEF AREA OF PAIN IS RIGHT HIP. HAS BENEFITED FROM TROCHANTERIC BURSAL INJECTIONS OF THE RIGHT HIP IN THE PAST. PATIENT WOULD LIKE TO HOLD OFF ON STEROID MEDICATIONS. STATES TRAMADOL IS HELPFUL FOR PERIODIC USE TO CONTROL PAIN. -. FALL RISK SCREENING: SCREENING : NO FALLS REPORTED IN THE LAST YEAR. PAIN SCREENING: PATIENT HAS A COMPLAINT OF ACUTE OR CHRONIC PAIN :YES LOCATION OF PAIN:LOW BACK SACROCOCCYGEAL INTENSITY OF PAIN (SCALE OF 1 TO 10):7 WHAT DOES YOUR PAIN FEEL LIKE:OTHER " PATIENT STATED ITS JUST PAIN " DURATION:CONTINOUS, CONSTANT, ALL DAY PAIN IS INCREASED BY:ACTIVITIES PAIN IS DECREASED BY:USE OF PAIN MEDICATIONS NURSING NOTE: -. PAIN CENTER INTAKE QUESTIONS: DO YOU HAVE A HISTORY OF MRSA? :NO DO YOU TAKE A BLOOD THINNERS? :NO DO YOU HAVE ANY BLEEDING DISORDERS? :NO ANY NEW NUMBNESS OR WEAKNESS IN YOUR LEGS OR ARMS? :NO COLDNESS IN BOTH HANDS ANY PACEMAKER,DEFIBRILLATOR, OR DORSAL COLUMN STIMULATOR? :NO DO YOU HAVE ANY RASHES OR OPEN SORES? :NO ARE YOU ALLERGIC TO IV DYE? :NO ARE YOU DIABETIC? :YES ANY NEW PROBLEMS WITH YOUR MEDICATIONS? :NO HAVE YOU RECEIVED A VACCINE IN THE PAST 30 DAYS? :YES 1ST COVID 08/15/2020 DO YOU PLAN TO RECEIVE A VACCINE IN THE NEXT 21 DAYS? :YES 2ND COVID 09/15/2020 DO YOU NEED ANY PRESCRIPTION? :NO DO YOU TAKE ANY IMMUNOSUPPRESSIVE MEDICATIONS? :NO IS THERE A CHANCE YOU COULD BE ? :NO ARE YOU BREAST FEEDING? :NO CURRENT MEDICATIONS TAKING ONETOUCH VERIO W/DEVICE KIT DIRECTED PT LAST GLUCOMETER WAS DROPPED AND BROKE NEEDS TO HAVE IT REPLACED. TO USE DAILY/ DX CODE E11.42 TAKING BLOOD GLUCOSE TEST - STRIP TRUE TEST IN VITRO DX:E11.21 DAILY TAKING ACETAMINOPHEN 500 MG CAPSULE 2 CAPSULE NEEDED ORALLY EVERY 6 HRS TAKING MULTIVITAMIN ADULT - TABLET DIRECTED ORALLY 2 TABS DAILY TAKING CALCIUM + D 600-200 MG-UNIT TABLET 1 TABLET ORALLY TWICE A DAY TAKING STIOLTO RESPIMAT 2.5-2.5 MCG/ACT AEROSOL SOLUTION 2 PUFFS INHALATION ONCE A DAY TAKING LISINOPRIL 20 MG TABLET 1 TAB ORALLY DAILY TAKING DRISDOL 1.25 MG (15139 UT) CAPSULE 1 CAPSULE ORALLY WEEKLY TAKING VITAMIN D (ERGOCALCIFEROL) 1.25 MG (57758 UT) CAPSULE TAKE 1 CAPSULES BY MOUTH WEEKLY , NOTES: SEE ABOVE TAKING FLUTICASONE PROPIONATE 50 MCG/ACT SUSPENSION 1 SPRAY IN EACH NOSTRIL NASALLY ONCE A DAY TAKING METFORMIN HCL ER 500 MG TABLET EXTENDED RELEASE 24 HOUR 1 TABLET WITH EVENING MEAL ORALLY ONCE A DAY TAKING TRAMADOL HCL 50 MG TABLET 1 TO 2 ORALLY 1 TABQ8H PRN MDD 4 TAKING ATORVASTATIN CALCIUM 40 MG TABLET TAKE ONE TABLET BY MOUTH EVERY DAY NOT-TAKING DIFLUCAN 150 MG TABLET 1 TABLET ORALLY DIRECTED 1 TODAY THEN 1 IN 10 DAYS NOT-TAKING OMEPRAZOLE 40 MG CAPSULE DELAYED RELEASE TAKE ONE CAPSULE BY MOUTH EVERY DAY NOT-TAKING AMLODIPINE BESYLATE 5 MG TABLET TAKE ONE TABLET BY MOUTH EVERY DAY NOT-TAKING DOXYCYCLINE MONOHYDRATE 100 MG TABLET 1 TABLET ORALLY BID NOT-TAKING LISINOPRIL 20 MG TABLET TAKE ONE TABLET BY MOUTH EVERY DAY MEDICATION LIST REVIEWED AND RECONCILED WITH THE PATIENT PAST MEDICAL HISTORY DIABETES MELLITUS TYPE 2 NEUROPATHY GASTRIC BYPASS [id number] LBS HYPERTENSION HYPERCHOLESTEROL COPD HX TOBACCO ABUSE FATTY LIVER PER ULTRASOUND 10/13/16 6 MM INTRARENAL KIDNEY STONE, PER ULTRASOUND 10/13/16 REFUSES REFERRAL TO UROLOGY 09/14/16, 02/22/17- 03/21/18 11/28/19-REFUSES COLONOSCOPY RIGHT KIDNEY COLUMN OF [place] NOTED ON XRAY 10/13/16 BACK PAIN ALLERGIES PLASTIC: RASH - ALLERGY NORCO: NAUSEA VOMITING - SIDE EFFECTS SOCIAL HISTORY GENERAL: TOBACCO USE ARE YOU A:CURRENT SMOKER ARE YOU INTERESTED IN QUITTING?NOT READY TO QUIT COUNSELED THE PATIENT ON SMOKING EFFECTS, EDUCATION [id number]/25/2021 PATIENT COUNSELED ON THE DANGERS OF TOBACCO USE AND URGED TO QUIT:11/13/2019 LATEX QUESTIONNAIRE LATEX ALLERGY : HAVE YOU EVER DEVELOPED ANY TYPE OF REACTION AFTER HANDLING LATEX PRODUCTS SUCH RUBBER GLOVES, CONDOMS, DIAPHRAGMS, BALLOONS, SOCKS, OR UNDERWEAR?NO LATEX ALLERGY : HAVE YOU EVER DEVELOPED ANY TYPE OF REACTION DURING OR AFTER DENTAL APPOINTMENT, VAGINAL/RECTAL EXAMINATION, SURGICAL PROCEDURE, OR ANY OTHER EXPOSURE?NO LATEX RISK : HAVE YOU EVER HAD ANY DIFFICULTY BREATHING OR HIVES AFTER EATING OR HANDLING ANY FRUITS, OR VEGETABLES; SUCH KIWI, BANANAS, STONE FRUITS, OR CHESTNUTSNO LATEX RISK : DO YOU HAVE A PREVIOUS PERSONAL HISTORY OF MORE THAN NINE SURGERIES, SPINA BIFIDA, OR REPEATED CATHERIZATIONS? NO LATEX RISK : ARE YOU FREQUENTLY EXPOSED TO LATEX PRODUCTS IN YOUR OCCUPATION?NO DATE ASKED : 10/14/2020 ALCOHOL USE: NO. BMI CARE GOAL FOLLOW-UP ABOVE NORMAL BMI FOLLOW-UPDIETARY MANAGEMENT EDUCATION, GUIDANCE, AND COUNSELING ALCOHOL SCREENING DID YOU HAVE A DRINK CONTAINING ALCOHOL IN THE PAST YEAR?NO POINTS0 INTERPRETATIONNEGATIVE RECREATIONAL DRUG USE DRUG USE?NO PATIENT DENIES ABUSE OR MISSUSED OF ANY MEDICATION. PATIENT DENIES USE OF ANY ILLEGAL SUBSTANCE INCLUDING MARIJUANA OR COCAINE. CAFFEINE CAFFEINE USE?NO SEXUAL HX HAD SEX IN THE LAST 12 MONTHS (VAGINAL, ORAL, OR ANAL)?NO HAVE YOU EVER HAD AN STD?NO HIV / HEP-C SCREENING HIV TEST OFFERED TO PATIENT:YES DATE OFFERED:09/14/2016 TEST ACCEPTED:NO HEP-C TEST OFFERED TO PATIENT:YES DATE OFFERED:09/14/2016 REASON:PATIENT DECLINED TEST ACCEPTED:NO REASON:PATIENT DECLINED BROCHURE PROVIDED TO PATIENTYES ORTHODOX [id number] HINDUISM LANGUAGE LANGUAGES SPOKEN:BOTH NAURUAN AND TAJIK PREFERS TO SPEAK NAURUAN EDUCATION LEVEL OF EDUCATION:HIGH SCHOOL FINISHED 11TH GRADE LEARNING BARRIERS / SPECIAL NEEDS BARRIERS TO LEARNING?NO HEARING IMPAIRED?NO VISION IMPAIRED?YES :CORRECTIVE LENSES COGNITIVELY IMPAIRED?NO READINESS TO LEARN?YES LEARNING CAPABILITIES PRESENT?YES EMOTIONAL BARRIERS?NO SPECIAL DEVICES?YES :CANE NEEDED FURNACE MECHANIC HELPER NEEDED?NO DOMESTIC VIOLENCE DO YOU FEEL SAFE IN YOUR ENVIRONMENT?YES OCCUPATION: UNEMPLOYED WORKED IN [place]. DIET: NO CONCENTRATED SWEETS., NO ADDED SALT. EXERCISE: NO REGULAR EXERCISE. MARITAL STATUS: . OTHERS AT HOME: 1 SON. - WAS THE PROVIDER NOTIFIED OF ANY PERTINENT INFO?YES HAS THE PATIENT BEEN EDUCATED REGARDING HIS/HER PLAN OF CARE?YES PLEASE DOCUMENT ANY ADDTIONAL DETAILS. NEW PATIENT CONSULT HAS THE PATIENT BEEN EDUCATED REGARDING PAIN, THE RISK FOR PAIN, THE IMPORTANCE OF EFFECTIVE PAIN MANAGEMENT, AND THE PAIN ASSESSMENT PROCESS?YES HOUSING: RENTS APARTMENT WITH DAUGHTER AND SON. ADVANCE DIRECTIVE ADVANCE DIRECTIVE DISCUSSED WITH PATIENT:YES PATIENT DECLINED HCP INFORMATION AND DECLINED ASSISTANCE WITH FORM. MOVED TO [place] [address] WHEN FROM [place], FOLLOWED WITH FOR SEVERAL YEARS IN [facility]. REVIEW OF SYSTEMS CONSTITUTIONAL: ANY RECENT FEVER NO . CHILLS NO . WEIGHT CHANGE OF UNKNOWN REASONS NO . GASTROENTEROLOGY: NEW UNEXPLAINABLE CHANGES IN BOWEL CONTROL NO . CONSTIPATION NO . GENITOURINARY: ANY NEW CHANGE IN BLADDER CONTROL? NO . NEUROLOGY: NEW ONSET DIZZINESS OR NEUROLOGICAL CHANGES NOT MENTIONED NO . NEW NUMBNESS OR PAIN PATTERNS NOT MENTIONED AND PERTINENT TO TODAY'S VISIT NO . CARDIOLOGY: NEW CHEST PRESSURE NO . PATIENT DENIES NO . RESPIRATORY: UNEXPLAINABLE COUGH NO . NEW SHORTNESS OF BREATH NO . VITAL SIGNS WT 174.6 LBS, HT 5'2", BMI 31.93 INDEX, BP 148/72 MM HG, HR 55 /MIN, RR 18 /MIN, TEMP 98.1 F, OXYGEN SAT % 98%, SAFE IN ENV? (Y/N) YES, NA INITIALS AW 1059T.HARSHA MESSER. EXAMINATION GENERAL EXAMINATION: GENERALAWAKE,ALERT ,PLEASANT . PSYCHAFFECT NORMAL . LUNGS:LUNG SILVA ARE CLEAR TO AUSCULTATION BILATERALLY. GOOD MOVEMENT OF AIR . HEART:S1, S2 IN A REGULAR RATE AND RHYTHM. NO SIGNIFICANT MURMURS, RUBS OR GALLOPS NOTED . ASSESSMENTS OTHER CHRONIC PAIN - G89.29 (PRIMARY) TREATMENT OTHER CHRONIC PAIN PAIN PROCEDURE LOGDATE OF PROCEDURE09/30/2020ROCEDURE:BILATERAL SACROCCYGEAL LIGMENT INJECTIONAMOUNT OF PRE SEDATE0/0RESULT:GREATER THAN 80% REDUCTION IN PAIN NOTES: CONTINUE HOME EXERCISE AND STRETCHING. CONTINUE USE OF TRAMADOL FOR SEVERE PAIN EPISODES. PROCEDURE CODES FA211 ESTABILISHED PATIENT [facility] CHARGE DISPOSITION & COMMUNICATION FOLLOW UP 6-8WKS (REASON: EVALUATE FOR RIGHT TROCHANTERIC BURSAL INJECTION/SACROCOCCYGEAL INJECTION/URINE TOXICOLOGY) ELECTRONICALLY SIGNED BY IONA SUACEDA ON 10/15/2020 AT 02:11 PM EDT DISCLAIMER : THIS IS A VISIT SUMMARY EXTRACTED FROM THE [employer] CHART. IT IS NOT A COPY OF THE [employer] PROGRESS NOTE. CHANO
== END ==
LOC: M PAIN 10:30
PROVIDERS: ATTEND Nurse Practitioner Family
DX: G89.29 Other chronic pain (principal); E11.40 Type 2 diabetes mellitus with diabetic neuropathy, unspecified; Z98.84 Bariatric surgery status; I10 Essential (primary) hypertension; E78.00 Pure hypercholesterolemia, unspecified; J44.9 Chronic obstructive pulmonary disease, unspecified; K76.0 Fatty (change of) liver, not elsewhere classified; F17.210 Nicotine dependence, cigarettes, uncomplicated; Z79.84 Long term (current) use of oral hypoglycemic drugs; Z79.891 Long term (current) use of opiate analgesic; Z79.899 Other long term (current) drug therapy; Z88.5 Allergy status to narcotic agent; Z91.048 Other nonmedicinal substance allergy status

== ENCOUNTER → 2020-12-02 | Outpatient (CLI) | payer OTHER ==
--- NOTE | 2020-12-04 03:42 | ECWPNPC ---
PATIENT NAME: XUAN MOON : 1960 GENDER: FEMALE VISIT DATE: 12/02/2020 DISCHARGE DATE: 12/02/20 1043 VISIT LOCKED DATE TIME: PHYSICIAN: JUMANA DONALD RESOURCE: JUMANA DONALD REASON FOR APPOINTMENT 1. EVALUATE FOR RIGHT TROCHANTERIC BURSAL INJECTION/SACROCOCCYGEAL INJECTION/EVALUATE FOR RIGHT TROCHANTERIC BURSAL INJECTION/SACROCOCCYGEAL INJECTION/URINE TOXICOLOGY HISTORY OF PRESENT ILLNESS DEPRESSION SCREENING: PHQ-2 (2015 EDITION) LITTLE INTEREST OR PLEASURE IN DOING THINGS?NOT AT ALL FEELING DOWN, DEPRESSED, OR HOPELESS?NOT AT ALL TOTAL SCORE0 GENERAL: HERE FOR FOLLOW-UP AND MEDICATION MANAGEMENT OF CHRONIC LOW BACK PAIN, RIGHT HIP PAIN AND SACROCOCCYGEAL PAIN. HAS RESPONDED WELL TO SACROCOCCYGEAL LIGAMENT INJECTION IN THE PAST. PATIENT FEELS WORST AREA OF PAIN IS RIGHT HIP AND LEFT COCCYX. SHE DOES NOT WANT TO HAVE ANOTHER INJECTION AT THIS POINT BUT WILL CONSIDER IF HER PAIN INCREASES. DOING VERY WELL WITH USE OF TRAMADOL FOR PAIN. CONTINUES TO HAVE IMPROVEMENT WITH ACTIVITY TOLERANCE SINCE USING TRAMADOL. DISCUSSED TREATMENT PLAN. -. FALL RISK SCREENING: SCREENING : NO FALLS REPORTED IN THE LAST YEAR. PAIN SCREENING: PATIENT HAS A COMPLAINT OF ACUTE OR CHRONIC PAIN :YES LOCATION OF PAIN:LOW BACK, RIGHT HIP SACROCOCCYGEAL INTENSITY OF PAIN (SCALE OF 1 TO 10):7 WHAT DOES YOUR PAIN FEEL LIKE:OTHER JUST PAIN DURATION:CONTINOUS, CONSTANT, ALL DAY PAIN IS INCREASED BY:ACTIVITIES, PROLONGED STANDING PAIN IS DECREASED BY:USE OF PAIN MEDICATIONS NURSING NOTE: -. PAIN CENTER INTAKE QUESTIONS: DO YOU HAVE A HISTORY OF MRSA? :NO DO YOU TAKE A BLOOD THINNERS? :NO DO YOU HAVE ANY BLEEDING DISORDERS? :NO ANY NEW NUMBNESS OR WEAKNESS IN YOUR LEGS OR ARMS? :NO COLDNESS IN BOTH HANDS ANY PACEMAKER,DEFIBRILLATOR, OR DORSAL COLUMN STIMULATOR? :NO DO YOU HAVE ANY RASHES OR OPEN SORES? :NO ARE YOU ALLERGIC TO IV DYE? :NO ARE YOU DIABETIC? :YES ANY NEW PROBLEMS WITH YOUR MEDICATIONS? :NO HAVE YOU RECEIVED A VACCINE IN THE PAST 30 DAYS? :YES 1ST COVID 08/15/2020 DO YOU PLAN TO RECEIVE A VACCINE IN THE NEXT 21 DAYS? :YES 2ND COVID 09/15/2020 DO YOU NEED ANY PRESCRIPTION? :NO DO YOU TAKE ANY IMMUNOSUPPRESSIVE MEDICATIONS? :NO IS THERE A CHANCE YOU COULD BE ? :NO ARE YOU BREAST FEEDING? :NO CURRENT MEDICATIONS TAKING [employer] W/DEVICE KIT DIRECTED PT LAST GLUCOMETER WAS DROPPED AND BARRIE NEEDS TO HAVE IT REPLACED. TO USE DAILY/ DX CODE E11.42 TAKING BLOOD GLUCOSE TEST - STRIP TRUE TEST IN VITRO DX:E11.21 DAILY TAKING ACETAMINOPHEN 500 MG CAPSULE 2 CAPSULE NEEDED ORALLY EVERY 6 HRS TAKING MULTIVITAMIN ADULT - TABLET DIRECTED ORALLY 2 TABS DAILY TAKING CALCIUM + D 600-200 MG-UNIT TABLET 1 TABLET ORALLY TWICE A DAY TAKING STIOLTO RESPIMAT 2.5-2.5 MCG/ACT AEROSOL SOLUTION 2 PUFFS INHALATION ONCE A DAY TAKING LISINOPRIL 20 MG TABLET 1 TAB ORALLY DAILY TAKING DRISDOL 1.25 MG (14664 UT) CAPSULE 1 CAPSULE ORALLY WEEKLY TAKING VITAMIN D (ERGOCALCIFEROL) 1.25 MG (21962 UT) CAPSULE TAKE 1 CAPSULES BY MOUTH WEEKLY , NOTES: SEE ABOVE TAKING FLUTICASONE PROPIONATE 50 MCG/ACT SUSPENSION 1 SPRAY IN EACH NOSTRIL NASALLY ONCE A DAY TAKING METFORMIN HCL ER 500 MG TABLET EXTENDED RELEASE 24 HOUR 1 TABLET WITH EVENING MEAL ORALLY ONCE A DAY TAKING ATORVASTATIN CALCIUM 40 MG TABLET TAKE ONE TABLET BY MOUTH EVERY DAY TAKING TRAMADOL HCL 50 MG TABLET 1 TO 2 ORALLY 1 TABQ8H PRN MDD 4 NOT-TAKING DIFLUCAN 150 MG TABLET 1 TABLET ORALLY DIRECTED 1 TODAY THEN 1 IN 10 DAYS NOT-TAKING OMEPRAZOLE 40 MG CAPSULE DELAYED RELEASE TAKE ONE CAPSULE BY MOUTH EVERY DAY NOT-TAKING AMLODIPINE BESYLATE 5 MG TABLET TAKE ONE TABLET BY MOUTH EVERY DAY NOT-TAKING DOXYCYCLINE MONOHYDRATE 100 MG TABLET 1 TABLET ORALLY BID NOT-TAKING LISINOPRIL 20 MG TABLET TAKE ONE TABLET BY MOUTH EVERY DAY MEDICATION LIST REVIEWED AND RECONCILED WITH THE PATIENT PAST MEDICAL HISTORY DIABETES MELLITUS TYPE 2 NEUROPATHY GASTRIC BYPASS [id number] LBS HYPERTENSION HYPERCHOLESTEROL COPD HX TOBACCO ABUSE FATTY LIVER PER ULTRASOUND 10/13/16 6 MM INTRARENAL KIDNEY STONE, PER ULTRASOUND 10/13/16 REFUSES REFERRAL TO UROLOGY 09/14/16, 02/22/17- 03/21/18 11/28/19-REFUSES COLONOSCOPY RIGHT KIDNEY COLUMN OF [place] NOTED ON XRAY 10/13/16 BACK PAIN ALLERGIES PLASTIC: RASH - ALLERGY NORCO: NAUSEA VOMITING - SIDE EFFECTS SOCIAL HISTORY GENERAL: TOBACCO USE ARE YOU A:CURRENT SMOKER ARE YOU INTERESTED IN QUITTING?NOT READY TO QUIT COUNSELED THE PATIENT ON SMOKING EFFECTS, EDUCATION [id number]/2021 HOW MANY CIGARETTES A DAY DO YOU SMOKE?11-20 HOW SOON AFTER YOU WAKE UP DO YOU SMOKE YOUR FIRST CIGARETTE?AFTER 60 MIN 2 HOURS HOW OFTEN DO YOU SMOKE CIGARETTES?EVERY DAY PATIENT COUNSELED ON THE DANGERS OF TOBACCO USE AND URGED TO QUIT:12/02/2020 LATEX QUESTIONNAIRE LATEX ALLERGY : HAVE YOU EVER DEVELOPED ANY TYPE OF REACTION AFTER HANDLING LATEX PRODUCTS SUCH RUBBER GLOVES, CONDOMS, DIAPHRAGMS, BALLOONS, SOCKS, OR UNDERWEAR?NO LATEX ALLERGY : HAVE YOU EVER DEVELOPED ANY TYPE OF REACTION DURING OR AFTER DENTAL APPOINTMENT, VAGINAL/RECTAL EXAMINATION, SURGICAL PROCEDURE, OR ANY OTHER EXPOSURE?NO DATE ASKED : 10/14/2020 LATEX RISK : HAVE YOU EVER HAD ANY DIFFICULTY BREATHING OR HIVES AFTER EATING OR HANDLING ANY FRUITS, OR VEGETABLES; SUCH KIWI, BANANAS, STONE FRUITS, OR CHESTNUTSNO LATEX RISK : DO YOU HAVE A PREVIOUS PERSONAL HISTORY OF MORE THAN NINE SURGERIES, SPINA BIFIDA, OR REPEATED CATHERIZATIONS? NO LATEX RISK : ARE YOU FREQUENTLY EXPOSED TO LATEX PRODUCTS IN YOUR OCCUPATION?NO ALCOHOL USE: NO. BMI CARE GOAL FOLLOW-UP ABOVE NORMAL BMI FOLLOW-UPDIETARY MANAGEMENT EDUCATION, GUIDANCE, AND COUNSELING ALCOHOL SCREENING DID YOU HAVE A DRINK CONTAINING ALCOHOL IN THE PAST YEAR?NO POINTS0 INTERPRETATIONNEGATIVE RECREATIONAL DRUG USE DRUG USE?NO PATIENT DENIES ABUSE OR MISSUSED OF ANY MEDICATION. PATIENT DENIES USE OF ANY ILLEGAL SUBSTANCE INCLUDING MARIJUANA OR COCAINE. CAFFEINE CAFFEINE USE?NO SEXUAL HX HAD SEX IN THE LAST 12 MONTHS (VAGINAL, ORAL, OR ANAL)?NO HAVE YOU EVER HAD AN STD?NO HIV / HEP-C SCREENING HIV TEST OFFERED TO PATIENT:YES DATE OFFERED:09/14/2016 TEST ACCEPTED:NO HEP-C TEST OFFERED TO PATIENT:YES DATE OFFERED:09/14/2016 REASON:PATIENT DECLINED TEST ACCEPTED:NO REASON:PATIENT DECLINED BROCHURE PROVIDED TO PATIENTYES [employer] [id number] [employer] LANGUAGE LANGUAGES SPOKEN:BOTH HUNGARIAN AND SINHALA PREFERS TO SPEAK HUNGARIAN EDUCATION LEVEL OF EDUCATION:HIGH SCHOOL FINISHED 11TH GRADE LEARNING BARRIERS / SPECIAL NEEDS BARRIERS TO LEARNING?NO HEARING IMPAIRED?NO VISION IMPAIRED?YES :CORRECTIVE LENSES COGNITIVELY IMPAIRED?NO READINESS TO LEARN?YES LEARNING CAPABILITIES PRESENT?YES EMOTIONAL BARRIERS?NO SPECIAL DEVICES?YES :CANE NEEDED LAST MARKER NEEDED?NO DOMESTIC VIOLENCE DO YOU FEEL SAFE IN YOUR ENVIRONMENT?YES OCCUPATION: UNEMPLOYED WORKED IN [place]. DIET: NO CONCENTRATED SWEETS., NO ADDED SALT. EXERCISE: NO REGULAR EXERCISE. MARITAL STATUS: . OTHERS AT HOME: 1 SON. - WAS THE PROVIDER NOTIFIED OF ANY PERTINENT INFO?YES HAS THE PATIENT BEEN EDUCATED REGARDING HIS/HER PLAN OF CARE?YES PLEASE DOCUMENT ANY ADDTIONAL DETAILS. NEW PATIENT CONSULT HAS THE PATIENT BEEN EDUCATED REGARDING PAIN, THE RISK FOR PAIN, THE IMPORTANCE OF EFFECTIVE PAIN MANAGEMENT, AND THE PAIN ASSESSMENT PROCESS?YES HOUSING: RENTS APARTMENT WITH DAUGHTER AND SON. ADVANCE DIRECTIVE ADVANCE DIRECTIVE DISCUSSED WITH PATIENT:YES PATIENT DECLINED HCP INFORMATION AND DECLINED ASSISTANCE WITH FORM. MOVED TO [employer] [facility] WHEN FROM [facility]. JAKI, FOLLOWED WITH FOR SEVERAL YEARS IN [facility]. REVIEW OF SYSTEMS CONSTITUTIONAL: ANY RECENT FEVER NO . CHILLS NO . WEIGHT CHANGE OF UNKNOWN REASONS NO . GASTROENTEROLOGY: NEW UNEXPLAINABLE CHANGES IN BOWEL CONTROL NO . CONSTIPATION NO . GENITOURINARY: ANY NEW CHANGE IN BLADDER CONTROL? NO . NEUROLOGY: NEW ONSET DIZZINESS OR NEUROLOGICAL CHANGES NOT MENTIONED NO . NEW NUMBNESS OR PAIN PATTERNS NOT MENTIONED AND PERTINENT TO TODAY'S VISIT NO . CARDIOLOGY: NEW CHEST PRESSURE NO . PATIENT DENIES NO . RESPIRATORY: UNEXPLAINABLE COUGH NO . NEW SHORTNESS OF BREATH NO . VITAL SIGNS WT 172.6 LBS, HT 5'2", BMI 31.57 INDEX, BP 136/72 MM HG, HR 62 /MIN, RR 18 /MIN, TEMP 97.5 F, OXYGEN SAT % 100%, SAFE IN ENV? (Y/N) YES, NA INITIALS DE 10:01T.HARSHA MESSER. EXAMINATION GENERAL EXAMINATION: GENERALAWAKE,ALERT ,PLEASANT . PSYCHAFFECT NORMAL . LUNGS:LUNG SILVA ARE CLEAR TO AUSCULTATION BILATERALLY. GOOD MOVEMENT OF AIR . HEART:S1, S2 IN A REGULAR RATE AND RHYTHM. NO SIGNIFICANT MURMURS, RUBS OR GALLOPS NOTED . ASSESSMENTS CHRONIC PRESCRIPTION OPIATE USE - Z79.891 (PRIMARY) COCCYDYNIA - M53.3 TROCHANTERIC BURSITIS, RIGHT HIP - M70.61 SPINAL ENTHESOPATHY, SACRAL AND SACROCOCCYGEAL REGION - M46.08 TREATMENT CHRONIC PRESCRIPTION OPIATE USE REFILL TRAMADOL HCL TABLET, 50 MG, 1 TO 2, ORALLY, 1 TABQ8H PRN MDD 4, 30 DAYS, 120 LAB: URINE TEST GROUP [facility]LEODCHRISTIANOMARIA A 12/02/2020 10:43:17 AM > LAST DOSE; TRAMADOL 12/02/2020 @6AM PROCEDURE CODES FA211 ESTABILISHED PATIENT [facility] CHARGE DISPOSITION & COMMUNICATION FOLLOW UP 3 MONTHS (REASON: LOW BACK PAIN/MED MGMNT) ELECTRONICALLY SIGNED BY IONA SAUCEDA ON 12/03/2020 AT 01:15 PM EDT DISCLAIMER : THIS IS A VISIT SUMMARY EXTRACTED FROM THE [employer] CHART. IT IS NOT A COPY OF THE [employer] PROGRESS NOTE. MTDD
== END ==
LOC: M PAIN 10:15
PROVIDERS: ATTEND Nurse Practitioner Family
DX: M53.3 Sacrococcygeal disorders, not elsewhere classified (principal); M70.61 Trochanteric bursitis, right hip; M46.08 Spinal enthesopathy, sacral and sacrococcygeal region; G89.29 Other chronic pain; E11.40 Type 2 diabetes mellitus with diabetic neuropathy, unspecified; J44.9 Chronic obstructive pulmonary disease, unspecified; F17.210 Nicotine dependence, cigarettes, uncomplicated; Z98.84 Bariatric surgery status; Z88.5 Allergy status to narcotic agent; Z91.09 Other allergy status, other than to drugs and biological substances; Z79.84 Long term (current) use of oral hypoglycemic drugs; Z79.891 Long term (current) use of opiate analgesic; Z79.899 Other long term (current) drug therapy

== ENCOUNTER → 2020-12-22 | Outpatient (CLI) | payer OTHER ==
[2020-12-22 14:17] LABS: HEMATOCRIT 46.7 % (36.0-47.0); HEMOGLOBIN 14.7 g/dl (12.0-15.5); MEAN CORPUSCULAR HEMOGLOBIN 27.8 pg (27.0-33.0); MEAN CORPUSCULAR HGB CONC 31.5 g/dl (32.0-36.5); MEAN CORPUSCULAR VOLUME 88.4 fl (80.0-96.0); PLATELET COUNT, AUTOMATED 305 10^3/uL (150-450); RED BLOOD COUNT 5.28 10^6/uL (4.00-5.40); WHITE BLOOD COUNT 11.7 10^3/uL (4.0-10.0)
[2020-12-22 14:34] LABS: HEMOGLOBIN A1c 5.8 %
[2020-12-22 15:02] LABS: ALBUMIN 3.9 GM/DL (3.2-5.2); ALT/SGPT 23 U/L (12-78); BILIRUBIN,TOTAL 0.4 MG/DL (0.2-1.0); BLOOD UREA NITROGEN 12 MG/DL (7-18); CALCIUM LEVEL 8.9 MG/DL (8.8-10.2); CARBON DIOXIDE LEVEL 29 MEQ/L (21-32); CHLORIDE LEVEL 107 MEQ/L (98-107); CHOLESTEROL LEVEL 160 MG/DL (<200); CREATININE FOR GFR 0.64 MG/DL (0.55-1.30); FERRITIN 76 NG/ML (8-252); GLOMERULAR FILTRATION RATE > 60.0 (>45); GLUCOSE, FASTING 82 MG/DL (70-100); HDL CHOLESTEROL 43 MG/DL (>40); IRON (FE) 90 UG/DL (50-170); LDL CHOLESTEROL 95 MG/DL (<100); NON-HDL-C 117 MG/DL; POTASSIUM SERUM 4.2 MEQ/L (3.5-5.1); SODIUM LEVEL 141 MEQ/L (136-145); THYROID STIMULATING HORMONE 0.961 uIU/ML (0.358-3.740); TOTAL 25(OH) VITAMIN D 34.6 NG/ML (30.0-100.0); TOTAL PROTEIN 6.9 GM/DL (6.4-8.2); TRIGLYCERIDES LEVEL 111 MG/DL (<150); VITAMIN B12 LEVEL 411 PG/ML (247-911)
[2020-12-22 15:05] LABS: MALB URINE SIEMENS 37.4 MG/L; MAU/CREAT RATIO 16.5 MCG/MG (0.0-30.0)
== END ==
LOC: M PLALAB 11:06
PROVIDERS: ATTEND Nurse Practitioner Adult Health
DX: E11.21 Type 2 diabetes mellitus with diabetic nephropathy (principal); E78.2 Mixed hyperlipidemia; E55.9 Vitamin D deficiency, unspecified; Z98.84 Bariatric surgery status

== ENCOUNTER → 2021-02-05 | Outpatient (CLI) | payer OTHER | LOC: M PAIN 08:30 | PROVIDERS: ATTEND Anesthesiology | DX: M51.16 Intervertebral disc disorders with radiculopathy, lumbar region (principal); Z79.891 Long term (current) use of opiate analgesic; M46.98 Unspecified inflammatory spondylopathy, sacral and sacrococcygeal region; E11.40 Type 2 diabetes mellitus with diabetic neuropathy, unspecified; Z98.84 Bariatric surgery status; I10 Essential (primary) hypertension; E78.00 Pure hypercholesterolemia, unspecified; J44.9 Chronic obstructive pulmonary disease, unspecified; F17.210 Nicotine dependence, cigarettes, uncomplicated; Z79.84 Long term (current) use of oral hypoglycemic drugs; Z79.899 Other long term (current) drug therapy; Z88.5 Allergy status to narcotic agent; Z91.048 Other nonmedicinal substance allergy status ==

== ENCOUNTER → 2021-02-12 | Outpatient (CLI) | payer OTHER ==
--- NOTE | 2021-02-12 15:33 | REP ---
INDICATION: INFLAMMATORY SPONDYLOPATHY, RADICULOPATHY. COMPARISON: None. TECHNIQUE: Multiple sequences obtained of the sacrum and coccyx in the axial, coronal and sagittal planes. FINDINGS: There is mild marrow edema along the sacroiliac joints bilaterally in a symmetrical pattern. This is seen both in the iliac and sacral bones bilaterally along the sacroiliac joints. The findings are compatible with mild bilateral sacroiliitis. No other osseous abnormality is seen. The uterus measures approximately 9 cm in length. Endometrial thickness is normal. No abnormalities are seen in the visualized pelvis. IMPRESSION: Mild bilateral sacroiliitis. <Electronically signed by Cheo Fay > 02/12/21 [id number]
--- NOTE | 2021-02-13 09:10 | REPVR ---
PROCEDURE INFORMATION: Exam: MR Lumbar Spine Without Contrast Exam date and time: 02/12/2021 9:19 AM Age: 60 years old Clinical indication: Pain; Lumbago with sciatica; Left; Additional info: Inflammatory spondylopathy, radiculopathy TECHNIQUE: Imaging protocol: Multiplanar magnetic resonance images of the lumbar spine without intravenous contrast. COMPARISON: MRI-Spine, L.S. without con 10/19/2019 1:15 PM FINDINGS: Vertebrae: Vertebral heights are maintained. Modic type 2 changes are seen in the superior endplate of L5. Mild anterior osteophyte formation. 2 mm anterolisthesis of L4 on L5. Multilevel facet joint arthropathy Spinal cord: Normal signal. No cord compression. L1-L2: Mild diffuse disc bulge with small central and by articular disc protrusions with annular fissure, facet joint arthropathy and ligamentum flavum hypertrophy causing mild indentation on thecal sac, and mild bilateral neural foraminal narrowing. L2-L3: No significant disc disease. No significant spinal canal stenosis. No neural foraminal stenosis. Mild bilateral facet joint arthropathy and ligamentum flavum hypertrophy. L3-L4: No significant disc disease. No significant spinal canal stenosis. Bilateral facet joint arthropathy and ligamentum flavum hypertrophy causing mild right neural foraminal narrowing. Left neural foramina is patent L4-L5: 2 mm anterolisthesis of L4 on L5 with uncovering of posterior disc, diffuse disc bulge with annular fissure, bilateral facet joint arthropathy and ligamentum flavum hypertrophy resulting in mild indentation on thecal sac, mild right and mild to moderate left neural foraminal narrowing with abutment of exiting bilateral L4 nerve roots. L5-S1: Mild diffuse disc bulge and facet joint arthropathy without any significant central spinal canal stenosis or neural foraminal narrowing. Soft tissues: Unremarkable. IMPRESSION: No acute findings. Mild degenerative changes as described in detail above. Please see above dictation for individual levels. . Electronically signed by: Paige German On 02/13/2021 09:09:50 AM
== END ==
LOC: M PLAIMG 08:28
PROVIDERS: ATTEND Anesthesiology
DX: M46.98 Unspecified inflammatory spondylopathy, sacral and sacrococcygeal region (principal); M51.16 Intervertebral disc disorders with radiculopathy, lumbar region; M51.26 Other intervertebral disc displacement, lumbar region; M43.16 Spondylolisthesis, lumbar region

== ENCOUNTER → 2021-02-18 | Outpatient (CLI) | payer OTHER | LOC: M PAIN 14:45 | PROVIDERS: ATTEND Anesthesiology | DX: M46.1 Sacroiliitis, not elsewhere classified (principal); M46.08 Spinal enthesopathy, sacral and sacrococcygeal region; E11.40 Type 2 diabetes mellitus with diabetic neuropathy, unspecified; I10 Essential (primary) hypertension; E78.00 Pure hypercholesterolemia, unspecified; J44.9 Chronic obstructive pulmonary disease, unspecified; Z98.84 Bariatric surgery status; F17.210 Nicotine dependence, cigarettes, uncomplicated; Z79.84 Long term (current) use of oral hypoglycemic drugs; Z79.899 Other long term (current) drug therapy; Z88.5 Allergy status to narcotic agent; Z91.048 Other nonmedicinal substance allergy status ==

== ENCOUNTER → 2021-04-22 | Outpatient (CLI) | payer OTHER | LOC: M LABSMTC 09:14 | PROVIDERS: ATTEND Anesthesiology | DX: Z01.812 Encounter for preprocedural laboratory examination (principal); Z11.52 Encounter for screening for COVID-19 ==

== ENCOUNTER → 2021-04-27 | Outpatient (CLI) | payer OTHER ==
[~2021-04-27] MED LIST changes: +BUPIVACAINE HCL 0.25% 30ML VIAL As Ordered ONE; +ISOVUE-M 300 61% 15ML VIAL As Ordered ONE; +LIDOCAINE 1% SDV 30ML VIAL As Ordered ONE; +TRIAMCINOLONE ACETONIDE SUSP 40 MG/ML VIAL (J3301) As Ordered ONE
--- NOTE | 2021-04-28 08:44 | REP ---
INDICATION: BILATERAL SACROCOCCYGEAL LIGAMENT INJECTION. COMPARISON: None. TECHNIQUE: Three C-arm views sacrum and coccyx. FINDINGS: A needle overlies the sacrum and coccyx. A small amount of contrast is injected. IMPRESSION: 14 seconds of fluoroscopy time was utilized. <Electronically signed by Cheo Fay > 04/28/21 0825
== END ==
LOC: M PAIN 13:45
PROVIDERS: ATTEND Anesthesiology
DX: M46.08 Spinal enthesopathy, sacral and sacrococcygeal region (principal); M53.3 Sacrococcygeal disorders, not elsewhere classified; E11.40 Type 2 diabetes mellitus with diabetic neuropathy, unspecified; Z98.84 Bariatric surgery status; I10 Essential (primary) hypertension; E78.00 Pure hypercholesterolemia, unspecified; J44.9 Chronic obstructive pulmonary disease, unspecified; F17.210 Nicotine dependence, cigarettes, uncomplicated; Z79.84 Long term (current) use of oral hypoglycemic drugs; Z79.891 Long term (current) use of opiate analgesic; Z79.899 Other long term (current) drug therapy; Z88.5 Allergy status to narcotic agent; Z91.048 Other nonmedicinal substance allergy status
CPT/HCPCS: 20550; 77002; J3301; Q9967

== ENCOUNTER → 2021-05-13 | Outpatient (CLI) | payer OTHER ==
[~2021-05-13] MED LIST changes: -BUPIVACAINE HCL 0.25% 30ML VIAL As Ordered ONE; -ISOVUE-M 300 61% 15ML VIAL As Ordered ONE; -LIDOCAINE 1% SDV 30ML VIAL As Ordered ONE; -TRIAMCINOLONE ACETONIDE SUSP 40 MG/ML VIAL (J3301) As Ordered ONE
== END ==
LOC: M PAIN 10:45
PROVIDERS: ATTEND Anesthesiology
DX: M53.3 Sacrococcygeal disorders, not elsewhere classified (principal); E11.40 Type 2 diabetes mellitus with diabetic neuropathy, unspecified; I10 Essential (primary) hypertension; E78.00 Pure hypercholesterolemia, unspecified; J44.9 Chronic obstructive pulmonary disease, unspecified; K76.0 Fatty (change of) liver, not elsewhere classified; F17.210 Nicotine dependence, cigarettes, uncomplicated; Z79.891 Long term (current) use of opiate analgesic; Z79.84 Long term (current) use of oral hypoglycemic drugs; Z79.899 Other long term (current) drug therapy; Z88.5 Allergy status to narcotic agent; Z91.048 Other nonmedicinal substance allergy status

== ENCOUNTER → 2021-06-16 | Outpatient (CLI) | payer OTHER | LOC: M PAIN 09:30 | PROVIDERS: ATTEND Nurse Practitioner Family | DX: M46.1 Sacroiliitis, not elsewhere classified (principal); G89.29 Other chronic pain; E11.40 Type 2 diabetes mellitus with diabetic neuropathy, unspecified; J44.9 Chronic obstructive pulmonary disease, unspecified; F17.210 Nicotine dependence, cigarettes, uncomplicated; Z98.84 Bariatric surgery status; Z88.5 Allergy status to narcotic agent; Z91.09 Other allergy status, other than to drugs and biological substances; Z79.84 Long term (current) use of oral hypoglycemic drugs; Z79.899 Other long term (current) drug therapy ==

== ENCOUNTER → 2021-07-13 | Outpatient (CLI) | payer OTHER ==
[2021-07-13 17:32] LABS: HEMATOCRIT 43.9 % (36.0-47.0); HEMOGLOBIN 14.1 g/dl (12.0-15.5); MEAN CORPUSCULAR HEMOGLOBIN 27.8 pg (27.0-33.0); MEAN CORPUSCULAR HGB CONC 32.1 g/dl (32.0-36.5); MEAN CORPUSCULAR VOLUME 86.6 fl (80.0-96.0); PLATELET COUNT, AUTOMATED 330 10^3/uL (150-450); RED BLOOD COUNT 5.07 10^6/uL (4.00-5.40)
[2021-07-13 17:47] LABS: ALBUMIN 3.7 GM/DL (3.2-5.2); ALT/SGPT 25 U/L (12-78); BILIRUBIN,TOTAL 0.1 MG/DL (0.2-1.0); BLOOD UREA NITROGEN 15 MG/DL (7-18); CARBON DIOXIDE LEVEL 26 MEQ/L (21-32); CHLORIDE LEVEL 108 MEQ/L (98-107); CHOLESTEROL LEVEL 184 MG/DL (<200); CREATININE FOR GFR 0.68 MG/DL (0.55-1.30); GLOMERULAR FILTRATION RATE > 60.0 (>45); GLUCOSE, FASTING 100 MG/DL (70-100); HDL CHOLESTEROL 42 MG/DL (>40); IRON (FE) 53 UG/DL (50-170); LDL CHOLESTEROL 91 MG/DL (<100); NON-HDL-C 142 MG/DL; PERCENT SATURATION 14.9 % (13.2-45.0); POTASSIUM SERUM 4.2 MEQ/L (3.5-5.1); SODIUM LEVEL 140 MEQ/L (136-145); TOTAL IRON BINDING CAPACITY 356 UG/DL (250-450); TOTAL PROTEIN 6.9 GM/DL (6.4-8.2); TRIGLYCERIDES LEVEL 253 MG/DL (<150)
[2021-07-13 17:48] LABS: HEMOGLOBIN A1c 6.2 %
[2021-07-13 17:51] LABS: TOTAL 25(OH) VITAMIN D 18.9 NG/ML (30.0-100.0)
[2021-07-13 17:56] LABS: VITAMIN B12 LEVEL 526 PG/ML (247-911)
[2021-07-13 18:04] LABS: MAU/CREAT RATIO 6.3 MCG/MG (0.0-30.0)
== END ==
LOC: M PLALAB 15:38
PROVIDERS: ATTEND Nurse Practitioner Adult Health
DX: Z98.84 Bariatric surgery status (principal)

== ENCOUNTER 2021-07-26 12:43 | Emergency (ER) | payer OTHER ==
[~2021-07-26] VITALS: Ht 157.5 cm; Wt 81.1 kg
[2021-07-26] MEDS ORDERED: FLUTISP (12:55)
[2021-07-26] MEDS ORDERED: ASPIRIN 81 MG CHEW TABLET PO ONE (13:20)
[2021-07-26] MEDS ORDERED: NITROGLYCERIN 0.4 MG SUBL TABLET SL PRN (13:20)
[2021-07-26 13:51] VITALS: BP 145/82
[2021-07-26 14:01] LABS: BASO % 0.2 % (0.0-1.0); EOS # 0.1 10^3/uL (0.0-0.5); HEMATOCRIT 42.2 % (36.0-47.0); HEMOGLOBIN 13.5 g/dl (12.0-15.5); LYMPH # 0.6 10^3/uL (1.5-5.0); LYMPH % 7.8 % (24.0-44.0); MEAN CORPUSCULAR HEMOGLOBIN 27.7 pg (27.0-33.0); MEAN CORPUSCULAR VOLUME 86.5 fl (80.0-96.0); MONO # 1.1 10^3/uL (0.0-0.8); MONO % 13.6 % (2.0-8.0); NEUTROPHILS # 6.3 10^3/uL (1.5-8.5); NEUTROPHILS % 77.2 % (36.0-66.0); PLATELET COUNT, AUTOMATED 238 10^3/uL (150-450); RED BLOOD COUNT 4.88 10^6/uL (4.00-5.40); WHITE BLOOD COUNT 8.1 10^3/uL (4.0-10.0)
[2021-07-26 14:23] LABS: CK-MB VALUE MASS < 1.0 NG/ML (<3.6); CPK CREATINE PHOSPHOKINASE 70 U/L (26-192); MB/CK RELATIVE INDEX 1.43 (< OR =4)
[2021-07-26 14:31] LABS: ALBUMIN 3.5 GM/DL (3.2-5.2); ALT/SGPT 21 U/L (12-78); BILIRUBIN,DIRECT 0.1 MG/DL (0.0-0.2); BILIRUBIN,TOTAL 0.2 MG/DL (0.2-1.0); BLOOD UREA NITROGEN 10 MG/DL (7-18); CALCIUM LEVEL 8.7 MG/DL (8.8-10.2); CARBON DIOXIDE LEVEL 26 MEQ/L (21-32); CHLORIDE LEVEL 107 MEQ/L (98-107); GLOMERULAR FILTRATION RATE > 60.0 (>45); GLUCOSE, FASTING 92 MG/DL (70-100); LIPASE 311 U/L (73-393); NT-PRO BNP 124 PG/ML (<125); SODIUM LEVEL 140 MEQ/L (136-145); THYROID STIMULATING HORMONE 0.484 uIU/ML (0.358-3.740); TOTAL PROTEIN 6.4 GM/DL (6.4-8.2)
[2021-07-26 15:01] LABS: CK-MB VALUE MASS < 1.0 NG/ML (<3.6); CPK CREATINE PHOSPHOKINASE 64 U/L (26-192); MB/CK RELATIVE INDEX 1.56 (< OR =4)
[2021-07-26] MEDS ORDERED: ISOVUE-370 76% 100ML VIAL As Ordered ONE (16:16)
[2021-07-26 17:23] LABS: CK-MB VALUE MASS < 1.0 NG/ML (<3.6); CPK CREATINE PHOSPHOKINASE 70 U/L (26-192); MB/CK RELATIVE INDEX 1.43 (< OR =4)
[2021-07-26 17:31] VITALS: BP 137/83
== END 2021-07-26 17:51 | disposition home or self-care (01) ==
LOC: M ED 12:43
DX: R07.9 Chest pain, unspecified (principal); E11.9 Type 2 diabetes mellitus without complications; I10 Essential (primary) hypertension; J44.9 Chronic obstructive pulmonary disease, unspecified; E78.5 Hyperlipidemia, unspecified; G89.29 Other chronic pain; M54.9 Dorsalgia, unspecified; Z98.84 Bariatric surgery status; Z88.5 Allergy status to narcotic agent; F17.210 Nicotine dependence, cigarettes, uncomplicated
CPT/HCPCS: 36415; 71045; 71275; 80048; 80076; 82550; 82553; 83690; 83880; 84443; 85025; 93005; 93041; 94760; 99285; Q9967

== ENCOUNTER → 2021-10-10 | Outpatient (CLI) | payer OTHER ==
[~2021-10-10] MED LIST changes: +FLUTISP
== END ==
LOC: M LABSMTC 11:49
PROVIDERS: ATTEND Anesthesiology
DX: Z20.822 Contact with and (suspected) exposure to COVID-19 (principal)

== ENCOUNTER → 2021-10-13 | Outpatient (CLI) | payer OTHER ==
[~2021-10-13] MED LIST changes: +ACET325C5 PO; +BUPIVACAINE HCL 0.25% 30ML VIAL As Ordered ONE; +ISOVUE-M 300 61% 15ML VIAL As Ordered ONE; +LIDOCAINE 1% SDV 30ML VIAL As Ordered ONE; +METF-839 PO; +STIO1AER IN; +TRIAMCINOLONE ACETONIDE SUSP 40 MG/ML VIAL (J3301) As Ordered ONE
[2021-10-13 14:00] VITALS: BP 159/78
== END ==
LOC: M IRPRO 12:44
PROVIDERS: ATTEND Anesthesiology
DX: M46.1 Sacroiliitis, not elsewhere classified (principal); G89.29 Other chronic pain; I10 Essential (primary) hypertension; J44.9 Chronic obstructive pulmonary disease, unspecified; K21.9 Gastro-esophageal reflux disease without esophagitis; Z88.5 Allergy status to narcotic agent; Z98.84 Bariatric surgery status
CPT/HCPCS: 27096; J3301; Q9967

== ENCOUNTER → 2022-07-15 | Outpatient (CLI) | payer OTHER ==
[~2022-07-15] MED LIST changes: -BUPIVACAINE HCL 0.25% 30ML VIAL As Ordered ONE; -ISOVUE-M 300 61% 15ML VIAL As Ordered ONE; -LIDOCAINE 1% SDV 30ML VIAL As Ordered ONE; -TRIAMCINOLONE ACETONIDE SUSP 40 MG/ML VIAL (J3301) As Ordered ONE
== END ==
LOC: M LABSMTC 11:25
PROVIDERS: ATTEND Anesthesiology
DX: Z01.812 Encounter for preprocedural laboratory examination (principal); Z11.52 Encounter for screening for COVID-19

== ENCOUNTER → 2022-08-12 | Outpatient (CLI) | payer OTHER ==
[~2022-08-12] MED LIST changes: +BUPIVACAINE HCL 0.25% 30ML VIAL As Ordered ONE; +ISOVUE-M 300 61% 15ML VIAL As Ordered ONE; +LIDOCAINE 1% SDV 30ML VIAL As Ordered ONE; +TRIAMCINOLONE ACETONIDE SUSP 40MG/ML 1ML VIAL As Ordered ONE
== END ==
LOC: M PAIN 13:30
PROVIDERS: ATTEND Anesthesiology
DX: M53.3 Sacrococcygeal disorders, not elsewhere classified (principal); E11.40 Type 2 diabetes mellitus with diabetic neuropathy, unspecified; I10 Essential (primary) hypertension; E78.00 Pure hypercholesterolemia, unspecified; J44.9 Chronic obstructive pulmonary disease, unspecified; K76.0 Fatty (change of) liver, not elsewhere classified; F17.210 Nicotine dependence, cigarettes, uncomplicated; Z79.84 Long term (current) use of oral hypoglycemic drugs; Z79.891 Long term (current) use of opiate analgesic; Z79.899 Other long term (current) drug therapy; Z88.5 Allergy status to narcotic agent; Z91.048 Other nonmedicinal substance allergy status
CPT/HCPCS: 20550; 77002; J3301; Q9967; S0020

== ENCOUNTER → 2022-08-12 | Outpatient (CLI) | payer OTHER ==
[~2022-08-12] MED LIST changes: -BUPIVACAINE HCL 0.25% 30ML VIAL As Ordered ONE; +FLUT50SP17; -FLUTISP; -ISOVUE-M 300 61% 15ML VIAL As Ordered ONE; -LIDOCAINE 1% SDV 30ML VIAL As Ordered ONE; -TRIAMCINOLONE ACETONIDE SUSP 40MG/ML 1ML VIAL As Ordered ONE
== END ==
LOC: M LABSMTC 11:40
PROVIDERS: ATTEND Anesthesiology
DX: Z01.812 Encounter for preprocedural laboratory examination (principal)

== ENCOUNTER → 2022-08-26 | Outpatient (CLI) | payer OTHER | LOC: M PAIN 11:30 | PROVIDERS: ATTEND Anesthesiology | DX: G89.29 Other chronic pain (principal); E11.40 Type 2 diabetes mellitus with diabetic neuropathy, unspecified; I10 Essential (primary) hypertension; E78.00 Pure hypercholesterolemia, unspecified; J44.9 Chronic obstructive pulmonary disease, unspecified; K76.0 Fatty (change of) liver, not elsewhere classified; F17.210 Nicotine dependence, cigarettes, uncomplicated; Z88.5 Allergy status to narcotic agent; Z91.048 Other nonmedicinal substance allergy status ==

== ENCOUNTER → 2022-09-10 | Outpatient (CLI) | payer OTHER | LOC: M PLARAD 14:49 | PROVIDERS: ATTEND Nurse Practitioner Adult Health | DX: M46.98 Unspecified inflammatory spondylopathy, sacral and sacrococcygeal region (principal) ==

== ENCOUNTER → 2022-09-14 | Outpatient (CLI) | payer OTHER | LOC: M PAIN 16:30 | PROVIDERS: ATTEND Anesthesiology | DX: M48.062 Spinal stenosis, lumbar region with neurogenic claudication (principal); E11.40 Type 2 diabetes mellitus with diabetic neuropathy, unspecified; I10 Essential (primary) hypertension; E78.00 Pure hypercholesterolemia, unspecified; J44.9 Chronic obstructive pulmonary disease, unspecified; F17.210 Nicotine dependence, cigarettes, uncomplicated; Z79.891 Long term (current) use of opiate analgesic; Z79.84 Long term (current) use of oral hypoglycemic drugs; Z79.899 Other long term (current) drug therapy; Z88.5 Allergy status to narcotic agent; Z91.048 Other nonmedicinal substance allergy status ==

== ENCOUNTER 2022-10-28 01:02 | Emergency (ER) | payer OTHER ==
[~2022-10-28] VITALS: Ht 157.5 cm; Wt 81.9 kg
[~2022-10-28 01:02] MED LIST changes: -FLUT50SP17; +FLUT50SP17 NARES
[2022-10-28] MEDS ORDERED: AMLO1TAB24 (01:12)
[2022-10-28 01:36] LABS: HEMATOCRIT 42.6 % (36.0-47.0); HEMOGLOBIN 13.8 g/dl (12.0-15.5); MEAN CORPUSCULAR HEMOGLOBIN 27.7 pg (27.0-33.0); MEAN CORPUSCULAR HGB CONC 32.4 g/dl (32.0-36.5); MEAN CORPUSCULAR VOLUME 85.5 fl (80.0-96.0); PLATELET COUNT, AUTOMATED 289 10^3/uL (150-450); RED BLOOD COUNT 4.98 10^6/uL (4.00-5.40); WHITE BLOOD COUNT 14.8 10^3/uL (4.0-10.0)
[2022-10-28 02:01] LABS: BLOOD UREA NITROGEN 10 MG/DL (9-23); CALCIUM LEVEL 8.5 MG/DL (8.3-10.6); CARBON DIOXIDE LEVEL 23 MMOL/L (20-31); CHLORIDE LEVEL 107 MMOL/L (98-107); CREATININE FOR GFR 0.56 MG/DL (0.55-1.30); GLOMERULAR FILTRATION RATE > 60.0 (>45); GLUCOSE, FASTING 167 MG/DL (74-106); SODIUM LEVEL 137 MMOL/L (136-145)
[2022-10-28] MEDS ORDERED: KETOROLAC 30 MG/ML 1ML VIAL IV ONE (02:05)
[2022-10-28] MEDS ORDERED: ONDANSETRON 4MG 2ML VIAL IV ONE (02:05)
[2022-10-28] MEDS ORDERED: ONDANSETRON 4MG 2ML VIAL As Ordered ONE (02:08)
[2022-10-28] MEDS ORDERED: KETOROLAC 30 MG/ML 1ML VIAL As Ordered ONE (02:08)
[2022-10-28 02:16] VITALS: TEMP 98.9
[2022-10-28 04:30] VITALS: BP 150/85
[2022-10-28] MEDS ORDERED: TAMSULOSIN 0.4 MG CAP PO ONE (04:35)
[2022-10-28] MEDS ORDERED: CEPHALEXIN 500 MG CAP PO ONE (04:35)
[2022-10-28] MEDS ORDERED: OXYCODONE/APAP 5MG/325MG(HOME DOSE PACK) PO ONE (04:35)
[2022-10-28] MEDS ORDERED: FLOM0.4C39 PO (04:38)
[2022-10-28] MEDS ORDERED: KETO10TAB PO (04:38)
[2022-10-28] MEDS ORDERED: CEPH500C PO (04:38)
[2022-10-28 04:47] VITALS: O2SAT 98
== END 2022-10-28 05:15 | disposition home or self-care (01) ==
LOC: M ED 01:02
DX: N20.1 Calculus of ureter (principal); E11.9 Type 2 diabetes mellitus without complications; J44.9 Chronic obstructive pulmonary disease, unspecified; Z87.442 Personal history of urinary calculi; Z87.891 Personal history of nicotine dependence; Z88.5 Allergy status to narcotic agent; Z79.51 Long term (current) use of inhaled steroids; Z79.899 Other long term (current) drug therapy; Z79.84 Long term (current) use of oral hypoglycemic drugs; Z98.84 Bariatric surgery status
CPT/HCPCS: 74176; 80048; 81001; 85027; 87088; 87186; 96374; 96375; 99284; J1885; J2405

== ENCOUNTER 2022-11-01 13:32 | Inpatient (IN) | payer OTHER ==
[~2022-11-01] VITALS: Ht 157.5 cm; Wt 83.8 kg
[2022-11-01] VITALS (7 sets, daily range): BP systolic 80–115; BP diastolic 49–72; TEMP 99.4; O2SAT 93–100
[~2022-11-01 13:32] MED LIST changes: +AMLO1TAB24; +CEPH500C PO; +KETO10TAB PO
[2022-11-01 14:11] LABS: HEMATOCRIT 41.2 % (36.0-47.0); MEAN CORPUSCULAR HEMOGLOBIN 27.9 pg (27.0-33.0); MEAN CORPUSCULAR VOLUME 82.2 fl (80.0-96.0); RED BLOOD COUNT 5.01 10^6/uL (4.00-5.40)
[2022-11-01 14:31] LABS: ALBUMIN 2.9 G/DL (3.2-5.2); BILIRUBIN,DIRECT 0.5 MG/DL (<0.4); BILIRUBIN,TOTAL 0.8 MG/DL (0.3-1.2); CALCIUM LEVEL 7.6 MG/DL (8.3-10.6); CREATININE FOR GFR 1.96 MG/DL (0.55-1.30); GLOMERULAR FILTRATION RATE 27.5 (>45); MB/CK RELATIVE INDEX 0.59 (< OR =4); POTASSIUM SERUM 4.3 MMOL/L (3.5-5.1); TOTAL PROTEIN 5.7 G/DL (5.7-8.2)
[2022-11-01 14:33] LABS: THYROID STIMULATING HORMONE 1.129 uIU/ML (0.55-4.78)
[2022-11-01] MEDS ORDERED: NS 1,000 ML IV ONE (14:40)
[2022-11-01 14:42] LABS: PLATELET COUNT, AUTOMATED 64 10^3/uL (150-450)
[2022-11-01] MEDS ORDERED: PIPERACILLIN/TAZOBACTAM SOD 4.5 GM in D5W MINI-BAG PLUS 50 ML IV ONE (14:50)
[2022-11-01] MEDS ORDERED: NS 1,370 ML in IV 1 EA IV ONE (14:50)
[2022-11-01 15:11] LABS: ATYPICAL LYMPH 1 % (0-5); LYMPHOCYTES 4 % (16-44); MONOCYTES 6 % (0-5); NEUTROPHILS 85 % (28-66)
[2022-11-01 15:12] LABS: TOXIC VACUOLATION 3+
[2022-11-01 15:14] LABS: DOHLE BODIES 1+; PLATELET ESTIMATE DECREASED (NORMAL); TOXIC GRANULATION 1+
[2022-11-01] MEDS ORDERED: LIDOCAINE 2% 5ML JELLY UROJET TOP ONE (15:35)
[2022-11-01 15:46] LABS: CK-MB VALUE MASS 1.1 NG/ML (<3.6)
[2022-11-01 15:49] LABS: MB/CK RELATIVE INDEX 0.62 (< OR =4)
[2022-11-01] MEDS ORDERED: NS 1,000 ML IV SCH (17:40)
[2022-11-01] MEDS ORDERED: ALBUTEROL SULFATE 2.5MG/0.5ML INH NEB SOLN INH ONE (17:45)
[2022-11-01] MEDS ORDERED: methylPREDNISolone 125MG 2ML VIAL IV ONE (17:45)
[2022-11-01] MEDS ORDERED: IPRATROPIUM 0.5MG/ALBUTEROL 2.5MG INH SOL UD 3ML (DUONEB) NEB ONE (17:45)
[2022-11-01] MEDS ORDERED: FLOM0.4C39 PO (18:14)
[2022-11-01] MEDS ORDERED: CEPH500C PO (18:14)
[2022-11-01] MEDS ORDERED: KETO10TAB PO (18:14)
[2022-11-01 18:17] LABS: ABG BASE EXCESS -6.6 (-2.0-2.0); ABG HCO3 17.2 MMOL/L (22.0-26.0); ABG PARTIAL PRESSURE CO2 29.6 mmHg (35.0-45.0); ABG PARTIAL PRESSURE O2 110.2 mmHg (75.0-100.0); ABG STANDARD HCO3 19.2 MMOL/L. (22.0-26.0); ABG TOTAL CO2 18.1 MMOL/L (23.0-31.0); ABG pH (ARTERIAL) 7.381 UNITS (7.350-7.450)
[2022-11-01] MEDS ORDERED: MED REC COMMENT (18:17)
[2022-11-01] MEDS ORDERED: HOME MED LIST COMPLETE! XX SCH (18:20)
[2022-11-01] MEDS: PANTOPRAZOLE 40MG VIAL IV SCH (19:12)
[2022-11-01] MEDS ORDERED: LIDOCAINE 2% 5ML JELLY UROJET As Ordered ONE (19:16)
[2022-11-01] MEDS ORDERED: ISOVUE-300 61% 100ML VIAL As Ordered ONE (19:16)
[2022-11-01 19:22] LABS: CK-MB VALUE MASS 3.5 NG/ML (<3.6)
[2022-11-01 19:24] LABS: MB/CK RELATIVE INDEX 1.19 (< OR =4)
[2022-11-01] MEDS ORDERED: KETOROLAC 60MG 2ML VIAL As Ordered ONE (20:04)
[2022-11-01] MEDS ORDERED: propofoL 200 MG/20 ML VIAL As Ordered ONE (20:04)
[2022-11-01] MEDS ORDERED: fentaNYL 100 MCG/2 ML INJECTION As Ordered ONE (20:04)
[2022-11-01] MEDS ORDERED: LIDOCAINE 2% INJ 100 MG/5 ML SYRINGE As Ordered ONE (20:04)
[2022-11-01] MEDS ORDERED: MIDAZOLAM INJ 2MG/2ML VIAL As Ordered ONE (20:05)
[2022-11-01] MEDS ORDERED: LIDOCAINE 2% 100MG/5ML SDV (FOR ANES.) As Ordered ONE (20:07)
[2022-11-01] MEDS ORDERED: VASOPRESSIN INJ 20UNITS/ML 1ML VIAL As Ordered ONE (20:22)
[2022-11-01] MEDS: HEPARIN SOD (PORCINE) 5000UNITS/ML 1ML VIAL/SYRINGE SQ SCH ×2 (21:00→21:47)
[2022-11-01] MEDS: PIPERACILLIN/TAZOBACTAM SOD 3.375 GM in D5W MINI-BAG PLUS 50 ML IV SCH (21:47)
[2022-11-01] MEDS ORDERED: ACETAMINOPHEN 1000MG 100ML IV BAG IV ONE (23:00)
[2022-11-01] MEDS ORDERED: NS 500 ML IV ONE (23:15)
[2022-11-02] VITALS (18 sets, daily range): BP systolic 87–122; BP diastolic 51–74; TEMP 97–99.7; O2SAT 92–98
[2022-11-02] MEDS ORDERED: HYDROCORTISONE 10 MG TAB PO ONE
[2022-11-02 00:12] LABS: FIBRINOGEN 632 MG/DL (268-480); PROTHROMBIN TIME 16.4 SECONDS (12.5-14.5)
[2022-11-02 00:13] LABS: PARTIAL THROMBOPLASTIN TIME 37.6 SECONDS (24.8-34.2)
[2022-11-02] MEDS ORDERED: NS 500 ML IV ONE (00:20)
[2022-11-02 00:36] LABS: D-DIMER QUANT > 4000 ng/ml (<500)
[2022-11-02 00:39] LABS: PLATELET COUNT, AUTOMATED 35 10^3/uL (150-450)
[2022-11-02] MEDS: methylPREDNISolone 40MG 1ML VIAL IV SCH ×3 (02:00→17:44)
[2022-11-02] MEDS: PIPERACILLIN/TAZOBACTAM SOD 3.375 GM in D5W MINI-BAG PLUS 50 ML IV SCH (02:00)
[2022-11-02] MEDS ORDERED: HYDROMORPHONE HCL 0.5 MG/ 0.5 ML SYRINGE IV PRN (03:15)
[2022-11-02] MEDS ORDERED: HYDROMORPHONE HCL 0.5 MG/ 0.5 ML SYRINGE As Ordered ONE (03:30)
[2022-11-02 04:19] LABS: PLTBLUE- EDTA FREE CALC 56 K/mm3 (172-450); PLTBLUE- EDTA FREE MACHINE 51 10^3/uL (172-450)
[2022-11-02 05:53] LABS: HEMATOCRIT 34.4 % (36.0-47.0); HEMOGLOBIN 11.2 g/dl (12.0-15.5); MEAN CORPUSCULAR HEMOGLOBIN 27.7 pg (27.0-33.0); MEAN CORPUSCULAR HGB CONC 32.6 g/dl (32.0-36.5); MEAN CORPUSCULAR VOLUME 84.9 fl (80.0-96.0); RED BLOOD COUNT 4.05 10^6/uL (4.00-5.40)
[2022-11-02 06:05] LABS: PLATELET COUNT, AUTOMATED 35 10^3/uL (150-450); WHITE BLOOD COUNT 43.4 10^3/uL (4.0-10.0)
[2022-11-02 06:22] LABS: ALBUMIN 2.1 G/DL (3.2-5.2); CALCIUM LEVEL 6.8 MG/DL (8.3-10.6); CREATININE FOR GFR 1.5 MG/DL (0.55-1.30); GLOMERULAR FILTRATION RATE 37.5 (>45); POTASSIUM SERUM 4.2 MMOL/L (3.5-5.1); TOTAL PROTEIN 4.8 G/DL (5.7-8.2)
[2022-11-02 06:24] LABS: LYMPHOCYTES 5 % (16-44); MONOCYTES 7 % (0-5); MYELOCYTES 1 % (0-0); NEUTROPHILS 80 % (28-66)
[2022-11-02 06:25] LABS: ANISOCYTOSIS 1+; PLATELET ESTIMATE MARKED DECREASE (NORMAL)
[2022-11-02 06:26] LABS: POIKILOCYTOSIS 1+
[2022-11-02] MEDS ORDERED: CALCIUM GLUCONATE 1,000 MG in D5W MINI-BAG PLUS 100 ML IV ONE (07:10)
[2022-11-02 08:20] LABS: INR 1.39; PROTHROMBIN TIME 17.3 SECONDS (12.5-14.5)
[2022-11-02 08:21] LABS: FIBRINOGEN 667 MG/DL (268-480); PARTIAL THROMBOPLASTIN TIME 35.5 SECONDS (24.8-34.2)
[2022-11-02] MEDS ORDERED: ACETAMINOPHEN 325MG/10.15ML UDC GT PRN (08:25)
[2022-11-02] MEDS ORDERED: ACETAMINOPHEN 325MG/10.15ML UDC PO PRN (08:35)
[2022-11-02] MEDS ORDERED: NS 1,000 ML IV SCH (08:45)
[2022-11-02] MEDS: NS 1,000 ML IV SCH ×2 (08:46→22:28)
[2022-11-02 08:47] LABS: D-DIMER QUANT > 4000 ng/ml (<500)
[2022-11-02] MEDS ORDERED: ENOXAPARIN 40MG/0.4ML SYRINGE (J1650 PER 10MG) SC SCH (09:00)
[2022-11-02] MEDS: cefTRIAXone SOD 1 GM in D5W MINI-BAG PLUS 50 ML IV SCH (09:04)
[2022-11-02] MEDS ORDERED: traMADol 50 MG TAB PO ONE (15:10)
[2022-11-02] MEDS: PANTOPRAZOLE 40MG VIAL IV SCH (18:41)
[2022-11-03] VITALS: BP 126/71; TEMP 98.2; O2SAT 95
[2022-11-03] MEDS: methylPREDNISolone 40MG 1ML VIAL IV SCH ×2 (01:56→09:04)
[2022-11-03 04:00] VITALS: BP 130/71; TEMP 97.8; O2SAT 96
[2022-11-03 04:27] LABS: HEMATOCRIT 36.2 % (36.0-47.0); MEAN CORPUSCULAR HEMOGLOBIN 27.6 pg (27.0-33.0); MEAN CORPUSCULAR HGB CONC 33.1 g/dl (32.0-36.5); MEAN CORPUSCULAR VOLUME 83.4 fl (80.0-96.0); RED BLOOD COUNT 4.34 10^6/uL (4.00-5.40)
[2022-11-03 04:30] LABS: PLATELET COUNT, AUTOMATED 37 10^3/uL (150-450); WHITE BLOOD COUNT 31.2 10^3/uL (4.0-10.0)
[2022-11-03 04:36] LABS: INR 1.26; PROTHROMBIN TIME 16.1 SECONDS (12.5-14.5)
[2022-11-03 04:38] LABS: LYMPHOCYTES 6 % (16-44); MONOCYTES 6 % (0-5); NEUTROPHILS 88 % (28-66); PLATELET ESTIMATE MARKED DECREASE (NORMAL)
[2022-11-03 04:39] LABS: ANISOCYTOSIS 1+; POIKILOCYTOSIS 1+; POLYCHROMASIA 1+; SCHISTOCYTES 1+
[2022-11-03 04:55] LABS: ALKALINE PHOSPHATASE 137 U/L (46-116); ALT/SGPT 17 U/L (7.0-40); AST/SGOT 17 U/L (<34); BILIRUBIN,TOTAL 0.4 MG/DL (0.3-1.2); BLOOD UREA NITROGEN 45 MG/DL (9-23); CALCIUM LEVEL 6.8 MG/DL (8.3-10.6); CARBON DIOXIDE LEVEL 18 MMOL/L (20-31); CHLORIDE LEVEL 112 MMOL/L (98-107); CREATININE FOR GFR 0.97 MG/DL (0.55-1.30); GLOMERULAR FILTRATION RATE > 60.0 (>45); GLUCOSE, FASTING 224 MG/DL (74-106); MAGNESIUM LEVEL 2.4 MG/DL (1.8-2.4); POTASSIUM SERUM 4.2 MMOL/L (3.5-5.1); SODIUM LEVEL 139 MMOL/L (136-145); TOTAL PROTEIN 4.7 G/DL (5.7-8.2)
[2022-11-03 08:00] VITALS: BP 127/60; TEMP 98.8; O2SAT 90
[2022-11-03] MEDS: cefTRIAXone SOD 1 GM in D5W MINI-BAG PLUS 50 ML IV SCH (09:04)
[2022-11-03] MEDS: PANTOPRAZOLE 40MG TAB (PROTONIX) PO SCH (10:48)
[2022-11-03] MEDS: ATORVASTATIN 20 MG TAB PO SCH (10:48)
[2022-11-03] MEDS: oxyBUTYnin 5 MG TAB PO SCH ×3 (10:53→20:31)
[2022-11-03 12:00] VITALS: BP 134/65; TEMP 97.9; O2SAT 65
[2022-11-03 16:34] VITALS: BP 132/66; TEMP 97.9; O2SAT 89
[2022-11-03 20:57] VITALS: BP 117/50; TEMP 98.1; O2SAT 93
[2022-11-04 06:00] VITALS: BP 140/70; TEMP 97.9; O2SAT 98
[2022-11-04 07:19] LABS: HEMATOCRIT 38.1 % (36.0-47.0); HEMOGLOBIN 12.7 g/dl (12.0-15.5); MEAN CORPUSCULAR HEMOGLOBIN 27.4 pg (27.0-33.0); MEAN CORPUSCULAR HGB CONC 33.3 g/dl (32.0-36.5); MEAN CORPUSCULAR VOLUME 82.1 fl (80.0-96.0); RED BLOOD COUNT 4.64 10^6/uL (4.00-5.40); WHITE BLOOD COUNT 27.5 10^3/uL (4.0-10.0)
[2022-11-04 07:39] LABS: PLATELET COUNT, AUTOMATED 51 10^3/uL (150-450)
[2022-11-04 07:40] LABS: BLOOD UREA NITROGEN 38 MG/DL (9-23); CALCIUM LEVEL 7.4 MG/DL (8.3-10.6); CARBON DIOXIDE LEVEL 21 MMOL/L (20-31); CHLORIDE LEVEL 111 MMOL/L (98-107); CREATININE FOR GFR 0.74 MG/DL (0.55-1.30); GLOMERULAR FILTRATION RATE > 60.0 (>45); GLUCOSE, FASTING 189 MG/DL (74-106); POTASSIUM SERUM 3.8 MMOL/L (3.5-5.1); SODIUM LEVEL 139 MMOL/L (136-145)
[2022-11-04 08:03] LABS: ATYPICAL LYMPH 5 % (0-5); LYMPHOCYTES 2 % (16-44); MONOCYTES 2 % (0-5); NEUTROPHILS 91 % (28-66)
[2022-11-04 08:05] LABS: MICROCYTOSIS 1+; PLATELET ESTIMATE DECREASED (NORMAL)
[2022-11-04] MEDS ORDERED: GLUCAGON INJ 1MG VIAL SC PRN (08:40)
[2022-11-04] MEDS ORDERED: GLUCOSE 4GM CHEW TABLET PO PRN (08:40)
[2022-11-04] MEDS ORDERED: DEXTROSE 50% 50ML SYRINGE IV PRN (08:40)
[2022-11-04] MEDS: INSULIN LISPRO (NovoLOG) PER UNIT SC SCH ×3 (09:08→17:02)
[2022-11-04] MEDS: cefTRIAXone SOD 1 GM in D5W MINI-BAG PLUS 50 ML IV SCH (09:08)
[2022-11-04] MEDS: oxyBUTYnin 5 MG TAB PO SCH ×3 (09:09→20:19)
[2022-11-04] MEDS: PANTOPRAZOLE 40MG TAB (PROTONIX) PO SCH (09:09)
[2022-11-04] MEDS: predniSONE 20 MG TAB PO SCH (09:09)
[2022-11-04] MEDS: ATORVASTATIN 20 MG TAB PO SCH (09:09)
[2022-11-04] MEDS ORDERED: FUROSEMIDE 100MG/10ML VIAL IV ONE (10:25)
[2022-11-04] MEDS: ALBUTEROL 90 MCG/ACT 8GM HFA INHALER INH SCH ×3 (11:41→21:02)
[2022-11-04 14:00] VITALS: BP 126/76; TEMP 97.9; O2SAT 99
[2022-11-04 21:00] VITALS: BP 129/70; TEMP 97.9; O2SAT 92
[2022-11-05 06:00] VITALS: BP 134/71; TEMP 98.6; O2SAT 100
[2022-11-05 06:24] LABS: HEMATOCRIT 42.5 % (36.0-47.0); HEMOGLOBIN 13.9 g/dl (12.0-15.5); MEAN CORPUSCULAR HEMOGLOBIN 27.4 pg (27.0-33.0); MEAN CORPUSCULAR HGB CONC 32.7 g/dl (32.0-36.5); MEAN CORPUSCULAR VOLUME 83.7 fl (80.0-96.0); RED BLOOD COUNT 5.08 10^6/uL (4.00-5.40); WHITE BLOOD COUNT 23.2 10^3/uL (4.0-10.0)
[2022-11-05 06:25] LABS: PLATELET COUNT, AUTOMATED 74 10^3/uL (150-450)
[2022-11-05 06:46] LABS: BLOOD UREA NITROGEN 29 MG/DL (9-23); CALCIUM LEVEL 8.3 MG/DL (8.3-10.6); CARBON DIOXIDE LEVEL 22 MMOL/L (20-31); CHLORIDE LEVEL 108 MMOL/L (98-107); CREATININE FOR GFR 0.68 MG/DL (0.55-1.30); GLOMERULAR FILTRATION RATE > 60.0 (>45); GLUCOSE, FASTING 134 MG/DL (74-106); POTASSIUM SERUM 3.3 MMOL/L (3.5-5.1); SODIUM LEVEL 142 MMOL/L (136-145)
[2022-11-05 07:10] LABS: ATYPICAL LYMPH 3 % (0-5); LYMPHOCYTES 20 % (16-44); MONOCYTES 3 % (0-5); NEUTROPHILS 74 % (28-66)
[2022-11-05] MEDS ORDERED: POTASSIUM CHLORIDE 10MEQ SR TABLET PO ONE (07:10)
[2022-11-05 07:11] LABS: PLATELET ESTIMATE DECREASED (NORMAL)
[2022-11-05] MEDS ORDERED: CEFD300CAP PO (07:13)
[2022-11-05] MEDS ORDERED: PRED20TA PO (07:13)
[2022-11-05] MEDS: INSULIN LISPRO (NovoLOG) PER UNIT SC SCH ×2 (08:00→11:59)
[2022-11-05] MEDS: cefTRIAXone SOD 1 GM in D5W MINI-BAG PLUS 50 ML IV SCH (08:00)
[2022-11-05] MEDS: predniSONE 20 MG TAB PO SCH (08:01)
[2022-11-05] MEDS: PANTOPRAZOLE 40MG TAB (PROTONIX) PO SCH (08:01)
[2022-11-05] MEDS: oxyBUTYnin 5 MG TAB PO SCH (08:01)
[2022-11-05] MEDS: ATORVASTATIN 20 MG TAB PO SCH (08:01)
[2022-11-05] MEDS: ALBUTEROL 90 MCG/ACT 8GM HFA INHALER INH SCH ×2 (08:16→11:14)
== END 2022-11-05 12:50 | disposition home or self-care (01) | DRG 720 ==
LOC: M ED 13:32 → M ED INP 17:40 → M ICU 21:15 → M MSPAV 11-03 16:29
PROVIDERS: ADMIT Internal Medicine Critical Care Medicine; ATTEND Internal Medicine Nephrology
PROC: 0T778DZ Dilation of Left Ureter with Intraluminal Device, Via Natural or Artificial Opening Endoscopic (ICD-10-PCS; principal; 2022-11-01 17:05)
DX: A41.9 Sepsis, unspecified organism (principal); J96.01 Acute respiratory failure with hypoxia; G93.41 Metabolic encephalopathy; N17.9 Acute kidney failure, unspecified; D69.6 Thrombocytopenia, unspecified; E11.42 Type 2 diabetes mellitus with diabetic polyneuropathy; J44.1 Chronic obstructive pulmonary disease with (acute) exacerbation; N13.1 Hydronephrosis with ureteral stricture, not elsewhere classified; I10 Essential (primary) hypertension; F17.200 Nicotine dependence, unspecified, uncomplicated; E78.00 Pure hypercholesterolemia, unspecified; M54.40 Lumbago with sciatica, unspecified side; G89.29 Other chronic pain; B96.20 Unspecified Escherichia coli [E. coli] as the cause of diseases classified elsewhere; N39.0 Urinary tract infection, site not specified; Z98.84 Bariatric surgery status; R65.20 Severe sepsis without septic shock; Z79.84 Long term (current) use of oral hypoglycemic drugs; Z79.899 Other long term (current) drug therapy; Z88.5 Allergy status to narcotic agent

== ENCOUNTER → 2022-11-11 | Outpatient (CLI) | payer OTHER ==
[~2022-11-11] MED LIST changes: +CEFD300CAP PO; +MED REC COMMENT; +PRED20TA PO
[2022-11-11 15:45] LABS: ALBUMIN 2.6 G/DL (3.2-5.2); ALKALINE PHOSPHATASE 93 U/L (46-116); ALT/SGPT 30 U/L (7.0-40); AST/SGOT 102 U/L (<34); BILIRUBIN,TOTAL 1.1 MG/DL (0.3-1.2); BLOOD UREA NITROGEN 8 MG/DL (9-23); CALCIUM LEVEL 8.3 MG/DL (8.3-10.6); CARBON DIOXIDE LEVEL 28 MMOL/L (20-31); CHLORIDE LEVEL 103 MMOL/L (98-107); CREATININE FOR GFR 0.55 MG/DL (0.55-1.30); GLOMERULAR FILTRATION RATE > 60.0 (>45); GLUCOSE, FASTING 107 MG/DL (74-106); POTASSIUM SERUM 3.9 MMOL/L (3.5-5.1); SODIUM LEVEL 138 MMOL/L (136-145); TOTAL PROTEIN 5.5 G/DL (5.7-8.2)
[2022-11-11 15:48] LABS: HEMATOCRIT 39.2 % (36.0-47.0); HEMOGLOBIN 12.3 g/dl (12.0-15.5); MEAN CORPUSCULAR HEMOGLOBIN 27.5 pg (27.0-33.0); MEAN CORPUSCULAR HGB CONC 31.4 g/dl (32.0-36.5); MEAN CORPUSCULAR VOLUME 87.5 fl (80.0-96.0); PLATELET COUNT, AUTOMATED 279 10^3/uL (150-450); RED BLOOD COUNT 4.48 10^6/uL (4.00-5.40); WHITE BLOOD COUNT 12.8 10^3/uL (4.0-10.0)
== END ==
LOC: M PLALAB 12:43
PROVIDERS: ATTEND Nurse Practitioner Adult Health
DX: A41.51 Sepsis due to Escherichia coli [E. coli] (principal); R11.2 Nausea with vomiting, unspecified

== ENCOUNTER → 2022-12-08 | Outpatient (CLI) | payer OTHER ==
[~2022-12-08] MED LIST changes: +OMEP40CA5 PO
[2022-12-08 14:39] LABS: HEMATOCRIT 40.3 % (36.0-47.0); HEMOGLOBIN 12.8 g/dl (12.0-15.5); MEAN CORPUSCULAR HEMOGLOBIN 27.9 pg (27.0-33.0); MEAN CORPUSCULAR HGB CONC 31.8 g/dl (32.0-36.5); MEAN CORPUSCULAR VOLUME 87.8 fl (80.0-96.0); PLATELET COUNT, AUTOMATED 343 10^3/uL (150-450); RED BLOOD COUNT 4.59 10^6/uL (4.00-5.40); WHITE BLOOD COUNT 8.2 10^3/uL (4.0-10.0)
[2022-12-08 15:01] LABS: ALBUMIN 3.4 G/DL (3.2-5.2); ALKALINE PHOSPHATASE 111 U/L (46-116); ALT/SGPT < 9 U/L (7.0-40); AST/SGOT 8 U/L (<34); BILIRUBIN,TOTAL 0.3 MG/DL (0.3-1.2); BLOOD UREA NITROGEN 8 MG/DL (9-23); CALCIUM LEVEL 8.9 MG/DL (8.3-10.6); CARBON DIOXIDE LEVEL 26 MMOL/L (20-31); CHLORIDE LEVEL 109 MMOL/L (98-107); CREATININE FOR GFR 0.56 MG/DL (0.55-1.30); GLOMERULAR FILTRATION RATE > 60.0 (>45); GLUCOSE, FASTING 86 MG/DL (74-106); SODIUM LEVEL 143 MMOL/L (136-145); TOTAL PROTEIN 6.3 G/DL (5.7-8.2)
== END ==
LOC: M PLALAB 10:02
PROVIDERS: ATTEND Urology
DX: N20.1 Calculus of ureter (principal)

== ENCOUNTER 2022-12-13 10:40 | Day surgery (SDC) | payer OTHER ==
[~2022-12-13] VITALS: Ht 157.5 cm; Wt 75.3 kg
[~2022-12-13 10:40] MED LIST changes: +ceFAZolin SOD 2 GM in IV 1 EA IV ONE
[2022-12-13] MEDS ORDERED: fentaNYL 100 MCG/2 ML INJECTION As Ordered ONE (13:18)
[2022-12-13] MEDS ORDERED: MIDAZOLAM INJ 2MG/2ML VIAL As Ordered ONE (13:18)
[2022-12-13] MEDS ORDERED: LIDOCAINE 2% 100MG/5ML SDV (FOR ANES.) As Ordered ONE (13:19)
[2022-12-13] MEDS ORDERED: ACETAMINOPHEN 1000MG 100ML IV BAG As Ordered ONE (13:19)
[2022-12-13] MEDS ORDERED: propofoL 200 MG/20 ML VIAL As Ordered ONE (13:19)
[2022-12-13] MEDS ORDERED: ONDANSETRON 4MG 2ML VIAL As Ordered ONE (13:19)
[2022-12-13] MEDS ORDERED: ISOVUE-300 61% 100ML VIAL As Ordered ONE (13:50)
[2022-12-13] MEDS ORDERED: LR 1,000 ML IV SCH (15:10)
[2022-12-13] MEDS ORDERED: ONDANSETRON 4MG 2ML VIAL IV PRN (15:10)
[2022-12-13] MEDS ORDERED: oxyCODONE 5MG TAB PO PRN (15:10)
[2022-12-13] MEDS ORDERED: fentaNYL 100 MCG/2 ML INJECTION IV PRN (15:10)
[2022-12-13] MEDS ORDERED: HYDROMORPHONE HCL 0.5 MG/ 0.5 ML SYRINGE IV PRN (15:10)
[2022-12-13] MEDS ORDERED: PYRI1TAB5 PO (15:11)
[2022-12-13] MEDS ORDERED: MACR100C43 PO (15:11)
[2022-12-13] MEDS ORDERED: OXYB5TAB10 PO (15:11)
[2022-12-13 16:20] VITALS: BP 173/77; TEMP 96.9; O2SAT 95
== END 2022-12-13 16:30 | disposition home or self-care (01) ==
LOC: M SDC 10:40
PROVIDERS: ATTEND Urology
DX: N13.5 Crossing vessel and stricture of ureter without hydronephrosis (principal); E11.9 Type 2 diabetes mellitus without complications; I25.2 Old myocardial infarction; E78.00 Pure hypercholesterolemia, unspecified; J44.9 Chronic obstructive pulmonary disease, unspecified; M54.9 Dorsalgia, unspecified; Z86.19 Personal history of other infectious and parasitic diseases; F17.210 Nicotine dependence, cigarettes, uncomplicated; Z98.84 Bariatric surgery status; Z79.899 Other long term (current) drug therapy; Z79.84 Long term (current) use of oral hypoglycemic drugs; Z79.891 Long term (current) use of opiate analgesic
CPT/HCPCS: 52356; 74420; C1769; C1894; C2617; J0131; J0690; J1100; J2250; J2405; J3010; Q9967

== ENCOUNTER → 2023-01-19 | Outpatient (CLI) | payer OTHER ==
[~2023-01-19] MED LIST changes: +MACR100C43 PO; +OXYB5TAB10 PO; +PYRI1TAB5 PO; -ceFAZolin SOD 2 GM in IV 1 EA IV ONE
[2023-01-19 17:48] LABS: HEMATOCRIT 42.6 % (36.0-47.0); HEMOGLOBIN 13.5 g/dl (12.0-15.5); MEAN CORPUSCULAR HEMOGLOBIN 27.6 pg (27.0-33.0); MEAN CORPUSCULAR HGB CONC 31.7 g/dl (32.0-36.5); MEAN CORPUSCULAR VOLUME 86.9 fl (80.0-96.0); PLATELET COUNT, AUTOMATED 336 10^3/uL (150-450); WHITE BLOOD COUNT 10.3 10^3/uL (4.0-10.0)
[2023-01-19 18:02] LABS: HEMOGLOBIN A1c 5.3 % (4.0-6.0)
[2023-01-19 18:13] LABS: CREATININE, URINE 83.6 MG/DL
[2023-01-19 18:14] LABS: MAU/CREAT RATIO 4.7 MCG/MG (0.0-30.0)
[2023-01-19 18:15] LABS: IRON (FE) 57 UG/DL (50-170); PERCENT SATURATION 17.4 % (13.2-45.0); TOTAL IRON BINDING CAPACITY 328 UG/DL (250-425)
[2023-01-19 18:16] LABS: ALBUMIN 3.6 G/DL (3.2-5.2); ALKALINE PHOSPHATASE 109 U/L (46-116); ALT/SGPT < 9 U/L (7.0-40); AST/SGOT < 8 U/L (<34); BILIRUBIN,TOTAL 0.2 MG/DL (0.3-1.2); BLOOD UREA NITROGEN 13 MG/DL (9-23); CARBON DIOXIDE LEVEL 29 MMOL/L (20-31); CHLORIDE LEVEL 107 MMOL/L (98-107); CREATININE FOR GFR 0.63 MG/DL (0.55-1.30); FERRITIN 38.7 NG/ML (7.3-270.7); GLOMERULAR FILTRATION RATE > 60.0 (>45); GLUCOSE, FASTING 75 MG/DL (74-106); POTASSIUM SERUM 4.3 MMOL/L (3.5-5.1); SODIUM LEVEL 143 MMOL/L (136-145); TOTAL PROTEIN 6.5 G/DL (5.7-8.2)
[2023-01-19 18:17] LABS: THYROID STIMULATING HORMONE 1.572 uIU/ML (0.55-4.78); TOTAL 25(OH) VITAMIN D 17.2 NG/ML (20.0-100.0); VITAMIN B12 LEVEL 228 PG/ML (211-911)
== END ==
LOC: M PLALAB 15:33
PROVIDERS: ATTEND Nurse Practitioner Adult Health
DX: Z98.84 Bariatric surgery status (principal); E11.21 Type 2 diabetes mellitus with diabetic nephropathy; E55.9 Vitamin D deficiency, unspecified

== ENCOUNTER → 2023-02-08 | Outpatient (CLI) | payer OTHER | LOC: M PAIN 14:30 | PROVIDERS: ATTEND Nurse Practitioner Family | DX: M51.16 Intervertebral disc disorders with radiculopathy, lumbar region (principal); G89.29 Other chronic pain; E11.40 Type 2 diabetes mellitus with diabetic neuropathy, unspecified; I10 Essential (primary) hypertension; E78.00 Pure hypercholesterolemia, unspecified; J44.9 Chronic obstructive pulmonary disease, unspecified; K76.0 Fatty (change of) liver, not elsewhere classified; F17.210 Nicotine dependence, cigarettes, uncomplicated; Z79.891 Long term (current) use of opiate analgesic; Z79.84 Long term (current) use of oral hypoglycemic drugs; Z79.899 Other long term (current) drug therapy; Z88.5 Allergy status to narcotic agent; Z91.040 Latex allergy status; Z91.048 Other nonmedicinal substance allergy status ==

== ENCOUNTER → 2023-04-26 | Outpatient (CLI) | payer OTHER ==
[~2023-04-26] MED LIST changes: -FLUT50SP17 NARES; +FLUTISP NARES; +ISOVUE-M 300 61% 15ML VIAL As Ordered ONE; +LIDOCAINE 1% SDV 30ML VIAL As Ordered ONE; -OXYB5TAB10 PO; +OXYB5TAB11 PO; +methylPREDNISolone SUSP 40MG/ML 1ML VIAL (DEPO MEDROL) As Ordered ONE
== END ==
LOC: M PAIN 10:15
PROVIDERS: ATTEND Anesthesiology
DX: M51.16 Intervertebral disc disorders with radiculopathy, lumbar region (principal); E11.40 Type 2 diabetes mellitus with diabetic neuropathy, unspecified; Z98.84 Bariatric surgery status; I10 Essential (primary) hypertension; E78.00 Pure hypercholesterolemia, unspecified; J44.9 Chronic obstructive pulmonary disease, unspecified; K76.0 Fatty (change of) liver, not elsewhere classified; F17.200 Nicotine dependence, unspecified, uncomplicated; Z79.891 Long term (current) use of opiate analgesic; Z79.899 Other long term (current) drug therapy; Z88.5 Allergy status to narcotic agent; Z91.040 Latex allergy status; Z91.048 Other nonmedicinal substance allergy status
CPT/HCPCS: 62323; J1030; Q9967

== ENCOUNTER → 2023-06-20 | Outpatient (CLI) | payer OTHER ==
[~2023-06-20] MED LIST changes: -ISOVUE-M 300 61% 15ML VIAL As Ordered ONE; -LIDOCAINE 1% SDV 30ML VIAL As Ordered ONE; -methylPREDNISolone SUSP 40MG/ML 1ML VIAL (DEPO MEDROL) As Ordered ONE
== END ==
LOC: M PAIN 11:30
PROVIDERS: ATTEND Nurse Practitioner Family
DX: M51.16 Intervertebral disc disorders with radiculopathy, lumbar region (principal); G89.29 Other chronic pain; E11.40 Type 2 diabetes mellitus with diabetic neuropathy, unspecified; I10 Essential (primary) hypertension; E78.00 Pure hypercholesterolemia, unspecified; J44.9 Chronic obstructive pulmonary disease, unspecified; Z98.84 Bariatric surgery status; Z79.891 Long term (current) use of opiate analgesic; Z79.899 Other long term (current) drug therapy; F17.210 Nicotine dependence, cigarettes, uncomplicated; Z88.5 Allergy status to narcotic agent; Z91.040 Latex allergy status; Z91.048 Other nonmedicinal substance allergy status

== ENCOUNTER → 2023-08-22 | Outpatient (CLI) | payer OTHER ==
[~2023-08-22] MED LIST changes: -OXYB5TAB11 PO; +OXYB5TAB14 PO
== END ==
LOC: M PAIN 17:30
PROVIDERS: ATTEND Nurse Practitioner Family
DX: M51.16 Intervertebral disc disorders with radiculopathy, lumbar region (principal); Z79.891 Long term (current) use of opiate analgesic; E11.40 Type 2 diabetes mellitus with diabetic neuropathy, unspecified; I10 Essential (primary) hypertension; E78.00 Pure hypercholesterolemia, unspecified; J44.9 Chronic obstructive pulmonary disease, unspecified; F17.210 Nicotine dependence, cigarettes, uncomplicated; Z79.899 Other long term (current) drug therapy; Z88.5 Allergy status to narcotic agent; Z91.040 Latex allergy status; Z91.048 Other nonmedicinal substance allergy status

== ENCOUNTER → 2023-10-11 | Outpatient (CLI) | payer OTHER ==
[2023-10-11 17:45] LABS: HEMATOCRIT 41.3 % (36.0-47.0); HEMOGLOBIN 13.2 g/dl (12.0-15.5); MEAN CORPUSCULAR HEMOGLOBIN 27.9 pg (27.0-33.0); MEAN CORPUSCULAR VOLUME 87.3 fl (80.0-96.0); PLATELET COUNT, AUTOMATED 340 10^3/uL (150-450); RED BLOOD COUNT 4.73 10^6/uL (4.00-5.40); WHITE BLOOD COUNT 12.2 10^3/uL (4.0-10.0)
[2023-10-11 18:19] LABS: IRON (FE) 25 UG/DL (50-170)
[2023-10-11 18:20] LABS: ALBUMIN 3.5 G/DL (3.2-5.2); ALKALINE PHOSPHATASE 104 U/L (46-116); ALT/SGPT 13 U/L (7.0-40); AST/SGOT 10 U/L (<34); BILIRUBIN,TOTAL 0.2 MG/DL (0.3-1.2); BLOOD UREA NITROGEN 9 MG/DL (9-23); CALCIUM LEVEL 8.8 MG/DL (8.3-10.6); CARBON DIOXIDE LEVEL 27 MMOL/L (20-31); CHLORIDE LEVEL 106 MMOL/L (98-107); CHOLESTEROL LEVEL 142 MG/DL (<200); CHOLESTEROL RISK RATIO 4.42 (<5); CREATININE FOR GFR 0.65 MG/DL (0.55-1.30); FERRITIN 25.5 NG/ML (7.3-270.7); GLOMERULAR FILTRATION RATE > 60.0 (>45); GLUCOSE, FASTING 89 MG/DL (74-106); HDL CHOLESTEROL 32.1 MG/DL (>40); LDL CHOLESTEROL 88.9 MG/DL (<100); NON-HDL-C 109.9 MG/DL; POTASSIUM SERUM 4.1 MMOL/L (3.5-5.1); SODIUM LEVEL 139 MMOL/L (136-145); THYROID STIMULATING HORMONE 1.165 uIU/ML (0.55-4.78); TOTAL 25(OH) VITAMIN D 21.5 NG/ML (20.0-100.0); TOTAL PROTEIN 6.1 G/DL (5.7-8.2); TRIGLYCERIDES LEVEL 105 MG/DL (<150); VITAMIN B12 LEVEL 269 PG/ML (211-911)
== END ==
LOC: M PLALAB 16:40
PROVIDERS: ATTEND Nurse Practitioner Adult Health
DX: Z98.84 Bariatric surgery status (principal); E11.21 Type 2 diabetes mellitus with diabetic nephropathy; E78.2 Mixed hyperlipidemia; E55.9 Vitamin D deficiency, unspecified

== ENCOUNTER → 2023-10-18 | Outpatient (CLI) | payer OTHER ==
[~2023-10-18] MED LIST changes: +ISOVUE-M 300 61% 15ML VIAL As Ordered ONE; +LIDOCAINE 1% SDV 30ML VIAL As Ordered ONE; +methylPREDNISolone SUSP 40MG/ML 1ML VIAL (DEPO MEDROL) As Ordered ONE
== END ==
LOC: M PAIN 14:30
PROVIDERS: ATTEND Anesthesiology
DX: M51.16 Intervertebral disc disorders with radiculopathy, lumbar region (principal); G89.29 Other chronic pain; E11.40 Type 2 diabetes mellitus with diabetic neuropathy, unspecified; I10 Essential (primary) hypertension; E78.00 Pure hypercholesterolemia, unspecified; J44.9 Chronic obstructive pulmonary disease, unspecified; K76.0 Fatty (change of) liver, not elsewhere classified; Z98.84 Bariatric surgery status; F17.210 Nicotine dependence, cigarettes, uncomplicated; Z79.891 Long term (current) use of opiate analgesic; Z79.899 Other long term (current) drug therapy; Z88.5 Allergy status to narcotic agent; Z91.040 Latex allergy status; Z91.048 Other nonmedicinal substance allergy status
CPT/HCPCS: 62323; J1010; Q9967

== ENCOUNTER → 2023-11-22 | Outpatient (CLI) | payer OTHER ==
[~2023-11-22] MED LIST changes: -ISOVUE-M 300 61% 15ML VIAL As Ordered ONE; -LIDOCAINE 1% SDV 30ML VIAL As Ordered ONE; -methylPREDNISolone SUSP 40MG/ML 1ML VIAL (DEPO MEDROL) As Ordered ONE
== END ==
LOC: M PAIN 16:30
PROVIDERS: ATTEND Nurse Practitioner Family
DX: M51.16 Intervertebral disc disorders with radiculopathy, lumbar region (principal); G89.29 Other chronic pain; E11.40 Type 2 diabetes mellitus with diabetic neuropathy, unspecified; I10 Essential (primary) hypertension; E78.00 Pure hypercholesterolemia, unspecified; J44.9 Chronic obstructive pulmonary disease, unspecified; Z98.84 Bariatric surgery status; F17.210 Nicotine dependence, cigarettes, uncomplicated; Z79.891 Long term (current) use of opiate analgesic; Z79.899 Other long term (current) drug therapy; Z88.5 Allergy status to narcotic agent; Z91.040 Latex allergy status; Z91.048 Other nonmedicinal substance allergy status

== ENCOUNTER → 2023-12-14 | Outpatient (CLI) | payer OTHER | LOC: M PLALAB 15:54 | PROVIDERS: ATTEND Nurse Practitioner Adult Health | DX: M25.551 Pain in right hip (principal) ==

== ENCOUNTER 2024-01-02 13:56 | Outpatient (CLI) | payer OTHER ==
[~2024-01-02] VITALS: Ht 157.5 cm; Wt 81.8 kg
[~2024-01-02 13:56] MED LIST changes: +ALBUTEROL SULFATE 2.5MG/0.5ML INH NEB SOLN INH PRN; +EPINEPHrine INJ 1 MG/ML 1ML AMP IM PRN; +NS 1,000 ML IV SCH; +diphenhydrAMINE 50MG/ML VIAL IV PRN; +methylPREDNISolone 125MG 2ML VIAL IV PRN
[2024-01-02 14:25] VITALS: BP 157/79; O2SAT 97
[2024-01-02] MEDS: IRON SUCROSE 200 MG in NS 100 ML IV ONE (14:45)
[2024-01-02 16:00] VITALS: BP 159/77; O2SAT 97
== END 2024-01-02 16:05 ==
LOC: M INFU 13:56
PROVIDERS: ATTEND Nurse Practitioner Adult Health
DX: D50.9 Iron deficiency anemia, unspecified (principal); Z98.84 Bariatric surgery status; Z88.8 Allergy status to other drugs, medicaments and biological substances; Z91.048 Other nonmedicinal substance allergy status
CPT/HCPCS: 96365; J1756

== ENCOUNTER → 2024-01-19 | Outpatient (CLI) | payer OTHER ==
[~2024-01-19] MED LIST changes: -ALBUTEROL SULFATE 2.5MG/0.5ML INH NEB SOLN INH PRN; -EPINEPHrine INJ 1 MG/ML 1ML AMP IM PRN; -NS 1,000 ML IV SCH; -diphenhydrAMINE 50MG/ML VIAL IV PRN; -methylPREDNISolone 125MG 2ML VIAL IV PRN
== END ==
LOC: M PAIN 16:00
PROVIDERS: ATTEND Nurse Practitioner Family
DX: M51.16 Intervertebral disc disorders with radiculopathy, lumbar region (principal); G89.29 Other chronic pain; E11.40 Type 2 diabetes mellitus with diabetic neuropathy, unspecified; Z98.84 Bariatric surgery status; I10 Essential (primary) hypertension; E78.00 Pure hypercholesterolemia, unspecified; J44.9 Chronic obstructive pulmonary disease, unspecified; K76.0 Fatty (change of) liver, not elsewhere classified; F17.210 Nicotine dependence, cigarettes, uncomplicated; Z79.899 Other long term (current) drug therapy; Z88.5 Allergy status to narcotic agent; Z91.040 Latex allergy status; Z91.048 Other nonmedicinal substance allergy status

== ENCOUNTER → 2024-02-21 | Outpatient (CLI) | payer OTHER ==
[~2024-02-21] MED LIST changes: +GABA-1172 PO; -GABA-282 PO
[2024-02-21 11:01] LABS: HEMATOCRIT 44.1 % (36.0-47.0); MEAN CORPUSCULAR HEMOGLOBIN 27.9 pg (27.0-33.0); MEAN CORPUSCULAR HGB CONC 31.7 g/dl (32.0-36.5); MEAN CORPUSCULAR VOLUME 87.8 fl (80.0-96.0); PLATELET COUNT, AUTOMATED 315 10^3/uL (150-450); RED BLOOD COUNT 5.02 10^6/uL (4.00-5.40); WHITE BLOOD COUNT 9.3 10^3/uL (4.0-10.0)
[2024-02-21 11:23] LABS: CREATININE, URINE 175.1 MG/DL
[2024-02-21 11:24] LABS: MALB URINE SIEMENS < 3.0 MG/L; MAU/CREAT RATIO 1.7 MCG/MG (0.0-30.0)
[2024-02-21 11:27] LABS: HEMOGLOBIN A1c 5.9 % (4.0-6.0)
[2024-02-21 11:38] LABS: ALBUMIN 3.6 G/DL (3.2-5.2); ALKALINE PHOSPHATASE 111 U/L (46-116); ALT/SGPT < 9 U/L (7.0-40); AST/SGOT < 8 U/L (<34); BILIRUBIN,TOTAL 0.4 MG/DL (0.3-1.2); BLOOD UREA NITROGEN 9 MG/DL (9-23); CARBON DIOXIDE LEVEL 30 MMOL/L (20-31); CHLORIDE LEVEL 109 MMOL/L (98-107); CHOLESTEROL LEVEL 172 MG/DL (<200); CHOLESTEROL RISK RATIO 4.67 (<5); CREATININE FOR GFR 0.69 MG/DL (0.55-1.30); GLOMERULAR FILTRATION RATE > 60.0 (>45); GLUCOSE, FASTING 86 MG/DL (74-106); HDL CHOLESTEROL 36.8 MG/DL (>40); IRON (FE) 76 UG/DL (50-170); LDL CHOLESTEROL 111.2 MG/DL (<100); NON-HDL-C 135.2 MG/DL; POTASSIUM SERUM 4.3 MMOL/L (3.5-5.1); SODIUM LEVEL 139 MMOL/L (136-145); TOTAL PROTEIN 6.5 G/DL (5.7-8.2); TRIGLYCERIDES LEVEL 120 MG/DL (<150)
[2024-02-21 11:40] LABS: FERRITIN 25.9 NG/ML (7.3-270.7); TOTAL 25(OH) VITAMIN D 18.4 NG/ML (20.0-100.0); VITAMIN B12 LEVEL 234 PG/ML (211-911)
== END ==
LOC: M PLALAB 07:31
PROVIDERS: ATTEND Nurse Practitioner Adult Health
DX: Z00.01 Encounter for general adult medical examination with abnormal findings (principal); Z98.84 Bariatric surgery status; E11.21 Type 2 diabetes mellitus with diabetic nephropathy; E78.2 Mixed hyperlipidemia; E55.9 Vitamin D deficiency, unspecified

== ENCOUNTER → 2024-04-24 | Outpatient (CLI) | payer OTHER | LOC: M PAIN 13:45 | PROVIDERS: ATTEND Anesthesiology | DX: M51.16 Intervertebral disc disorders with radiculopathy, lumbar region (principal); E11.40 Type 2 diabetes mellitus with diabetic neuropathy, unspecified; I10 Essential (primary) hypertension; E78.00 Pure hypercholesterolemia, unspecified; J44.9 Chronic obstructive pulmonary disease, unspecified; Z98.84 Bariatric surgery status; F17.210 Nicotine dependence, cigarettes, uncomplicated; Z79.891 Long term (current) use of opiate analgesic; Z79.899 Other long term (current) drug therapy ==

== ENCOUNTER → 2024-05-01 | Outpatient (CLI) | payer OTHER | LOC: M PAIN 14:30 | PROVIDERS: ATTEND Anesthesiology | DX: M51.16 Intervertebral disc disorders with radiculopathy, lumbar region (principal); G89.29 Other chronic pain; E11.40 Type 2 diabetes mellitus with diabetic neuropathy, unspecified; Z98.84 Bariatric surgery status; I10 Essential (primary) hypertension; E78.00 Pure hypercholesterolemia, unspecified; J44.9 Chronic obstructive pulmonary disease, unspecified; F17.210 Nicotine dependence, cigarettes, uncomplicated; Z79.891 Long term (current) use of opiate analgesic; Z79.899 Other long term (current) drug therapy; Z88.5 Allergy status to narcotic agent; Z91.040 Latex allergy status; Z91.048 Other nonmedicinal substance allergy status ==

== ENCOUNTER → 2024-05-11 | Outpatient (CLI) | payer OTHER ==
[~2024-05-11] MED LIST changes: +ISOVUE-M 300 61% 15ML VIAL As Ordered ONE; +LIDOCAINE 1% SDV 30ML VIAL As Ordered ONE; +dexAMETHasone 10MG/1ML VIAL PRES.FREE As Ordered ONE
== END ==
LOC: M PAIN 12:45
PROVIDERS: ATTEND Anesthesiology
DX: M51.16 Intervertebral disc disorders with radiculopathy, lumbar region (principal); G89.29 Other chronic pain; E11.40 Type 2 diabetes mellitus with diabetic neuropathy, unspecified; Z98.84 Bariatric surgery status; I10 Essential (primary) hypertension; E78.00 Pure hypercholesterolemia, unspecified; J44.9 Chronic obstructive pulmonary disease, unspecified; F17.210 Nicotine dependence, cigarettes, uncomplicated; Z79.891 Long term (current) use of opiate analgesic; Z79.899 Other long term (current) drug therapy; Z88.5 Allergy status to narcotic agent; Z91.040 Latex allergy status; Z91.048 Other nonmedicinal substance allergy status
CPT/HCPCS: 64483; 64484; J0665; J1100; Q9967

== ENCOUNTER → 2024-06-11 | Outpatient (CLI) | payer OTHER ==
[~2024-06-11] MED LIST changes: -ISOVUE-M 300 61% 15ML VIAL As Ordered ONE; -LIDOCAINE 1% SDV 30ML VIAL As Ordered ONE; -dexAMETHasone 10MG/1ML VIAL PRES.FREE As Ordered ONE
== END ==
LOC: M PAIN 14:45
PROVIDERS: ATTEND Nurse Practitioner Family
DX: M47.816 Spondylosis without myelopathy or radiculopathy, lumbar region (principal); Z79.891 Long term (current) use of opiate analgesic; G89.29 Other chronic pain; Z79.899 Other long term (current) drug therapy; F17.210 Nicotine dependence, cigarettes, uncomplicated; Z88.5 Allergy status to narcotic agent; Z91.040 Latex allergy status; Z91.048 Other nonmedicinal substance allergy status

== ENCOUNTER → 2024-08-10 | Outpatient (CLI) | payer OTHER | LOC: M PLAIMG 09:03 | PROVIDERS: ATTEND Nurse Practitioner Adult Health | DX: M19.041 Primary osteoarthritis, right hand (principal); R22.31 Localized swelling, mass and lump, right upper limb ==

== ENCOUNTER → 2025-04-08 | Outpatient (CLI) | payer OTHER ==
[~2025-04-08] MED LIST changes: -FLOM0.4C39 PO; +LIDO1ADH93 TD; -LIDO5DIS41 TD; +TAMS-18 PO
[2025-04-08 14:29] LABS: PLATELET COUNT, AUTOMATED 351 10^3/uL (150-450)
[2025-04-08 14:39] LABS: ALT/SGPT 11 U/L (7.0-40); AST/SGOT 13 U/L (<34); CALCIUM LEVEL 9.0 MG/DL (8.3-10.6); CARBON DIOXIDE LEVEL 28 MMOL/L (20-31); CHLORIDE LEVEL 108 MMOL/L (98-107); CHOLESTEROL LEVEL 186 MG/DL (<200); CHOLESTEROL RISK RATIO 4.00 (<5); CREATININE FOR GFR 0.67 MG/DL (0.55-1.30); GLOMERULAR FILTRATION RATE > 90.0 (>45); LDL CHOLESTEROL 115.3 MG/DL (<100); NON-HDL-C 139.5 MG/DL; POTASSIUM SERUM 4.8 MMOL/L (3.5-5.1); SODIUM LEVEL 143 MMOL/L (136-145); TRIGLYCERIDES LEVEL 121 MG/DL (<150)
[2025-04-08 14:41] LABS: TOTAL 25(OH) VITAMIN D 18.6 NG/ML (20.0-100.0)
[2025-04-08 14:42] LABS: ESTIMATED AVERAGE GLUCOSE 131.0 MG/DL (60-110)
[2025-04-08 14:51] LABS: CREATININE, URINE 127.2 MG/DL; MALB URINE SIEMENS < 3.0 MG/L
== END ==
LOC: M PLALAB 10:40
PROVIDERS: ATTEND Nurse Practitioner Adult Health
DX: Z00.00 Encounter for general adult medical examination without abnormal findings (principal); Z98.84 Bariatric surgery status; E11.21 Type 2 diabetes mellitus with diabetic nephropathy; E78.2 Mixed hyperlipidemia; E55.9 Vitamin D deficiency, unspecified